=== PATIENT | male | born 1945 | race Caucasian/White ===

== ENCOUNTER 2018-09-02 11:08 | Inpatient (IN) | payer MEDICARE ==
[2018-09-02] VITALS (12 sets, daily range): BP systolic 127–166; BP diastolic 56–79
[~2018-09-02] VITALS: Ht 175.3 cm; Wt 113.6 kg
[~2018-09-02 11:08] MED LIST: ATOR40TA59 PO; DILT120C80 PO; GLIP10TA13 PO; HYDR-2766 PO; METF10007 PO; METO-269 PO; OMEP40CA5 PO; TIZA4CAP PO; WARF-31 PO; WARF2.5T71 PO
[2018-09-02] MEDS ORDERED: dilTIAZem IV PUSH 25 MG/5 ML VIAL IVP ONE ×2 (11:30→12:30)
--- NOTE | 2018-09-02 12:18 | PHYS DOC ---
Past Medical History Past Medical History: A-Fib, CVA, Diabetes-Type II, GERD, High Cholesterol, Hypertension, Vascular Disease Past Surgical History: Other Additional Past Surgical Histo: COLON RESECTION FOR DIVERTICULITIS,REMOVAL OF POP TOP FROM RIGHT UPPER LUNG Alcohol Use: None Drug Use: None Adult General Chief Complaint Chief Complaint: RAPID HEART RATE HPI HPI Patient is a 73-year-old male who presents with report of rapid A. fib. He indicates that he is been feeling poorly for the last few weeks but over the last 4 days, he states that he has been feeling much worse. He indicates that for the last few days he has had intermittent chest discomfort that occurs only on exertion. He also gets shortness of breath with exertion. Currently he does admit to some shortness of breath but denies any chest pain. He states his last episode of chest pain was just before coming to the emergency room when he gotten up to go to the bathroom and developed chest pain while walking. Patient indicates that he does have a history of atrial fibrillation and is on warfarin. He states that nothing improves his symptoms. Review of Systems Review of Systems Constitutional: Denies fever or chills [] Respiratory: Complains of shortness of breath[] Cardiovascular: Complains of exertional chest pain[] GI: Denies abdominal pain, nausea, vomiting, bloody stools or diarrhea [] Musculoskeletal: Complains of lower extremity swelling and pain[] Integument: Complains of skin lesion/open sores on lower legs with erythema[] All other systems were reviewed and found to be within normal limits, except as documented in this note. Current Medications Current Medications Current Medications Medications (Trade) Dose Ordered Sig/[facility] Start Time Stop Time Status Last Admin Dose Admin Acetaminophen/ Hydrocodone Bitart (Lortab 5/325) 1 tab 1X ONCE 09/02/18 13:00 09/02/18 13:01 DC 09/02/18 13:02 1 TAB Diltiazem HCl (Cardizem) 10 mg 1X ONCE 09/02/18 12:30 09/02/18 12:31 DC 09/02/18 12:47 10 MG Diltiazem HCl 125 mg/Dextrose 125 ml @ 5 mls/hr CONT PRN 09/02/18 12:30 09/02/18 12:48 5 MLS/HR Phytonadione (Mephyton Oral Soln) 2.5 mg 1X ONCE 10/12/18 15:00 09/02/18 15:01 Allergies Allergies Allergies Coded Allergies Type Severity Reaction Last Updated Verified Penicillins Allergy Intermediate hives 06/19/14 Yes Physical Exam Physical Exam Constitutional: Well developed, well nourished, no acute distress, non-toxic appearance. [] HENT: Normocephalic, atraumatic, bilateral external ears normal, oropharynx moist, no oral exudates, nose normal. [] Eyes: PERRLA, EOMI, conjunctiva are pale. [] Neck: Normal range of motion, no tenderness, supple, no stridor. [] Cardiovascular: Markedly tachycardic rate with irregular rhythm[] Lungs & Thorax: There are a few rales noted in the lung bases bilaterally[] Abdomen: Bowel sounds normal, soft, no tenderness. Rectal exam demonstrates good rectal tone with light brown stool. [] Skin: Warm, dry, erythema noted to the lower legs. [] Extremities: There is moderate lower extremity pitting edema noted bilaterally. [] Neurologic: Alert and oriented appropriate for patient, no focal deficits noted. [] Current Patient Data Vital Signs Vital Signs Date Time Temp Pulse Resp B/P (MAP) Pulse Ox O2 Delivery O2 Flow Rate FiO2 09/02/18 14:25 20 100 Nasal Cannula 1.0 09/02/18 14:24 122 127/77 (94) 09/02/18 11:08 97.9 97.9 Lab Values Laboratory Tests Test 09/02/18 11:20 09/02/18 11:37 09/02/18 12:12 White Blood Count 16.9 x10^3/uL (4.0-11.0) H Red Blood Count 2.52 x10^6/uL (4.30-5.70) L Hemoglobin 5.6 g/dL (13.0-17.5) *L Hematocrit 18.9 % (39.0-53.0) *L Mean Corpuscular Volume 75 fL (79-100) L Mean Corpuscular Hemoglobin 22 pg (25-35) L Mean Corpuscular Hemoglobin Concent 30 g/dL (31-37) L Red Cell Distribution Width 20.9 % (11.5-14.5) H Platelet Count 394 x10^3/uL (140-400) Neutrophils (%) (Auto) 79 % (31-73) H Lymphocytes (%) (Auto) 9 % (24-48) L Monocytes (%) (Auto) 11 % (0-9) H Eosinophils (%) (Auto) 0 % (0-3) Basophils (%) (Auto) 0 % (0-3) Neutrophils # (Auto) 13.4 x10^3uL (1.8-7.7) H Lymphocytes # (Auto) 1.6 x10^3/uL (1.0-4.8) Monocytes # (Auto) 1.9 x10^3/uL (0.0-1.1) H Eosinophils # (Auto) 0.0 x10^3/uL (0.0-0.7) Basophils # (Auto) 0.0 x10^3/uL (0.0-0.2) Segmented Neutrophils % 89 % (35-66) H Lymphocytes % 2 % (24-48) L Monocytes % 7 % (0-10) Eosinophils % 1 % (0-5) Basophils % 1 % (0-3) Platelet Estimate Adequate (ADEQUATE) Hypochromasia Mod Poikilocytosis Slight Anisocytosis Mod Microcytosis Mod Ovalocytes Occ Prothrombin Time 60.5 SEC (11.7-14.0) H Prothrombin Time INR 7.2 (0.8-1.1) *H Sodium Level 139 mmol/L (136-145) Potassium Level 4.9 mmol/L (3.5-5.1) Chloride Level 104 mmol/L (98-107) Carbon Dioxide Level 19 mmol/L (21-32) L Anion Gap 16 (6-14) H Blood Urea Nitrogen 24 mg/dL (8-26) Creatinine 1.9 mg/dL (0.7-1.3) H Estimated GFR (Cockcroft-Gault) 34.8 BUN/Creatinine Ratio 13 (6-20) Glucose Level 208 mg/dL (70-99) H Calcium Level 8.8 mg/dL (8.5-10.1) Magnesium Level 1.7 mg/dL (1.8-2.4) L Total Bilirubin 0.4 mg/dL (0.2-1.0) Aspartate Amino Transferase (AST) 14 U/L (15-37) L Alanine Aminotransferase (ALT) 12 U/L (16-63) L Alkaline Phosphatase 104 U/L (46-116) Troponin I Quantitative < 0.017 ng/mL (0.000-0.055) FD-Oyv-C-Type Natriuretic Peptide 8266 pg/mL (0-124) H Total Protein 7.2 g/dL (6.4-8.2) Albumin 2.5 g/dL (3.4-5.0) L Albumin/Globulin Ratio 0.5 (1.0-1.7) L Thyroid Stimulating Hormone (TSH) 1.619 uIU/mL (0.358-3.74) POC Troponin I 0.02 ng/ml (<0.08) Stool Occult Blood Negative (NEG) Laboratory Tests 09/02/18 11:20 Laboratory Tests 09/02/18 11:20 EKG EKG [] Interpretation Time: EKG demonstrates atrial fibrillation with RVR with rate of 152. Radiology/Procedures Radiology/Procedures [] Impressions: Chest x-ray demonstrates some mild interstitial prominence Course & Med Decision Making Course & Med Decision Making Pertinent Labs and Imaging studies reviewed. (See chart for details) [] Dragon Disclaimer Dragon Disclaimer This electronic medical record was generated, in whole or in part, using a voice recognition dictation system. Departure Departure Impression: Primary Impression: Atrial fibrillation with RVR Additional Impressions: CHF (congestive heart failure) Symptomatic anemia Disposition: ADMITTED INPATIENT Admitting Physician: Kendra Haskins Condition: GUARDED Referrals: CONY BERRIOS MD (PCP) Problem Qualifiers Additional Impressions: CHF (congestive heart failure) Heart failure type: unspecified Heart failure chronicity: unspecified Qualified Codes: I50.9 - Heart failure, unspecified KEENAN LEVIN Jr. DO Sep 02, 2018 12:18
--- NOTE | 2018-09-02 12:19 | EKG ---
[facility] [address] [place] [address] Test Date: 2018-09-02 Test Time: 11:13:43 Pat Name: LISSA TIRADO Department: Room: Gender: M Launch Operator: : 1945 Requested By: KEENAN LEVIN Order Number: [id number] Reading MD: Andrez Chavez MD Measurements Intervals [place] Rate: 152 P: VA: QRS: 42 QRSD: 80 T: -105 QT: 228 QTc: 368 Interpretive Statements ATRIAL FIBRILLATION WITH RVR Electronically Signed On 09-05-2018 8:50:56 CDT by Andrez Chavez MD
[2018-09-02 12:25] LABS: BASO % 0 % (0-3); EOS % 0 % (0-3); LYMPH # 1.6 x10^3/uL (1.0-4.8); LYMPH % 9 % (24-48); MEAN CORPUSCULAR HEMOGLOBIN 22 pg (25-35); MEAN CORPUSCULAR HGB CONC 30 g/dL (31-37); MEAN CORPUSCULAR VOLUME 75 fL (79-100); MONO # 1.9 x10^3/uL (0.0-1.1); MONO % 11 % (0-9); NEUT # 13.4 x10^3uL (1.8-7.7); NEUT % 79 % (31-73); PLATELET COUNT 394 x10^3/uL (140-400); RED BLOOD COUNT 2.52 x10^6/uL (4.30-5.70); RED CELL DISTRIBUTION WIDTH 20.9 % (11.5-14.5); WHITE BLOOD COUNT 16.9 x10^3/uL (4.0-11.0)
[2018-09-02 12:26] LABS: HEMATOCRIT 18.9 % (39.0-53.0); HEMOGLOBIN 5.6 g/dL (13.0-17.5)
[2018-09-02 12:28] LABS: PROTHROMBIN TIME PATIENT 60.5 SEC (11.7-14.0)
[2018-09-02 12:44] LABS: ALBUMIN 2.5 g/dL (3.4-5.0); ALBUMIN/GLOBULIN RATIO 0.5 (1.0-1.7); CALCIUM 8.8 mg/dL (8.5-10.1); CREATININE 1.9 mg/dL (0.7-1.3); GFR 34.8; POTASSIUM 4.9 mmol/L (3.5-5.1); TOTAL BILIRUBIN 0.4 mg/dL (0.2-1.0); TOTAL PROTEIN 7.2 g/dL (6.4-8.2)
[2018-09-02 12:45] LABS: MAGNESIUM 1.7 mg/dL (1.8-2.4)
[2018-09-02] MEDS: dilTIAZem INJ 125 MG in IV DEXTROSE 5% 100ML 100 ML IV PRN ×2 (12:48→22:06)
[2018-09-02] MEDS ORDERED: HYDROcodone/APAP 5/325MG 1 TAB TABLET PO ONE (13:00)
[2018-09-02 13:03] LABS: % BASOS 1 % (0-3); % EOS 1 % (0-5); % LYMPHS 2 % (24-48); % MONOS 7 % (0-10); % SEGS 89 % (35-66)
[2018-09-02 13:12] LABS: ANISOCYTOSIS MOD; HYPOCHROMIA MOD; MICROCYTOSIS MOD; PLT ESTIMATE ADEQUATE (ADEQUATE)
[2018-09-02 13:13] LABS: OVALOCYTES OCC; POIKILOCYTOSIS SLIGHT
[2018-09-02 13:50] LABS: FECAL OB PT NEGATIVE (NEG)
--- NOTE | 2018-09-02 14:58 | PDOC1 ---
History and Physical Date of Admission Date of Admission DATE: 09/02/18 TIME: 14:56 Identification/Chief Complaint Chief Complaint Weak, SOA Source Source: Caregiver, Chart review, Patient History of Present Illness History of Present Illness 43-year-old male who lives at home with family, previously was at [facility] when I last saw him 2 years ago and has managed to be out of the hospital for 2 yrs. He was here 2016 for a diagnosis of strep bacteremia with chronic A. fib lows with Dr. Barney. On Coumadin, INR is 7, with a hemoglobin of 5.6, but family actually says that he has been skipping his medications for the past couple weeks. WBC 16.9 with platelets 394. He has multiple petechiae on bilateral upper and lower extremity that family just noticed when I called their attention to, Patient complains of leg pains, legs are very dry, with scaling and sloughing off dry skin - swollen legs with long toenails and poor overall hygiene. He denies ny SOA or chest pain current;y. He is A. fib RVR with a heart rate of 120s, to be started on Cardizem drip. Other labs that are abnormal include a bicarbonate of 19 and a creatinine of 1.9. Anion gap elevated at 16. My plan is to hold metformin and warfarin. I agree with vitamin K by mouth because of the high INR with significant anemia, hemoglobin of 5.6. He is pale as the sheets,. We Did type and cross for 2 units as discussed with ER Merna. I also concerned to rule out DIC given petechia, high INR, significant anemia. We'll check a d-dimer and fibrinogen and fibrin split products. Stat x-rays done but pending. Albumin is also low at 2.5. BNP elevated at 8300 and seems to have an element of heart failure likewise. We will give some Lasix 60 IV 1, consult renal regarding the need for Lasix and a creatinine of 1.9, regarding anasarca. Low magnesium, will replace, magnesium is 1.7 Multiple medical issues, seen at ER, will admit to ICU on Cardizem drip Past Medical History Cardiovascular: AFIB, CHF, HTN, Hyperlipidemia Infectious disease: Other (strep bacteremia 2016) Dermatology: Cellulitis Past Surgical History Past Surgical History: No pertinent history Family History Family History: High Cholestrol, Hypertension Social History Smoke: No ALCOHOL: none Drugs: None Current Problem List Problem List Problems Medical Problems: (1) Atrial fibrillation with RVR Status: Acute (2) CHF (congestive heart failure) Status: Acute (3) Symptomatic anemia Status: Acute Current Medications Current Medications Current Medications Diltiazem HCl (Cardizem) 10 mg 1X ONCE IVP Last administered on 09/02/18at 11: 31; Start 09/02/18 at 11:30; Stop 09/02/18 at 11:31; Status DC Diltiazem HCl (Cardizem) 10 mg 1X ONCE IVP Last administered on 09/02/18at 12: 47; Start 09/02/18 at 12:30; Stop 09/02/18 at 12:31; Status DC Diltiazem HCl 125 mg/Dextrose 125 ml @ 5 mls/hr CONT PRN IV SEE I/O RECORD Last administered on 09/02/18at 12:48; Start 09/02/18 at 12:30 Acetaminophen/ Hydrocodone Bitart (Lortab 5/325) 1 tab 1X ONCE PO Last administered on 09/02/18at 13:02; Start 09/02/18 at 13:00; Stop 09/02/18 at 13 :01; Status DC Phytonadione (Mephyton Oral Soln) 2.5 mg 1X ONCE PO ; Start 09/02/18 at 15:00 ; Stop 09/02/18 at 15:01 Furosemide (Lasix) 40 mg BID92 IVP ; Start 09/03/18 at 09:00; Status UNV Furosemide (Lasix) 60 mg 1X ONCE IVP ; Start 09/02/18 at 15:00; Stop at 15:01 Multi-Ingred Cream/Lotion/Oil/ Oint (Hydrocerin Cream) 1 sondra PRN Q1HR PRN TP DRY SKIN / SCALING; Start 09/02/18 at 15:00; Status UNV Albuterol/ Ipratropium (Duoneb) 3 ml RTQID NEB ; Start 09/02/18 at 16:00; Status UNV Guaifenesin (Robitussin Dm) 10 ml PRN Q6HRS PRN PO COUGH; Start 09/02/18 at 15 :00; Status UNV Active Scripts Active Reported Toprol Xl (Metoprolol Succinate) 50 Mg Tab.er.24h 50 Mg PO DAILY Glipizide 10 Mg Tablet 10 Mg PO DAILY Diltiazem 24HR Cd (Diltiazem Hcl) 120 Mg Cap.er.24h 120 Mg PO DAILY Tizanidine Hcl 4 Mg Capsule 4 Mg PO QID PRN Omeprazole 40 Mg Capsule.dr 40 Mg PO DAILY Hydrocodone-Apap 10-325 (Hydrocodone Bit/Acetaminophen) 1 Each Tablet 1 Tab PO PRN Q6HRS PRN Metformin Hcl 1,000 Mg Tablet 1,000 Mg PO BID Warfarin Sodium 5 Mg Tablet 5 Mg PO DAILY Warfarin Sodium 2.5 Mg Tablet 2.5 Mg PO DAILY Atorvastatin Calcium 40 Mg Tablet 40 Mg PO DAILY Allergies Allergies: Coded Allergies: Penicillins (Verified Allergy, Intermediate, hives, 06/19/14) ROS Review of System as per history of present illness, the rest of ROS 14 point negative Physical Exam General: Alert, Oriented X3, Cooperative, No acute distress HEENT: Atraumatic, PERRLA Lungs: Normal air movement, Other (crAckles at the bases) Heart: no thrills, no rubs, no gallops, no murmurs, irregularly irregular, other (heart rate 120s, A. fib) Cardiovascular: S1, S2 Abdomen: Normal bowel sounds, Soft, No tenderness, No hepatosplenomegaly, No masses Male Genitals Exam: normal genitalia Skin: Other (very dry skin with sloughing off of some epidermidis, scaling, long toenails, poor overall hygiene, +3 pitting edema left greater than the right some redness appreciable) Neuro: Normal gait, Normal speech, Strength at 5/5 X4 ext, Normal tone, Sensation intact, Cranial nerves 3-12 NL, Reflexes 2+ Psych/Mental Status: Mental status NL, Mood NL Vitals Vitals Vital Signs Date Time Temp Pulse Resp B/P (MAP) Pulse Ox O2 Delivery O2 Flow Rate FiO2 09/02/18 14:25 20 100 Nasal Cannula 1.0 09/02/18 14:24 122 127/77 (94) 09/02/18 11:08 97.9 97.9 Labs Labs Laboratory Tests Test 09/02/18 11:20 09/02/18 11:37 09/02/18 12:12 White Blood Count 16.9 x10^3/uL (4.0-11.0) Red Blood Count 2.52 x10^6/uL (4.30-5.70) Hemoglobin 5.6 g/dL (13.0-17.5) Hematocrit 18.9 % (39.0-53.0) Mean Corpuscular Volume 75 fL (79-100) Mean Corpuscular Hemoglobin 22 pg (25-35) Mean Corpuscular Hemoglobin Concent 30 g/dL (31-37) Red Cell Distribution Width 20.9 % (11.5-14.5) Platelet Count 394 x10^3/uL (140-400) Neutrophils (%) (Auto) 79 % (31-73) Lymphocytes (%) (Auto) 9 % (24-48) Monocytes (%) (Auto) 11 % (0-9) Eosinophils (%) (Auto) 0 % (0-3) Basophils (%) (Auto) 0 % (0-3) Neutrophils # (Auto) 13.4 x10^3uL (1.8-7.7) Lymphocytes # (Auto) 1.6 x10^3/uL (1.0-4.8) Monocytes # (Auto) 1.9 x10^3/uL (0.0-1.1) Eosinophils # (Auto) 0.0 x10^3/uL (0.0-0.7) Basophils # (Auto) 0.0 x10^3/uL (0.0-0.2) Segmented Neutrophils % 89 % (35-66) Lymphocytes % 2 % (24-48) Monocytes % 7 % (0-10) Eosinophils % 1 % (0-5) Basophils % 1 % (0-3) Platelet Estimate Adequate (ADEQUATE) Hypochromasia Mod Poikilocytosis Slight Anisocytosis Mod Microcytosis Mod Ovalocytes Occ Prothrombin Time 60.5 SEC (11.7-14.0) Prothromb Time International Ratio 7.2 (0.8-1.1) Sodium Level 139 mmol/L (136-145) Potassium Level 4.9 mmol/L (3.5-5.1) Chloride Level 104 mmol/L (98-107) Carbon Dioxide Level 19 mmol/L (21-32) Anion Gap 16 (6-14) Blood Urea Nitrogen 24 mg/dL (8-26) Creatinine 1.9 mg/dL (0.7-1.3) Estimated GFR (Cockcroft-Gault) 34.8 BUN/Creatinine Ratio 13 (6-20) Glucose Level 208 mg/dL (70-99) Calcium Level 8.8 mg/dL (8.5-10.1) Magnesium Level 1.7 mg/dL (1.8-2.4) Total Bilirubin 0.4 mg/dL (0.2-1.0) Aspartate Amino Transf (AST/SGOT) 14 U/L (15-37) Alanine Aminotransferase (ALT/SGPT) 12 U/L (16-63) Alkaline Phosphatase 104 U/L (46-116) Troponin I Quantitative < 0.017 ng/mL (0.000-0.055) OL-Cbw-Q-Type Natriuretic Peptide 8266 pg/mL (0-124) Total Protein 7.2 g/dL (6.4-8.2) Albumin 2.5 g/dL (3.4-5.0) Albumin/Globulin Ratio 0.5 (1.0-1.7) Thyroid Stimulating Hormone (TSH) 1.619 uIU/mL (0.358-3.74) Bedside Troponin I 0.02 ng/ml (<0.08) Stool Occult Blood Negative (NEG) Laboratory Tests Test 09/02/18 11:20 09/02/18 11:37 09/02/18 12:12 White Blood Count 16.9 x10^3/uL (4.0-11.0) Red Blood Count 2.52 x10^6/uL (4.30-5.70) Hemoglobin 5.6 g/dL (13.0-17.5) Hematocrit 18.9 % (39.0-53.0) Mean Corpuscular Volume 75 fL (79-100) Mean Corpuscular Hemoglobin 22 pg (25-35) Mean Corpuscular Hemoglobin Concent 30 g/dL (31-37) Red Cell Distribution Width 20.9 % (11.5-14.5) Platelet Count 394 x10^3/uL (140-400) Neutrophils (%) (Auto) 79 % (31-73) Lymphocytes (%) (Auto) 9 % (24-48) Monocytes (%) (Auto) 11 % (0-9) Eosinophils (%) (Auto) 0 % (0-3) Basophils (%) (Auto) 0 % (0-3) Neutrophils # (Auto) 13.4 x10^3uL (1.8-7.7) Lymphocytes # (Auto) 1.6 x10^3/uL (1.0-4.8) Monocytes # (Auto) 1.9 x10^3/uL (0.0-1.1) Eosinophils # (Auto) 0.0 x10^3/uL (0.0-0.7) Basophils # (Auto) 0.0 x10^3/uL (0.0-0.2) Segmented Neutrophils % 89 % (35-66) Lymphocytes % 2 % (24-48) Monocytes % 7 % (0-10) Eosinophils % 1 % (0-5) Basophils % 1 % (0-3) Platelet Estimate Adequate (ADEQUATE) Hypochromasia Mod Poikilocytosis Slight Anisocytosis Mod Microcytosis Mod Ovalocytes Occ Prothrombin Time 60.5 SEC (11.7-14.0) Prothromb Time International Ratio 7.2 (0.8-1.1) Sodium Level 139 mmol/L (136-145) Potassium Level 4.9 mmol/L (3.5-5.1) Chloride Level 104 mmol/L (98-107) Carbon Dioxide Level 19 mmol/L (21-32) Anion Gap 16 (6-14) Blood Urea Nitrogen 24 mg/dL (8-26) Creatinine 1.9 mg/dL (0.7-1.3) Estimated GFR (Cockcroft-Gault) 34.8 BUN/Creatinine Ratio 13 (6-20) Glucose Level 208 mg/dL (70-99) Calcium Level 8.8 mg/dL (8.5-10.1) Magnesium Level 1.7 mg/dL (1.8-2.4) Total Bilirubin 0.4 mg/dL (0.2-1.0) Aspartate Amino Transf (AST/SGOT) 14 U/L (15-37) Alanine Aminotransferase (ALT/SGPT) 12 U/L (16-63) Alkaline Phosphatase 104 U/L (46-116) Troponin I Quantitative < 0.017 ng/mL (0.000-0.055) YF-Qnm-F-Type Natriuretic Peptide 8266 pg/mL (0-124) Total Protein 7.2 g/dL (6.4-8.2) Albumin 2.5 g/dL (3.4-5.0) Albumin/Globulin Ratio 0.5 (1.0-1.7) Thyroid Stimulating Hormone (TSH) 1.619 uIU/mL (0.358-3.74) Bedside Troponin I 0.02 ng/ml (<0.08) Stool Occult Blood Negative (NEG) VTE Prophylaxis Ordered VTE Prophylaxis Devices: Yes VTE Pharmacological Prophylaxi: Yes Assessment/Plan Assessment/Plan acute on chronic A. fib, now RVR Supra therapeutic INR beat despite being noncompliant or skipping warfarin for the past couple days or weeks now as per family Critical/significant anemia, hemoglobin 5.6 Reactive leukocytosis versus infectious Possibly beginning cellulitis bilateral lower extremity Lymphedema bilateral lower extremity Tenia pedis Dry skin AK I/VMN possibly CK D Anasarca Gap metabolic acidosis with an anion gap of 16 and a bicarbonate of 19 Dyslipidemia on statin Diabetes on metformin-hold metformin given creatinine CHF, need to check an echo to see if systolic or diastolic-BNP is elevated at 8300 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-nutrition consult [place] Petecchiae bilateral upper and bilateral lower extremity Generalized weakness-did need [facility] in 2016 History of strep bacteremia 2016 Hypomagnesemia (1.7) Met encephalopathy POA, resolved by the time of ER arrival CP POA< resolved at ER Lymphedema PCN allergy unknown reaction Plan Admit ICU, Cardize drip Consult cardiology Check TSH that is pending HOld metformin given AK I, consult renal regarding Lasix on Wednesday for Lasix anasarca and high creatinine heck hgb A1c Sliding scale insulin high-dose Nutrition consult for that low albumin Start clindamycin regarding possibly beginning cellulitis of bilateral lower extremity Agree with 2 units packed RBC after getting d-dimer fibrin split products and supervision level to rule out DIC in this patient with high INR, significant anemia, Consult heme onc regarding the above Social work, might need SNU Further conditions pending above course DVT prophylaxis with SCDs only because of significant anemia and Petecchiae Consult podiatry regarding toenail clipping Eucerin lotion for dry skin OT for lymphedema PT OT Seen at ER Dw family MDM complex FULL CODE KRISTEN MARQUIS MD Sep 02, 2018 14:58
[2018-09-02] MEDS ORDERED: PHYTONADIONE 10 MG/ML ORAL SOLUTION. PO ONE (15:00)
[2018-09-02] MEDS ORDERED: ONDANSETRON ODT 4 MG TAB.RAPDIS. PO PRN (15:00)
[2018-09-02] MEDS ORDERED: FUROSEMIDE 40 MG/4 ML VIAL. IVP ONE (15:00)
[2018-09-02] MEDS ORDERED: MINERAL OIL/PETROLATUM TOPICAL CREAM 113GM JAR. TP PRN (15:00)
[2018-09-02] MEDS ORDERED: TIZANIDINE HCL 4 MG PO PRN (15:00)
[2018-09-02] MEDS ORDERED: DEXTROSE 50% 25 GM / 50ML DISP.SYRIN. IV PRN (15:00)
[2018-09-02] MEDS ORDERED: ACETAMINOPHEN 500 MG TABLET PO PRN (15:00)
[2018-09-02] MEDS ORDERED: ONDANSETRON PF 4 MG/2 ML VIAL. IV PRN (15:00)
[2018-09-02] MEDS ORDERED: guaiFENesin DM 200MG/20MG 10 ML SYRUP PO PRN (15:00)
[2018-09-02 15:03] LABS: FIBRINOGEN 677 mg/dL (200-440)
[2018-09-02 15:09] LABS: D-DIMER < 0.27 ug/mlFEU (0.00-0.50)
--- NOTE | 2018-09-02 15:09 | RAD ---
Portable chest, 09/02/2018: HISTORY: Chest pain Comparison is made to a study from 11/14/2015. The patient is rotated to the right. The heart is at the upper limits of normal in size. The pulmonary vascularity is normal. Mild ongoing pleural-parenchymal opacities on the right are probably scars. No acute consolidation is seen. There is no evidence of pleural fluid. IMPRESSION: 1. Mild pleural/parenchymal scarring on the right. 2. No acute abnormality is detected. Electronically signed by: Richy Hicks MD (09/02/2018 3:06 PM) [facility]
[2018-09-02] MEDS ORDERED: CLINDAMYCIN 600MG PREMIX 50 ML IV ONE (15:30)
[2018-09-02] MEDS ORDERED: MAGNESIUM SULFATE 1GM 100 ML IV ONE (15:30)
[2018-09-02] MEDS: IPRATRPIUM/ALBUTEROL 0.5/2.5MG 3 ML NEBU. NEB SCH ×2 (16:17→20:01)
[2018-09-02] MEDS ORDERED: tiZANidine 4 MG TABLET. PO PRN (16:30)
--- NOTE | 2018-09-02 16:30 | RAD ---
Bilateral lower extremity venous ultrasound, 09/02/2018: History: Left leg swelling and pain Duplex evaluation of the deep veins in the lower extremities was performed including grayscale, color-flow and spectral Doppler analysis. The femoral and popliteal veins demonstrate normal compressibility and normal responses to distal augmentation maneuvers. Color imaging of those vessels shows no evidence of intraluminal clot. The deep veins in the calves were not adequately visualized due to the patient's body habitus and swelling. IMPRESSION: 1. There is no sonographic evidence of deep vein thrombosis in either lower extremity from the level of the groin down through the popliteal fossa. 2. Inadequate delineation of the deep veins in the calves. Electronically signed by: Richy Hicks MD (09/02/2018 4:27 PM) [facility]
[2018-09-02] MEDS: INSULIN LISPRO 300 UNITS/3 ML INSULN.PEN. SQ SCH (17:00)
[2018-09-02] MEDS: HYDROcodone/APAP 10/325 1 TAB TABLET PO PRN (18:48)
[2018-09-02] MEDS ORDERED: DIGOXIN IV 500 MCG/2 ML AMPUL. IV ONE (19:00)
--- NOTE | 2018-09-02 20:11 | PDOC2 ---
CONSULT Date of Consult Date of Consult DATE: 09/02/18 TIME: 19:57 Reason for consultation: Coagulopathy Consult: Hematology oncology, Dr. Luisa Darling History of present illness: Patient is a 73-year-old male who was admitted with Keith barr with RVR with therapeutic INR, he was given 2.5 mg of oral Coumadin for an INR of 7.2, he denies any bleeding but does have bruising and a petechial rash, platelet count is normal, and we were consulted for possible DIC due to the elevated INR and petechial rash. Petechiae are acute, small, diffuse, on arms and extending to legs, ongoing for a few days, not associated with bleeding or itching or pain but he does have bruising, and have worsened over time. He has dark stool when he takes his vitamin D otherwise denies any dark stool or blood in his stool, a fecal occult blood test was negative here. He does have some renal insufficiency with a creatinine of 1.9 and elevated BNP. He has lower extremity edema and erythema concerning for cellulitis with some slight skin ulceration on the left lower extremity and bilateral lower extremity ultrasounds were negative for clot. Past medical history: Diabetes mellitus Hypertension Hyperlipidemia Anemia Heart failure Keith barr Reported colon cancer GERD Obesity Incontinence Past surgical history: Reported colon cancer surgery Cholecystectomy Cardiac catheterization Allergies: Penicillin Medications: See attached list Social history: Lives at home, reported tobacco Family history: Hypertension and hyperlipidemia Review of systems: Malaise, lower extremity edema, erythema, dark stool when he takes his vitamin D, petechial rash, weakness, otherwise 10 point review of systems negative Physical exam: Vitals reviewed Gen.: Obese elderly male lying in bed in no acute distress HEENT: mucous membranes moist, head normocephalic atraumatic Neck: Supple, no lymphadenopathy Lymph nodes: No palpable lymphadenopathy neck or axilla Lungs: Breathing comfortably, no evidence of respiratory distress Heart: Increased heart rate Abdomen: Soft, nontender, distended Extremities: Lower extremity edema with erythema and some ulceration over the skin small anterior lower camp left Skin: Diffuse petechiae over arms and legs, nonblanching, with erythema bilateral lower extremities and ulceration Neuro: Alert and oriented 3 Psych: Pleasant mood and affect Lab reviewed: White count 16.9, hemoglobin 5.6, platelets 324, MCV 75 Creatinine 1.9 BNP 8266 TSH 1.6 Fecal occult blood test negative D-dimer less than 0.27 Fibrinogen 677 INR 7.2 Rads reviewed: Chest x-ray with mild pleural parenchymal scarring on the right Bilateral lower extremity ultrasounds negative for clot Case discussed with: Patient, his nursing team, and records reviewed in [facility] including labs and radiology, please see note for summary details Assessment and Plan: He is a 73-year-old male admitted for A. fib with RVR on diltiazem drip, cardiology has been consulted, he also has Coumadin for his history of A. 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 fib: Cardiology is involved Cellulitis: He's been given clindamycin Acute kidney injury: Deferred to primary Lymphedema: Lower extremities OT has been consulted Thank you kindly for this consultation, and please don't hesitate to call the on -call physician with questions over the weekend. Past Medical History Cardiovascular: AFIB, CHF, HTN, Hyperlipidemia Infectious disease: Other (strep bacteremia 2016) Dermatology: Cellulitis Past Surgical History Past Surgical History: No pertinent history Family History Family History: High Cholestrol, Hypertension Social History No ALCOHOL: none Drugs: None Current Problem List Problem List Problems Medical Problems: (1) Atrial fibrillation with RVR Status: Acute (2) CHF (congestive heart failure) Status: Acute (3) Symptomatic anemia Status: Acute Current Medications Current Medications Current Medications Diltiazem HCl (Cardizem) 10 mg 1X ONCE IVP Last administered on 09/02/18at 11: 31; Start 09/02/18 at 11:30; Stop 09/02/18 at 11:31; Status DC Diltiazem HCl (Cardizem) 10 mg 1X ONCE IVP Last administered on 09/02/18at 12: 47; Start 09/02/18 at 12:30; Stop 09/02/18 at 12:31; Status DC Diltiazem HCl 125 mg/Dextrose 125 ml @ 5 mls/hr CONT PRN IV SEE I/O RECORD Last administered on 09/02/18at 12:48; Start 09/02/18 at 12:30 Acetaminophen/ Hydrocodone Bitart (Lortab 5/325) 1 tab 1X ONCE PO Last administered on 09/02/18at 13:02; Start 09/02/18 at 13:00; Stop 09/02/18 at 13 :01; Status DC Phytonadione (Mephyton Oral Soln) 2.5 mg 1X ONCE PO Last administered on 09/02at 15:36; Start 09/02/18 at 15:00; Stop 09/02/18 at 15:01; Status DC Furosemide (Lasix) 40 mg BID92 IVP ; Start 09/03/18 at 09:00 Furosemide (Lasix) 60 mg 1X ONCE IVP Last administered on 09/02/18at 15:36; Start 09/02/18 at 15:00; Stop 09/02/18 at 15:01; Status DC Multi-Ingred Cream/Lotion/Oil/ Oint (Hydrocerin Cream) 1 sondra PRN Q1HR PRN TP DRY SKIN / SCALING; Start 09/02/18 at 15:00 Albuterol/ Ipratropium (Duoneb) 3 ml RTQID NEB Last administered on 09/02/18at 16:17; Start 09/02/18 at 16:00 Guaifenesin (Robitussin Dm) 10 ml PRN Q6HRS PRN PO COUGH; Start 09/02/18 at 15 :00 Acetaminophen (Tylenol) 500 mg PRN Q6HRS PRN PO HEADACHE / TEMP; Start at 15:00 Acetaminophen/ Codeine Phosphate (Tylenol #3) 1 tab PRN Q6HRS PRN PO PAIN MILD ; Start 09/02/18 at 15:00 Ondansetron HCl (Zofran) 4 mg PRN Q6HRS PRN IV NAUSEA/VOMITING 1ST CHOICE; Start 09/02/18 at 15:00 Ondansetron HCl (Zofran Odt) 4 mg PRN Q6HRS PRN PO NAUSEA/VOMITING; Start 11/08 at 15:00 Morphine Sulfate (Morphine Sulfate) 1 mg PRN Q2HR PRN IV PAIN SEVERE; Start at 15:00 Atorvastatin Calcium (Lipitor) 40 mg QHS PO ; Start 09/02/18 at 21:00 Diltiazem HCl (Cardizem 24hr Cd) 120 mg DAILY PO ; Start 09/03/18 at 09:00 Glipizide (Glucotrol) 10 mg DAILY07 PO ; Start 09/03/18 at 07:00 Acetaminophen/ Hydrocodone Bitart (Lortab 10/325) 1 tab PRN Q6HRS PRN PO PAIN Last administered on 09/02/18at 18:48; Start 09/02/18 at 16:30 Metoprolol Succinate (Toprol Xl) 50 mg DAILY PO ; Start 09/03/18 at 09:00 Pantoprazole Sodium (Protonix) 40 mg DAILYAC PO ; Start 09/03/18 at 07:30 Non-Formulary Medication (Tizanidine Hcl ) 4 mg PRN QID PRN PO MUSCLE SPASMS; Start 09/02/18 at 15:00; Stop 09/02/18 at 16:26; Status DC Insulin Human Lispro (HumaLOG) 0-9 UNITS TIDWMEALS SQ ; Start 09/02/18 at 17:00 Dextrose (Dextrose 50%-Water Syringe) 12.5 gm PRN Q15MIN PRN IV SEE COMMENTS; Start 09/02/18 at 15:00 Magnesium Sulfate/ Dextrose 100 ml @ 100 mls/hr 1X ONCE IV ; Start 09/02/18 at 15:30; Stop 09/02/18 at 16:29; Status DC Clindamycin Phosphate 50 ml @ 100 mls/hr Q8HRS IV ; Start 09/02/18 at 22:00 Clindamycin Phosphate 50 ml @ 100 mls/hr ONCE ONCE IV Last administered on at 16:10; Start 09/02/18 at 15:30; Stop 09/02/18 at 15:59; Status DC Lactobacillus Rhamnosus (Culturelle) 1 cap BID PO ; Start 09/02/18 at 21:00 Tizanidine HCl (Zanaflex) 4 mg PRN Q6HRS PRN PO MUSCLE SPASMS; Start 09/02/18 at 16:30 Digoxin (Lanoxin) 500 mcg 1X ONCE IV Last administered on 09/02/18at 18:49; Start 09/02/18 at 19:00; Stop 09/02/18 at 19:01; Status DC Active Scripts Active Reported Toprol Xl (Metoprolol Succinate) 50 Mg Tab.er.24h 50 Mg PO DAILY Glipizide 10 Mg Tablet 10 Mg PO DAILY Diltiazem 24HR Cd (Diltiazem Hcl) 120 Mg Cap.er.24h 120 Mg PO DAILY Tizanidine Hcl 4 Mg Capsule 4 Mg PO QID PRN Omeprazole 40 Mg Capsule.dr 40 Mg PO DAILY Hydrocodone-Apap 10-325 (Hydrocodone Bit/Acetaminophen) 1 Each Tablet 1 Tab PO PRN Q6HRS PRN Metformin Hcl 1,000 Mg Tablet 1,000 Mg PO BID Warfarin Sodium 5 Mg Tablet 5 Mg PO DAILY Warfarin Sodium 2.5 Mg Tablet 2.5 Mg PO DAILY Atorvastatin Calcium 40 Mg Tablet 40 Mg PO DAILY Allergies Allergies: Coded Allergies: Penicillins (Verified Allergy, Intermediate, hives, 06/19/14) Vitals VITALS Vital Signs Date Time Temp Pulse Resp B/P (MAP) Pulse Ox O2 Delivery O2 Flow Rate FiO2 09/02/18 19:49 91 Room Air 09/02/18 18:56 99.5 115 18 152/77 99.5 09/02/18 16:19 1.0 Labs Labs Laboratory Tests Test 09/02/18 11:20 09/02/18 11:37 09/02/18 12:12 09/02/18 18:20 White Blood Count 16.9 x10^3/uL (4.0-11.0) Red Blood Count 2.52 x10^6/uL (4.30-5.70) Hemoglobin 5.6 g/dL (13.0-17.5) Hematocrit 18.9 % (39.0-53.0) Mean Corpuscular Volume 75 fL (79-100) Mean Corpuscular Hemoglobin 22 pg (25-35) Mean Corpuscular Hemoglobin Concent 30 g/dL (31-37) Red Cell Distribution Width 20.9 % (11.5-14.5) Platelet Count 394 x10^3/uL (140-400) Neutrophils (%) (Auto) 79 % (31-73) Lymphocytes (%) (Auto) 9 % (24-48) Monocytes (%) (Auto) 11 % (0-9) Eosinophils (%) (Auto) 0 % (0-3) Basophils (%) (Auto) 0 % (0-3) Neutrophils # (Auto) 13.4 x10^3uL (1.8-7.7) Lymphocytes # (Auto) 1.6 x10^3/uL (1.0-4.8) Monocytes # (Auto) 1.9 x10^3/uL (0.0-1.1) Eosinophils # (Auto) 0.0 x10^3/uL (0.0-0.7) Basophils # (Auto) 0.0 x10^3/uL (0.0-0.2) Segmented Neutrophils % 89 % (35-66) Lymphocytes % 2 % (24-48) Monocytes % 7 % (0-10) Eosinophils % 1 % (0-5) Basophils % 1 % (0-3) Platelet Estimate Adequate (ADEQUATE) Hypochromasia Mod Poikilocytosis Slight Anisocytosis Mod Microcytosis Mod Ovalocytes Occ Prothrombin Time 60.5 SEC (11.7-14.0) Prothromb Time International Ratio 7.2 (0.8-1.1) Fibrinogen 677 mg/dL (200-440) D-Dimer (Kiley) < 0.27 ug/mlFEU Sodium Level 139 mmol/L (136-145) Potassium Level 4.9 mmol/L (3.5-5.1) Chloride Level 104 mmol/L (98-107) Carbon Dioxide Level 19 mmol/L (21-32) Anion Gap 16 (6-14) Blood Urea Nitrogen 24 mg/dL (8-26) Creatinine 1.9 mg/dL (0.7-1.3) Estimated GFR (Cockcroft-Gault) 34.8 BUN/Creatinine Ratio 13 (6-20) Glucose Level 208 mg/dL (70-99) Calcium Level 8.8 mg/dL (8.5-10.1) Magnesium Level 1.7 mg/dL (1.8-2.4) Total Bilirubin 0.4 mg/dL (0.2-1.0) Aspartate Amino Transf (AST/SGOT) 14 U/L (15-37) Alanine Aminotransferase (ALT/SGPT) 12 U/L (16-63) Alkaline Phosphatase 104 U/L (46-116) Troponin I Quantitative < 0.017 ng/mL (0.000-0.055) 0.022 ng/mL (0.000-0.055) HN-[id number]-I-Type Natriuretic Peptide 8266 pg/mL (0-124) Total Protein 7.2 g/dL (6.4-8.2) Albumin 2.5 g/dL (3.4-5.0) Albumin/Globulin Ratio 0.5 (1.0-1.7) Thyroid Stimulating Hormone (TSH) 1.619 uIU/mL (0.358-3.74) Bedside Troponin I 0.02 ng/ml (<0.08) Stool Occult Blood Negative (NEG) Laboratory Tests Test 09/02/18 11:20 09/02/18 11:37 09/02/18 12:12 09/02/18 18:20 White Blood Count 16.9 x10^3/uL (4.0-11.0) Red Blood Count 2.52 x10^6/uL (4.30-5.70) Hemoglobin 5.6 g/dL (13.0-17.5) Hematocrit 18.9 % (39.0-53.0) Mean Corpuscular Volume 75 fL (79-100) Mean Corpuscular Hemoglobin 22 pg (25-35) Mean Corpuscular Hemoglobin Concent 30 g/dL (31-37) Red Cell Distribution Width 20.9 % (11.5-14.5) Platelet Count 394 x10^3/uL (140-400) Neutrophils (%) (Auto) 79 % (31-73) Lymphocytes (%) (Auto) 9 % (24-48) Monocytes (%) (Auto) 11 % (0-9) Eosinophils (%) (Auto) 0 % (0-3) Basophils (%) (Auto) 0 % (0-3) Neutrophils # (Auto) 13.4 x10^3uL (1.8-7.7) Lymphocytes # (Auto) 1.6 x10^3/uL (1.0-4.8) Monocytes # (Auto) 1.9 x10^3/uL (0.0-1.1) Eosinophils # (Auto) 0.0 x10^3/uL (0.0-0.7) Basophils # (Auto) 0.0 x10^3/uL (0.0-0.2) Segmented Neutrophils % 89 % (35-66) Lymphocytes % 2 % (24-48) Monocytes % 7 % (0-10) Eosinophils % 1 % (0-5) Basophils % 1 % (0-3) Platelet Estimate Adequate (ADEQUATE) Hypochromasia Mod Poikilocytosis Slight Anisocytosis Mod Microcytosis Mod Ovalocytes Occ Prothrombin Time 60.5 SEC (11.7-14.0) Prothromb Time International Ratio 7.2 (0.8-1.1) Fibrinogen 677 mg/dL (200-440) D-Dimer (Kiley) < 0.27 ug/mlFEU Sodium Level 139 mmol/L (136-145) Potassium Level 4.9 mmol/L (3.5-5.1) Chloride Level 104 mmol/L (98-107) Carbon Dioxide Level 19 mmol/L (21-32) Anion Gap 16 (6-14) Blood Urea Nitrogen 24 mg/dL (8-26) Creatinine 1.9 mg/dL (0.7-1.3) Estimated GFR (Cockcroft-Gault) 34.8 BUN/Creatinine Ratio 13 (6-20) Glucose Level 208 mg/dL (70-99) Calcium Level 8.8 mg/dL (8.5-10.1) Magnesium Level 1.7 mg/dL (1.8-2.4) Total Bilirubin 0.4 mg/dL (0.2-1.0) Aspartate Amino Transf (AST/SGOT) 14 U/L (15-37) Alanine Aminotransferase (ALT/SGPT) 12 U/L (16-63) Alkaline Phosphatase 104 U/L (46-116) Troponin I Quantitative < 0.017 ng/mL (0.000-0.055) 0.022 ng/mL (0.000-0.055) TW-Mwn-F-Type Natriuretic Peptide 8266 pg/mL (0-124) Total Protein 7.2 g/dL (6.4-8.2) Albumin 2.5 g/dL (3.4-5.0) Albumin/Globulin Ratio 0.5 (1.0-1.7) Thyroid Stimulating Hormone (TSH) 1.619 uIU/mL (0.358-3.74) Bedside Troponin I 0.02 ng/ml (<0.08) Stool Occult Blood Negative (NEG) LUISA DARLING MD Sep 02, 2018 20:11
[2018-09-02] MEDS: MORPHINE SULFATE 2 MG/ML VIAL. IV PRN ×2 (20:52→22:47)
[2018-09-02] MEDS: LACTOBACILLUS RHAMNOSUS GG 1 CAPSULE. PO SCH (20:54)
[2018-09-02] MEDS: ATORVASTATIN CALCIUM 40 MG TABLET. PO SCH (20:54)
[2018-09-03] VITALS (32 sets, daily range): BP systolic 97–156; BP diastolic 53–72
[2018-09-03 01:14] LABS: HEMOGLOBIN A1C 6.3 % (4.8-5.6)
[2018-09-03] MEDS: HYDROcodone/APAP 10/325 1 TAB TABLET PO PRN ×2 (02:49→13:57)
[2018-09-03] MEDS: CLINDAMYCIN 600MG PREMIX 50 ML IV SCH ×4 (02:58→22:08)
[2018-09-03] MEDS: dilTIAZem INJ 125 MG in IV DEXTROSE 5% 100ML 100 ML IV PRN ×2 (04:03→10:25)
[2018-09-03] MEDS: glipiZIDE 5 MG TABLET PO SCH (06:31)
[2018-09-03] MEDS: PANTOPRAZOLE 40 MG TABLET.DR. PO SCH (06:31)
[2018-09-03 06:49] LABS: ALBUMIN 2.4 g/dL (3.4-5.0); ALBUMIN/GLOBULIN RATIO 0.7 (1.0-1.7); CALCIUM 8.7 mg/dL (8.5-10.1); CREATININE 1.7 mg/dL (0.7-1.3); GFR 39.6; POTASSIUM 4.1 mmol/L (3.5-5.1); TOTAL BILIRUBIN 0.6 mg/dL (0.2-1.0)
[2018-09-03 07:00] LABS: BASO # 0.1 x10^3/uL (0.0-0.2); BASO % 1 % (0-3); EOS # 0.2 x10^3/uL (0.0-0.7); EOS % 1 % (0-3); LYMPH # 1.5 x10^3/uL (1.0-4.8); LYMPH % 10 % (24-48); MEAN CORPUSCULAR HEMOGLOBIN 24 pg (25-35); MEAN CORPUSCULAR HGB CONC 31 g/dL (31-37); MEAN CORPUSCULAR VOLUME 76 fL (79-100); MONO # 2.4 x10^3/uL (0.0-1.1); MONO % 16 % (0-9); NEUT # 10.6 x10^3uL (1.8-7.7); NEUT % 72 % (31-73); PLATELET COUNT 340 x10^3/uL (140-400); PROTHROMBIN TIME PATIENT 21.6 SEC (11.7-14.0); RED BLOOD COUNT 2.63 x10^6/uL (4.30-5.70); RED CELL DISTRIBUTION WIDTH 20.8 % (11.5-14.5); WHITE BLOOD COUNT 14.8 x10^3/uL (4.0-11.0)
[2018-09-03 07:13] LABS: HEMATOCRIT 20.1 % (39.0-53.0); HEMOGLOBIN 6.3 g/dL (13.0-17.5)
[2018-09-03] MEDS: INSULIN LISPRO 300 UNITS/3 ML INSULN.PEN. SQ SCH ×3 (08:00→17:49)
[2018-09-03] MEDS: IPRATRPIUM/ALBUTEROL 0.5/2.5MG 3 ML NEBU. NEB SCH ×4 (08:26→19:55)
[2018-09-03] MEDS: METOPROLOL SUCC 24HR ER 50 MG TAB.ER.24H. PO SCH (08:53)
[2018-09-03] MEDS: LACTOBACILLUS RHAMNOSUS GG 1 CAPSULE. PO SCH ×2 (08:54→20:38)
[2018-09-03] MEDS: FUROSEMIDE 40 MG/4 ML VIAL. IVP SCH ×2 (08:55→13:58)
--- NOTE | 2018-09-03 13:02 | PDOC ---
PROGRESS NOTES Chief Complaint Chief Complaint acute on chronic A. fib, now RVR Supra therapeutic INR beat despite being noncompliant or skipping warfarin for the past couple days or weeks now as per family Critical/significant anemia, hemoglobin 5.6 Reactive leukocytosis versus infectious Possibly beginning cellulitis bilateral lower extremity Lymphedema bilateral lower extremity Tenia pedis Dry skin AK I/VMN possibly CK D Anasarca Gap metabolic acidosis with an anion gap of 16 and a bicarbonate of 19 Dyslipidemia on statin Diabetes on metformin-hold metformin given creatinine CHF, need to check an echo to see if systolic or diastolic-BNP is elevated at 8300 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 Petecchiae still visible and appreciated Agreeable to SN[facility]-has been there before 3 years ago Discussed with ICU staff at bedside and family Okay to transfer out of ICU avoid nephrotoxins Monitor urine output PT OT High fall risk Further recs pending above course Recheck hemoglobin again tomorrow, transfuse if less than 7 He is Hemoccult negative Vitals Vitals Vital Signs Date Time Temp Pulse Resp B/P (MAP) Pulse Ox O2 Delivery O2 Flow Rate FiO2 09/03/18 12:30 82 09/03/18 12:17 Room Air 09/03/18 12:15 98.3 20 117/56 98.3 09/03/18 11:43 2.0 09/03/18 08:27 96 Physical Exam General: Alert, Oriented X3, Cooperative, No acute distress Lungs: Clear Abdomen: Normal bowel sounds, Soft, No tenderness, No hepatosplenomegaly, No masses Extremities: No clubbing Skin: Other (very dry skin with sloughing off of some epidermidis, scaling, long toenails, poor overall hygiene, +3 pitting edema left greater than the right some redness appreciable) Labs LABS Laboratory Tests Test 09/02/18 17:39 09/02/18 18:20 09/02/18 20:56 09/02/18 21:15 Glucose (Fingerstick) 177 mg/dL (70-99) 272 mg/dL (70-99) Troponin I Quantitative 0.022 ng/mL (0.000-0.055) 0.020 ng/mL (0.000-0.055) Test 09/03/18 05:55 09/03/18 07:55 09/03/18 11:49 White Blood Count 14.8 x10^3/uL (4.0-11.0) Red Blood Count 2.63 x10^6/uL (4.30-5.70) Hemoglobin 6.3 g/dL (13.0-17.5) Hematocrit 20.1 % (39.0-53.0) Mean Corpuscular Volume 76 fL (79-100) Mean Corpuscular Hemoglobin 24 pg (25-35) Mean Corpuscular Hemoglobin Concent 31 g/dL (31-37) Red Cell Distribution Width 20.8 % (11.5-14.5) Platelet Count 340 x10^3/uL (140-400) Neutrophils (%) (Auto) 72 % (31-73) Lymphocytes (%) (Auto) 10 % (24-48) Monocytes (%) (Auto) 16 % (0-9) Eosinophils (%) (Auto) 1 % (0-3) Basophils (%) (Auto) 1 % (0-3) Neutrophils # (Auto) 10.6 x10^3uL (1.8-7.7) Lymphocytes # (Auto) 1.5 x10^3/uL (1.0-4.8) Monocytes # (Auto) 2.4 x10^3/uL (0.0-1.1) Eosinophils # (Auto) 0.2 x10^3/uL (0.0-0.7) Basophils # (Auto) 0.1 x10^3/uL (0.0-0.2) Prothrombin Time 21.6 SEC (11.7-14.0) Prothromb Time International Ratio 2.0 (0.8-1.1) Sodium Level 139 mmol/L (136-145) Potassium Level 4.1 mmol/L (3.5-5.1) Chloride Level 105 mmol/L (98-107) Carbon Dioxide Level 23 mmol/L (21-32) Anion Gap 11 (6-14) Blood Urea Nitrogen 25 mg/dL (8-26) Creatinine 1.7 mg/dL (0.7-1.3) Estimated GFR (Cockcroft-Gault) 39.6 BUN/Creatinine Ratio 15 (6-20) Glucose Level 147 mg/dL (70-99) Calcium Level 8.7 mg/dL (8.5-10.1) Magnesium Level 1.9 mg/dL (1.8-2.4) Total Bilirubin 0.6 mg/dL (0.2-1.0) Aspartate Amino Transf (AST/SGOT) 13 U/L (15-37) Alanine Aminotransferase (ALT/SGPT) 13 U/L (16-63) Alkaline Phosphatase 90 U/L (46-116) Total Protein 6.0 g/dL (6.4-8.2) Albumin 2.4 g/dL (3.4-5.0) Albumin/Globulin Ratio 0.7 (1.0-1.7) Glucose (Fingerstick) 126 mg/dL (70-99) 189 mg/dL (70-99) Review of Systems Review of Systems A 14 point ROS was completed with the following noted as positive: Other systems reviewed and negative. \CONSTITUTIONAL: No fever or chills EYES: No recent changes SKIN: No rash or itching CARDIOVASCULAR: No chest pain, syncope, palpitations, or edema RESPIRATORY: No SOB or cough GASTROINTESTINAL: No nausea, vomiting or abdominal pain NEUROLOGICAL: No headaches or weakness ENDOCRINE: No cold or heat intolerance GENITOURINARY: No urgency or frequency of urination MUSCULOSKELETAL: No back pain or joint pain LYMPHATICS: No enlarged lymph nodes PSYCHIATRIC: No anxiety or depression Assessment and Plan Assessmemt and Plan Problems Medical Problems: (1) Atrial fibrillation with RVR Status: Acute (2) CHF (congestive heart failure) Status: Acute (3) Symptomatic anemia Status: Acute Comment Review of Relevant I have reviewed the following items logan (where applicable) has been applied. Labs Laboratory Tests Test 09/02/18 11:20 09/02/18 11:37 09/02/18 12:12 09/02/18 17:39 White Blood Count 16.9 x10^3/uL (4.0-11.0) Red Blood Count 2.52 x10^6/uL (4.30-5.70) Hemoglobin 5.6 g/dL (13.0-17.5) Hematocrit 18.9 % (39.0-53.0) Mean Corpuscular Volume 75 fL (79-100) Mean Corpuscular Hemoglobin 22 pg (25-35) Mean Corpuscular Hemoglobin Concent 30 g/dL (31-37) Red Cell Distribution Width 20.9 % (11.5-14.5) Platelet Count 394 x10^3/uL (140-400) Neutrophils (%) (Auto) 79 % (31-73) Lymphocytes (%) (Auto) 9 % (24-48) Monocytes (%) (Auto) 11 % (0-9) Eosinophils (%) (Auto) 0 % (0-3) Basophils (%) (Auto) 0 % (0-3) Neutrophils # (Auto) 13.4 x10^3uL (1.8-7.7) Lymphocytes # (Auto) 1.6 x10^3/uL (1.0-4.8) Monocytes # (Auto) 1.9 x10^3/uL (0.0-1.1) Eosinophils # (Auto) 0.0 x10^3/uL (0.0-0.7) Basophils # (Auto) 0.0 x10^3/uL (0.0-0.2) Segmented Neutrophils % 89 % (35-66) Lymphocytes % 2 % (24-48) Monocytes % 7 % (0-10) Eosinophils % 1 % (0-5) Basophils % 1 % (0-3) Platelet Estimate Adequate (ADEQUATE) Hypochromasia Mod Poikilocytosis Slight Anisocytosis Mod Microcytosis Mod Ovalocytes Occ Reticulocyte Count (auto) 0.9 % (0.5-2.5) Prothrombin Time 60.5 SEC (11.7-14.0) Prothromb Time International Ratio 7.2 (0.8-1.1) Fibrinogen 677 mg/dL (200-440) D-Dimer (Kiley) < 0.27 ug/mlFEU Sodium Level 139 mmol/L (136-145) Potassium Level 4.9 mmol/L (3.5-5.1) Chloride Level 104 mmol/L (98-107) Carbon Dioxide Level 19 mmol/L (21-32) Anion Gap 16 (6-14) Blood Urea Nitrogen 24 mg/dL (8-26) Creatinine 1.9 mg/dL (0.7-1.3) Estimated GFR (Cockcroft-Gault) 34.8 BUN/Creatinine Ratio 13 (6-20) Glucose Level 208 mg/dL (70-99) Hemoglobin A1c 6.3 % (4.8-5.6) Calcium Level 8.8 mg/dL (8.5-10.1) Magnesium Level 1.7 mg/dL (1.8-2.4) Iron Level 8 ug/dL (65-175) Total Iron Binding Capacity 286 ug/dL (250-450) Iron Saturation 3 % (15-34) Ferritin 57 ng/mL (26-388) Total Bilirubin 0.4 mg/dL (0.2-1.0) Aspartate Amino Transf (AST/SGOT) 14 U/L (15-37) Alanine Aminotransferase (ALT/SGPT) 12 U/L (16-63) Alkaline Phosphatase 104 U/L (46-116) Troponin I Quantitative < 0.017 ng/mL (0.000-0.055) FB-Ylt-S-Type Natriuretic Peptide 8266 pg/mL (0-124) Total Protein 7.2 g/dL (6.4-8.2) Albumin 2.5 g/dL (3.4-5.0) Albumin/Globulin Ratio 0.5 (1.0-1.7) Thyroid Stimulating Hormone (TSH) 1.619 uIU/mL (0.358-3.74) Bedside Troponin I 0.02 ng/ml (<0.08) Stool Occult Blood Negative (NEG) Glucose (Fingerstick) 177 mg/dL (70-99) Test 09/02/18 18:20 09/02/18 20:56 09/02/18 21:15 09/03/18 05:55 Troponin I Quantitative 0.022 ng/mL (0.000-0.055) 0.020 ng/mL (0.000-0.055) Glucose (Fingerstick) 272 mg/dL (70-99) White Blood Count 14.8 x10^3/uL (4.0-11.0) Red Blood Count 2.63 x10^6/uL (4.30-5.70) Hemoglobin 6.3 g/dL (13.0-17.5) Hematocrit 20.1 % (39.0-53.0) Mean Corpuscular Volume 76 fL (79-100) Mean Corpuscular Hemoglobin 24 pg (25-35) Mean Corpuscular Hemoglobin Concent 31 g/dL (31-37) Red Cell Distribution Width 20.8 % (11.5-14.5) Platelet Count 340 x10^3/uL (140-400) Neutrophils (%) (Auto) 72 % (31-73) Lymphocytes (%) (Auto) 10 % (24-48) Monocytes (%) (Auto) 16 % (0-9) Eosinophils (%) (Auto) 1 % (0-3) Basophils (%) (Auto) 1 % (0-3) Neutrophils # (Auto) 10.6 x10^3uL (1.8-7.7) Lymphocytes # (Auto) 1.5 x10^3/uL (1.0-4.8) Monocytes # (Auto) 2.4 x10^3/uL (0.0-1.1) Eosinophils # (Auto) 0.2 x10^3/uL (0.0-0.7) Basophils # (Auto) 0.1 x10^3/uL (0.0-0.2) Prothrombin Time 21.6 SEC (11.7-14.0) Prothromb Time International Ratio 2.0 (0.8-1.1) Sodium Level 139 mmol/L (136-145) Potassium Level 4.1 mmol/L (3.5-5.1) Chloride Level 105 mmol/L (98-107) Carbon Dioxide Level 23 mmol/L (21-32) Anion Gap 11 (6-14) Blood Urea Nitrogen 25 mg/dL (8-26) Creatinine 1.7 mg/dL (0.7-1.3) Estimated GFR (Cockcroft-Gault) 39.6 BUN/Creatinine Ratio 15 (6-20) Glucose Level 147 mg/dL (70-99) Calcium Level 8.7 mg/dL (8.5-10.1) Magnesium Level 1.9 mg/dL (1.8-2.4) Total Bilirubin 0.6 mg/dL (0.2-1.0) Aspartate Amino Transf (AST/SGOT) 13 U/L (15-37) Alanine Aminotransferase (ALT/SGPT) 13 U/L (16-63) Alkaline Phosphatase 90 U/L (46-116) Total Protein 6.0 g/dL (6.4-8.2) Albumin 2.4 g/dL (3.4-5.0) Albumin/Globulin Ratio 0.7 (1.0-1.7) Test 09/03/18 07:55 09/03/18 11:49 Glucose (Fingerstick) 126 mg/dL (70-99) 189 mg/dL (70-99) Laboratory Tests Test 09/02/18 17:39 09/02/18 18:20 09/02/18 20:56 09/02/18 21:15 Glucose (Fingerstick) 177 mg/dL (70-99) 272 mg/dL (70-99) Troponin I Quantitative 0.022 ng/mL (0.000-0.055) 0.020 ng/mL (0.000-0.055) Test 09/03/18 05:55 09/03/18 07:55 09/03/18 11:49 White Blood Count 14.8 x10^3/uL (4.0-11.0) Red Blood Count 2.63 x10^6/uL (4.30-5.70) Hemoglobin 6.3 g/dL (13.0-17.5) Hematocrit 20.1 % (39.0-53.0) Mean Corpuscular Volume 76 fL (79-100) Mean Corpuscular Hemoglobin 24 pg (25-35) Mean Corpuscular Hemoglobin Concent 31 g/dL (31-37) Red Cell Distribution Width 20.8 % (11.5-14.5) Platelet Count 340 x10^3/uL (140-400) Neutrophils (%) (Auto) 72 % (31-73) Lymphocytes (%) (Auto) 10 % (24-48) Monocytes (%) (Auto) 16 % (0-9) Eosinophils (%) (Auto) 1 % (0-3) Basophils (%) (Auto) 1 % (0-3) Neutrophils # (Auto) 10.6 x10^3uL (1.8-7.7) Lymphocytes # (Auto) 1.5 x10^3/uL (1.0-4.8) Monocytes # (Auto) 2.4 x10^3/uL (0.0-1.1) Eosinophils # (Auto) 0.2 x10^3/uL (0.0-0.7) Basophils # (Auto) 0.1 x10^3/uL (0.0-0.2) Prothrombin Time 21.6 SEC (11.7-14.0) Prothromb Time International Ratio 2.0 (0.8-1.1) Sodium Level 139 mmol/L (136-145) Potassium Level 4.1 mmol/L (3.5-5.1) Chloride Level 105 mmol/L (98-107) Carbon Dioxide Level 23 mmol/L (21-32) Anion Gap 11 (6-14) Blood Urea Nitrogen 25 mg/dL (8-26) Creatinine 1.7 mg/dL (0.7-1.3) Estimated GFR (Cockcroft-Gault) 39.6 BUN/Creatinine Ratio 15 (6-20) Glucose Level 147 mg/dL (70-99) Calcium Level 8.7 mg/dL (8.5-10.1) Magnesium Level 1.9 mg/dL (1.8-2.4) Total Bilirubin 0.6 mg/dL (0.2-1.0) Aspartate Amino Transf (AST/SGOT) 13 U/L (15-37) Alanine Aminotransferase (ALT/SGPT) 13 U/L (16-63) Alkaline Phosphatase 90 U/L (46-116) Total Protein 6.0 g/dL (6.4-8.2) Albumin 2.4 g/dL (3.4-5.0) Albumin/Globulin Ratio 0.7 (1.0-1.7) Glucose (Fingerstick) 126 mg/dL (70-99) 189 mg/dL (70-99) Medications Current Medications Diltiazem HCl (Cardizem) 10 mg 1X ONCE IVP Last administered on 09/02/18at 11: 31; Start 09/02/18 at 11:30; Stop 09/02/18 at 11:31; Status DC Diltiazem HCl (Cardizem) 10 mg 1X ONCE IVP Last administered on 09/02/18at 12: 47; Start 09/02/18 at 12:30; Stop 09/02/18 at 12:31; Status DC Diltiazem HCl 125 mg/Dextrose 125 ml @ 5 mls/hr CONT PRN IV SEE I/O RECORD Last administered on 09/03/18at 10:25; Start 09/02/18 at 12:30 Acetaminophen/ Hydrocodone Bitart (Lortab 5/325) 1 tab 1X ONCE PO Last administered on 09/02/18at 13:02; Start 09/02/18 at 13:00; Stop 09/02/18 at 13 :01; Status DC Phytonadione (Mephyton Oral Soln) 2.5 mg 1X ONCE PO Last administered on 09/02at 15:36; Start 09/02/18 at 15:00; Stop 09/02/18 at 15:01; Status DC Furosemide (Lasix) 40 mg [id number] IVP Last administered on 09/03/18at 08:55; Start 09/03/18 at 09:00 Furosemide (Lasix) 60 mg 1X ONCE IVP Last administered on 09/02/18at 15:36; Start 09/02/18 at 15:00; Stop 09/02/18 at 15:01; Status DC Multi-Ingred Cream/Lotion/Oil/ Oint (Hydrocerin Cream) 1 sondra PRN Q1HR PRN TP DRY SKIN / SCALING; Start 09/02/18 at 15:00 Albuterol/ Ipratropium (Duoneb) 3 ml RTQID NEB Last administered on 09/03/18at 12:16; Start 09/02/18 at 16:00 Guaifenesin (Robitussin Dm) 10 ml PRN Q6HRS PRN PO COUGH; Start 09/02/18 at 15 :00 Acetaminophen (Tylenol) 500 mg PRN Q6HRS PRN PO HEADACHE / TEMP Last administered on 09/03/18at 08:53; Start 09/02/18 at 15:00 Acetaminophen/ Codeine Phosphate (Tylenol #3) 1 tab PRN Q6HRS PRN PO PAIN MILD ; Start 09/02/18 at 15:00 Ondansetron HCl (Zofran) 4 mg PRN Q6HRS PRN IV NAUSEA/VOMITING 1ST CHOICE; Start 09/02/18 at 15:00 Ondansetron HCl (Zofran Odt) 4 mg PRN Q6HRS PRN PO NAUSEA/VOMITING; Start 11/08 at 15:00 Morphine Sulfate (Morphine Sulfate) 1 mg PRN Q2HR PRN IV PAIN SEVERE Last administered on 09/02/18at 22:47; Start 09/02/18 at 15:00 Atorvastatin Calcium (Lipitor) 40 mg QHS PO Last administered on 09/02/18at 20: 54; Start 09/02/18 at 21:00 Diltiazem HCl (Cardizem 24hr Cd) 120 mg DAILY PO ; Start 09/03/18 at 09:00; Stop 09/03/18 at 12:09; Status DC Glipizide (Glucotrol) 10 mg DAILY07 PO Last administered on 09/03/18at 06:31; Start 09/03/18 at 07:00 Acetaminophen/ Hydrocodone Bitart (Lortab 10/325) 1 tab PRN Q6HRS PRN PO MODERATE PAIN Last administered on 09/03/18at 02:49; Start 09/02/18 at 16:30 Metoprolol Succinate (Toprol Xl) 50 mg DAILY PO Last administered on at 08:53; Start 09/03/18 at 09:00 Pantoprazole Sodium (Protonix) 40 mg DAILYAC PO Last administered on at 06:31; Start 09/03/18 at 07:30 Non-Formulary Medication (Tizanidine Hcl ) 4 mg PRN QID PRN PO MUSCLE SPASMS; Start 09/02/18 at 15:00; Stop 09/02/18 at 16:26; Status DC Insulin Human Lispro (HumaLOG) 0-9 UNITS TIDWMEALS SQ Last administered on at 12:33; Start 09/02/18 at 17:00 Dextrose (Dextrose 50%-Water Syringe) 12.5 gm PRN Q15MIN PRN IV SEE COMMENTS; Start 09/02/18 at 15:00 Magnesium Sulfate/ Dextrose 100 ml @ 100 mls/hr 1X ONCE IV Last administered on 09/02/18at 19:56; Start 09/02/18 at 15:30; Stop 09/02/18 at 16:29; Status DC Clindamycin Phosphate 50 ml @ 100 mls/hr Q8HRS IV Last administered on at 08:58; Start 09/02/18 at 22:00 Clindamycin Phosphate 50 ml @ 100 mls/hr ONCE ONCE IV Last administered on at 16:10; Start 09/02/18 at 15:30; Stop 09/02/18 at 15:59; Status DC Lactobacillus Rhamnosus (Culturelle) 1 cap BID PO Last administered on at 08:54; Start 09/02/18 at 21:00 Tizanidine HCl (Zanaflex) 4 mg PRN Q6HRS PRN PO MUSCLE SPASMS; Start 09/02/18 at 16:30 Digoxin (Lanoxin) 500 mcg 1X ONCE IV Last administered on 09/02/18at 18:49; Start 09/02/18 at 19:00; Stop 09/02/18 at 19:01; Status DC Diltiazem HCl (Cardizem 24hr Cd) 300 mg DAILY PO Last administered on at 12:30; Start 09/03/18 at 12:30 Active Scripts Active Reported Toprol Xl (Metoprolol Succinate) 50 Mg Tab.er.24h 50 Mg PO DAILY Glipizide 10 Mg Tablet 10 Mg PO DAILY Diltiazem 24HR Cd (Diltiazem Hcl) 120 Mg Cap.er.24h 120 Mg PO DAILY Tizanidine Hcl 4 Mg Capsule 4 Mg PO QID PRN Omeprazole 40 Mg Capsule.dr 40 Mg PO DAILY Hydrocodone-Apap 10-325 (Hydrocodone Bit/Acetaminophen) 1 Each Tablet 1 Tab PO PRN Q6HRS PRN Metformin Hcl 1,000 Mg Tablet 1,000 Mg PO BID Warfarin Sodium 5 Mg Tablet 5 Mg PO DAILY Warfarin Sodium 2.5 Mg Tablet 2.5 Mg PO DAILY Atorvastatin Calcium 40 Mg Tablet 40 Mg PO DAILY Vitals/I & O Vital Sign - Last 24 Hours 09/02/18 09/02/18 09/02/18 09/02/18 13:00 13:02 13:15 13:30 Pulse 122 124 120 Resp 18 B/P (MAP) 136/60 (85) 125/58 (80) Pulse Ox 100 100 100 O2 Delivery Nasal Cannula Nasal Cannula Nasal Cannula Nasal Cannula O2 Flow Rate 2.0 1.0 2.0 2.0 09/02/18 09/02/18 09/02/18 09/02/18 14:01 14:24 14:25 14:30 Pulse 116 122 124 Resp 18 20 20 25 B/P (MAP) 127/59 (81) 127/77 (94) 147/68 (94) Pulse Ox 100 100 100 96 O2 Delivery Nasal Cannula Nasal Cannula Nasal Cannula Room Air O2 Flow Rate 1.0 1.0 1.0 09/02/18 09/02/18 09/02/18 09/02/18 14:45 15:00 15:30 16:00 Pulse 130 120 116 130 Resp 28 22 20 22 B/P (MAP) 147/68 (94) 146/67 (93) 165/73 (103) 148/69 (95) Pulse Ox 96 100 99 98 O2 Delivery Room Air Nasal Cannula Nasal Cannula Nasal Cannula O2 Flow Rate 1.0 1.0 1.0 09/02/18 09/02/18 09/02/18 09/02/18 16:19 17:00 17:20 17:35 Temp 99.0 99.1 99.0 99.1 Pulse 127 128 125 Resp 16 16 16 B/P (MAP) 136/62 (86) 133/73 135/63 Pulse Ox 96 97 O2 Delivery Nasal Cannula Room Air O2 Flow Rate 1.0 09/02/18 09/02/18 09/02/18 09/02/18 18:00 18:35 18:48 18:49 Temp 99.1 99.1 Pulse 130 130 141 Resp 16 18 18 B/P (MAP) 133/79 (97) 140/77 152/71 Pulse Ox 91 91 O2 Delivery Room Air Room Air 09/02/18 09/02/18 09/02/18 09/02/18 18:56 20:00 20:00 20:16 Temp 99.5 98.8 99.5 98.8 Pulse 115 116 Resp 18 18 B/P (MAP) 152/77 127/56 (79) Pulse Ox 98 95 O2 Delivery Room Air Room Air Room Air 09/02/18 09/02/18 09/02/18 09/02/18 20:52 21:00 22:00 22:10 Temp 98.0 98.0 Pulse 110 124 110 Resp 18 16 18 B/P (MAP) 127/62 (83) 140/58 136/61 (86) Pulse Ox 94 96 94 O2 Delivery Room Air Room Air Room Air 09/02/18 09/02/18 09/02/18 09/02/18 22:18 22:47 22:59 23:15 Temp 98.6 99.0 98.6 99.0 Pulse 112 113 Resp 20 21 B/P (MAP) 146/64 166/68 (100) Pulse Ox 95 98 98 O2 Delivery Room Air Room Air Room Air 09/03/18 09/03/18 09/03/18 09/03/18 00:00 00:00 00:16 00:38 Temp 98.4 98.4 98.4 98.4 98.4 98.4 Pulse 106 106 112 Resp 17 B/P (MAP) 151/72 (98) 151/72 156/68 Pulse Ox 94 O2 Delivery Room Air Room Air 09/03/18 09/03/18 09/03/18 09/03/18 00:54 01:00 01:54 02:11 Temp 98.7 98.7 98.2 98.2 98.7 98.7 98.2 98.2 Pulse 105 105 101 107 Resp 16 16 19 21 B/P (MAP) 130/63 130/63 (85) 126/62 110/53 (72) Pulse Ox 96 92 O2 Delivery Room Air Room Air 09/03/18 09/03/18 09/03/18 09/03/18 02:49 02:56 03:04 03:47 Temp 98.3 98.4 98.2 98.3 98.4 98.2 Pulse 103 95 90 Resp 20 23 12 20 B/P (MAP) 117/57 117/57 (77) 123/61 Pulse Ox 94 94 O2 Delivery Room Air Room Air 09/03/18 09/03/18 09/03/18 09/03/18 04:01 04:02 04:15 04:15 Temp 98.4 98.4 Pulse 98 93 Resp 22 23 B/P (MAP) 117/59 117/59 (78) Pulse Ox 95 94 O2 Delivery Room Air Nasal Cannula Nasal Cannula O2 Flow Rate 2.0 2.0 09/03/18 09/03/18 09/03/18 09/03/18 05:02 05:06 05:33 06:03 Temp 98.3 98.2 98.2 98.3 98.2 98.2 Pulse 102 103 98 100 Resp 19 20 19 18 B/P (MAP) 132/62 132/62 (85) 136/65 136/65 (88) Pulse Ox 97 95 O2 Delivery Nasal Cannula Nasal Cannula O2 Flow Rate 2.0 2.0 09/03/18 09/03/18 09/03/18 09/03/18 07:00 08:00 08:00 08:27 Pulse 102 104 Resp 20 B/P (MAP) 140/65 (90) 123/69 (87) Pulse Ox 94 96 O2 Delivery Nasal Cannula Nasal Cannula Room Air O2 Flow Rate 2.0 2.0 09/03/18 09/03/18 09/03/18 09/03/18 08:53 09:00 10:00 10:15 Temp 98.3 98.3 Pulse 104 105 82 82 Resp 20 B/P (MAP) 133/70 (91) 97/54 (68) 105/56 (72) 09/03/18 09/03/18 09/03/18 09/03/18 10:30 10:45 11:00 11:00 Temp 98.3 98.2 98.2 98.3 98.3 98.2 98.2 98.3 Pulse 84 80 82 85 Resp 20 20 20 20 B/P (MAP) 113/59 114/57 114/65 99/53 09/03/18 09/03/18 09/03/18 09/03/18 11:15 11:43 11:45 12:05 Temp 98.3 98.2 98.3 98.2 Pulse 82 88 82 Resp 20 20 B/P (MAP) 124/56 119/68 119/68 (85) O2 Delivery Nasal Cannula O2 Flow Rate 2.0 09/03/18 09/03/18 09/03/18 12:15 12:17 12:30 Temp 98.3 98.3 Pulse 92 82 Resp 20 B/P (MAP) 117/56 O2 Delivery Room Air Intake and Output 09/02/18 09/02/18 09/03/18 15:00 23:00 07:00 Intake Total 625 ml 2068 ml Output Total 800 ml 150 ml Balance -175 ml 1918 ml KRISTEN MARQUIS MD Sep 03, 2018 13:02
--- NOTE | 2018-09-03 13:31 | PDOC2 ---
CONSULT Date of Consult Date of Consult DATE: 09/03/18 TIME: 13:25 Reason for Consult Reason for Consult: A. fib with RVR Referring Physician Referring Physician: Dr. Haskins Identification/Chief Complaint Chief Complaint A. fib with RVR and anemia, coagulopathy History of Present Illness Reason for Visit: This patient is a 73-year-old gentleman with a known history of chronic atrial fibrillation that has been on warfarin and is not very compliant with following up with physicians. The patient is not very active and comes in with weakness, fatigue found to be in atrial fibrillation with rapid ventricular response and had an elevated INR above 7 and anemia with a hemoglobin of 5.6. The patient denies any active bleeding anywhere. Patient denies any chest pains but admits to dyspnea that has been progressive for several days. No palpitations. After the patient arrived in the ER he was started on IV Cardizem. Past Medical History Cardiovascular: AFIB, CHF, HTN, Hyperlipidemia Infectious disease: Other (strep bacteremia 2016) Dermatology: Cellulitis Past Surgical History Past Surgical History: No pertinent history Family History Family History: High Cholestrol, Hypertension Social History No ALCOHOL: none Drugs: None Current Problem List Problem List Problems Medical Problems: (1) Atrial fibrillation with RVR Status: Acute (2) CHF (congestive heart failure) Status: Acute (3) Symptomatic anemia Status: Acute Current Medications Current Medications Current Medications Diltiazem HCl (Cardizem) 10 mg 1X ONCE IVP Last administered on 09/02/18at 11: 31; Start 09/02/18 at 11:30; Stop 09/02/18 at 11:31; Status DC Diltiazem HCl (Cardizem) 10 mg 1X ONCE IVP Last administered on 09/02/18at 12: 47; Start 09/02/18 at 12:30; Stop 09/02/18 at 12:31; Status DC Diltiazem HCl 125 mg/Dextrose 125 ml @ 5 mls/hr CONT PRN IV SEE I/O RECORD Last administered on 09/03/18at 10:25; Start 09/02/18 at 12:30 Acetaminophen/ Hydrocodone Bitart (Lortab 5/325) 1 tab 1X ONCE PO Last administered on 09/02/18at 13:02; Start 09/02/18 at 13:00; Stop 09/02/18 at 13 :01; Status DC Phytonadione (Mephyton Oral Soln) 2.5 mg 1X ONCE PO Last administered on 09/02at 15:36; Start 09/02/18 at 15:00; Stop 09/02/18 at 15:01; Status DC Furosemide (Lasix) 40 mg BID92 IVP Last administered on 09/03/18at 08:55; Start 09/03/18 at 09:00 Furosemide (Lasix) 60 mg 1X ONCE IVP Last administered on 09/02/18at 15:36; Start 09/02/18 at 15:00; Stop 09/02/18 at 15:01; Status DC Multi-Ingred Cream/Lotion/Oil/ Oint (Hydrocerin Cream) 1 sondra PRN Q1HR PRN TP DRY SKIN / SCALING; Start 09/02/18 at 15:00 Albuterol/ Ipratropium (Duoneb) 3 ml RTQID NEB Last administered on 09/03/18at 12:16; Start 09/02/18 at 16:00 Guaifenesin (Robitussin Dm) 10 ml PRN Q6HRS PRN PO COUGH; Start 09/02/18 at 15 :00 Acetaminophen (Tylenol) 500 mg PRN Q6HRS PRN PO HEADACHE / TEMP Last administered on 09/03/18at 08:53; Start 09/02/18 at 15:00 Acetaminophen/ Codeine Phosphate (Tylenol #3) 1 tab PRN Q6HRS PRN PO PAIN MILD ; Start 09/02/18 at 15:00 Ondansetron HCl (Zofran) 4 mg PRN Q6HRS PRN IV NAUSEA/VOMITING 1ST CHOICE; Start 09/02/18 at 15:00 Ondansetron HCl (Zofran Odt) 4 mg PRN Q6HRS PRN PO NAUSEA/VOMITING; Start 11/08 at 15:00 Morphine Sulfate (Morphine Sulfate) 1 mg PRN Q2HR PRN IV PAIN SEVERE Last administered on 09/02/18at 22:47; Start 09/02/18 at 15:00 Atorvastatin Calcium (Lipitor) 40 mg QHS PO Last administered on 09/02/18at 20: 54; Start 09/02/18 at 21:00 Diltiazem HCl (Cardizem 24hr Cd) 120 mg DAILY PO ; Start 09/03/18 at 09:00; Stop 09/03/18 at 12:09; Status DC Glipizide (Glucotrol) 10 mg DAILY07 PO Last administered on 09/03/18at 06:31; Start 09/03/18 at 07:00 Acetaminophen/ Hydrocodone Bitart (Lortab 10/325) 1 tab PRN Q6HRS PRN PO MODERATE PAIN Last administered on 09/03/18at 02:49; Start 09/02/18 at 16:30 Metoprolol Succinate (Toprol Xl) 50 mg DAILY PO Last administered on at 08:53; Start 09/03/18 at 09:00 Pantoprazole Sodium (Protonix) 40 mg DAILYAC PO Last administered on at 06:31; Start 09/03/18 at 07:30 Non-Formulary Medication (Tizanidine Hcl ) 4 mg PRN QID PRN PO MUSCLE SPASMS; Start 09/02/18 at 15:00; Stop 09/02/18 at 16:26; Status DC Insulin Human Lispro (HumaLOG) 0-9 UNITS TIDWMEALS SQ Last administered on at 12:33; Start 09/02/18 at 17:00 Dextrose (Dextrose 50%-Water Syringe) 12.5 gm PRN Q15MIN PRN IV SEE COMMENTS; Start 09/02/18 at 15:00 Magnesium Sulfate/ Dextrose 100 ml @ 100 mls/hr 1X ONCE IV Last administered on 09/02/18at 19:56; Start 09/02/18 at 15:30; Stop 09/02/18 at 16:29; Status DC Clindamycin Phosphate 50 ml @ 100 mls/hr Q8HRS IV Last administered on at 08:58; Start 09/02/18 at 22:00 Clindamycin Phosphate 50 ml @ 100 mls/hr ONCE ONCE IV Last administered on at 16:10; Start 09/02/18 at 15:30; Stop 09/02/18 at 15:59; Status DC Lactobacillus Rhamnosus (Culturelle) 1 cap BID PO Last administered on at 08:54; Start 09/02/18 at 21:00 Tizanidine HCl (Zanaflex) 4 mg PRN Q6HRS PRN PO MUSCLE SPASMS; Start 09/02/18 at 16:30 Digoxin (Lanoxin) 500 mcg 1X ONCE IV Last administered on 09/02/18at 18:49; Start 09/02/18 at 19:00; Stop 09/02/18 at 19:01; Status DC Diltiazem HCl (Cardizem 24hr Cd) 300 mg DAILY PO Last administered on at 12:30; Start 09/03/18 at 12:30 Active Scripts Active Reported Toprol Xl (Metoprolol Succinate) 50 Mg Tab.er.24h 50 Mg PO DAILY Glipizide 10 Mg Tablet 10 Mg PO DAILY Diltiazem 24HR Cd (Diltiazem Hcl) 120 Mg Cap.er.24h 120 Mg PO DAILY Tizanidine Hcl 4 Mg Capsule 4 Mg PO QID PRN Omeprazole 40 Mg Capsule.dr 40 Mg PO DAILY Hydrocodone-Apap 10-325 (Hydrocodone Bit/Acetaminophen) 1 Each Tablet 1 Tab PO PRN Q6HRS PRN Metformin Hcl 1,000 Mg Tablet 1,000 Mg PO BID Warfarin Sodium 5 Mg Tablet 5 Mg PO DAILY Warfarin Sodium 2.5 Mg Tablet 2.5 Mg PO DAILY Atorvastatin Calcium 40 Mg Tablet 40 Mg PO DAILY Allergies Allergies: Coded Allergies: Penicillins (Verified Allergy, Intermediate, hives, 06/19/14) Physical Exam General: Alert, Oriented X3, mild distress HEENT: PERRLA Lungs: Clear to auscultation Heart: Other (irregularly irregular. S1, S2.) Abdomen: Normal bowel sounds, Soft Extremities: No edema Vitals VITALS Vital Signs Date Time Temp Pulse Resp B/P (MAP) Pulse Ox O2 Delivery O2 Flow Rate FiO2 09/03/18 12:30 82 09/03/18 12:17 Room Air 09/03/18 12:15 98.3 20 117/56 98.3 09/03/18 11:43 2.0 09/03/18 08:27 96 Labs Labs Laboratory Tests Test 09/02/18 11:20 09/02/18 11:37 09/02/18 12:12 09/02/18 17:39 White Blood Count 16.9 x10^3/uL (4.0-11.0) Red Blood Count 2.52 x10^6/uL (4.30-5.70) Hemoglobin 5.6 g/dL (13.0-17.5) Hematocrit 18.9 % (39.0-53.0) Mean Corpuscular Volume 75 fL (79-100) Mean Corpuscular Hemoglobin 22 pg (25-35) Mean Corpuscular Hemoglobin Concent 30 g/dL (31-37) Red Cell Distribution Width 20.9 % (11.5-14.5) Platelet Count 394 x10^3/uL (140-400) Neutrophils (%) (Auto) 79 % (31-73) Lymphocytes (%) (Auto) 9 % (24-48) Monocytes (%) (Auto) 11 % (0-9) Eosinophils (%) (Auto) 0 % (0-3) Basophils (%) (Auto) 0 % (0-3) Neutrophils # (Auto) 13.4 x10^3uL (1.8-7.7) Lymphocytes # (Auto) 1.6 x10^3/uL (1.0-4.8) Monocytes # (Auto) 1.9 x10^3/uL (0.0-1.1) Eosinophils # (Auto) 0.0 x10^3/uL (0.0-0.7) Basophils # (Auto) 0.0 x10^3/uL (0.0-0.2) Segmented Neutrophils % 89 % (35-66) Lymphocytes % 2 % (24-48) Monocytes % 7 % (0-10) Eosinophils % 1 % (0-5) Basophils % 1 % (0-3) Platelet Estimate Adequate (ADEQUATE) Hypochromasia Mod Poikilocytosis Slight Anisocytosis Mod Microcytosis Mod Ovalocytes Occ Reticulocyte Count (auto) 0.9 % (0.5-2.5) Prothrombin Time 60.5 SEC (11.7-14.0) Prothromb Time International Ratio 7.2 (0.8-1.1) Fibrinogen 677 mg/dL (200-440) D-Dimer (Kilye) < 0.27 ug/mlFEU Sodium Level 139 mmol/L (136-145) Potassium Level 4.9 mmol/L (3.5-5.1) Chloride Level 104 mmol/L (98-107) Carbon Dioxide Level 19 mmol/L (21-32) Anion Gap 16 (6-14) Blood Urea Nitrogen 24 mg/dL (8-26) Creatinine 1.9 mg/dL (0.7-1.3) Estimated GFR (Cockcroft-Gault) 34.8 BUN/Creatinine Ratio 13 (6-20) Glucose Level 208 mg/dL (70-99) Hemoglobin A1c 6.3 % (4.8-5.6) Calcium Level 8.8 mg/dL (8.5-10.1) Magnesium Level 1.7 mg/dL (1.8-2.4) Iron Level 8 ug/dL (65-175) Total Iron Binding Capacity 286 ug/dL (250-450) Iron Saturation 3 % (15-34) Ferritin 57 ng/mL (26-388) Total Bilirubin 0.4 mg/dL (0.2-1.0) Aspartate Amino Transf (AST/SGOT) 14 U/L (15-37) Alanine Aminotransferase (ALT/SGPT) 12 U/L (16-63) Alkaline Phosphatase 104 U/L (46-116) Troponin I Quantitative < 0.017 ng/mL (0.000-0.055) DX-Rua-B-Type Natriuretic Peptide 8266 pg/mL (0-124) Total Protein 7.2 g/dL (6.4-8.2) Albumin 2.5 g/dL (3.4-5.0) Albumin/Globulin Ratio 0.5 (1.0-1.7) Thyroid Stimulating Hormone (TSH) 1.619 uIU/mL (0.358-3.74) Bedside Troponin I 0.02 ng/ml (<0.08) Stool Occult Blood Negative (NEG) Glucose (Fingerstick) 177 mg/dL (70-99) Test 09/02/18 18:20 09/02/18 20:56 09/02/18 21:15 09/03/18 05:55 Troponin I Quantitative 0.022 ng/mL (0.000-0.055) 0.020 ng/mL (0.000-0.055) Glucose (Fingerstick) 272 mg/dL (70-99) White Blood Count 14.8 x10^3/uL (4.0-11.0) Red Blood Count 2.63 x10^6/uL (4.30-5.70) Hemoglobin 6.3 g/dL (13.0-17.5) Hematocrit 20.1 % (39.0-53.0) Mean Corpuscular Volume 76 fL (79-100) Mean Corpuscular Hemoglobin 24 pg (25-35) Mean Corpuscular Hemoglobin Concent 31 g/dL (31-37) Red Cell Distribution Width 20.8 % (11.5-14.5) Platelet Count 340 x10^3/uL (140-400) Neutrophils (%) (Auto) 72 % (31-73) Lymphocytes (%) (Auto) 10 % (24-48) Monocytes (%) (Auto) 16 % (0-9) Eosinophils (%) (Auto) 1 % (0-3) Basophils (%) (Auto) 1 % (0-3) Neutrophils # (Auto) 10.6 x10^3uL (1.8-7.7) Lymphocytes # (Auto) 1.5 x10^3/uL (1.0-4.8) Monocytes # (Auto) 2.4 x10^3/uL (0.0-1.1) Eosinophils # (Auto) 0.2 x10^3/uL (0.0-0.7) Basophils # (Auto) 0.1 x10^3/uL (0.0-0.2) Prothrombin Time 21.6 SEC (11.7-14.0) Prothromb Time International Ratio 2.0 (0.8-1.1) Sodium Level 139 mmol/L (136-145) Potassium Level 4.1 mmol/L (3.5-5.1) Chloride Level 105 mmol/L (98-107) Carbon Dioxide Level 23 mmol/L (21-32) Anion Gap 11 (6-14) Blood Urea Nitrogen 25 mg/dL (8-26) Creatinine 1.7 mg/dL (0.7-1.3) Estimated GFR (Cockcroft-Gault) 39.6 BUN/Creatinine Ratio 15 (6-20) Glucose Level 147 mg/dL (70-99) Calcium Level 8.7 mg/dL (8.5-10.1) Magnesium Level 1.9 mg/dL (1.8-2.4) Total Bilirubin 0.6 mg/dL (0.2-1.0) Aspartate Amino Transf (AST/SGOT) 13 U/L (15-37) Alanine Aminotransferase (ALT/SGPT) 13 U/L (16-63) Alkaline Phosphatase 90 U/L (46-116) Total Protein 6.0 g/dL (6.4-8.2) Albumin 2.4 g/dL (3.4-5.0) Albumin/Globulin Ratio 0.7 (1.0-1.7) Test 09/03/18 07:55 09/03/18 11:49 Glucose (Fingerstick) 126 mg/dL (70-99) 189 mg/dL (70-99) Laboratory Tests Test 09/02/18 17:39 09/02/18 18:20 09/02/18 20:56 09/02/18 21:15 Glucose (Fingerstick) 177 mg/dL (70-99) 272 mg/dL (70-99) Troponin I Quantitative 0.022 ng/mL (0.000-0.055) 0.020 ng/mL (0.000-0.055) Test 09/03/18 05:55 09/03/18 07:55 09/03/18 11:49 White Blood Count 14.8 x10^3/uL (4.0-11.0) Red Blood Count 2.63 x10^6/uL (4.30-5.70) Hemoglobin 6.3 g/dL (13.0-17.5) Hematocrit 20.1 % (39.0-53.0) Mean Corpuscular Volume 76 fL (79-100) Mean Corpuscular Hemoglobin 24 pg (25-35) Mean Corpuscular Hemoglobin Concent 31 g/dL (31-37) Red Cell Distribution Width 20.8 % (11.5-14.5) Platelet Count 340 x10^3/uL (140-400) Neutrophils (%) (Auto) 72 % (31-73) Lymphocytes (%) (Auto) 10 % (24-48) Monocytes (%) (Auto) 16 % (0-9) Eosinophils (%) (Auto) 1 % (0-3) Basophils (%) (Auto) 1 % (0-3) Neutrophils # (Auto) 10.6 x10^3uL (1.8-7.7) Lymphocytes # (Auto) 1.5 x10^3/uL (1.0-4.8) Monocytes # (Auto) 2.4 x10^3/uL (0.0-1.1) Eosinophils # (Auto) 0.2 x10^3/uL (0.0-0.7) Basophils # (Auto) 0.1 x10^3/uL (0.0-0.2) Prothrombin Time 21.6 SEC (11.7-14.0) Prothromb Time International Ratio 2.0 (0.8-1.1) Sodium Level 139 mmol/L (136-145) Potassium Level 4.1 mmol/L (3.5-5.1) Chloride Level 105 mmol/L (98-107) Carbon Dioxide Level 23 mmol/L (21-32) Anion Gap 11 (6-14) Blood Urea Nitrogen 25 mg/dL (8-26) Creatinine 1.7 mg/dL (0.7-1.3) Estimated GFR (Cockcroft-Gault) 39.6 BUN/Creatinine Ratio 15 (6-20) Glucose Level 147 mg/dL (70-99) Calcium Level 8.7 mg/dL (8.5-10.1) Magnesium Level 1.9 mg/dL (1.8-2.4) Total Bilirubin 0.6 mg/dL (0.2-1.0) Aspartate Amino Transf (AST/SGOT) 13 U/L (15-37) Alanine Aminotransferase (ALT/SGPT) 13 U/L (16-63) Alkaline Phosphatase 90 U/L (46-116) Total Protein 6.0 g/dL (6.4-8.2) Albumin 2.4 g/dL (3.4-5.0) Albumin/Globulin Ratio 0.7 (1.0-1.7) Glucose (Fingerstick) 126 mg/dL (70-99) 189 mg/dL (70-99) Assessment/Plan Assessment/Plan This patient with chronic atrial fibrillation comes in with a quad neuropathy and anemia. He was in atrial fibrillation with a rapid ventricular response. I agree with the Cardizem drip to control the rhythm and the FFP's as well as the blood transfusions to correct the anemia and the coagulopathy. Will change the patient to by mouth Cardizem and see how he progresses. Thank you very much for asking me to participate in the care of this patient. JD ACOSTA MD Sep 03, 2018 13:31
[2018-09-03] MEDS: NYSTATIN TOPICAL POWDER 15GM BOTTLE. TP SCH ×2 (15:00→20:38)
[2018-09-03] MEDS: ATORVASTATIN CALCIUM 40 MG TABLET. PO SCH (20:38)
--- NOTE | 2018-09-04 02:38 | CONS ---
DATE OF CONSULTATION: REASON FOR CONSULTATION: Renal failure. HISTORY OF PRESENT ILLNESS: This is a 43-year-old gentleman with history of strep bacteremia, chronic atrial fibrillation. The patient is currently admitted with reduced hemoglobin 5.6, as well as atrial fibrillation with rapid ventricular response. On Cardizem drip, the patient's rapid ventricular response has resolved. Increased level of azotemia, Nephrology evaluation requested. PAST MEDICAL HISTORY: Hypertension, cardiomyopathy, atrial fibrillation, hyperlipidemia, strep bacteremia in 2016, cellulitis, lower extremity edema, peptic ulcer disease, hyperlipidemia, diabetes mellitus, colon cancer. ALLERGIES: PENICILLIN. MEDICATIONS: Reviewed per med list. FAMILY HISTORY: Noncontributory. SOCIAL HISTORY: The patient is , resides with . REVIEW OF SYSTEMS: No headaches, sinus problem, nasal drainage, epistaxis, change in vision or hearing. No difficulty swallowing. No fever, chills, cough, sputum production or hemoptysis. No chest pain, shortness of breath, PND, orthopnea, dyspnea on exertion. No abdominal pain or upper or lower blood loss. No nausea, vomiting, diarrhea, seizures. Said to have colon cancer. He has lower extremity edema. PHYSICAL EXAMINATION: GENERAL APPEARANCE: The patient is awake, conversant. HEENT: Clear. NECK: No increased JVD. No thyromegaly, mass or adenopathy. LUNGS: Clear. CARDIAC: Without S3 or rub. ABDOMEN: Soft, nontender, no bruits, is obese. EXTREMITIES: Bilateral lower extremity edema, 3+ right, 2+ left, pitting. NEUROLOGIC: Nonfocal. PSYCHIATRIC: Fair attention to detail, appropriate affect. LABORATORY DATA: Sodium 139, potassium 4.1, chloride 105, CO2 of 23, BUN 25, creatinine 1.7, GFR is 39.6, hemoglobin 5.6 on presentation, 1 unit given and now 6.3, hematocrit 20%. IMPRESSION: 1. Chronic kidney disease stage 3, likely secondary to diabetes mellitus. 2. Anemia - unclear as to etiology. There is no obvious blood loss. Being evaluated by hematology. 3. Diabetes mellitus. 4. Lower extremity cellulitis and edema. RECOMMENDATIONS: 1. Poor response to Lasix 40 mg IV b.i.d. We will change to 80 mg daily. 2. Continue antibiotics per infectious disease. We will follow. VICTORIANO BORRERO MD DR: PEPE/nestor JOB#: [id number] / [id number]
[2018-09-04 03:30] VITALS: BP 142/71
[2018-09-04] MEDS: HYDROcodone/APAP 10/325 1 TAB TABLET PO PRN ×3 (05:00→21:11)
[2018-09-04 05:25] LABS: HEMATOCRIT 26.4 % (39.0-53.0); HEMOGLOBIN 8.2 g/dL (13.0-17.5)
[2018-09-04 05:41] LABS: CALCIUM 8.7 mg/dL (8.5-10.1); CREATININE 1.9 mg/dL (0.7-1.3); GFR 34.8; POTASSIUM 3.8 mmol/L (3.5-5.1)
[2018-09-04] MEDS: CLINDAMYCIN 600MG PREMIX 50 ML IV SCH ×3 (06:00→21:12)
[2018-09-04] MEDS: PANTOPRAZOLE 40 MG TABLET.DR. PO SCH (06:31)
[2018-09-04] MEDS: glipiZIDE 5 MG TABLET PO SCH (06:31)
[2018-09-04] MEDS: IPRATRPIUM/ALBUTEROL 0.5/2.5MG 3 ML NEBU. NEB SCH ×4 (07:01→21:03)
[2018-09-04 07:08] VITALS: BP 120/48
[2018-09-04] MEDS: INSULIN LISPRO 300 UNITS/3 ML INSULN.PEN. SQ SCH ×3 (07:50→17:30)
[2018-09-04] MEDS: NYSTATIN TOPICAL POWDER 15GM BOTTLE. TP SCH ×2 (07:51→21:00)
[2018-09-04] MEDS: METOPROLOL SUCC 24HR ER 50 MG TAB.ER.24H. PO SCH (07:52)
[2018-09-04] MEDS: LACTOBACILLUS RHAMNOSUS GG 1 CAPSULE. PO SCH ×2 (07:52→21:11)
[2018-09-04] MEDS: FUROSEMIDE 40 MG/4 ML VIAL. IVP SCH (07:53)
[2018-09-04 10:42] VITALS: BP 115/60
--- NOTE | 2018-09-04 12:13 | PDOC ---
PROGRESS NOTES Chief Complaint Chief Complaint acute on chronic A. fib, now RVR Supra therapeutic INR beat despite being noncompliant or skipping warfarin for the past couple days or weeks now as per family Critical/significant anemia, hemoglobin 5.6 Reactive leukocytosis versus infectious Possibly beginning cellulitis bilateral lower extremity Lymphedema bilateral lower extremity Tenia pedis Dry skin AK I/VMN possibly CK D Anasarca Gap metabolic acidosis with an anion gap of 16 and a bicarbonate of 19 Dyslipidemia on statin Diabetes on metformin-hold metformin given creatinine CHF, need to check an echo to see if systolic or diastolic-BNP is elevated at 8300 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-nutrition consult New Onset Petecchiae bilateral upper and bilateral lower extremity Generalized weakness-did need [facility] in 2015 History of strep bacteremia 2015 Hypomagnesemia (1.7) Met encephalopathy POA, resolved by the time of ER arrival CP POA< resolved at ER Lymphedema PCN allergy unknown reaction History of Present Illness History of Present Illness NO Increase in SOA Transferred out of ICU 09/03/18 for significant anemia 5 status post 2-Pack RBCs now up to 7 Also had INR of 7, status post vitamin K and FFP's, with no bleeding - INR now down to 2 NO DIC as fibrinogen is high and dimer normal On Coumadin for heart related issues Bilateral lower ext redness from mild cellulitis seems to be better since clindamycin Penicillin allergy-unknown reaction Agreeable to [facility] - interested in [facility]place Plan off cardizem gtt but hR still 1 teens at rest - rate control per cards ON warf May restart coumadin now in my opinion Follow heme onc recommendations Podiatry for toe nail clipping has been consulted Petecchiae still visible and appreciated - not worse Agreeable to SNU/[facility]-has been there before 3 years ago PT OT Transfuse if hgb < 7 He is Hemoccult negative Vitals Vitals Vital Signs Date Time Temp Pulse Resp B/P (MAP) Pulse Ox O2 Delivery O2 Flow Rate FiO2 09/04/18 11:21 Room Air 09/04/18 10:42 98.2 97 24 115/60 (78) 95 2.0 98.2 Physical Exam General: Alert, Oriented X3, mild distress Heart: Other (irregularly irregular. S1, S2.) Lungs: Clear Abdomen: Normal bowel sounds, Soft Extremities: No clubbing, No cyanosis, No edema Skin: Other (very dry skin with sloughing off of some epidermidis, scaling, long toenails, poor overall hygiene, +3 pitting edema left greater than the right some redness appreciable) Labs LABS Laboratory Tests Test 09/03/18 17:15 09/03/18 20:42 09/04/18 04:45 09/04/18 07:10 Glucose (Fingerstick) 216 mg/dL (70-99) 187 mg/dL (70-99) 134 mg/dL (70-99) Hemoglobin 8.2 g/dL (13.0-17.5) Hematocrit 26.4 % (39.0-53.0) Mean Corpuscular Hemoglobin Concent 31 g/dL (31-37) Sodium Level 141 mmol/L (136-145) Potassium Level 3.8 mmol/L (3.5-5.1) Chloride Level 103 mmol/L (98-107) Carbon Dioxide Level 25 mmol/L (21-32) Anion Gap 13 (6-14) Blood Urea Nitrogen 23 mg/dL (8-26) Creatinine 1.9 mg/dL (0.7-1.3) Estimated GFR (Cockcroft-Gault) 34.8 Glucose Level 147 mg/dL (70-99) Calcium Level 8.7 mg/dL (8.5-10.1) Test 09/04/18 11:17 Glucose (Fingerstick) 222 mg/dL (70-99) Review of Systems Review of Systems A 14 point ROS was completed with the following noted as positive: Other systems reviewed and negative. \CONSTITUTIONAL: No fever or chills EYES: No recent changes SKIN: No rash or itching CARDIOVASCULAR: No chest pain, syncope, palpitations, or edema RESPIRATORY: No SOB or cough GASTROINTESTINAL: No nausea, vomiting or abdominal pain NEUROLOGICAL: No headaches or weakness ENDOCRINE: No cold or heat intolerance GENITOURINARY: No urgency or frequency of urination MUSCULOSKELETAL: No back pain or joint pain LYMPHATICS: No enlarged lymph nodes PSYCHIATRIC: No anxiety or depression Assessment and Plan Assessmemt and Plan Problems Medical Problems: (1) Atrial fibrillation with RVR Status: Acute (2) CHF (congestive heart failure) Status: Acute (3) Symptomatic anemia Status: Acute Comment Review of Relevant I have reviewed the following items logan (where applicable) has been applied. Labs Laboratory Tests Test 09/02/18 12:12 09/02/18 17:30 09/02/18 17:39 09/02/18 18:20 Stool Occult Blood Negative (NEG) Nasal Screen MRSA (PCR) Negative (Negative) Glucose (Fingerstick) 177 mg/dL (70-99) Troponin I Quantitative 0.022 ng/mL (0.000-0.055) Test 09/02/18 20:56 09/02/18 21:15 09/03/18 05:55 09/03/18 07:55 Glucose (Fingerstick) 272 mg/dL (70-99) 126 mg/dL (70-99) Troponin I Quantitative 0.020 ng/mL (0.000-0.055) White Blood Count 14.8 x10^3/uL (4.0-11.0) Red Blood Count 2.63 x10^6/uL (4.30-5.70) Hemoglobin 6.3 g/dL (13.0-17.5) Hematocrit 20.1 % (39.0-53.0) Mean Corpuscular Volume 76 fL (79-100) Mean Corpuscular Hemoglobin 24 pg (25-35) Mean Corpuscular Hemoglobin Concent 31 g/dL (31-37) Red Cell Distribution Width 20.8 % (11.5-14.5) Platelet Count 340 x10^3/uL (140-400) Neutrophils (%) (Auto) 72 % (31-73) Lymphocytes (%) (Auto) 10 % (24-48) Monocytes (%) (Auto) 16 % (0-9) Eosinophils (%) (Auto) 1 % (0-3) Basophils (%) (Auto) 1 % (0-3) Neutrophils # (Auto) 10.6 x10^3uL (1.8-7.7) Lymphocytes # (Auto) 1.5 x10^3/uL (1.0-4.8) Monocytes # (Auto) 2.4 x10^3/uL (0.0-1.1) Eosinophils # (Auto) 0.2 x10^3/uL (0.0-0.7) Basophils # (Auto) 0.1 x10^3/uL (0.0-0.2) Prothrombin Time 21.6 SEC (11.7-14.0) Prothromb Time International Ratio 2.0 (0.8-1.1) Sodium Level 139 mmol/L (136-145) Potassium Level 4.1 mmol/L (3.5-5.1) Chloride Level 105 mmol/L (98-107) Carbon Dioxide Level 23 mmol/L (21-32) Anion Gap 11 (6-14) Blood Urea Nitrogen 25 mg/dL (8-26) Creatinine 1.7 mg/dL (0.7-1.3) Estimated GFR (Cockcroft-Gault) 39.6 BUN/Creatinine Ratio 15 (6-20) Glucose Level 147 mg/dL (70-99) Calcium Level 8.7 mg/dL (8.5-10.1) Magnesium Level 1.9 mg/dL (1.8-2.4) Total Bilirubin 0.6 mg/dL (0.2-1.0) Aspartate Amino Transf (AST/SGOT) 13 U/L (15-37) Alanine Aminotransferase (ALT/SGPT) 13 U/L (16-63) Alkaline Phosphatase 90 U/L (46-116) Total Protein 6.0 g/dL (6.4-8.2) Albumin 2.4 g/dL (3.4-5.0) Albumin/Globulin Ratio 0.7 (1.0-1.7) Test 09/03/18 11:49 09/03/18 17:15 09/03/18 20:42 09/04/18 04:45 Glucose (Fingerstick) 189 mg/dL (70-99) 216 mg/dL (70-99) 187 mg/dL (70-99) Hemoglobin 8.2 g/dL (13.0-17.5) Hematocrit 26.4 % (39.0-53.0) Mean Corpuscular Hemoglobin Concent 31 g/dL (31-37) Sodium Level 141 mmol/L (136-145) Potassium Level 3.8 mmol/L (3.5-5.1) Chloride Level 103 mmol/L (98-107) Carbon Dioxide Level 25 mmol/L (21-32) Anion Gap 13 (6-14) Blood Urea Nitrogen 23 mg/dL (8-26) Creatinine 1.9 mg/dL (0.7-1.3) Estimated GFR (Cockcroft-Gault) 34.8 Glucose Level 147 mg/dL (70-99) Calcium Level 8.7 mg/dL (8.5-10.1) Test 09/04/18 07:10 09/04/18 11:17 Glucose (Fingerstick) 134 mg/dL (70-99) 222 mg/dL (70-99) Laboratory Tests Test 09/03/18 17:15 09/03/18 20:42 09/04/18 04:45 09/04/18 07:10 Glucose (Fingerstick) 216 mg/dL (70-99) 187 mg/dL (70-99) 134 mg/dL (70-99) Hemoglobin 8.2 g/dL (13.0-17.5) Hematocrit 26.4 % (39.0-53.0) Mean Corpuscular Hemoglobin Concent 31 g/dL (31-37) Sodium Level 141 mmol/L (136-145) Potassium Level 3.8 mmol/L (3.5-5.1) Chloride Level 103 mmol/L (98-107) Carbon Dioxide Level 25 mmol/L (21-32) Anion Gap 13 (6-14) Blood Urea Nitrogen 23 mg/dL (8-26) Creatinine 1.9 mg/dL (0.7-1.3) Estimated GFR (Cockcroft-Gault) 34.8 Glucose Level 147 mg/dL (70-99) Calcium Level 8.7 mg/dL (8.5-10.1) Test 09/04/18 11:17 Glucose (Fingerstick) 222 mg/dL (70-99) Microbiology 09/02/18 Blood Culture - Preliminary, Resulted NO GROWTH AFTER 1 DAY 09/02/18 Aerobic Culture, Resulted Pending 09/02/18 Aerobic Culture Result 1 (LARRY), Resulted Pending 09/02/18 Gram Stain - Final, Resulted 09/02/18 Gram Stain Result 1 (LARRY) - Final, Resulted 09/02/18 Gram Stain Result 2 (LARRY) - Final, Resulted 09/02/18 Gram Stain Result 3 (LARRY) - Final, Resulted Medications Current Medications Diltiazem HCl (Cardizem) 10 mg 1X ONCE IVP Last administered on 09/02/18at 11: 31; Start 09/02/18 at 11:30; Stop 09/02/18 at 11:31; Status DC Diltiazem HCl (Cardizem) 10 mg 1X ONCE IVP Last administered on 09/02/18at 12: 47; Start 09/02/18 at 12:30; Stop 09/02/18 at 12:31; Status DC Diltiazem HCl 125 mg/Dextrose 125 ml @ 5 mls/hr CONT PRN IV SEE I/O RECORD Last administered on 09/03/18at 10:25; Start 09/02/18 at 12:30 Acetaminophen/ Hydrocodone Bitart (Lortab 5/325) 1 tab 1X ONCE PO Last administered on 09/02/18at 13:02; Start 09/02/18 at 13:00; Stop 09/02/18 at 13 :01; Status DC Phytonadione (Mephyton Oral Soln) 2.5 mg 1X ONCE PO Last administered on 09/02at 15:36; Start 09/02/18 at 15:00; Stop 09/02/18 at 15:01; Status DC Furosemide (Lasix) 40 mg BID92 IVP Last administered on 09/03/18at 13:58; Start 09/03/18 at 09:00; Stop 09/03/18 at 14:39; Status DC Furosemide (Lasix) 60 mg 1X ONCE IVP Last administered on 09/02/18at 15:36; Start 09/02/18 at 15:00; Stop 09/02/18 at 15:01; Status DC Multi-Ingred Cream/Lotion/Oil/ Oint (Hydrocerin Cream) 1 sondra PRN Q1HR PRN TP DRY SKIN / SCALING; Start 09/02/18 at 15:00 Albuterol/ Ipratropium (Duoneb) 3 ml RTQID NEB Last administered on 09/04/18at 11:19; Start 09/02/18 at 16:00 Guaifenesin (Robitussin Dm) 10 ml PRN Q6HRS PRN PO COUGH; Start 09/02/18 at 15 :00 Acetaminophen (Tylenol) 500 mg PRN Q6HRS PRN PO HEADACHE / TEMP Last administered on 09/03/18at 08:53; Start 09/02/18 at 15:00 Acetaminophen/ Codeine Phosphate (Tylenol #3) 1 tab PRN Q6HRS PRN PO PAIN MILD ; Start 09/02/18 at 15:00 Ondansetron HCl (Zofran) 4 mg PRN Q6HRS PRN IV NAUSEA/VOMITING 1ST CHOICE; Start 09/02/18 at 15:00 Ondansetron HCl (Zofran Odt) 4 mg PRN Q6HRS PRN PO NAUSEA/VOMITING; Start 11/08 at 15:00 Morphine Sulfate (Morphine Sulfate) 1 mg PRN Q2HR PRN IV PAIN SEVERE Last administered on 09/02/18at 22:47; Start 09/02/18 at 15:00 Atorvastatin Calcium (Lipitor) 40 mg QHS PO Last administered on 09/03/18at 20: 38; Start 09/02/18 at 21:00 Diltiazem HCl (Cardizem 24hr Cd) 120 mg DAILY PO ; Start 09/03/18 at 09:00; Stop 09/03/18 at 12:09; Status DC Glipizide (Glucotrol) 10 mg DAILY07 PO Last administered on 09/04/18at 06:31; Start 09/03/18 at 07:00 Acetaminophen/ Hydrocodone Bitart (Lortab 10/325) 1 tab PRN Q6HRS PRN PO MODERATE PAIN Last administered on 09/04/18at 05:00; Start 09/02/18 at 16:30 Metoprolol Succinate (Toprol Xl) 50 mg DAILY PO Last administered on at 07:52; Start 09/03/18 at 09:00 Pantoprazole Sodium (Protonix) 40 mg DAILYAC PO Last administered on at 06:31; Start 09/03/18 at 07:30 Non-Formulary Medication (Tizanidine Hcl ) 4 mg PRN QID PRN PO MUSCLE SPASMS; Start 09/02/18 at 15:00; Stop 09/02/18 at 16:26; Status DC Insulin Human Lispro (HumaLOG) 0-9 UNITS TIDWMEALS SQ Last administered on at 17:49; Start 09/02/18 at 17:00 Dextrose (Dextrose 50%-Water Syringe) 12.5 gm PRN Q15MIN PRN IV SEE COMMENTS; Start 09/02/18 at 15:00 Magnesium Sulfate/ Dextrose 100 ml @ 100 mls/hr 1X ONCE IV Last administered on 09/02/18at 19:56; Start 09/02/18 at 15:30; Stop 09/02/18 at 16:29; Status DC Clindamycin Phosphate 50 ml @ 100 mls/hr Q8HRS IV Last administered on at 06:00; Start 09/02/18 at 22:00 Clindamycin Phosphate 50 ml @ 100 mls/hr ONCE ONCE IV Last administered on at 16:10; Start 09/02/18 at 15:30; Stop 09/02/18 at 15:59; Status DC Lactobacillus Rhamnosus (Culturelle) 1 cap BID PO Last administered on at 07:52; Start 09/02/18 at 21:00 Tizanidine HCl (Zanaflex) 4 mg PRN Q6HRS PRN PO MUSCLE SPASMS; Start 09/02/18 at 16:30 Digoxin (Lanoxin) 500 mcg 1X ONCE IV Last administered on 09/02/18at 18:49; Start 09/02/18 at 19:00; Stop 09/02/18 at 19:01; Status DC Diltiazem HCl (Cardizem 24hr Cd) 300 mg DAILY PO Last administered on at 07:52; Start 09/03/18 at 12:30 Nystatin (Nystop) 1 sondra BID TP Last administered on 09/04/18at 07:51; Start at 15:00 Furosemide (Lasix) 80 mg DAILY IVP Last administered on 09/04/18at 07:53; Start 09/04/18 at 09:00 Active Scripts Active Reported Toprol Xl (Metoprolol Succinate) 50 Mg Tab.er.24h 50 Mg PO DAILY Glipizide 10 Mg Tablet 10 Mg PO DAILY Diltiazem 24HR Cd (Diltiazem Hcl) 120 Mg Cap.er.24h 120 Mg PO DAILY Tizanidine Hcl 4 Mg Capsule 4 Mg PO QID PRN Omeprazole 40 Mg Capsule.dr 40 Mg PO DAILY Hydrocodone-Apap 10-325 (Hydrocodone Bit/Acetaminophen) 1 Each Tablet 1 Tab PO PRN Q6HRS PRN Metformin Hcl 1,000 Mg Tablet 1,000 Mg PO BID Warfarin Sodium 5 Mg Tablet 5 Mg PO DAILY Warfarin Sodium 2.5 Mg Tablet 2.5 Mg PO DAILY Atorvastatin Calcium 40 Mg Tablet 40 Mg PO DAILY Vitals/I & O Vital Sign - Last 24 Hours 09/03/18 09/03/18 09/03/18 09/03/18 12:15 12:17 12:30 15:04 Temp 98.3 98.1 98.3 98.1 Pulse 92 82 84 Resp 20 20 B/P (MAP) 117/56 109/66 (80) Pulse Ox 94 O2 Delivery Room Air Nasal Cannula O2 Flow Rate 2.0 09/03/18 09/03/18 09/03/18 09/03/18 15:17 16:45 19:20 19:45 Temp 98.1 98.1 98.1 98.1 Pulse 82 107 Resp 18 22 B/P (MAP) 145/69 (94) 131/59 (83) Pulse Ox 95 97 96 97 O2 Delivery Nasal Cannula Nasal Cannula Nasal Cannula Nasal Cannula O2 Flow Rate 2.0 2.0 2.0 2.0 09/03/18 09/03/18 09/04/18 09/04/18 19:55 23:43 03:30 05:00 Temp 98.7 98.5 98.7 98.5 Pulse 112 110 Resp 24 22 18 B/P (MAP) 142/69 (93) 142/71 (94) Pulse Ox 92 98 97 O2 Delivery Nasal Cannula Nasal Cannula Simple Mask Nasal Cannula O2 Flow Rate 2.0 2.0 2.0 2.0 09/04/18 09/04/18 09/04/18 09/04/18 06:07 07:03 07:08 07:52 Temp 98.0 98.0 Pulse 109 109 Resp 24 B/P (MAP) 120/48 (72) 120/48 Pulse Ox 97 94 91 O2 Delivery Nasal Cannula Room Air Room Air O2 Flow Rate 2.0 09/04/18 09/04/18 09/04/18 09/04/18 07:52 08:00 10:42 11:21 Temp 98.2 98.2 Pulse 109 97 Resp 24 B/P (MAP) 120/48 115/60 (78) Pulse Ox 95 O2 Delivery Nasal Cannula Nasal Cannula Room Air O2 Flow Rate 2.0 2.0 Intake and Output 09/03/18 09/03/18 09/04/18 15:00 23:00 07:00 Intake Total 240 ml 250 ml 100 ml Output Total 160 ml 200 ml Balance 80 ml 50 ml 100 ml KRISTEN MARQUIS MD Sep 04, 2018 12:13
[2018-09-04 12:59] LABS: PROTHROMBIN TIME PATIENT 18.1 SEC (11.7-14.0)
[2018-09-04 14:44] VITALS: BP 113/64
[2018-09-04] MEDS ORDERED: WARFARIN 5 MG TABLET. PO ONE (16:00)
--- NOTE | 2018-09-04 17:17 | PDOC ---
PROGRESS NOTES Subjective Subjective Patient feels better today. He continues in atrial fibrillation which is chronic for him heart rate between 90-110 Objective Objective Vital Signs Date Time Temp Pulse Resp B/P (MAP) Pulse Ox O2 Delivery O2 Flow Rate FiO2 09/04/18 16:32 Room Air 09/04/18 15:46 92 2.0 09/04/18 14:44 98.6 80 22 113/64 (80) 98.6 Intake and Output 09/04/18 07:00 Intake Total 590 ml Output Total 360 ml Balance 230 ml Intake Oral 540 ml IV Total 50 ml Output Urine Total 360 ml # Voids 2 # Bowel Movements 1 Physical Exam Physical Exam No significant changes in cardiac exam Assessment Assessment Patient in atrial fibrillation with a better rate. Would like to give him another 24 hours before increasing meds if there is any rate control issues. I agree with the management of the anemia. Anticoagulation is an issue with this patient. Comment Review of Relevant I have reviewed the following items logan (where applicable) has been applied. Labs Laboratory Tests Test 09/02/18 17:30 09/02/18 17:39 09/02/18 18:20 09/02/18 20:56 Nasal Screen MRSA (PCR) Negative (Negative) Glucose (Fingerstick) 177 mg/dL (70-99) 272 mg/dL (70-99) Troponin I Quantitative 0.022 ng/mL (0.000-0.055) Test 09/02/18 21:15 09/03/18 05:55 09/03/18 07:55 09/03/18 11:49 Troponin I Quantitative 0.020 ng/mL (0.000-0.055) White Blood Count 14.8 x10^3/uL (4.0-11.0) Red Blood Count 2.63 x10^6/uL (4.30-5.70) Hemoglobin 6.3 g/dL (13.0-17.5) Hematocrit 20.1 % (39.0-53.0) Mean Corpuscular Volume 76 fL (79-100) Mean Corpuscular Hemoglobin 24 pg (25-35) Mean Corpuscular Hemoglobin Concent 31 g/dL (31-37) Red Cell Distribution Width 20.8 % (11.5-14.5) Platelet Count 340 x10^3/uL (140-400) Neutrophils (%) (Auto) 72 % (31-73) Lymphocytes (%) (Auto) 10 % (24-48) Monocytes (%) (Auto) 16 % (0-9) Eosinophils (%) (Auto) 1 % (0-3) Basophils (%) (Auto) 1 % (0-3) Neutrophils # (Auto) 10.6 x10^3uL (1.8-7.7) Lymphocytes # (Auto) 1.5 x10^3/uL (1.0-4.8) Monocytes # (Auto) 2.4 x10^3/uL (0.0-1.1) Eosinophils # (Auto) 0.2 x10^3/uL (0.0-0.7) Basophils # (Auto) 0.1 x10^3/uL (0.0-0.2) Prothrombin Time 21.6 SEC (11.7-14.0) Prothromb Time International Ratio 2.0 (0.8-1.1) Sodium Level 139 mmol/L (136-145) Potassium Level 4.1 mmol/L (3.5-5.1) Chloride Level 105 mmol/L (98-107) Carbon Dioxide Level 23 mmol/L (21-32) Anion Gap 11 (6-14) Blood Urea Nitrogen 25 mg/dL (8-26) Creatinine 1.7 mg/dL (0.7-1.3) Estimated GFR (Cockcroft-Gault) 39.6 BUN/Creatinine Ratio 15 (6-20) Glucose Level 147 mg/dL (70-99) Calcium Level 8.7 mg/dL (8.5-10.1) Magnesium Level 1.9 mg/dL (1.8-2.4) Total Bilirubin 0.6 mg/dL (0.2-1.0) Aspartate Amino Transf (AST/SGOT) 13 U/L (15-37) Alanine Aminotransferase (ALT/SGPT) 13 U/L (16-63) Alkaline Phosphatase 90 U/L (46-116) Total Protein 6.0 g/dL (6.4-8.2) Albumin 2.4 g/dL (3.4-5.0) Albumin/Globulin Ratio 0.7 (1.0-1.7) Glucose (Fingerstick) 126 mg/dL (70-99) 189 mg/dL (70-99) Test 09/03/18 17:15 09/03/18 20:42 09/04/18 04:45 09/04/18 07:10 Glucose (Fingerstick) 216 mg/dL (70-99) 187 mg/dL (70-99) 134 mg/dL (70-99) Hemoglobin 8.2 g/dL (13.0-17.5) Hematocrit 26.4 % (39.0-53.0) Mean Corpuscular Hemoglobin Concent 31 g/dL (31-37) Sodium Level 141 mmol/L (136-145) Potassium Level 3.8 mmol/L (3.5-5.1) Chloride Level 103 mmol/L (98-107) Carbon Dioxide Level 25 mmol/L (21-32) Anion Gap 13 (6-14) Blood Urea Nitrogen 23 mg/dL (8-26) Creatinine 1.9 mg/dL (0.7-1.3) Estimated GFR (Cockcroft-Gault) 34.8 Glucose Level 147 mg/dL (70-99) Calcium Level 8.7 mg/dL (8.5-10.1) Test 09/04/18 11:17 09/04/18 12:40 09/04/18 16:27 Glucose (Fingerstick) 222 mg/dL (70-99) 205 mg/dL (70-99) Prothrombin Time 18.1 SEC (11.7-14.0) Prothromb Time International Ratio 1.6 (0.8-1.1) Laboratory Tests Test 09/03/18 20:42 09/04/18 04:45 09/04/18 07:10 09/04/18 11:17 Glucose (Fingerstick) 187 mg/dL (70-99) 134 mg/dL (70-99) 222 mg/dL (70-99) Hemoglobin 8.2 g/dL (13.0-17.5) Hematocrit 26.4 % (39.0-53.0) Mean Corpuscular Hemoglobin Concent 31 g/dL (31-37) Sodium Level 141 mmol/L (136-145) Potassium Level 3.8 mmol/L (3.5-5.1) Chloride Level 103 mmol/L (98-107) Carbon Dioxide Level 25 mmol/L (21-32) Anion Gap 13 (6-14) Blood Urea Nitrogen 23 mg/dL (8-26) Creatinine 1.9 mg/dL (0.7-1.3) Estimated GFR (Cockcroft-Gault) 34.8 Glucose Level 147 mg/dL (70-99) Calcium Level 8.7 mg/dL (8.5-10.1) Test 09/04/18 12:40 09/04/18 16:27 Prothrombin Time 18.1 SEC (11.7-14.0) Prothromb Time International Ratio 1.6 (0.8-1.1) Glucose (Fingerstick) 205 mg/dL (70-99) Microbiology 09/02/18 Blood Culture - Preliminary, Resulted NO GROWTH AFTER 1 DAY 09/02/18 Aerobic Culture, Resulted Pending 09/02/18 Aerobic Culture Result 1 (LARRY), Resulted Pending 09/02/18 Gram Stain - Final, Resulted 09/02/18 Gram Stain Result 1 (LARRY) - Final, Resulted 09/02/18 Gram Stain Result 2 (LARRY) - Final, Resulted 09/02/18 Gram Stain Result 3 (LARRY) - Final, Resulted Medications Current Medications Diltiazem HCl (Cardizem) 10 mg 1X ONCE IVP Last administered on 09/02/18at 11: 31; Start 09/02/18 at 11:30; Stop 09/02/18 at 11:31; Status DC Diltiazem HCl (Cardizem) 10 mg 1X ONCE IVP Last administered on 09/02/18at 12: 47; Start 09/02/18 at 12:30; Stop 09/02/18 at 12:31; Status DC Diltiazem HCl 125 mg/Dextrose 125 ml @ 5 mls/hr CONT PRN IV SEE I/O RECORD Last administered on 09/03/18at 10:25; Start 09/02/18 at 12:30 Acetaminophen/ Hydrocodone Bitart (Lortab 5/325) 1 tab 1X ONCE PO Last administered on 09/02/18at 13:02; Start 09/02/18 at 13:00; Stop 09/02/18 at 13 :01; Status DC Phytonadione (Mephyton Oral Soln) 2.5 mg 1X ONCE PO Last administered on 09/02at 15:36; Start 09/02/18 at 15:00; Stop 09/02/18 at 15:01; Status DC Furosemide (Lasix) 40 mg BID92 IVP Last administered on 09/03/18at 13:58; Start 09/03/18 at 09:00; Stop 09/03/18 at 14:39; Status DC Furosemide (Lasix) 60 mg 1X ONCE IVP Last administered on 09/02/18at 15:36; Start 09/02/18 at 15:00; Stop 09/02/18 at 15:01; Status DC Multi-Ingred Cream/Lotion/Oil/ Oint (Hydrocerin Cream) 1 sondra PRN Q1HR PRN TP DRY SKIN / SCALING; Start 09/02/18 at 15:00 Albuterol/ Ipratropium (Duoneb) 3 ml RTQID NEB Last administered on 09/04/18at 16:30; Start 09/02/18 at 16:00 Guaifenesin (Robitussin Dm) 10 ml PRN Q6HRS PRN PO COUGH; Start 09/02/18 at 15 :00 Acetaminophen (Tylenol) 500 mg PRN Q6HRS PRN PO HEADACHE / TEMP Last administered on 09/03/18at 08:53; Start 09/02/18 at 15:00 Acetaminophen/ Codeine Phosphate (Tylenol #3) 1 tab PRN Q6HRS PRN PO PAIN MILD ; Start 09/02/18 at 15:00 Ondansetron HCl (Zofran) 4 mg PRN Q6HRS PRN IV NAUSEA/VOMITING 1ST CHOICE; Start 09/02/18 at 15:00 Ondansetron HCl (Zofran Odt) 4 mg PRN Q6HRS PRN PO NAUSEA/VOMITING; Start 11/08 at 15:00 Morphine Sulfate (Morphine Sulfate) 1 mg PRN Q2HR PRN IV PAIN SEVERE Last administered on 09/02/18at 22:47; Start 09/02/18 at 15:00 Atorvastatin Calcium (Lipitor) 40 mg QHS PO Last administered on 09/03/18at 20: 38; Start 09/02/18 at 21:00 Diltiazem HCl (Cardizem 24hr Cd) 120 mg DAILY PO ; Start 09/03/18 at 09:00; Stop 09/03/18 at 12:09; Status DC Glipizide (Glucotrol) 10 mg DAILY07 PO Last administered on 09/04/18at 06:31; Start 09/03/18 at 07:00 Acetaminophen/ Hydrocodone Bitart (Lortab 10/325) 1 tab PRN Q6HRS PRN PO MODERATE PAIN Last administered on 09/04/18at 13:24; Start 09/02/18 at 16:30 Metoprolol Succinate (Toprol Xl) 50 mg DAILY PO Last administered on at 07:52; Start 09/03/18 at 09:00 Pantoprazole Sodium (Protonix) 40 mg DAILYAC PO Last administered on at 06:31; Start 09/03/18 at 07:30 Non-Formulary Medication (Tizanidine Hcl ) 4 mg PRN QID PRN PO MUSCLE SPASMS; Start 09/02/18 at 15:00; Stop 09/02/18 at 16:26; Status DC Insulin Human Lispro (HumaLOG) 0-9 UNITS TIDWMEALS SQ Last administered on at 12:18; Start 09/02/18 at 17:00 Dextrose (Dextrose 50%-Water Syringe) 12.5 gm PRN Q15MIN PRN IV SEE COMMENTS; Start 09/02/18 at 15:00 Magnesium Sulfate/ Dextrose 100 ml @ 100 mls/hr 1X ONCE IV Last administered on 09/02/18at 19:56; Start 09/02/18 at 15:30; Stop 09/02/18 at 16:29; Status DC Clindamycin Phosphate 50 ml @ 100 mls/hr Q8HRS IV Last administered on at 14:26; Start 09/02/18 at 22:00 Clindamycin Phosphate 50 ml @ 100 mls/hr ONCE ONCE IV Last administered on at 16:10; Start 09/02/18 at 15:30; Stop 09/02/18 at 15:59; Status DC Lactobacillus Rhamnosus (Culturelle) 1 cap BID PO Last administered on at 07:52; Start 09/02/18 at 21:00 Tizanidine HCl (Zanaflex) 4 mg PRN Q6HRS PRN PO MUSCLE SPASMS; Start 09/02/18 at 16:30 Digoxin (Lanoxin) 500 mcg 1X ONCE IV Last administered on 09/02/18at 18:49; Start 09/02/18 at 19:00; Stop 09/02/18 at 19:01; Status DC Diltiazem HCl (Cardizem 24hr Cd) 300 mg DAILY PO Last administered on at 07:52; Start 09/03/18 at 12:30 Nystatin (Nystop) 1 sondra BID TP Last administered on 09/04/18at 07:51; Start at 15:00 Furosemide (Lasix) 80 mg DAILY IVP Last administered on 09/04/18at 07:53; Start 09/04/18 at 09:00 Warfarin Sodium (Coumadin Per Pharmacy) 1 each PRN DAILY PRN MC SEE COMMENTS Last administered on 09/04/18at 15:29; Start 09/04/18 at 12:15 Warfarin Sodium (Coumadin) 5 mg 1X WARF ONCE PO ; Start 09/04/18 at 16:00; Stop 09/04/18 at 16:01; Status DC Active Scripts Active Reported Toprol Xl (Metoprolol Succinate) 50 Mg Tab.er.24h 50 Mg PO DAILY Glipizide 10 Mg Tablet 10 Mg PO DAILY Diltiazem 24HR Cd (Diltiazem Hcl) 120 Mg Cap.er.24h 120 Mg PO DAILY Tizanidine Hcl 4 Mg Capsule 4 Mg PO QID PRN Omeprazole 40 Mg Capsule.dr 40 Mg PO DAILY Hydrocodone-Apap 10-325 (Hydrocodone Bit/Acetaminophen) 1 Each Tablet 1 Tab PO PRN Q6HRS PRN Metformin Hcl 1,000 Mg Tablet 1,000 Mg PO BID Warfarin Sodium 5 Mg Tablet 5 Mg PO DAILY Warfarin Sodium 2.5 Mg Tablet 2.5 Mg PO DAILY Atorvastatin Calcium 40 Mg Tablet 40 Mg PO DAILY Vitals/I & O Vital Sign - Last 24 Hours 09/03/18 09/03/18 09/03/18 09/03/18 19:20 19:45 19:55 23:43 Temp 98.1 98.7 98.1 98.7 Pulse 107 112 Resp 22 24 B/P (MAP) 131/59 (83) 142/69 (93) Pulse Ox 96 97 92 O2 Delivery Nasal Cannula Nasal Cannula Nasal Cannula Nasal Cannula O2 Flow Rate 2.0 2.0 2.0 2.0 10/14/09/04/18 09/04/18 09/04/18 03:30 05:00 07:03 07:08 Temp 98.5 98.0 98.5 98.0 Pulse 110 109 Resp 22 18 24 B/P (MAP) 142/71 (94) 120/48 (72) Pulse Ox 98 97 94 91 O2 Delivery Simple Mask Nasal Cannula Room Air Room Air O2 Flow Rate 2.0 2.0 09/04/18 09/04/18 09/04/18 09/04/18 07:52 07:52 08:00 10:42 Temp 98.2 98.2 Pulse 109 109 97 Resp 24 B/P (MAP) 120/48 120/48 115/60 (78) Pulse Ox 95 O2 Delivery Nasal Cannula Nasal Cannula O2 Flow Rate 2.0 2.0 09/04/18 09/04/18 09/04/18 09/04/18 11:21 13:24 14:44 15:46 Temp 98.6 98.6 Pulse 80 Resp 18 22 B/P (MAP) 113/64 (80) Pulse Ox 95 92 92 O2 Delivery Room Air Nasal Cannula Room Air Nasal Cannula O2 Flow Rate 2.0 2.0 09/04/18 16:32 O2 Delivery Room Air Intake and Output 09/03/18 09/03/18 09/04/18 15:00 23:00 07:00 Intake Total 240 ml 250 ml 100 ml Output Total 160 ml 200 ml Balance 80 ml 50 ml 100 ml JD ACOSTA MD Sep 04, 2018 17:17
[2018-09-04 19:30] VITALS: BP 158/63
[2018-09-04] MEDS: ATORVASTATIN CALCIUM 40 MG TABLET. PO SCH (21:11)
[2018-09-04 22:40] VITALS: BP 100/70
[2018-09-05] MEDS: ACETAMINOPHEN/CODEINE 300/30MG TABLET. PO PRN ×2 (02:20→14:13)
[2018-09-05 02:35] VITALS: BP 116/54
[2018-09-05] MEDS: CLINDAMYCIN 600MG PREMIX 50 ML IV SCH ×3 (06:44→20:49)
[2018-09-05 07:00] VITALS: BP 100/57
[2018-09-05] MEDS: IPRATRPIUM/ALBUTEROL 0.5/2.5MG 3 ML NEBU. NEB SCH ×4 (07:39→19:59)
[2018-09-05 07:42] LABS: HEMATOCRIT 23.2 % (39.0-53.0); HEMOGLOBIN 7.5 g/dL (13.0-17.5)
[2018-09-05 07:53] LABS: PROTHROMBIN TIME PATIENT 21.2 SEC (11.7-14.0)
[2018-09-05 07:57] LABS: CALCIUM 8.5 mg/dL (8.5-10.1); CREATININE 1.8 mg/dL (0.7-1.3); GFR 37.1; POTASSIUM 3.7 mmol/L (3.5-5.1)
[2018-09-05] MEDS: INSULIN LISPRO 300 UNITS/3 ML INSULN.PEN. SQ SCH ×3 (08:00→17:00)
[2018-09-05] MEDS: LACTOBACILLUS RHAMNOSUS GG 1 CAPSULE. PO SCH ×2 (08:19→20:48)
[2018-09-05] MEDS: PANTOPRAZOLE 40 MG TABLET.DR. PO SCH (08:19)
[2018-09-05] MEDS: METOPROLOL SUCC 24HR ER 50 MG TAB.ER.24H. PO SCH (08:19)
[2018-09-05] MEDS: glipiZIDE 5 MG TABLET PO SCH (08:19)
[2018-09-05] MEDS: FUROSEMIDE 40 MG/4 ML VIAL. IVP SCH (08:20)
--- NOTE | 2018-09-05 08:32 | PDOC ---
PROGRESS NOTES Chief Complaint Chief Complaint acute on chronic A. fib, now RVR Supra therapeutic INR beat despite being noncompliant or skipping warfarin for the past couple days or weeks now as per family Critical/significant anemia, hemoglobin 5.6 Reactive leukocytosis versus infectious Possibly beginning cellulitis bilateral lower extremity Lymphedema bilateral lower extremity Tenia pedis Dry skin AK I/VMN possibly CK D Anasarca Gap metabolic acidosis with an anion gap of 16 and a bicarbonate of 19 Dyslipidemia on statin Diabetes on metformin-hold metformin given creatinine CHF, need to check an echo to see if systolic or diastolic-BNP is elevated at 8300 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 Hb 7.5 today NO DIC as fibrinogen is high and dimer normal On Coumadin for heart related issues Bilateral lower ext redness from mild cellulitis seems to be better since clindamycin Penicillin allergy-unknown reaction NO Increase in SOB today, no CP, feeling weak. On O2, normally not on O2 Agreeable to [facility] - [facility] in [facility] Plan off cardizem gtt but hR still 1 teens at rest - rate control per cards Restart coumadin Wean O2 Follow heme onc recommendations Podiatry for toe nail clipping has been consulted Petechiae still visible and appreciated - not worse Agreeable to SNU/[facility]-has been there before 3 years ago PT OT Transfuse if hgb < 7 He is Hemoccult negative Vitals Vitals Vital Signs Date Time Temp Pulse Resp B/P (MAP) Pulse Ox O2 Delivery O2 Flow Rate FiO2 09/05/18 08:20 82 100/57 09/05/18 07:41 93 Nasal Cannula 2.0 09/05/18 07:00 97.9 22 97.9 Physical Exam General: Alert, Oriented X3, mild distress Heart: Other (irregularly irregular. S1, S2.) Lungs: Clear Abdomen: Normal bowel sounds, Soft Extremities: No clubbing, No cyanosis, No edema Skin: Other (very dry skin with sloughing off of some epidermidis, scaling, long toenails, poor overall hygiene, +3 pitting edema left greater than the right some redness appreciable) Labs LABS Laboratory Tests Test 09/04/18 11:17 09/04/18 12:40 09/04/18 16:27 09/04/18 20:46 Glucose (Fingerstick) 222 mg/dL (70-99) 205 mg/dL (70-99) 246 mg/dL (70-99) Prothrombin Time 18.1 SEC (11.7-14.0) Prothromb Time International Ratio 1.6 (0.8-1.1) Test 09/05/18 07:08 09/05/18 07:10 Glucose (Fingerstick) 97 mg/dL (70-99) Hemoglobin 7.5 g/dL (13.0-17.5) Hematocrit 23.2 % (39.0-53.0) Mean Corpuscular Hemoglobin Concent 32 g/dL (31-37) Prothrombin Time 21.2 SEC (11.7-14.0) Prothromb Time International Ratio 1.9 (0.8-1.1) Sodium Level 139 mmol/L (136-145) Potassium Level 3.7 mmol/L (3.5-5.1) Chloride Level 103 mmol/L (98-107) Carbon Dioxide Level 28 mmol/L (21-32) Anion Gap 8 (6-14) Blood Urea Nitrogen 26 mg/dL (8-26) Creatinine 1.8 mg/dL (0.7-1.3) Estimated GFR (Cockcroft-Gault) 37.1 Glucose Level 136 mg/dL (70-99) Calcium Level 8.5 mg/dL (8.5-10.1) Assessment and Plan Assessmemt and Plan Problems Medical Problems: (1) Atrial fibrillation with RVR Status: Acute (2) CHF (congestive heart failure) Status: Acute (3) Symptomatic anemia Status: Acute Comment Review of Relevant I have reviewed the following items logan (where applicable) has been applied. Labs Laboratory Tests Test 09/03/18 11:49 09/03/18 17:15 09/03/18 20:42 09/04/18 04:45 Glucose (Fingerstick) 189 mg/dL (70-99) 216 mg/dL (70-99) 187 mg/dL (70-99) Hemoglobin 8.2 g/dL (13.0-17.5) Hematocrit 26.4 % (39.0-53.0) Mean Corpuscular Hemoglobin Concent 31 g/dL (31-37) Sodium Level 141 mmol/L (136-145) Potassium Level 3.8 mmol/L (3.5-5.1) Chloride Level 103 mmol/L (98-107) Carbon Dioxide Level 25 mmol/L (21-32) Anion Gap 13 (6-14) Blood Urea Nitrogen 23 mg/dL (8-26) Creatinine 1.9 mg/dL (0.7-1.3) Estimated GFR (Cockcroft-Gault) 34.8 Glucose Level 147 mg/dL (70-99) Calcium Level 8.7 mg/dL (8.5-10.1) Test 09/04/18 07:10 09/04/18 11:17 09/04/18 12:40 09/04/18 16:27 Glucose (Fingerstick) 134 mg/dL (70-99) 222 mg/dL (70-99) 205 mg/dL (70-99) Prothrombin Time 18.1 SEC (11.7-14.0) Prothromb Time International Ratio 1.6 (0.8-1.1) Test 09/04/18 20:46 09/05/18 07:08 09/05/18 07:10 Glucose (Fingerstick) 246 mg/dL (70-99) 97 mg/dL (70-99) Hemoglobin 7.5 g/dL (13.0-17.5) Hematocrit 23.2 % (39.0-53.0) Mean Corpuscular Hemoglobin Concent 32 g/dL (31-37) Prothrombin Time 21.2 SEC (11.7-14.0) Prothromb Time International Ratio 1.9 (0.8-1.1) Sodium Level 139 mmol/L (136-145) Potassium Level 3.7 mmol/L (3.5-5.1) Chloride Level 103 mmol/L (98-107) Carbon Dioxide Level 28 mmol/L (21-32) Anion Gap 8 (6-14) Blood Urea Nitrogen 26 mg/dL (8-26) Creatinine 1.8 mg/dL (0.7-1.3) Estimated GFR (Cockcroft-Gault) 37.1 Glucose Level 136 mg/dL (70-99) Calcium Level 8.5 mg/dL (8.5-10.1) Laboratory Tests Test 09/04/18 11:17 09/04/18 12:40 09/04/18 16:27 09/04/18 20:46 Glucose (Fingerstick) 222 mg/dL (70-99) 205 mg/dL (70-99) 246 mg/dL (70-99) Prothrombin Time 18.1 SEC (11.7-14.0) Prothromb Time International Ratio 1.6 (0.8-1.1) Test 09/05/18 07:08 09/05/18 07:10 Glucose (Fingerstick) 97 mg/dL (70-99) Hemoglobin 7.5 g/dL (13.0-17.5) Hematocrit 23.2 % (39.0-53.0) Mean Corpuscular Hemoglobin Concent 32 g/dL (31-37) Prothrombin Time 21.2 SEC (11.7-14.0) Prothromb Time International Ratio 1.9 (0.8-1.1) Sodium Level 139 mmol/L (136-145) Potassium Level 3.7 mmol/L (3.5-5.1) Chloride Level 103 mmol/L (98-107) Carbon Dioxide Level 28 mmol/L (21-32) Anion Gap 8 (6-14) Blood Urea Nitrogen 26 mg/dL (8-26) Creatinine 1.8 mg/dL (0.7-1.3) Estimated GFR (Cockcroft-Gault) 37.1 Glucose Level 136 mg/dL (70-99) Calcium Level 8.5 mg/dL (8.5-10.1) Microbiology 09/02/18 Blood Culture - Preliminary, Resulted NO GROWTH AFTER 2 DAYS 09/02/18 Aerobic Culture, Resulted Pending 09/02/18 Aerobic Culture Result 1 (LARRY), Resulted Pending 09/02/18 Gram Stain - Final, Resulted 09/02/18 Gram Stain Result 1 (LARRY) - Final, Resulted 09/02/18 Gram Stain Result 2 (LARRY) - Final, Resulted 09/02/18 Gram Stain Result 3 (LARRY) - Final, Resulted Medications Current Medications Diltiazem HCl (Cardizem) 10 mg 1X ONCE IVP Last administered on 09/02/18at 11: 31; Start 09/02/18 at 11:30; Stop 09/02/18 at 11:31; Status DC Diltiazem HCl (Cardizem) 10 mg 1X ONCE IVP Last administered on 09/02/18at 12: 47; Start 09/02/18 at 12:30; Stop 09/02/18 at 12:31; Status DC Diltiazem HCl 125 mg/Dextrose 125 ml @ 5 mls/hr CONT PRN IV SEE I/O RECORD Last administered on 09/03/18at 10:25; Start 09/02/18 at 12:30 Acetaminophen/ Hydrocodone Bitart (Lortab 5/325) 1 tab 1X ONCE PO Last administered on 09/02/18at 13:02; Start 09/02/18 at 13:00; Stop 09/02/18 at 13 :01; Status DC Phytonadione (Mephyton Oral Soln) 2.5 mg 1X ONCE PO Last administered on 09/02at 15:36; Start 09/02/18 at 15:00; Stop 09/02/18 at 15:01; Status DC Furosemide (Lasix) 40 mg BID92 IVP Last administered on 09/03/18at 13:58; Start 09/03/18 at 09:00; Stop 09/03/18 at 14:39; Status DC Furosemide (Lasix) 60 mg 1X ONCE IVP Last administered on 09/02/18at 15:36; Start 09/02/18 at 15:00; Stop 09/02/18 at 15:01; Status DC Multi-Ingred Cream/Lotion/Oil/ Oint (Hydrocerin Cream) 1 sondra PRN Q1HR PRN TP DRY SKIN / SCALING; Start 09/02/18 at 15:00 Albuterol/ Ipratropium (Duoneb) 3 ml RTQID NEB Last administered on 09/05/18at 07:39; Start 09/02/18 at 16:00 Guaifenesin (Robitussin Dm) 10 ml PRN Q6HRS PRN PO COUGH; Start 09/02/18 at 15 :00 Acetaminophen (Tylenol) 500 mg PRN Q6HRS PRN PO HEADACHE / TEMP Last administered on 09/03/18at 08:53; Start 09/02/18 at 15:00 Acetaminophen/ Codeine Phosphate (Tylenol #3) 1 tab PRN Q6HRS PRN PO PAIN MILD Last administered on 09/05/18at 02:20; Start 09/02/18 at 15:00 Ondansetron HCl (Zofran) 4 mg PRN Q6HRS PRN IV NAUSEA/VOMITING 1ST CHOICE; Start 09/02/18 at 15:00 Ondansetron HCl (Zofran Odt) 4 mg PRN Q6HRS PRN PO NAUSEA/VOMITING; Start 11/08 at 15:00 Morphine Sulfate (Morphine Sulfate) 1 mg PRN Q2HR PRN IV PAIN SEVERE Last administered on 09/02/18at 22:47; Start 09/02/18 at 15:00 Atorvastatin Calcium (Lipitor) 40 mg QHS PO Last administered on 09/04/18at 21: 11; Start 09/02/18 at 21:00 Diltiazem HCl (Cardizem 24hr Cd) 120 mg DAILY PO ; Start 09/03/18 at 09:00; Stop 09/03/18 at 12:09; Status DC Glipizide (Glucotrol) 10 mg DAILY07 PO Last administered on 09/05/18at 08:19; Start 09/03/18 at 07:00 Acetaminophen/ Hydrocodone Bitart (Lortab 10/325) 1 tab PRN Q6HRS PRN PO MODERATE PAIN Last administered on 09/04/18at 21:11; Start 09/02/18 at 16:30 Metoprolol Succinate (Toprol Xl) 50 mg DAILY PO Last administered on at 08:19; Start 09/03/18 at 09:00 Pantoprazole Sodium (Protonix) 40 mg DAILYAC PO Last administered on at 08:19; Start 09/03/18 at 07:30 Non-Formulary Medication (Tizanidine Hcl ) 4 mg PRN QID PRN PO MUSCLE SPASMS; Start 09/02/18 at 15:00; Stop 09/02/18 at 16:26; Status DC Insulin Human Lispro (HumaLOG) 0-9 UNITS TIDWMEALS SQ Last administered on at 17:30; Start 09/02/18 at 17:00 Dextrose (Dextrose 50%-Water Syringe) 12.5 gm PRN Q15MIN PRN IV SEE COMMENTS; Start 09/02/18 at 15:00 Magnesium Sulfate/ Dextrose 100 ml @ 100 mls/hr 1X ONCE IV Last administered on 09/02/18at 19:56; Start 09/02/18 at 15:30; Stop 09/02/18 at 16:29; Status DC Clindamycin Phosphate 50 ml @ 100 mls/hr Q8HRS IV Last administered on at 06:44; Start 09/02/18 at 22:00 Clindamycin Phosphate 50 ml @ 100 mls/hr ONCE ONCE IV Last administered on at 16:10; Start 09/02/18 at 15:30; Stop 09/02/18 at 15:59; Status DC Lactobacillus Rhamnosus (Culturelle) 1 cap BID PO Last administered on at 08:19; Start 09/02/18 at 21:00 Tizanidine HCl (Zanaflex) 4 mg PRN Q6HRS PRN PO MUSCLE SPASMS Last administered on 09/05/18 02:19; Start 09/02/18 at 16:30 Digoxin (Lanoxin) 500 mcg 1X ONCE IV Last administered on 09/02/18 18:49; Start 09/02/18 at 19:00; Stop 09/02/18 at 19:01; Status DC Diltiazem HCl (Cardizem 24hr Cd) 300 mg DAILY PO Last administered on at 08:20; Start 09/03/18 at 12:30 Nystatin (Nystop) 1 sondra BID TP Last administered on 09/04/18at 07:51; Start at 15:00 Furosemide (Lasix) 80 mg DAILY IVP Last administered on 09/05/18 08:20; Start 09/04/18 at 09:00 Warfarin Sodium (Coumadin Per Pharmacy) 1 each PRN DAILY PRN MC SEE COMMENTS Last administered on 09/04/18at 15:29; Start 09/04/18 at 12:15 Warfarin Sodium (Coumadin) 5 mg 1X WARF ONCE PO Last administered on at 17:26; Start 09/04/18 at 16:00; Stop 09/04/18 at 16:01; Status DC Active Scripts Active Reported Toprol Xl (Metoprolol Succinate) 50 Mg Tab.er.24h 50 Mg PO DAILY Glipizide 10 Mg Tablet 10 Mg PO DAILY Diltiazem 24HR Cd (Diltiazem Hcl) 120 Mg Cap.er.24h 120 Mg PO DAILY Tizanidine Hcl 4 Mg Capsule 4 Mg PO QID PRN Omeprazole 40 Mg Capsule.dr 40 Mg PO DAILY Hydrocodone-Apap 10-325 (Hydrocodone Bit/Acetaminophen) 1 Each Tablet 1 Tab PO PRN Q6HRS PRN Metformin Hcl 1,000 Mg Tablet 1,000 Mg PO BID Warfarin Sodium 5 Mg Tablet 5 Mg PO DAILY Warfarin Sodium 2.5 Mg Tablet 2.5 Mg PO DAILY Atorvastatin Calcium 40 Mg Tablet 40 Mg PO DAILY Vitals/I & O Vital Sign - Last 24 Hours 09/04/18 09/04/18 09/04/18 09/04/18 10:42 11:21 13:24 14:44 Temp 98.2 98.6 98.2 98.6 Pulse 97 80 Resp 24 18 22 B/P (MAP) 115/60 (78) 113/64 (80) Pulse Ox 95 95 92 O2 Delivery Nasal Cannula Room Air Nasal Cannula Room Air O2 Flow Rate 2.0 2.0 09/04/18 09/04/18 09/04/18 09/04/18 16:32 19:30 20:00 21:03 Temp 98.1 98.1 Pulse 96 Resp 20 B/P (MAP) 158/63 (94) Pulse Ox 98 96 O2 Delivery Room Air Nasal Cannula Nasal Cannula Room Air O2 Flow Rate 2.0 3.0 2.0 09/04/18 09/04/18 09/04/18 09/05/18 21:11 22:11 22:40 02:20 Temp 98.1 98.1 Pulse 96 Resp 20 20 20 22 B/P (MAP) 100/70 (80) Pulse Ox 96 98 98 98 O2 Delivery Nasal Cannula Nasal Cannula Nasal Cannula Nasal Cannula O2 Flow Rate 3.0 3.0 2.0 3.0 09/05/18 09/05/18 09/05/18 09/05/18 02:35 03:20 07:00 07:41 Temp 97.9 97.9 97.9 97.9 Pulse 88 82 Resp 18 20 22 B/P (MAP) 116/54 (74) 100/57 (71) Pulse Ox 97 97 94 93 O2 Delivery Nasal Cannula Nasal Cannula Nasal Cannula Nasal Cannula O2 Flow Rate 2.0 3.0 2.0 2.0 09/05/18 09/05/18 08:19 08:20 Pulse 82 82 B/P (MAP) 100/57 100/57 Intake and Output 09/04/18 09/04/18 09/05/18 15:00 23:00 07:00 Intake Total 440 ml Output Total 250 ml 1400 ml Balance -250 ml -1400 ml 440 ml BRIAN JARAMILLO MD Sep 05, 2018 08:32
--- NOTE | 2018-09-05 08:41 | PDOC ---
SUBJECTIVE Subjective S: Doing better O: Physical exam: Gen.: Elderly male, resting in bed Lungs: Breathing comfortably with no evidence of respiratory distress Extremities: bilateral lower extremity cellulitis improving significantly, petechiae fading, more bruising noted UEs Psychiatric: Pleasant mood and affect Labs: INR 1.6, creatinine 1.9, retaken 0.9, ferritin of 57, iron sat 3%, serum iron of 8, TIBC of 286 White blood cells 14.8, hemoglobin 7.5, platelets 340 SP 2 units FFP and 3 units red blood cells Assessment and Plan: He is a 73-year-old male admitted for A. fib with RVR on diltiazem drip, on Coumadin with A. fib and was supratherapeutic, reversed w/ oral vitamin K and FFP On coumadin: INR less than 2, Coumadin has been restarted, he does have a home INR machine, he was feeling poorly prior to admission, I recommend following INRs at home at least weekly in the beginning, and certainly should he feel poorly in the future to have a low threshold to check his INR and check to see if he supratherapeutic in the future, but do believe Coumadin is likely the best bet for him for anticoagulation with his renal insufficiency, as long as full dose anticoagulation for the A. fib is being pursued. Petechiae: No thrombocytopenia, fading Anemia: We will give IV iron sucrose up to 4 days while here, due to the mild iron deficiency, would also recommend keeping GI screening up-to-date, last colonoscopy I believe was in 2009 and he does not remember getting an upper GI A. fib: still sl hi rate, defer to cardiology Cellulitis: improving on Abx Acute kidney injury: per others Lymphedema: Lower extremities OT had been consulted Disposition: Per others, we can continue IV iron and follow-up anemia as an outpatient as needed Thank you kindly for this consultation, and please don't hesitate to call the on -call physician with questions over the weekend. OBJECTIVE Vital Signs Vital Signs Date Time Temp Pulse Resp B/P (MAP) Pulse Ox O2 Delivery O2 Flow Rate FiO2 09/05/18 08:20 82 100/57 09/05/18 08:19 82 100/57 09/05/18 07:41 93 Nasal Cannula 2.0 09/05/18 07:00 97.9 82 22 100/57 (71) 94 Nasal Cannula 2.0 97.9 09/05/18 03:20 20 97 Nasal Cannula 3.0 09/05/18 02:35 97.9 88 18 116/54 (74) 97 Nasal Cannula 2.0 97.9 09/05/18 02:20 22 98 Nasal Cannula 3.0 09/04/18 22:40 98.1 96 20 100/70 (80) 98 Nasal Cannula 2.0 98.1 09/04/18 22:11 20 98 Nasal Cannula 3.0 09/04/18 21:11 20 96 Nasal Cannula 3.0 09/04/18 21:03 96 Room Air 2.0 09/04/18 20:00 Nasal Cannula 3.0 09/04/18 19:30 98.1 96 20 158/63 (94) 98 Nasal Cannula 2.0 98.1 09/04/18 16:32 Room Air 09/04/18 14:44 98.6 80 22 113/64 (80) 92 Room Air 98.6 09/04/18 13:24 18 95 Nasal Cannula 2.0 09/04/18 11:21 Room Air 09/04/18 10:42 98.2 97 24 115/60 (78) 95 Nasal Cannula 2.0 98.2 I & O Intake and Output 09/05/18 07:00 Intake Total 440 ml Output Total 1650 ml Balance -1210 ml Intake Oral 440 ml Output Urine Total 1650 ml COMMENT Lab Laboratory Tests Test 09/04/18 11:17 09/04/18 12:40 09/04/18 16:27 09/04/18 20:46 Glucose (Fingerstick) 222 mg/dL (70-99) 205 mg/dL (70-99) 246 mg/dL (70-99) Prothrombin Time 18.1 SEC (11.7-14.0) Prothromb Time International Ratio 1.6 (0.8-1.1) Test 09/05/18 07:08 09/05/18 07:10 Glucose (Fingerstick) 97 mg/dL (70-99) Hemoglobin 7.5 g/dL (13.0-17.5) Hematocrit 23.2 % (39.0-53.0) Mean Corpuscular Hemoglobin Concent 32 g/dL (31-37) Prothrombin Time 21.2 SEC (11.7-14.0) Prothromb Time International Ratio 1.9 (0.8-1.1) Sodium Level 139 mmol/L (136-145) Potassium Level 3.7 mmol/L (3.5-5.1) Chloride Level 103 mmol/L (98-107) Carbon Dioxide Level 28 mmol/L (21-32) Anion Gap 8 (6-14) Blood Urea Nitrogen 26 mg/dL (8-26) Creatinine 1.8 mg/dL (0.7-1.3) Estimated GFR (Cockcroft-Gault) 37.1 Glucose Level 136 mg/dL (70-99) Calcium Level 8.5 mg/dL (8.5-10.1) LUISA CASTANO MD Sep 05, 2018 08:41
[2018-09-05] MEDS: NYSTATIN TOPICAL POWDER 15GM BOTTLE. TP SCH ×2 (09:00→20:49)
[2018-09-05] MEDS: ACETAMINOPHEN 325 MG TABLET. PO SCH (09:54)
[2018-09-05] MEDS: IRON SUCROSE COMPLEX 300 MG in IV NORMAL SALINE 250ML 250 ML IV SCH (09:54)
[2018-09-05] MEDS: diphenhydrAMINE HCL 25 MG CAPSULE PO SCH (09:54)
[2018-09-05 11:00] VITALS: BP 99/57
--- NOTE | 2018-09-05 14:32 | PDOC ---
PROGRESS NOTES Subjective Subjective Pt is feels a little better today. Objective Objective Vital Signs Date Time Temp Pulse Resp B/P (MAP) Pulse Ox O2 Delivery O2 Flow Rate FiO2 09/05/18 11:31 Nasal Cannula 2.0 09/05/18 11:00 98.2 91 22 99/57 (71) 97 98.2 Intake and Output 09/05/18 07:00 Intake Total 440 ml Output Total 1650 ml Balance -1210 ml Intake Oral 440 ml Output Urine Total 1650 ml Physical Exam Physical Exam Patient's LE edema is decreased. No other significant changes in cardiac exam. Heart: Regular rate, Other (Split S1) Lungs: Clear to auscultation Assessment Assessment Problems Medical Problems: (1) Atrial fibrillation with RVR Status: Acute (2) CHF (congestive heart failure) Status: Acute (3) Symptomatic anemia Status: Acute Plan Plan of Care Pt remains in A-fib. Hgb is down slightly from yesterday, currently on IV iron gtt. Warfarin resumed, INR trending up (1.9 this am). Comment Review of Relevant I have reviewed the following items logan (where applicable) has been applied. Labs Laboratory Tests Test 09/03/18 17:15 09/03/18 20:42 09/04/18 04:45 09/04/18 07:10 Glucose (Fingerstick) 216 mg/dL (70-99) 187 mg/dL (70-99) 134 mg/dL (70-99) Hemoglobin 8.2 g/dL (13.0-17.5) Hematocrit 26.4 % (39.0-53.0) Mean Corpuscular Hemoglobin Concent 31 g/dL (31-37) Sodium Level 141 mmol/L (136-145) Potassium Level 3.8 mmol/L (3.5-5.1) Chloride Level 103 mmol/L (98-107) Carbon Dioxide Level 25 mmol/L (21-32) Anion Gap 13 (6-14) Blood Urea Nitrogen 23 mg/dL (8-26) Creatinine 1.9 mg/dL (0.7-1.3) Estimated GFR (Cockcroft-Gault) 34.8 Glucose Level 147 mg/dL (70-99) Calcium Level 8.7 mg/dL (8.5-10.1) Test 09/04/18 11:17 09/04/18 12:40 09/04/18 16:27 09/04/18 20:46 Glucose (Fingerstick) 222 mg/dL (70-99) 205 mg/dL (70-99) 246 mg/dL (70-99) Prothrombin Time 18.1 SEC (11.7-14.0) Prothromb Time International Ratio 1.6 (0.8-1.1) Test 09/05/18 07:08 09/05/18 07:10 09/05/18 11:49 Glucose (Fingerstick) 97 mg/dL (70-99) 204 mg/dL (70-99) Hemoglobin 7.5 g/dL (13.0-17.5) Hematocrit 23.2 % (39.0-53.0) Mean Corpuscular Hemoglobin Concent 32 g/dL (31-37) Prothrombin Time 21.2 SEC (11.7-14.0) Prothromb Time International Ratio 1.9 (0.8-1.1) Sodium Level 139 mmol/L (136-145) Potassium Level 3.7 mmol/L (3.5-5.1) Chloride Level 103 mmol/L (98-107) Carbon Dioxide Level 28 mmol/L (21-32) Anion Gap 8 (6-14) Blood Urea Nitrogen 26 mg/dL (8-26) Creatinine 1.8 mg/dL (0.7-1.3) Estimated GFR (Cockcroft-Gault) 37.1 Glucose Level 136 mg/dL (70-99) Calcium Level 8.5 mg/dL (8.5-10.1) Laboratory Tests Test 09/04/18 16:27 09/04/18 20:46 09/05/18 07:08 09/05/18 07:10 Glucose (Fingerstick) 205 mg/dL (70-99) 246 mg/dL (70-99) 97 mg/dL (70-99) Hemoglobin 7.5 g/dL (13.0-17.5) Hematocrit 23.2 % (39.0-53.0) Mean Corpuscular Hemoglobin Concent 32 g/dL (31-37) Prothrombin Time 21.2 SEC (11.7-14.0) Prothromb Time International Ratio 1.9 (0.8-1.1) Sodium Level 139 mmol/L (136-145) Potassium Level 3.7 mmol/L (3.5-5.1) Chloride Level 103 mmol/L (98-107) Carbon Dioxide Level 28 mmol/L (21-32) Anion Gap 8 (6-14) Blood Urea Nitrogen 26 mg/dL (8-26) Creatinine 1.8 mg/dL (0.7-1.3) Estimated GFR (Cockcroft-Gault) 37.1 Glucose Level 136 mg/dL (70-99) Calcium Level 8.5 mg/dL (8.5-10.1) Test 09/05/18 11:49 Glucose (Fingerstick) 204 mg/dL (70-99) Microbiology 09/02/18 Blood Culture - Preliminary, Resulted NO GROWTH AFTER 2 DAYS 09/02/18 Aerobic Culture, Resulted Pending 09/02/18 Aerobic Culture Result 1 (LARRY), Resulted Pending 09/02/18 Gram Stain - Final, Resulted 09/02/18 Gram Stain Result 1 (LARRY) - Final, Resulted 09/02/18 Gram Stain Result 2 (LARRY) - Final, Resulted 09/02/18 Gram Stain Result 3 (LARRY) - Final, Resulted Medications Current Medications Diltiazem HCl (Cardizem) 10 mg 1X ONCE IVP Last administered on 09/02/18at 11: 31; Start 09/02/18 at 11:30; Stop 09/02/18 at 11:31; Status DC Diltiazem HCl (Cardizem) 10 mg 1X ONCE IVP Last administered on 09/02/18at 12: 47; Start 09/02/18 at 12:30; Stop 09/02/18 at 12:31; Status DC Diltiazem HCl 125 mg/Dextrose 125 ml @ 5 mls/hr CONT PRN IV SEE I/O RECORD Last administered on 09/03/18at 10:25; Start 09/02/18 at 12:30 Acetaminophen/ Hydrocodone Bitart (Lortab 5/325) 1 tab 1X ONCE PO Last administered on 09/02/18at 13:02; Start 09/02/18 at 13:00; Stop 09/02/18 at 13 :01; Status DC Phytonadione (Mephyton Oral Soln) 2.5 mg 1X ONCE PO Last administered on 09/02at 15:36; Start 09/02/18 at 15:00; Stop 09/02/18 at 15:01; Status DC Furosemide (Lasix) 40 mg BID92 IVP Last administered on 09/03/18at 13:58; Start 09/03/18 at 09:00; Stop 09/03/18 at 14:39; Status DC Furosemide (Lasix) 60 mg 1X ONCE IVP Last administered on 09/02/18at 15:36; Start 09/02/18 at 15:00; Stop 09/02/18 at 15:01; Status DC Multi-Ingred Cream/Lotion/Oil/ Oint (Hydrocerin Cream) 1 sondra PRN Q1HR PRN TP DRY SKIN / SCALING; Start 09/02/18 at 15:00 Albuterol/ Ipratropium (Duoneb) 3 ml RTQID NEB Last administered on 09/05/18at 11:29; Start 09/02/18 at 16:00 Guaifenesin (Robitussin Dm) 10 ml PRN Q6HRS PRN PO COUGH; Start 09/02/18 at 15 :00 Acetaminophen (Tylenol) 500 mg PRN Q6HRS PRN PO HEADACHE / TEMP Last administered on 09/03/18at 08:53; Start 09/02/18 at 15:00 Acetaminophen/ Codeine Phosphate (Tylenol #3) 1 tab PRN Q6HRS PRN PO PAIN MILD Last administered on 09/05/18at 02:20; Start 09/02/18 at 15:00 Ondansetron HCl (Zofran) 4 mg PRN Q6HRS PRN IV NAUSEA/VOMITING 1ST CHOICE; Start 09/02/18 at 15:00 Ondansetron HCl (Zofran Odt) 4 mg PRN Q6HRS PRN PO NAUSEA/VOMITING; Start 11/08 at 15:00 Morphine Sulfate (Morphine Sulfate) 1 mg PRN Q2HR PRN IV PAIN SEVERE Last administered on 09/02/18at 22:47; Start 09/02/18 at 15:00 Atorvastatin Calcium (Lipitor) 40 mg QHS PO Last administered on 09/04/18at 21: 11; Start 09/02/18 at 21:00 Diltiazem HCl (Cardizem 24hr Cd) 120 mg DAILY PO ; Start 09/03/18 at 09:00; Stop 09/03/18 at 12:09; Status DC Glipizide (Glucotrol) 10 mg DAILY07 PO Last administered on 09/05/18at 08:19; Start 09/03/18 at 07:00 Acetaminophen/ Hydrocodone Bitart (Lortab 10/325) 1 tab PRN Q6HRS PRN PO MODERATE PAIN Last administered on 09/04/18at 21:11; Start 09/02/18 at 16:30 Metoprolol Succinate (Toprol Xl) 50 mg DAILY PO Last administered on at 08:19; Start 09/03/18 at 09:00 Pantoprazole Sodium (Protonix) 40 mg DAILYAC PO Last administered on 08:19; Start 09/03/18 at 07:30 Non-Formulary Medication (Tizanidine Hcl ) 4 mg PRN QID PRN PO MUSCLE SPASMS; Start 09/02/18 at 15:00; Stop 09/02/18 at 16:26; Status DC Insulin Human Lispro (HumaLOG) 0-9 UNITS TIDWMEALS SQ Last administered on at 17:30; Start 09/02/18 at 17:00 Dextrose (Dextrose 50%-Water Syringe) 12.5 gm PRN Q15MIN PRN IV SEE COMMENTS; Start 09/02/18 at 15:00 Magnesium Sulfate/ Dextrose 100 ml @ 100 mls/hr 1X ONCE IV Last administered on 09/02/18at 19:56; Start 09/02/18 at 15:30; Stop 09/02/18 at 16:29; Status DC Clindamycin Phosphate 50 ml @ 100 mls/hr Q8HRS IV Last administered on at 06:44; Start 09/02/18 at 22:00 Clindamycin Phosphate 50 ml @ 100 mls/hr ONCE ONCE IV Last administered on at 16:10; Start 09/02/18 at 15:30; Stop 09/02/18 at 15:59; Status DC Lactobacillus Rhamnosus (Culturelle) 1 cap BID PO Last administered on at 08:19; Start 09/02/18 at 21:00 Tizanidine HCl (Zanaflex) 4 mg PRN Q6HRS PRN PO MUSCLE SPASMS Last administered on 09/05/18 02:19; Start 09/02/18 at 16:30 Digoxin (Lanoxin) 500 mcg 1X ONCE IV Last administered on 09/02/18 18:49; Start 09/02/18 at 19:00; Stop 09/02/18 at 19:01; Status DC Diltiazem HCl (Cardizem 24hr Cd) 300 mg DAILY PO Last administered on 08:20; Start 09/03/18 at 12:30 Nystatin (Nystop) 1 sondra BID TP Last administered on 09/04/18 07:51; Start at 15:00 Furosemide (Lasix) 80 mg DAILY IVP Last administered on 09/05/18 08:20; Start 09/04/18 at 09:00 Warfarin Sodium (Coumadin Per Pharmacy) 1 each PRN DAILY PRN MC SEE COMMENTS Last administered on 09/04/18 15:29; Start 09/04/18 at 12:15 Warfarin Sodium (Coumadin) 5 mg 1X WARF ONCE PO Last administered on 17:26; Start 09/04/18 at 16:00; Stop 09/04/18 at 16:01; Status DC Iron Sucrose 300 mg/Sodium Chloride 265 ml @ 88.333 mls/ hr DAILY10 IV Last administered on 09/05/18 09:54; Start 09/05/18 at 10:00; Stop 09/08/18 at 12 :59 Diphenhydramine HCl (Benadryl) 25 mg Q24H PO Last administered on 09/05/18 09 :54; Start 09/05/18 at 09:30 Acetaminophen (Tylenol) 650 mg Q24H PO Last administered on 09/05/18 09:54; Start 09/05/18 at 09:30 Active Scripts Active Reported Toprol Xl (Metoprolol Succinate) 50 Mg Tab.er.24h 50 Mg PO DAILY Glipizide 10 Mg Tablet 10 Mg PO DAILY Diltiazem 24HR Cd (Diltiazem Hcl) 120 Mg Cap.er.24h 120 Mg PO DAILY Tizanidine Hcl 4 Mg Capsule 4 Mg PO QID PRN Omeprazole 40 Mg Capsule.dr 40 Mg PO DAILY Hydrocodone-Apap 10-325 (Hydrocodone Bit/Acetaminophen) 1 Each Tablet 1 Tab PO PRN Q6HRS PRN Metformin Hcl 1,000 Mg Tablet 1,000 Mg PO BID Warfarin Sodium 5 Mg Tablet 5 Mg PO DAILY Warfarin Sodium 2.5 Mg Tablet 2.5 Mg PO DAILY Atorvastatin Calcium 40 Mg Tablet 40 Mg PO DAILY Vitals/I & O Vital Sign - Last 24 Hours 09/04/18 09/04/18 09/04/18 09/04/18 14:44 16:32 19:30 20:00 Temp 98.6 98.1 98.6 98.1 Pulse 80 96 Resp 22 20 B/P (MAP) 113/64 (80) 158/63 (94) Pulse Ox 92 98 O2 Delivery Room Air Room Air Nasal Cannula Nasal Cannula O2 Flow Rate 2.0 3.0 09/04/18 09/04/18 09/04/18 09/04/18 21:03 21:11 22:11 22:40 Temp 98.1 98.1 Pulse 96 Resp 20 20 20 B/P (MAP) 100/70 (80) Pulse Ox 96 96 98 98 O2 Delivery Room Air Nasal Cannula Nasal Cannula Nasal Cannula O2 Flow Rate 2.0 3.0 3.0 2.0 09/05/18 09/05/18 09/05/18 09/05/18 02:20 02:35 03:20 07:00 Temp 97.9 97.9 Pulse 88 Resp 22 18 20 B/P (MAP) 116/54 (74) Pulse Ox 98 97 97 O2 Delivery Nasal Cannula Nasal Cannula Nasal Cannula Nasal Cannula O2 Flow Rate 3.0 2.0 3.0 3.0 09/05/18 09/05/18 09/05/18 09/05/18 07:00 07:41 08:19 08:20 Temp 97.9 97.9 Pulse 82 82 82 Resp 22 B/P (MAP) 100/57 (71) 100/57 100/57 Pulse Ox 94 93 O2 Delivery Nasal Cannula Nasal Cannula O2 Flow Rate 2.0 2.0 09/05/18 09/05/18 11:00 11:31 Temp 98.2 98.2 Pulse 91 Resp 22 B/P (MAP) 99/57 (71) Pulse Ox 97 O2 Delivery Nasal Cannula Nasal Cannula O2 Flow Rate 2.0 2.0 Intake and Output 09/04/18 09/04/18 09/05/18 15:00 23:00 07:00 Intake Total 440 ml Output Total 250 ml 1400 ml Balance -250 ml -1400 ml 440 ml JD ACOSTA MD Sep 05, 2018 14:32
--- NOTE | 2018-09-05 14:42 | PDOC ---
SUBJECTIVE ROS States UOP decreased since this am OBJECTIVE Vital Signs Vital Signs Date Time Temp Pulse Resp B/P (MAP) Pulse Ox O2 Delivery O2 Flow Rate FiO2 09/05/18 14:13 18 97 Nasal Cannula 2.0 09/05/18 11:00 98.2 91 99/57 (71) 98.2 I & 0 Intake and Output 09/05/18 07:00 Intake Total 440 ml Output Total 1650 ml Balance -1210 ml Intake Oral 440 ml Output Urine Total 1650 ml PHYSICAL EXAM Physical Exam GEN: NAD HEENT- OM moist NECK: No JVD CVS: S1S2, RESP: No use of accessory Muscle GI: BS + ve, NO Bruit, Non Tender, Non Distended : No CVA tenderness, No Suprapubic Tenderness DIAGNOSIS/ASSESSMENT Assessment & Plan Chronic kidney disease stage 3, likely secondary to diabetes mellitus Present since at least 2014 At baseline, E-Lytes stable, Currently No Indication for HD Decrease UOP since this am -get bladder scan , jasen RN Check UA Anemia- Hem/Onc following Chronic atrial fibrillation- Hospitalized with atrial fibrillation with rapid ventricular response. Was On Cardizem drip On lasix- cardiology managing Diabetes mellitus. Lower extremity cellulitis and edema . COMMENT/RELEVANT DATA Meds Current Medications Medications (Trade) Dose Ordered Sig/Burke Start Time Stop Time Status Last Admin Dose Admin Acetaminophen (Tylenol) 650 mg Q24H 09/05/18 09:30 09/05/18 09:54 650 MG Acetaminophen/ Codeine Phosphate (Tylenol #3) 1 tab PRN Q6HRS PRN 09/02/18 15:00 09/05/18 14:13 1 TAB Acetaminophen/ Hydrocodone Bitart (Lortab 10/325) 1 tab PRN Q6HRS PRN 09/02/18 16:30 09/04/18 21:11 1 TAB Acetaminophen/ Hydrocodone Bitart (Lortab 5/325) 1 tab 1X ONCE 09/02/18 13:00 09/02/18 13:01 DC 09/02/18 13:02 1 TAB Albuterol/ Ipratropium (Duoneb) 3 ml RTQID 09/02/18 16:00 09/05/18 11:29 3 ML Atorvastatin Calcium (Lipitor) 40 mg QHS 09/02/18 21:00 09/04/18 21:11 40 MG Clindamycin Phosphate 50 ml @ 100 mls/hr ONCE ONCE 09/02/18 15:30 09/02/18 15:59 DC 09/02/18 16:10 100 MLS/HR Dextrose (Dextrose 50%-Water Syringe) 12.5 gm PRN Q15MIN PRN 09/02/18 15:00 Digoxin (Lanoxin) 500 mcg 1X ONCE 09/02/18 19:00 09/02/18 19:01 DC 09/02/18 18:49 500 MCG Diltiazem HCl (Cardizem 24hr Cd) 300 mg DAILY 09/03/18 12:30 09/05/18 08:20 300 MG Diltiazem HCl (Cardizem) 10 mg 1X ONCE 09/02/18 12:30 09/02/18 12:31 DC 09/02/18 12:47 10 MG Diltiazem HCl 125 mg/Dextrose 125 ml @ 5 mls/hr CONT PRN 09/02/18 12:30 09/03/18 10:25 20 MLS/HR Diphenhydramine HCl (Benadryl) 25 mg Q24H 09/05/18 09:30 09/05/18 09:54 25 MG Furosemide (Lasix) 80 mg DAILY 09/04/18 09:00 09/05/18 08:20 80 MG Glipizide (Glucotrol) 10 mg DAILY07 09/03/18 07:00 09/05/18 08:19 10 MG Guaifenesin (Robitussin Dm) 10 ml PRN Q6HRS PRN 09/02/18 15:00 Insulin Human Lispro (HumaLOG) 0-9 UNITS TIDWMEALS 09/02/18 17:00 09/05/18 13:31 4 UNITS Iron Sucrose 300 mg/Sodium Chloride 265 ml @ 88.333 mls/ hr DAILY10 09/05/18 10:00 09/08/18 12:59 09/05/18 09:54 88.333 MLS/HR Lactobacillus Rhamnosus (Culturelle) 1 cap BID 09/02/18 21:00 09/05/18 08:19 1 CAP Magnesium Sulfate/ Dextrose 100 ml @ 100 mls/hr 1X ONCE 09/02/18 15:30 09/02/18 16:29 DC 09/02/18 19:56 100 MLS/HR Metoprolol Succinate (Toprol Xl) 50 mg DAILY 09/03/18 09:00 09/05/18 08:19 50 MG Morphine Sulfate (Morphine Sulfate) 1 mg PRN Q2HR PRN 09/02/18 15:00 09/02/18 22:47 1 MG Multi-Ingred Cream/Lotion/Oil/ Oint (Hydrocerin Cream) 1 sondra PRN Q1HR PRN 09/02/18 15:00 Non-Formulary Medication (Tizanidine Hcl ) 4 mg PRN QID PRN 09/02/18 15:00 09/02/18 16:26 DC Nystatin (Nystop) 1 sondra BID 09/03/18 15:00 09/04/18 07:51 1 SONDRA Ondansetron HCl (Zofran Odt) 4 mg PRN Q6HRS PRN 09/02/18 15:00 Ondansetron HCl (Zofran) 4 mg PRN Q6HRS PRN 09/02/18 15:00 Pantoprazole Sodium (Protonix) 40 mg DAILYAC 09/03/18 07:30 09/05/18 08:19 40 MG Phytonadione (Mephyton Oral Soln) 2.5 mg 1X ONCE 09/02/18 15:00 09/02/18 15:01 DC 09/02/18 15:36 2.5 MG Tizanidine HCl (Zanaflex) 4 mg PRN Q6HRS PRN 09/02/18 16:30 09/05/18 02:19 4 MG Warfarin Sodium (Coumadin Per Pharmacy) 1 each PRN DAILY PRN 09/04/18 12:15 09/04/18 15:29 1 EACH Warfarin Sodium (Coumadin) 5 mg 1X WARF ONCE 09/04/18 16:00 09/04/18 16:01 DC 09/04/18 17:26 5 MG Lab Laboratory Tests Test 09/04/18 16:27 09/04/18 20:46 09/05/18 07:08 09/05/18 07:10 Glucose (Fingerstick) 205 mg/dL (70-99) 246 mg/dL (70-99) 97 mg/dL (70-99) Hemoglobin 7.5 g/dL (13.0-17.5) Hematocrit 23.2 % (39.0-53.0) Mean Corpuscular Hemoglobin Concent 32 g/dL (31-37) Prothrombin Time 21.2 SEC (11.7-14.0) Prothromb Time International Ratio 1.9 (0.8-1.1) Sodium Level 139 mmol/L (136-145) Potassium Level 3.7 mmol/L (3.5-5.1) Chloride Level 103 mmol/L (98-107) Carbon Dioxide Level 28 mmol/L (21-32) Anion Gap 8 (6-14) Blood Urea Nitrogen 26 mg/dL (8-26) Creatinine 1.8 mg/dL (0.7-1.3) Estimated GFR (Cockcroft-Gault) 37.1 Glucose Level 136 mg/dL (70-99) Calcium Level 8.5 mg/dL (8.5-10.1) Test 09/05/18 11:49 Glucose (Fingerstick) 204 mg/dL (70-99) Results All relevant outside records, renal labs, imaging studies, telemetry/EKG's were reviewed. STERLING MARINELLI MD Sep 05, 2018 14:42
[2018-09-05 15:00] VITALS: BP 109/62
[2018-09-05] MEDS ORDERED: WARFARIN 3 MG TABLET. PO ONE (16:00)
[2018-09-05 19:10] LABS: BILIRUBIN,URINE NEGATIVE (NEG); CLARITY,URINE CLEAR; COLOR,URINE YELLOW; NITRITE,URINE NEGATIVE (NEG); PH,URINE 5.5; PROTEIN,URINE NEGATIVE (NEG-TRACE); UROBILINOGEN,URINE 0.2 mg/dL (0.2 mg/dL)
[2018-09-05 19:17] LABS: BACTERIA,URINE 0 /HPF (0-FEW); SQUAMOUS EPITHELIAL CELL,UR OCC /LPF; WBC,URINE 0 /HPF (0-4)
[2018-09-05 19:35] VITALS: BP 146/67
--- NOTE | 2018-09-05 19:55 | CONS ---
DATE OF CONSULTATION: 09/05/2018 PODIATRY CONSULTATION REASON FOR CONSULTATION: Evaluate and treat hard to cut mycotic toenails. REVIEW OF RECORD: This is a 73-year-old male who lives at home with family. He had been in [facility] at one point in time. PAST MEDICAL HISTORY: Atrial fibrillation, congestive heart failure, hypertension, hyperlipidemia, history of Strep bacteremia. MEDICATIONS: Reviewed including Cardizem, Lasix, DuoNeb, Toprol, glipizide, lanthanum, metformin, warfarin, aspirin, atorvastatin. PHYSICAL EXAMINATION: DERMAL: The patient has elongated mycotic nails of multiple digits. Skin turgor is decreased. Swelling is noted in the feet and legs with stasis dermatitis. No break in the skin or abscess noted around the nail plates. Left first metatarsal has an area of eschar present. The patient desired not to have it treated and wanted to have it left alone. VASCULAR: Pedal pulses are diminished and hard to palpate bilateral, most likely due to the edema. MUSCULOSKELETAL: No significant bunions or hammertoes noted. NEUROLOGIC: The patient seems to have normal sensorium and responds to stimuli appropriately. IMPRESSION: 1. History of diabetes with peripheral vascular disease. 2. Clinical evidence of painful onychomycosis, onychocryptosis of multiple digits. PLAN: Debridement of all mycotic nails performed. No hemorrhage occurred. The patient tolerated the procedure without any complications. MICHAELA MASON DPM DR: NAKIA/nestor JOB#: [id number] / [id number]
[2018-09-05] MEDS: HYDROcodone/APAP 10/325 1 TAB TABLET PO PRN (20:49)
[2018-09-05] MEDS: ATORVASTATIN CALCIUM 40 MG TABLET. PO SCH (20:49)
[2018-09-05 22:50] VITALS: BP 123/58
[2018-09-06] MEDS: ACETAMINOPHEN/CODEINE 300/30MG TABLET. PO PRN (00:47)
[2018-09-06 03:05] VITALS: BP 121/56
[2018-09-06 03:57] LABS: PROTHROMBIN TIME PATIENT 26.6 SEC (11.7-14.0)
[2018-09-06] MEDS: glipiZIDE 5 MG TABLET PO SCH (06:09)
[2018-09-06] MEDS: CLINDAMYCIN 600MG PREMIX 50 ML IV SCH ×3 (06:09→21:56)
[2018-09-06] MEDS: HYDROcodone/APAP 10/325 1 TAB TABLET PO PRN ×2 (06:53→23:03)
[2018-09-06 07:00] VITALS: BP 144/72
--- NOTE | 2018-09-06 07:44 | PDOC ---
PROGRESS NOTES Chief Complaint Chief Complaint acute on chronic A. fib, now RVR Supra therapeutic INR beat despite being noncompliant or skipping warfarin for the past couple days or weeks now as per family Critical/significant anemia, hemoglobin 5.6 Reactive leukocytosis versus infectious Possibly beginning cellulitis bilateral lower extremity Lymphedema bilateral lower extremity Tenia pedis Dry skin AK I/VMN possibly CK D Anasarca Gap metabolic acidosis with an anion gap of 16 and a bicarbonate of 19 Dyslipidemia on statin Diabetes on metformin-hold metformin given creatinine CHF, need to check an echo to see if systolic or diastolic-BNP is elevated at 8300 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 Hb 7.5 today NO DIC as fibrinogen is high and dimer normal On Coumadin for heart related issues Bilateral left lower ext redness from mild cellulitis seems to be more painful today NO Increase in SOB today, no CP, feeling weak. On O2, normally not on O2 He experienced urinary retention yesterday, had PVR with >500cc and 600cc out with levine catheter insertion. C/o more right leg pain today as well. Cr down to 1.5 from 1.8 after levine. Not agreeable to SNU - interested in [facility]. bedside to discuss treatment plan Plan off cardizem gtt but hR still 1 teens at rest - rate control per cards Restart coumadin Wean O2 Follow heme onc recommendations Podiatry for toe nail clipping has been consulted Petechiae still visible and appreciated - not worse Agreeable to SNU/[facility]-has been there before 3 years ago PT OT Transfuse if hgb < 7 Vitals Vitals Vital Signs Date Time Temp Pulse Resp B/P (MAP) Pulse Ox O2 Delivery O2 Flow Rate FiO2 09/06/18 07:00 98.3 111 18 144/72 (96) 96 Nasal Cannula 2.0 98.3 Physical Exam General: Alert, Oriented X3, mild distress Heart: Regular rate, Other (Split S1) Lungs: Clear Abdomen: Normal bowel sounds, Soft Extremities: No clubbing, No cyanosis, No edema Skin: Other (very dry skin with sloughing off of some epidermidis, scaling, long toenails, poor overall hygiene, +3 pitting edema left greater than the right some redness appreciable) Labs LABS Laboratory Tests Test 09/05/18 11:49 09/05/18 16:59 09/05/18 18:59 09/05/18 20:46 Glucose (Fingerstick) 204 mg/dL (70-99) 144 mg/dL (70-99) 215 mg/dL (70-99) Urine Collection Type Unknown Urine Color Yellow Urine Clarity Clear Urine pH 5.5 Urine Specific [place] 1.015 Urine Protein Negative mg/dL (NEG-TRACE) Urine Glucose (UA) Negative mg/dL (NEG) Urine Ketones (Stick) Negative mg/dL (NEG) Urine Blood Moderate (NEG) Urine Nitrite Negative (NEG) Urine Bilirubin Negative (NEG) Urine Urobilinogen Dipstick 0.2 mg/dL (0.2 mg/dL) Urine Leukocyte Esterase Negative (NEG) Urine RBC 6-10 /HPF (0-2) Urine WBC 0 /HPF (0-4) Urine Squamous Epithelial Cells Occ /LPF Urine Bacteria 0 /HPF (0-FEW) Urine Mucus Slight /LPF Test 09/06/18 03:25 09/06/18 07:13 Prothrombin Time 26.6 SEC (11.7-14.0) Prothromb Time International Ratio 2.5 (0.8-1.1) Glucose (Fingerstick) 93 mg/dL (70-99) Assessment and Plan Assessmemt and Plan Problems Medical Problems: (1) Atrial fibrillation with RVR Status: Acute (2) CHF (congestive heart failure) Status: Acute (3) Symptomatic anemia Status: Acute Comment Review of Relevant I have reviewed the following items logan (where applicable) has been applied. Labs Laboratory Tests Test 09/04/18 11:17 09/04/18 12:40 09/04/18 16:27 09/04/18 20:46 Glucose (Fingerstick) 222 mg/dL (70-99) 205 mg/dL (70-99) 246 mg/dL (70-99) Prothrombin Time 18.1 SEC (11.7-14.0) Prothromb Time International Ratio 1.6 (0.8-1.1) Test 09/05/18 07:08 09/05/18 07:10 09/05/18 11:49 09/05/18 16:59 Glucose (Fingerstick) 97 mg/dL (70-99) 204 mg/dL (70-99) 144 mg/dL (70-99) Hemoglobin 7.5 g/dL (13.0-17.5) Hematocrit 23.2 % (39.0-53.0) Mean Corpuscular Hemoglobin Concent 32 g/dL (31-37) Prothrombin Time 21.2 SEC (11.7-14.0) Prothromb Time International Ratio 1.9 (0.8-1.1) Sodium Level 139 mmol/L (136-145) Potassium Level 3.7 mmol/L (3.5-5.1) Chloride Level 103 mmol/L (98-107) Carbon Dioxide Level 28 mmol/L (21-32) Anion Gap 8 (6-14) Blood Urea Nitrogen 26 mg/dL (8-26) Creatinine 1.8 mg/dL (0.7-1.3) Estimated GFR (Cockcroft-Gault) 37.1 Glucose Level 136 mg/dL (70-99) Calcium Level 8.5 mg/dL (8.5-10.1) Test 09/05/18 18:59 09/05/18 20:46 09/06/18 03:25 09/06/18 07:13 Urine Collection Type Unknown Urine Color Yellow Urine Clarity Clear Urine pH 5.5 Urine Specific [place] 1.015 Urine Protein Negative mg/dL (NEG-TRACE) Urine Glucose (UA) Negative mg/dL (NEG) Urine Ketones (Stick) Negative mg/dL (NEG) Urine Blood Moderate (NEG) Urine Nitrite Negative (NEG) Urine Bilirubin Negative (NEG) Urine Urobilinogen Dipstick 0.2 mg/dL (0.2 mg/dL) Urine Leukocyte Esterase Negative (NEG) Urine RBC 6-10 /HPF (0-2) Urine WBC 0 /HPF (0-4) Urine Squamous Epithelial Cells Occ /LPF Urine Bacteria 0 /HPF (0-FEW) Urine Mucus Slight /LPF Glucose (Fingerstick) 215 mg/dL (70-99) 93 mg/dL (70-99) Prothrombin Time 26.6 SEC (11.7-14.0) Prothromb Time International Ratio 2.5 (0.8-1.1) Laboratory Tests Test 09/05/18 11:49 09/05/18 16:59 09/05/18 18:59 09/05/18 20:46 Glucose (Fingerstick) 204 mg/dL (70-99) 144 mg/dL (70-99) 215 mg/dL (70-99) Urine Collection Type Unknown Urine Color Yellow Urine Clarity Clear Urine pH 5.5 Urine Specific [place] 1.015 Urine Protein Negative mg/dL (NEG-TRACE) Urine Glucose (UA) Negative mg/dL (NEG) Urine Ketones (Stick) Negative mg/dL (NEG) Urine Blood Moderate (NEG) Urine Nitrite Negative (NEG) Urine Bilirubin Negative (NEG) Urine Urobilinogen Dipstick 0.2 mg/dL (0.2 mg/dL) Urine Leukocyte Esterase Negative (NEG) Urine RBC 6-10 /HPF (0-2) Urine WBC 0 /HPF (0-4) Urine Squamous Epithelial Cells Occ /LPF Urine Bacteria 0 /HPF (0-FEW) Urine Mucus Slight /LPF Test 09/06/18 03:25 09/06/18 07:13 Prothrombin Time 26.6 SEC (11.7-14.0) Prothromb Time International Ratio 2.5 (0.8-1.1) Glucose (Fingerstick) 93 mg/dL (70-99) Microbiology 09/02/18 Blood Culture - Preliminary, Resulted NO GROWTH AFTER 3 DAYS 09/02/18 Aerobic Culture - Preliminary, Resulted 09/02/18 Aerobic Culture Result 1 (LARRY) - Preliminary, Resulted 09/02/18 Aerobic Culture Result 2 (LARRY) - Preliminary, Resulted 09/02/18 Aerobic Culture Result 3 (LARRY) - Preliminary, Resulted 09/02/18 Aerobic Culture Result 4 (LARRY) - Preliminary, Resulted 09/02/18 Gram Stain - Final, Resulted 09/02/18 Gram Stain Result 1 (LARRY) - Final, Resulted 09/02/18 Gram Stain Result 2 (LARRY) - Final, Resulted 09/02/18 Gram Stain Result 3 (LARRY) - Final, Resulted Medications Current Medications Diltiazem HCl (Cardizem) 10 mg 1X ONCE IVP Last administered on 09/02/18at 11: 31; Start 09/02/18 at 11:30; Stop 09/02/18 at 11:31; Status DC Diltiazem HCl (Cardizem) 10 mg 1X ONCE IVP Last administered on 09/02/18at 12: 47; Start 09/02/18 at 12:30; Stop 09/02/18 at 12:31; Status DC Diltiazem HCl 125 mg/Dextrose 125 ml @ 5 mls/hr CONT PRN IV SEE I/O RECORD Last administered on 09/03/18at 10:25; Start 09/02/18 at 12:30 Acetaminophen/ Hydrocodone Bitart (Lortab 5/325) 1 tab 1X ONCE PO Last administered on 09/02/18at 13:02; Start 09/02/18 at 13:00; Stop 09/02/18 at 13 :01; Status DC Phytonadione (Mephyton Oral Soln) 2.5 mg 1X ONCE PO Last administered on 09/02at 15:36; Start 09/02/18 at 15:00; Stop 09/02/18 at 15:01; Status DC Furosemide (Lasix) 40 mg BID92 IVP Last administered on 09/03/18at 13:58; Start 09/03/18 at 09:00; Stop 09/03/18 at 14:39; Status DC Furosemide (Lasix) 60 mg 1X ONCE IVP Last administered on 09/02/18at 15:36; Start 09/02/18 at 15:00; Stop 09/02/18 at 15:01; Status DC Multi-Ingred Cream/Lotion/Oil/ Oint (Hydrocerin Cream) 1 sondra PRN Q1HR PRN TP DRY SKIN / SCALING; Start 09/02/18 at 15:00 Albuterol/ Ipratropium (Duoneb) 3 ml RTQID NEB Last administered on 09/05/18at 19:59; Start 09/02/18 at 16:00 Guaifenesin (Robitussin Dm) 10 ml PRN Q6HRS PRN PO COUGH; Start 09/02/18 at 15 :00 Acetaminophen (Tylenol) 500 mg PRN Q6HRS PRN PO HEADACHE / TEMP Last administered on 09/03/18at 08:53; Start 09/02/18 at 15:00 Acetaminophen/ Codeine Phosphate (Tylenol #3) 1 tab PRN Q6HRS PRN PO PAIN MILD Last administered on 09/06/18at 00:47; Start 09/02/18 at 15:00 Ondansetron HCl (Zofran) 4 mg PRN Q6HRS PRN IV NAUSEA/VOMITING 1ST CHOICE; Start 09/02/18 at 15:00 Ondansetron HCl (Zofran Odt) 4 mg PRN Q6HRS PRN PO NAUSEA/VOMITING; Start 11/08 at 15:00 Morphine Sulfate (Morphine Sulfate) 1 mg PRN Q2HR PRN IV PAIN SEVERE Last administered on 09/02/18at 22:47; Start 09/02/18 at 15:00 Atorvastatin Calcium (Lipitor) 40 mg QHS PO Last administered on 09/05/18at 20: 49; Start 09/02/18 at 21:00 Diltiazem HCl (Cardizem 24hr Cd) 120 mg DAILY PO ; Start 09/03/18 at 09:00; Stop 09/03/18 at 12:09; Status DC Glipizide (Glucotrol) 10 mg DAILY07 PO Last administered on 09/06/18at 06:09; Start 09/03/18 at 07:00 Acetaminophen/ Hydrocodone Bitart (Lortab 10/325) 1 tab PRN Q6HRS PRN PO MODERATE PAIN Last administered on 09/06/18at 06:53; Start 09/02/18 at 16:30 Metoprolol Succinate (Toprol Xl) 50 mg DAILY PO Last administered on at 08:19; Start 09/03/18 at 09:00 Pantoprazole Sodium (Protonix) 40 mg DAILYAC PO Last administered on 08:19; Start 09/03/18 at 07:30 Non-Formulary Medication (Tizanidine Hcl ) 4 mg PRN QID PRN PO MUSCLE SPASMS; Start 09/02/18 at 15:00; Stop 09/02/18 at 16:26; Status DC Insulin Human Lispro (HumaLOG) 0-9 UNITS TIDWMEALS SQ Last administered on at 13:31; Start 09/02/18 at 17:00 Dextrose (Dextrose 50%-Water Syringe) 12.5 gm PRN Q15MIN PRN IV SEE COMMENTS; Start 09/02/18 at 15:00 Magnesium Sulfate/ Dextrose 100 ml @ 100 mls/hr 1X ONCE IV Last administered on 09/02/18at 19:56; Start 09/02/18 at 15:30; Stop 09/02/18 at 16:29; Status DC Clindamycin Phosphate 50 ml @ 100 mls/hr Q8HRS IV Last administered on at 06:09; Start 09/02/18 at 22:00 Clindamycin Phosphate 50 ml @ 100 mls/hr ONCE ONCE IV Last administered on at 16:10; Start 09/02/18 at 15:30; Stop 09/02/18 at 15:59; Status DC Lactobacillus Rhamnosus (Culturelle) 1 cap BID PO Last administered on at 20:48; Start 09/02/18 at 21:00 Tizanidine HCl (Zanaflex) 4 mg PRN Q6HRS PRN PO MUSCLE SPASMS Last administered on 09/05/18at 02:19; Start 09/02/18 at 16:30 Digoxin (Lanoxin) 500 mcg 1X ONCE IV Last administered on 09/02/18at 18:49; Start 09/02/18 at 19:00; Stop 09/02/18 at 19:01; Status DC Diltiazem HCl (Cardizem 24hr Cd) 300 mg DAILY PO Last administered on at 08:20; Start 09/03/18 at 12:30 Nystatin (Nystop) 1 sondra BID TP Last administered on 09/05/18at 20:49; Start at 15:00 Furosemide (Lasix) 80 mg DAILY IVP Last administered on 09/05/18at 08:20; Start 09/04/18 at 09:00 Warfarin Sodium (Coumadin Per Pharmacy) 1 each PRN DAILY PRN MC SEE COMMENTS Last administered on 09/05/18at 15:57; Start 09/04/18 at 12:15 Warfarin Sodium (Coumadin) 5 mg 1X WARF ONCE PO Last administered on at 17:26; Start 09/04/18 at 16:00; Stop 09/04/18 at 16:01; Status DC Iron Sucrose 300 mg/Sodium Chloride 265 ml @ 88.333 mls/ hr DAILY10 IV Last administered on 09/05/18at 09:54; Start 09/05/18 at 10:00; Stop 09/08/18 at 12 :59 Diphenhydramine HCl (Benadryl) 25 mg Q24H PO Last administered on 09/05/18at 09 :54; Start 09/05/18 at 09:30 Acetaminophen (Tylenol) 650 mg Q24H PO Last administered on 09/05/18at 09:54; Start 09/05/18 at 09:30 Warfarin Sodium (Coumadin) 3 mg 1X WARF ONCE PO Last administered on at 16:57; Start 09/05/18 at 16:00; Stop 09/05/18 at 16:01; Status DC Active Scripts Active Reported Toprol Xl (Metoprolol Succinate) 50 Mg Tab.er.24h 50 Mg PO DAILY Glipizide 10 Mg Tablet 10 Mg PO DAILY Diltiazem 24HR Cd (Diltiazem Hcl) 120 Mg Cap.er.24h 120 Mg PO DAILY Tizanidine Hcl 4 Mg Capsule 4 Mg PO QID PRN Omeprazole 40 Mg Capsule.dr 40 Mg PO DAILY Hydrocodone-Apap 10-325 (Hydrocodone Bit/Acetaminophen) 1 Each Tablet 1 Tab PO PRN Q6HRS PRN Metformin Hcl 1,000 Mg Tablet 1,000 Mg PO BID Warfarin Sodium 5 Mg Tablet 5 Mg PO DAILY Warfarin Sodium 2.5 Mg Tablet 2.5 Mg PO DAILY Atorvastatin Calcium 40 Mg Tablet 40 Mg PO DAILY Vitals/I & O Vital Sign - Last 24 Hours 09/05/18 09/05/18 09/05/18 09/05/18 08:19 08:20 11:00 11:31 Temp 98.2 98.2 Pulse 82 82 91 Resp 22 B/P (MAP) 100/57 100/57 99/57 (71) Pulse Ox 97 O2 Delivery Nasal Cannula Nasal Cannula O2 Flow Rate 2.0 2.0 09/05/18 09/05/18 09/05/18 09/05/18 14:13 15:00 15:10 16:10 Temp 98.0 98.0 Pulse 77 Resp 18 22 2 B/P (MAP) 109/62 (78) Pulse Ox 97 96 99 99 O2 Delivery Nasal Cannula Nasal Cannula Room Air O2 Flow Rate 2.0 2.0 2.0 09/05/18 09/05/18 09/05/18 09/05/18 19:35 19:59 20:00 20:49 Temp 97.8 97.8 Pulse 87 Resp 20 B/P (MAP) 146/67 (93) Pulse Ox 94 96 O2 Delivery Room Air Room Air Nasal Cannula Nasal Cannula O2 Flow Rate 2.0 2.0 2.0 09/05/18 09/05/18 09/06/18 09/06/18 21:49 22:50 00:47 01:49 Temp 98.1 98.1 Pulse 99 Resp 18 B/P (MAP) 123/58 (79) Pulse Ox 96 96 O2 Delivery Nasal Cannula Nasal Cannula Nasal Cannula Nasal Cannula O2 Flow Rate 2.0 2.0 2.0 2.0 09/06/18 09/06/18 09/06/18 03:05 06:53 07:00 Temp 98.0 98.3 98.0 98.3 Pulse 95 111 Resp 20 18 B/P (MAP) 121/56 (77) 144/72 (96) Pulse Ox 96 96 96 O2 Delivery Nasal Cannula Nasal Cannula Nasal Cannula O2 Flow Rate 2.0 2.0 2.0 Intake and Output 09/05/18 09/05/18 09/06/18 15:00 23:00 07:00 Intake Total 650 ml 1330 ml Output Total 50 ml 1225 ml Balance 600 ml 105 ml BRIAN JARAMILLO MD Sep 06, 2018 07:44
[2018-09-06] MEDS: IPRATRPIUM/ALBUTEROL 0.5/2.5MG 3 ML NEBU. NEB SCH ×4 (07:47→19:47)
[2018-09-06] MEDS: INSULIN LISPRO 300 UNITS/3 ML INSULN.PEN. SQ SCH ×3 (08:00→17:47)
[2018-09-06 08:13] LABS: CALCIUM 8.2 mg/dL (8.5-10.1); CREATININE 1.5 mg/dL (0.7-1.3); GFR 45.7; POTASSIUM 4.1 mmol/L (3.5-5.1)
[2018-09-06 08:16] LABS: BASO # 0.1 x10^3/uL (0.0-0.2); BASO % 1 % (0-3); EOS # 0.9 x10^3/uL (0.0-0.7); EOS % 6 % (0-3); HEMATOCRIT 23.9 % (39.0-53.0); HEMOGLOBIN 7.4 g/dL (13.0-17.5); LYMPH % 15 % (24-48); MEAN CORPUSCULAR HEMOGLOBIN 24 pg (25-35); MEAN CORPUSCULAR HGB CONC 31 g/dL (31-37); MEAN CORPUSCULAR VOLUME 79 fL (79-100); MONO % 15 % (0-9); NEUT # 8.7 x10^3uL (1.8-7.7); NEUT % 63 % (31-73); PLATELET COUNT 385 x10^3/uL (140-400); RED BLOOD COUNT 3.04 x10^6/uL (4.30-5.70); RED CELL DISTRIBUTION WIDTH 21.1 % (11.5-14.5); WHITE BLOOD COUNT 13.7 x10^3/uL (4.0-11.0)
--- NOTE | 2018-09-06 08:17 | PDOC ---
SUBJECTIVE Subjective S: Doing ok, but HR still high O: Physical exam: Gen.: Elderly male, resting in bed Lungs: Breathing comfortably with no evidence of respiratory distress Extremities: bilateral lower extremity cellulitis >at LLE, bruising Psychiatric: Pleasant mood and affect Labs: retic 0.9, ferritin of 57, iron sat 3%, serum iron of 8, TIBC of 286 White blood cells 14.8, hemoglobin 7.5, platelets 340 SP 2 units FFP and 3 units red blood cells Assessment and Plan: He is a 73-year-old male admitted for A. fib with RVR on diltiazem drip, on Coumadin with A. fib and was supratherapeutic, reversed w/ oral vitamin K and FFP On coumadin: I recommend following INRs at home at least weekly in the beginning , and certainly should he feel poorly in the future to have a low threshold to check his INR and check to see if he supratherapeutic in the future, but do believe Coumadin is likely the best bet for him for anticoagulation with his renal insufficiency, as long as full dose anticoagulation for the A. fib is being pursued. Anemia: cont IV iron sucrose up to 4 days while here, due to the mild iron deficiency, would also recommend keeping GI screening up-to-date, last colonoscopy I believe was in 2009 and he does not remember getting an upper GI A. fib w/ RVR: per cardiology Cellulitis: on Abx Acute kidney injury: per others Lymphedema: per OT Disposition: Per others, we can continue IV iron and follow-up anemia as an outpatient as needed Thank you kindly, and please don't hesitate to call w/ questions. OBJECTIVE Vital Signs Vital Signs Date Time Temp Pulse Resp B/P (MAP) Pulse Ox O2 Delivery O2 Flow Rate FiO2 09/06/18 07:47 97 Room Air 2.0 09/06/18 07:00 98.3 111 18 144/72 (96) 96 Nasal Cannula 2.0 98.3 09/06/18 06:53 96 Nasal Cannula 2.0 09/06/18 03:05 98.0 95 20 121/56 (77) 96 Nasal Cannula 2.0 98.0 09/06/18 01:49 Nasal Cannula 2.0 09/06/18 00:47 96 Nasal Cannula 2.0 09/05/18 22:50 98.1 99 18 123/58 (79) 96 Nasal Cannula 2.0 98.1 09/05/18 21:49 Nasal Cannula 2.0 09/05/18 20:49 Nasal Cannula 2.0 09/05/18 20:00 Nasal Cannula 2.0 09/05/18 19:59 96 Room Air 2.0 09/05/18 19:35 97.8 87 20 146/67 (93) 94 Room Air 97.8 09/05/18 16:10 99 Room Air 2.0 09/05/18 15:10 2 99 09/05/18 15:00 98.0 77 22 109/62 (78) 96 Nasal Cannula 2.0 98.0 09/05/18 14:13 18 97 Nasal Cannula 2.0 09/05/18 11:31 Nasal Cannula 2.0 09/05/18 11:00 98.2 91 22 99/57 (71) 97 Nasal Cannula 2.0 98.2 09/05/18 08:20 82 100/57 09/05/18 08:19 82 100/57 I & O Intake and Output 09/06/18 07:00 Intake Total 1980 ml Output Total 1275 ml Balance 705 ml Intake Oral 1880 ml IV Total 100 ml Output Urine Total 1275 ml COMMENT Lab Laboratory Tests Test 09/05/18 11:49 09/05/18 16:59 09/05/18 18:59 09/05/18 20:46 Glucose (Fingerstick) 204 mg/dL (70-99) 144 mg/dL (70-99) 215 mg/dL (70-99) Urine Collection Type Unknown Urine Color Yellow Urine Clarity Clear Urine pH 5.5 Urine Specific [place] 1.015 Urine Protein Negative mg/dL (NEG-TRACE) Urine Glucose (UA) Negative mg/dL (NEG) Urine Ketones (Stick) Negative mg/dL (NEG) Urine Blood Moderate (NEG) Urine Nitrite Negative (NEG) Urine Bilirubin Negative (NEG) Urine Urobilinogen Dipstick 0.2 mg/dL (0.2 mg/dL) Urine Leukocyte Esterase Negative (NEG) Urine RBC 6-10 /HPF (0-2) Urine WBC 0 /HPF (0-4) Urine Squamous Epithelial Cells Occ /LPF Urine Bacteria 0 /HPF (0-FEW) Urine Mucus Slight /LPF Test 09/06/18 03:25 09/06/18 07:13 Prothrombin Time 26.6 SEC (11.7-14.0) Prothromb Time International Ratio 2.5 (0.8-1.1) Glucose (Fingerstick) 93 mg/dL (70-99) LUISA CASTANO MD Sep 06, 2018 08:17
--- NOTE | 2018-09-06 09:07 | PDOC ---
PROGRESS NOTES Subjective Subjective Patient complains of increased LLE pain today. Objective Objective LLE is edematous and erythematous. No significant cardiac changes. Vital Signs Date Time Temp Pulse Resp B/P (MAP) Pulse Ox O2 Delivery O2 Flow Rate FiO2 09/06/18 07:47 97 Room Air 2.0 09/06/18 07:00 98.3 111 18 144/72 (96) 98.3 Intake and Output 09/06/18 07:00 Intake Total 1980 ml Output Total 1275 ml Balance 705 ml Intake Oral 1880 ml IV Total 100 ml Output Urine Total 1275 ml Assessment Assessment Problems Medical Problems: (1) Atrial fibrillation with RVR Status: Acute (2) CHF (congestive heart failure) Status: Acute (3) Symptomatic anemia Status: Acute Plan Plan of Care Patient continues in A-fib. Will continue to follow. Comment Review of Relevant I have reviewed the following items logan (where applicable) has been applied. Labs Laboratory Tests Test 09/04/18 11:17 09/04/18 12:40 09/04/18 16:27 09/04/18 20:46 Glucose (Fingerstick) 222 mg/dL (70-99) 205 mg/dL (70-99) 246 mg/dL (70-99) Prothrombin Time 18.1 SEC (11.7-14.0) Prothromb Time International Ratio 1.6 (0.8-1.1) Test 09/05/18 07:08 09/05/18 07:10 09/05/18 11:49 09/05/18 16:59 Glucose (Fingerstick) 97 mg/dL (70-99) 204 mg/dL (70-99) 144 mg/dL (70-99) Hemoglobin 7.5 g/dL (13.0-17.5) Hematocrit 23.2 % (39.0-53.0) Mean Corpuscular Hemoglobin Concent 32 g/dL (31-37) Prothrombin Time 21.2 SEC (11.7-14.0) Prothromb Time International Ratio 1.9 (0.8-1.1) Sodium Level 139 mmol/L (136-145) Potassium Level 3.7 mmol/L (3.5-5.1) Chloride Level 103 mmol/L (98-107) Carbon Dioxide Level 28 mmol/L (21-32) Anion Gap 8 (6-14) Blood Urea Nitrogen 26 mg/dL (8-26) Creatinine 1.8 mg/dL (0.7-1.3) Estimated GFR (Cockcroft-Gault) 37.1 Glucose Level 136 mg/dL (70-99) Calcium Level 8.5 mg/dL (8.5-10.1) Test 09/05/18 18:59 09/05/18 20:46 09/06/18 03:25 09/06/18 07:13 Urine Collection Type Unknown Urine Color Yellow Urine Clarity Clear Urine pH 5.5 Urine Specific [place] 1.015 Urine Protein Negative mg/dL (NEG-TRACE) Urine Glucose (UA) Negative mg/dL (NEG) Urine Ketones (Stick) Negative mg/dL (NEG) Urine Blood Moderate (NEG) Urine Nitrite Negative (NEG) Urine Bilirubin Negative (NEG) Urine Urobilinogen Dipstick 0.2 mg/dL (0.2 mg/dL) Urine Leukocyte Esterase Negative (NEG) Urine RBC 6-10 /HPF (0-2) Urine WBC 0 /HPF (0-4) Urine Squamous Epithelial Cells Occ /LPF Urine Bacteria 0 /HPF (0-FEW) Urine Mucus Slight /LPF Glucose (Fingerstick) 215 mg/dL (70-99) 93 mg/dL (70-99) White Blood Count 13.7 x10^3/uL (4.0-11.0) Red Blood Count 3.04 x10^6/uL (4.30-5.70) Hemoglobin 7.4 g/dL (13.0-17.5) Hematocrit 23.9 % (39.0-53.0) Mean Corpuscular Volume 79 fL (79-100) Mean Corpuscular Hemoglobin 24 pg (25-35) Mean Corpuscular Hemoglobin Concent 31 g/dL (31-37) Red Cell Distribution Width 21.1 % (11.5-14.5) Platelet Count 385 x10^3/uL (140-400) Neutrophils (%) (Auto) 63 % (31-73) Lymphocytes (%) (Auto) 15 % (24-48) Monocytes (%) (Auto) 15 % (0-9) Eosinophils (%) (Auto) 6 % (0-3) Basophils (%) (Auto) 1 % (0-3) Neutrophils # (Auto) 8.7 x10^3uL (1.8-7.7) Lymphocytes # (Auto) 2.0 x10^3/uL (1.0-4.8) Monocytes # (Auto) 2.0 x10^3/uL (0.0-1.1) Eosinophils # (Auto) 0.9 x10^3/uL (0.0-0.7) Basophils # (Auto) 0.1 x10^3/uL (0.0-0.2) Prothrombin Time 26.6 SEC (11.7-14.0) Prothromb Time International Ratio 2.5 (0.8-1.1) Sodium Level 142 mmol/L (136-145) Potassium Level 4.1 mmol/L (3.5-5.1) Chloride Level 105 mmol/L (98-107) Carbon Dioxide Level 26 mmol/L (21-32) Anion Gap 11 (6-14) Blood Urea Nitrogen 24 mg/dL (8-26) Creatinine 1.5 mg/dL (0.7-1.3) Estimated GFR (Cockcroft-Gault) 45.7 Glucose Level 123 mg/dL (70-99) Calcium Level 8.2 mg/dL (8.5-10.1) Laboratory Tests Test 09/05/18 11:49 09/05/18 16:59 09/05/18 18:59 09/05/18 20:46 Glucose (Fingerstick) 204 mg/dL (70-99) 144 mg/dL (70-99) 215 mg/dL (70-99) Urine Collection Type Unknown Urine Color Yellow Urine Clarity Clear Urine pH 5.5 Urine Specific [place] 1.015 Urine Protein Negative mg/dL (NEG-TRACE) Urine Glucose (UA) Negative mg/dL (NEG) Urine Ketones (Stick) Negative mg/dL (NEG) Urine Blood Moderate (NEG) Urine Nitrite Negative (NEG) Urine Bilirubin Negative (NEG) Urine Urobilinogen Dipstick 0.2 mg/dL (0.2 mg/dL) Urine Leukocyte Esterase Negative (NEG) Urine RBC 6-10 /HPF (0-2) Urine WBC 0 /HPF (0-4) Urine Squamous Epithelial Cells Occ /LPF Urine Bacteria 0 /HPF (0-FEW) Urine Mucus Slight /LPF Test 09/06/18 03:25 09/06/18 07:13 White Blood Count 13.7 x10^3/uL (4.0-11.0) Red Blood Count 3.04 x10^6/uL (4.30-5.70) Hemoglobin 7.4 g/dL (13.0-17.5) Hematocrit 23.9 % (39.0-53.0) Mean Corpuscular Volume 79 fL (79-100) Mean Corpuscular Hemoglobin 24 pg (25-35) Mean Corpuscular Hemoglobin Concent 31 g/dL (31-37) Red Cell Distribution Width 21.1 % (11.5-14.5) Platelet Count 385 x10^3/uL (140-400) Neutrophils (%) (Auto) 63 % (31-73) Lymphocytes (%) (Auto) 15 % (24-48) Monocytes (%) (Auto) 15 % (0-9) Eosinophils (%) (Auto) 6 % (0-3) Basophils (%) (Auto) 1 % (0-3) Neutrophils # (Auto) 8.7 x10^3uL (1.8-7.7) Lymphocytes # (Auto) 2.0 x10^3/uL (1.0-4.8) Monocytes # (Auto) 2.0 x10^3/uL (0.0-1.1) Eosinophils # (Auto) 0.9 x10^3/uL (0.0-0.7) Basophils # (Auto) 0.1 x10^3/uL (0.0-0.2) Prothrombin Time 26.6 SEC (11.7-14.0) Prothromb Time International Ratio 2.5 (0.8-1.1) Sodium Level 142 mmol/L (136-145) Potassium Level 4.1 mmol/L (3.5-5.1) Chloride Level 105 mmol/L (98-107) Carbon Dioxide Level 26 mmol/L (21-32) Anion Gap 11 (6-14) Blood Urea Nitrogen 24 mg/dL (8-26) Creatinine 1.5 mg/dL (0.7-1.3) Estimated GFR (Cockcroft-Gault) 45.7 Glucose Level 123 mg/dL (70-99) Calcium Level 8.2 mg/dL (8.5-10.1) Glucose (Fingerstick) 93 mg/dL (70-99) Microbiology 09/02/18 Blood Culture - Preliminary, Resulted NO GROWTH AFTER 3 DAYS 09/02/18 Aerobic Culture - Preliminary, Resulted 09/02/18 Aerobic Culture Result 1 (LARRY) - Preliminary, Resulted 09/02/18 Aerobic Culture Result 2 (LARRY) - Preliminary, Resulted 09/02/18 Aerobic Culture Result 3 (LARRY) - Preliminary, Resulted 09/02/18 Aerobic Culture Result 4 (LARRY) - Preliminary, Resulted 09/02/18 Gram Stain - Final, Resulted 09/02/18 Gram Stain Result 1 (LARRY) - Final, Resulted 09/02/18 Gram Stain Result 2 (LARRY) - Final, Resulted 09/02/18 Gram Stain Result 3 (LARRY) - Final, Resulted Medications Current Medications Diltiazem HCl (Cardizem) 10 mg 1X ONCE IVP Last administered on 09/02/18at 11: 31; Start 09/02/18 at 11:30; Stop 09/02/18 at 11:31; Status DC Diltiazem HCl (Cardizem) 10 mg 1X ONCE IVP Last administered on 09/02/18at 12: 47; Start 09/02/18 at 12:30; Stop 09/02/18 at 12:31; Status DC Diltiazem HCl 125 mg/Dextrose 125 ml @ 5 mls/hr CONT PRN IV SEE I/O RECORD Last administered on 09/03/18at 10:25; Start 09/02/18 at 12:30; Stop 09/06/18 at 08:36; Status DC Acetaminophen/ Hydrocodone Bitart (Lortab 5/325) 1 tab 1X ONCE PO Last administered on 09/02/18at 13:02; Start 09/02/18 at 13:00; Stop 09/02/18 at 13 :01; Status DC Phytonadione (Mephyton Oral Soln) 2.5 mg 1X ONCE PO Last administered on 09/02at 15:36; Start 09/02/18 at 15:00; Stop 09/02/18 at 15:01; Status DC Furosemide (Lasix) 40 mg [id number] IVP Last administered on 09/03/18at 13:58; Start 09/03/18 at 09:00; Stop 09/03/18 at 14:39; Status DC Furosemide (Lasix) 60 mg 1X ONCE IVP Last administered on 09/02/18at 15:36; Start 09/02/18 at 15:00; Stop 09/02/18 at 15:01; Status DC Multi-Ingred Cream/Lotion/Oil/ Oint (Hydrocerin Cream) 1 sondra PRN Q1HR PRN TP DRY SKIN / SCALING; Start 09/02/18 at 15:00 Albuterol/ Ipratropium (Duoneb) 3 ml RTQID NEB Last administered on 09/06/18at 07:47; Start 09/02/18 at 16:00 Guaifenesin (Robitussin Dm) 10 ml PRN Q6HRS PRN PO COUGH; Start 09/02/18 at 15 :00 Acetaminophen (Tylenol) 500 mg PRN Q6HRS PRN PO HEADACHE / TEMP Last administered on 09/03/18at 08:53; Start 09/02/18 at 15:00 Acetaminophen/ Codeine Phosphate (Tylenol #3) 1 tab PRN Q6HRS PRN PO PAIN MILD Last administered on 09/06/18at 00:47; Start 09/02/18 at 15:00 Ondansetron HCl (Zofran) 4 mg PRN Q6HRS PRN IV NAUSEA/VOMITING 1ST CHOICE; Start 09/02/18 at 15:00 Ondansetron HCl (Zofran Odt) 4 mg PRN Q6HRS PRN PO NAUSEA/VOMITING; Start 11/08 at 15:00 Morphine Sulfate (Morphine Sulfate) 1 mg PRN Q2HR PRN IV PAIN SEVERE Last administered on 09/02/18at 22:47; Start 09/02/18 at 15:00 Atorvastatin Calcium (Lipitor) 40 mg QHS PO Last administered on 09/05/18at 20: 49; Start 09/02/18 at 21:00 Diltiazem HCl (Cardizem 24hr Cd) 120 mg DAILY PO ; Start 09/03/18 at 09:00; Stop 09/03/18 at 12:09; Status DC Glipizide (Glucotrol) 10 mg DAILY07 PO Last administered on 09/06/18at 06:09; Start 09/03/18 at 07:00 Acetaminophen/ Hydrocodone Bitart (Lortab 10/325) 1 tab PRN Q6HRS PRN PO MODERATE PAIN Last administered on 09/06/18at 06:53; Start 09/02/18 at 16:30 Metoprolol Succinate (Toprol Xl) 50 mg DAILY PO Last administered on at 08:19; Start 09/03/18 at 09:00 Pantoprazole Sodium (Protonix) 40 mg DAILYAC PO Last administered on at 08:19; Start 09/03/18 at 07:30 Non-Formulary Medication (Tizanidine Hcl ) 4 mg PRN QID PRN PO MUSCLE SPASMS; Start 09/02/18 at 15:00; Stop 09/02/18 at 16:26; Status DC Insulin Human Lispro (HumaLOG) 0-9 UNITS TIDWMEALS SQ Last administered on at 13:31; Start 09/02/18 at 17:00 Dextrose (Dextrose 50%-Water Syringe) 12.5 gm PRN Q15MIN PRN IV SEE COMMENTS; Start 09/02/18 at 15:00 Magnesium Sulfate/ Dextrose 100 ml @ 100 mls/hr 1X ONCE IV Last administered on 09/02/18at 19:56; Start 09/02/18 at 15:30; Stop 09/02/18 at 16:29; Status DC Clindamycin Phosphate 50 ml @ 100 mls/hr Q8HRS IV Last administered on at 06:09; Start 09/02/18 at 22:00 Clindamycin Phosphate 50 ml @ 100 mls/hr ONCE ONCE IV Last administered on at 16:10; Start 09/02/18 at 15:30; Stop 09/02/18 at 15:59; Status DC Lactobacillus Rhamnosus (Culturelle) 1 cap BID PO Last administered on at 20:48; Start 09/02/18 at 21:00 Tizanidine HCl (Zanaflex) 4 mg PRN Q6HRS PRN PO MUSCLE SPASMS Last administered on 09/05/18at 02:19; Start 09/02/18 at 16:30 Digoxin (Lanoxin) 500 mcg 1X ONCE IV Last administered on 09/02/18at 18:49; Start 09/02/18 at 19:00; Stop 09/02/18 at 19:01; Status DC Diltiazem HCl (Cardizem 24hr Cd) 300 mg DAILY PO Last administered on 08:20; Start 09/03/18 at 12:30 Nystatin (Nystop) 1 sondra BID TP Last administered on 09/05/18 20:49; Start at 15:00 Furosemide (Lasix) 80 mg DAILY IVP Last administered on 09/05/18 08:20; Start 09/04/18 at 09:00 Warfarin Sodium (Coumadin Per Pharmacy) 1 each PRN DAILY PRN MC SEE COMMENTS Last administered on 09/05/18 15:57; Start 09/04/18 at 12:15 Warfarin Sodium (Coumadin) 5 mg 1X WARF ONCE PO Last administered on 17:26; Start 09/04/18 at 16:00; Stop 09/04/18 at 16:01; Status DC Iron Sucrose 300 mg/Sodium Chloride 265 ml @ 88.333 mls/ hr DAILY10 IV Last administered on 09/05/18 09:54; Start 09/05/18 at 10:00; Stop 09/08/18 at 12 :59 Diphenhydramine HCl (Benadryl) 25 mg Q24H PO Last administered on 09/05/18 09 :54; Start 09/05/18 at 09:30 Acetaminophen (Tylenol) 650 mg Q24H PO Last administered on 09/05/18 09:54; Start 09/05/18 at 09:30 Warfarin Sodium (Coumadin) 3 mg 1X WARF ONCE PO Last administered on 16:57; Start 09/05/18 at 16:00; Stop 09/05/18 at 16:01; Status DC Active Scripts Active Reported Toprol Xl (Metoprolol Succinate) 50 Mg Tab.er.24h 50 Mg PO DAILY Glipizide 10 Mg Tablet 10 Mg PO DAILY Diltiazem 24HR Cd (Diltiazem Hcl) 120 Mg Cap.er.24h 120 Mg PO DAILY Tizanidine Hcl 4 Mg Capsule 4 Mg PO QID PRN Omeprazole 40 Mg Capsule.dr 40 Mg PO DAILY Hydrocodone-Apap 10-325 (Hydrocodone Bit/Acetaminophen) 1 Each Tablet 1 Tab PO PRN Q6HRS PRN Metformin Hcl 1,000 Mg Tablet 1,000 Mg PO BID Warfarin Sodium 5 Mg Tablet 5 Mg PO DAILY Warfarin Sodium 2.5 Mg Tablet 2.5 Mg PO DAILY Atorvastatin Calcium 40 Mg Tablet 40 Mg PO DAILY Vitals/I & O Vital Sign - Last 24 Hours 09/05/18 09/05/18 09/05/18 09/05/18 11:00 11:31 14:13 15:00 Temp 98.2 98.0 98.2 98.0 Pulse 91 77 Resp 22 18 22 B/P (MAP) 99/57 (71) 109/62 (78) Pulse Ox 97 97 96 O2 Delivery Nasal Cannula Nasal Cannula Nasal Cannula Nasal Cannula O2 Flow Rate 2.0 2.0 2.0 2.0 09/05/18 09/05/18 09/05/18 09/05/18 15:10 16:10 19:35 19:59 Temp 97.8 97.8 Pulse 87 Resp 2 20 B/P (MAP) 146/67 (93) Pulse Ox 99 99 94 96 O2 Delivery Room Air Room Air Room Air O2 Flow Rate 2.0 2.0 09/05/18 09/05/18 09/05/18 09/05/18 20:00 20:49 21:49 22:50 Temp 98.1 98.1 Pulse 99 Resp 18 B/P (MAP) 123/58 (79) Pulse Ox 96 O2 Delivery Nasal Cannula Nasal Cannula Nasal Cannula Nasal Cannula O2 Flow Rate 2.0 2.0 2.0 2.0 09/06/18 09/06/18 09/06/18 09/06/18 00:47 01:49 03:05 06:53 Temp 98.0 98.0 Pulse 95 Resp 20 B/P (MAP) 121/56 (77) Pulse Ox 96 96 96 O2 Delivery Nasal Cannula Nasal Cannula Nasal Cannula Nasal Cannula O2 Flow Rate 2.0 2.0 2.0 2.0 09/06/18 09/06/18 07:00 07:47 Temp 98.3 98.3 Pulse 111 Resp 18 B/P (MAP) 144/72 (96) Pulse Ox 96 97 O2 Delivery Nasal Cannula Room Air O2 Flow Rate 2.0 2.0 Intake and Output 09/05/18 09/05/18 09/06/18 15:00 23:00 07:00 Intake Total 650 ml 1330 ml Output Total 50 ml 1225 ml Balance 600 ml 105 ml JD ACOSTA MD Sep 06, 2018 09:07
[2018-09-06] MEDS: IRON SUCROSE COMPLEX 300 MG in IV NORMAL SALINE 250ML 250 ML IV SCH (09:10)
[2018-09-06] MEDS: FUROSEMIDE 40 MG/4 ML VIAL. IVP SCH (09:10)
[2018-09-06] MEDS: PANTOPRAZOLE 40 MG TABLET.DR. PO SCH (09:11)
[2018-09-06] MEDS: METOPROLOL SUCC 24HR ER 50 MG TAB.ER.24H. PO SCH (09:14)
[2018-09-06] MEDS: LACTOBACILLUS RHAMNOSUS GG 1 CAPSULE. PO SCH ×2 (09:14→21:56)
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
[2018-09-06 10:54] VITALS: BP 122/60
[2018-09-06] MEDS ORDERED: LACTULOSE 20 GM/30 ML SOLUTION. PO PRN (11:00)
[2018-09-06] MEDS ORDERED: SENNOSIDES/DOCUSATE 8.6/50MG TABLET. PO PRN (11:00)
[2018-09-06] MEDS: MORPHINE SULFATE 2 MG/ML VIAL. IV PRN (11:19)
[2018-09-06] MEDS: diphenhydrAMINE HCL 25 MG CAPSULE PO SCH (11:36)
[2018-09-06] MEDS: ACETAMINOPHEN 325 MG TABLET. PO SCH (11:36)
--- NOTE | 2018-09-06 11:38 | PDOC ---
SUBJECTIVE ROS Pt reported to me yesterday that he noticed decreased UOP , Ordered Bladder scan- Revealed > 600ml Now has Jiang OBJECTIVE Vital Signs Vital Signs Date Time Temp Pulse Resp B/P (MAP) Pulse Ox O2 Delivery O2 Flow Rate FiO2 09/06/18 11:19 18 98 Nasal Cannula 2.0 09/06/18 10:54 97.7 100 122/60 (80) 97.7 I & 0 Intake and Output 09/06/18 07:00 Intake Total 1980 ml Output Total 1275 ml Balance 705 ml Intake Oral 1880 ml IV Total 100 ml Output Urine Total 1275 ml PHYSICAL EXAM Physical Exam GEN: NAD HEENT- OM moist NECK: No JVD CVS: S1S2, RESP: No use of accessory Muscle GI: BS + ve, NO Bruit, Non Tender, Non Distended : No CVA tenderness, No Suprapubic Tenderness, Has Jiang Today DIAGNOSIS/ASSESSMENT Assessment & Plan NOREEN - Noted Mild Increase in Creatinine Yesterday Ordered Bladder scan - revealed > 600ml of Urine Now has Jiang in place, Creatinine improved Urology Consulted ' Chronic kidney disease stage 3, likely secondary to diabetes mellitus Present since at least 2014 At baseline, E-Lytes stable, Currently No Indication for HD Decrease UOP since this am -get bladder scan , dw RN Check UA Anemia- Hem/Onc following On IV Sucrose x4 days Chronic atrial fibrillation- Hospitalized with atrial fibrillation with rapid ventricular response. Was On Cardizem drip On lasix- cardiology managing Diabetes mellitus. Lower extremity cellulitis and edema . COMMENT/RELEVANT DATA Meds Current Medications Medications (Trade) Dose Ordered Sig/Burke Start Time Stop Time Status Last Admin Dose Admin Acetaminophen (Tylenol) 650 mg Q24H 09/05/18 09:30 09/05/18 09:54 650 MG Acetaminophen/ Codeine Phosphate (Tylenol #3) 1 tab PRN Q6HRS PRN 09/02/18 15:00 09/06/18 00:47 1 TAB Acetaminophen/ Hydrocodone Bitart (Lortab 10/325) 1 tab PRN Q6HRS PRN 09/02/18 16:30 09/06/18 06:53 1 TAB Acetaminophen/ Hydrocodone Bitart (Lortab 5/325) 1 tab 1X ONCE 09/02/18 13:00 09/02/18 13:01 DC 09/02/18 13:02 1 TAB Albuterol/ Ipratropium (Duoneb) 3 ml RTQID 09/02/18 16:00 09/06/18 07:47 3 ML Atorvastatin Calcium (Lipitor) 40 mg QHS 09/02/18 21:00 09/05/18 20:49 40 MG Clindamycin Phosphate 50 ml @ 100 mls/hr ONCE ONCE 09/02/18 15:30 09/02/18 15:59 DC 09/02/18 16:10 100 MLS/HR Dextrose (Dextrose 50%-Water Syringe) 12.5 gm PRN Q15MIN PRN 09/02/18 15:00 Digoxin (Lanoxin) 500 mcg 1X ONCE 09/02/18 19:00 09/02/18 19:01 DC 09/02/18 18:49 500 MCG Diltiazem HCl (Cardizem 24hr Cd) 300 mg DAILY 09/03/18 12:30 09/06/18 09:14 300 MG Diltiazem HCl (Cardizem) 10 mg 1X ONCE 09/02/18 12:30 09/02/18 12:31 DC 09/02/18 12:47 10 MG Diltiazem HCl 125 mg/Dextrose 125 ml @ 5 mls/hr CONT PRN 09/02/18 12:30 09/06/18 08:36 DC 09/03/18 10:25 20 MLS/HR Diphenhydramine HCl (Benadryl) 25 mg Q24H 09/05/18 09:30 09/05/18 09:54 25 MG Furosemide (Lasix) 80 mg DAILY 09/04/18 09:00 09/06/18 09:10 80 MG Glipizide (Glucotrol) 10 mg DAILY07 09/03/18 07:00 09/06/18 06:09 10 MG Guaifenesin (Robitussin Dm) 10 ml PRN Q6HRS PRN 09/02/18 15:00 Insulin Human Lispro (HumaLOG) 0-9 UNITS TIDWMEALS 09/02/18 17:00 09/05/18 13:31 4 UNITS Iron Sucrose 300 mg/Sodium Chloride 265 ml @ 88.333 mls/ hr DAILY10 09/05/18 10:00 09/08/18 12:59 09/06/18 09:10 88.333 MLS/HR Lactobacillus Rhamnosus (Culturelle) 1 cap BID 09/02/18 21:00 09/06/18 09:14 1 CAP Lactulose (Lactulose) 20 gm PRN DAILY PRN 09/06/18 11:00 Magnesium Sulfate/ Dextrose 100 ml @ 100 mls/hr 1X ONCE 09/02/18 15:30 09/02/18 16:29 DC 09/02/18 19:56 100 MLS/HR Metoprolol Succinate (Toprol Xl) 50 mg DAILY 09/03/18 09:00 09/06/18 09:14 50 MG Morphine Sulfate (Morphine Sulfate) 1 mg PRN Q2HR PRN 09/02/18 15:00 09/06/18 11:19 1 MG Multi-Ingred Cream/Lotion/Oil/ Oint (Hydrocerin Cream) 1 sondra PRN Q1HR PRN 09/02/18 15:00 Non-Formulary Medication (Tizanidine Hcl ) 4 mg PRN QID PRN 09/02/18 15:00 09/02/18 16:26 DC Nystatin (Nystop) 1 sondra BID 09/03/18 15:00 09/05/18 20:49 1 SONDRA Ondansetron HCl (Zofran Odt) 4 mg PRN Q6HRS PRN 09/02/18 15:00 Ondansetron HCl (Zofran) 4 mg PRN Q6HRS PRN 09/02/18 15:00 Pantoprazole Sodium (Protonix) 40 mg DAILYAC 09/03/18 07:30 09/06/18 09:11 40 MG Phytonadione (Mephyton Oral Soln) 2.5 mg 1X ONCE 09/02/18 15:00 09/02/18 15:01 DC 09/02/18 15:36 2.5 MG Senna/Docusate Sodium (Senna Plus) 1 tab PRN BID PRN 09/06/18 11:00 Tizanidine HCl (Zanaflex) 4 mg PRN Q6HRS PRN 09/02/18 16:30 09/05/18 02:19 4 MG Warfarin Sodium (Coumadin Per Pharmacy) 1 each PRN DAILY PRN 09/04/18 12:15 09/05/18 15:57 1 EACH Warfarin Sodium (Coumadin) 3 mg 1X WARF ONCE 09/05/18 16:00 09/05/18 16:01 DC 09/05/18 16:57 3 MG Lab Laboratory Tests Test 09/05/18 11:49 09/05/18 16:59 09/05/18 18:59 09/05/18 20:46 Glucose (Fingerstick) 204 mg/dL (70-99) 144 mg/dL (70-99) 215 mg/dL (70-99) Urine Collection Type Unknown Urine Color Yellow Urine Clarity Clear Urine pH 5.5 Urine Specific [place] 1.015 Urine Protein Negative mg/dL (NEG-TRACE) Urine Glucose (UA) Negative mg/dL (NEG) Urine Ketones (Stick) Negative mg/dL (NEG) Urine Blood Moderate (NEG) Urine Nitrite Negative (NEG) Urine Bilirubin Negative (NEG) Urine Urobilinogen Dipstick 0.2 mg/dL (0.2 mg/dL) Urine Leukocyte Esterase Negative (NEG) Urine RBC 6-10 /HPF (0-2) Urine WBC 0 /HPF (0-4) Urine Squamous Epithelial Cells Occ /LPF Urine Bacteria 0 /HPF (0-FEW) Urine Mucus Slight /LPF Test 09/06/18 03:25 09/06/18 07:13 White Blood Count 13.7 x10^3/uL (4.0-11.0) Red Blood Count 3.04 x10^6/uL (4.30-5.70) Hemoglobin 7.4 g/dL (13.0-17.5) Hematocrit 23.9 % (39.0-53.0) Mean Corpuscular Volume 79 fL (79-100) Mean Corpuscular Hemoglobin 24 pg (25-35) Mean Corpuscular Hemoglobin Concent 31 g/dL (31-37) Red Cell Distribution Width 21.1 % (11.5-14.5) Platelet Count 385 x10^3/uL (140-400) Neutrophils (%) (Auto) 63 % (31-73) Lymphocytes (%) (Auto) 15 % (24-48) Monocytes (%) (Auto) 15 % (0-9) Eosinophils (%) (Auto) 6 % (0-3) Basophils (%) (Auto) 1 % (0-3) Neutrophils # (Auto) 8.7 x10^3uL (1.8-7.7) Lymphocytes # (Auto) 2.0 x10^3/uL (1.0-4.8) Monocytes # (Auto) 2.0 x10^3/uL (0.0-1.1) Eosinophils # (Auto) 0.9 x10^3/uL (0.0-0.7) Basophils # (Auto) 0.1 x10^3/uL (0.0-0.2) Prothrombin Time 26.6 SEC (11.7-14.0) Prothromb Time International Ratio 2.5 (0.8-1.1) Sodium Level 142 mmol/L (136-145) Potassium Level 4.1 mmol/L (3.5-5.1) Chloride Level 105 mmol/L (98-107) Carbon Dioxide Level 26 mmol/L (21-32) Anion Gap 11 (6-14) Blood Urea Nitrogen 24 mg/dL (8-26) Creatinine 1.5 mg/dL (0.7-1.3) Estimated GFR (Cockcroft-Gault) 45.7 Glucose Level 123 mg/dL (70-99) Calcium Level 8.2 mg/dL (8.5-10.1) Glucose (Fingerstick) 93 mg/dL (70-99) Results All relevant outside records, renal labs, imaging studies, telemetry/EKG's were reviewed. STERLING MARINELLI MD Sep 06, 2018 11:38
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
[2018-09-06] MEDS: NYSTATIN TOPICAL POWDER 15GM BOTTLE. TP SCH ×2 (13:01→22:10)
[2018-09-06 15:00] VITALS: BP 115/58
[2018-09-06] MEDS ORDERED: WARFARIN 2.5 MG TABLET. PO ONE (16:00)
[2018-09-06 19:30] VITALS: BP 120/55
[2018-09-06] MEDS: ATORVASTATIN CALCIUM 40 MG TABLET. PO SCH (21:55)
[2018-09-06 22:20] VITALS: BP 121/62
[2018-09-07 03:17] VITALS: BP 140/65
[2018-09-07 04:34] LABS: BASO # 0.1 x10^3/uL (0.0-0.2); BASO % 1 % (0-3); EOS # 0.8 x10^3/uL (0.0-0.7); EOS % 5 % (0-3); HEMATOCRIT 25.1 % (39.0-53.0); LYMPH # 2.1 x10^3/uL (1.0-4.8); LYMPH % 14 % (24-48); MEAN CORPUSCULAR HEMOGLOBIN 25 pg (25-35); MEAN CORPUSCULAR HGB CONC 32 g/dL (31-37); MEAN CORPUSCULAR VOLUME 78 fL (79-100); MONO % 13 % (0-9); NEUT % 67 % (31-73); PLATELET COUNT 437 x10^3/uL (140-400); RED BLOOD COUNT 3.22 x10^6/uL (4.30-5.70); RED CELL DISTRIBUTION WIDTH 21.4 % (11.5-14.5); WHITE BLOOD COUNT 14.9 x10^3/uL (4.0-11.0)
[2018-09-07 04:44] LABS: PROTHROMBIN TIME PATIENT 30.6 SEC (11.7-14.0)
[2018-09-07 04:55] LABS: CALCIUM 9.1 mg/dL (8.5-10.1); CREATININE 1.8 mg/dL (0.7-1.3); GFR 37.1; POTASSIUM 3.7 mmol/L (3.5-5.1)
[2018-09-07] MEDS: CLINDAMYCIN 600MG PREMIX 50 ML IV SCH ×3 (05:50→22:12)
[2018-09-07 07:15] VITALS: BP 130/55
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
[2018-09-07] MEDS: IPRATRPIUM/ALBUTEROL 0.5/2.5MG 3 ML NEBU. NEB SCH ×4 (07:56→20:12)
[2018-09-07] MEDS: INSULIN LISPRO 300 UNITS/3 ML INSULN.PEN. SQ SCH ×3 (08:00→17:50)
--- NOTE | 2018-09-07 08:08 | PDOC ---
SUBJECTIVE Subjective S: not feeling to well today, HR still high, 103 O: Physical exam: Gen.: Elderly male, resting in bed Lungs: Breathing comfortably with no evidence of respiratory distress Extremities: bilateral lower extremity cellulitis >at LLE, improving, RLE dressed, bruising Psychiatric: Pleasant mood and affect Labs: retic 0.9, ferritin of 57, iron sat 3%, serum iron of 8, TIBC of 286 Hb 8.0, wbc 14.9, plt 437 SP 2 units FFP and 3 units red blood cells Assessment and Plan: He is a 73-year-old male admitted for A. fib with RVR on diltiazem drip, on Coumadin with A. fib and was supratherapeutic, reversed w/ oral vitamin K and FFP, w/ LE cellulitis, anemia and mild iron deficiency and renal insufficiency On coumadin: recommend frequent home INR checks, and certainly should he feel poorly in the future to have a low threshold to check his INR. coumadin remains likely the best choice for him for anticoagulation with his renal insufficiency, as long as full dose anticoagulation for the A. fib is being pursued. Anemia: cont IV iron sucrose up to 4 days while here, due to the mild iron deficiency, would also recommend keeping GI screening up-to-date, last colonoscopy I believe was in 2009 and he does not remember getting an upper GI, may need HUSEYIN in f/u A. fib w/ RVR: per cardiology Cellulitis: on Abx Acute kidney injury: per others Lymphedema: per OT Disposition: Per others, we can continue IV iron and follow-up anemia as an outpatient as needed Thank you kindly, and please don't hesitate to call w/ questions. OBJECTIVE Vital Signs Vital Signs Date Time Temp Pulse Resp B/P (MAP) Pulse Ox O2 Delivery O2 Flow Rate FiO2 09/07/18 07:57 95 Nasal Cannula 2.0 09/07/18 07:15 97.8 90 20 130/55 (80) 97 Nasal Cannula 2.0 97.8 09/07/18 03:17 98.3 108 18 140/65 (90) 96 Nasal Cannula 2.0 98.3 09/06/18 23:03 Nasal Cannula 2.0 09/06/18 22:20 98.8 95 18 121/62 (81) 91 Nasal Cannula 2.0 98.8 09/06/18 19:55 Nasal Cannula 2.0 09/06/18 19:48 93 Room Air 09/06/18 19:30 98.1 99 16 120/55 (76) 95 Room Air 98.1 09/06/18 16:31 96 Room Air 2.0 09/06/18 15:00 98.0 86 18 115/58 (77) 94 Room Air 98.0 09/06/18 12:11 98 Room Air 2.0 09/06/18 11:50 18 96 Nasal Cannula 2.0 09/06/18 11:19 18 98 Nasal Cannula 2.0 09/06/18 10:54 97.7 100 18 122/60 (80) 98 Nasal Cannula 2.0 97.7 09/06/18 09:14 111 144/72 09/06/18 09:14 111 144/72 I & O Intake and Output 09/07/18 07:00 Intake Total 450 ml Output Total 2275 ml Balance -1825 ml Intake Oral 450 ml Output Urine Total 2275 ml COMMENT Lab Laboratory Tests Test 09/06/18 12:09 09/06/18 16:53 09/06/18 20:31 09/07/18 04:05 Glucose (Fingerstick) 192 mg/dL (70-99) 172 mg/dL (70-99) 176 mg/dL (70-99) White Blood Count 14.9 x10^3/uL (4.0-11.0) Red Blood Count 3.22 x10^6/uL (4.30-5.70) Hemoglobin 8.0 g/dL (13.0-17.5) Hematocrit 25.1 % (39.0-53.0) Mean Corpuscular Volume 78 fL (79-100) Mean Corpuscular Hemoglobin 25 pg (25-35) Mean Corpuscular Hemoglobin Concent 32 g/dL (31-37) Red Cell Distribution Width 21.4 % (11.5-14.5) Platelet Count 437 x10^3/uL (140-400) Neutrophils (%) (Auto) 67 % (31-73) Lymphocytes (%) (Auto) 14 % (24-48) Monocytes (%) (Auto) 13 % (0-9) Eosinophils (%) (Auto) 5 % (0-3) Basophils (%) (Auto) 1 % (0-3) Neutrophils # (Auto) 10.0 x10^3uL (1.8-7.7) Lymphocytes # (Auto) 2.1 x10^3/uL (1.0-4.8) Monocytes # (Auto) 2.0 x10^3/uL (0.0-1.1) Eosinophils # (Auto) 0.8 x10^3/uL (0.0-0.7) Basophils # (Auto) 0.1 x10^3/uL (0.0-0.2) Prothrombin Time 30.6 SEC (11.7-14.0) Prothromb Time International Ratio 3.0 (0.8-1.1) Sodium Level 141 mmol/L (136-145) Potassium Level 3.7 mmol/L (3.5-5.1) Chloride Level 104 mmol/L (98-107) Carbon Dioxide Level 29 mmol/L (21-32) Anion Gap 8 (6-14) Blood Urea Nitrogen 25 mg/dL (8-26) Creatinine 1.8 mg/dL (0.7-1.3) Estimated GFR (Cockcroft-Gault) 37.1 Glucose Level 130 mg/dL (70-99) Calcium Level 9.1 mg/dL (8.5-10.1) Test 09/07/18 07:23 Glucose (Fingerstick) 126 mg/dL (70-99) LUISA CASTANO MD Sep 07, 2018 08:08
[2018-09-07] MEDS: PANTOPRAZOLE 40 MG TABLET.DR. PO SCH (08:09)
[2018-09-07] MEDS: glipiZIDE 5 MG TABLET PO SCH (08:11)
[2018-09-07] MEDS: diphenhydrAMINE HCL 25 MG CAPSULE PO SCH (09:10)
[2018-09-07] MEDS: ACETAMINOPHEN 325 MG TABLET. PO SCH (09:10)
[2018-09-07] MEDS: HYDROcodone/APAP 10/325 1 TAB TABLET PO PRN ×2 (09:11→18:42)
[2018-09-07] MEDS: LACTOBACILLUS RHAMNOSUS GG 1 CAPSULE. PO SCH ×2 (09:11→22:12)
[2018-09-07] MEDS: NYSTATIN TOPICAL POWDER 15GM BOTTLE. TP SCH ×2 (09:12→22:12)
[2018-09-07] MEDS: METOPROLOL SUCC 24HR ER 50 MG TAB.ER.24H. PO SCH (09:12)
[2018-09-07] MEDS: FUROSEMIDE 40 MG/4 ML VIAL. IVP SCH (09:12)
--- NOTE | 2018-09-07 09:13 | PDOC ---
PROGRESS NOTES Subjective Subjective Patient reports that he slept well, continues to complain of LLE pain. Objective Objective No significant changes in cardiac exam. Vital Signs Date Time Temp Pulse Resp B/P (MAP) Pulse Ox O2 Delivery O2 Flow Rate FiO2 09/07/18 08:14 Nasal Cannula 3.0 09/07/18 07:57 95 09/07/18 07:15 97.8 90 20 130/55 (80) 97.8 Intake and Output 09/07/18 07:00 Intake Total 450 ml Output Total 2275 ml Balance -1825 ml Intake Oral 450 ml Output Urine Total 2275 ml Assessment Assessment Problems Medical Problems: (1) Atrial fibrillation with RVR Status: Acute (2) CHF (congestive heart failure) Status: Acute (3) Symptomatic anemia Status: Acute Plan Plan of Care Patient remains in A-fib with mild-moderate tachycardia. Hgb & WBC slowly trending upward. Still receiving iron gtt. INR at 3 with progressively decreased doses of warfarin. Will continue to follow. Comment Review of Relevant I have reviewed the following items logan (where applicable) has been applied. Labs Laboratory Tests Test 09/05/18 11:49 09/05/18 16:59 09/05/18 18:59 09/05/18 20:46 Glucose (Fingerstick) 204 mg/dL (70-99) 144 mg/dL (70-99) 215 mg/dL (70-99) Urine Collection Type Unknown Urine Color Yellow Urine Clarity Clear Urine pH 5.5 Urine Specific [place] 1.015 Urine Protein Negative mg/dL (NEG-TRACE) Urine Glucose (UA) Negative mg/dL (NEG) Urine Ketones (Stick) Negative mg/dL (NEG) Urine Blood Moderate (NEG) Urine Nitrite Negative (NEG) Urine Bilirubin Negative (NEG) Urine Urobilinogen Dipstick 0.2 mg/dL (0.2 mg/dL) Urine Leukocyte Esterase Negative (NEG) Urine RBC 6-10 /HPF (0-2) Urine WBC 0 /HPF (0-4) Urine Squamous Epithelial Cells Occ /LPF Urine Bacteria 0 /HPF (0-FEW) Urine Mucus Slight /LPF Test 09/06/18 03:25 09/06/18 07:13 09/06/18 12:09 09/06/18 16:53 White Blood Count 13.7 x10^3/uL (4.0-11.0) Red Blood Count 3.04 x10^6/uL (4.30-5.70) Hemoglobin 7.4 g/dL (13.0-17.5) Hematocrit 23.9 % (39.0-53.0) Mean Corpuscular Volume 79 fL (79-100) Mean Corpuscular Hemoglobin 24 pg (25-35) Mean Corpuscular Hemoglobin Concent 31 g/dL (31-37) Red Cell Distribution Width 21.1 % (11.5-14.5) Platelet Count 385 x10^3/uL (140-400) Neutrophils (%) (Auto) 63 % (31-73) Lymphocytes (%) (Auto) 15 % (24-48) Monocytes (%) (Auto) 15 % (0-9) Eosinophils (%) (Auto) 6 % (0-3) Basophils (%) (Auto) 1 % (0-3) Neutrophils # (Auto) 8.7 x10^3uL (1.8-7.7) Lymphocytes # (Auto) 2.0 x10^3/uL (1.0-4.8) Monocytes # (Auto) 2.0 x10^3/uL (0.0-1.1) Eosinophils # (Auto) 0.9 x10^3/uL (0.0-0.7) Basophils # (Auto) 0.1 x10^3/uL (0.0-0.2) Prothrombin Time 26.6 SEC (11.7-14.0) Prothromb Time International Ratio 2.5 (0.8-1.1) Sodium Level 142 mmol/L (136-145) Potassium Level 4.1 mmol/L (3.5-5.1) Chloride Level 105 mmol/L (98-107) Carbon Dioxide Level 26 mmol/L (21-32) Anion Gap 11 (6-14) Blood Urea Nitrogen 24 mg/dL (8-26) Creatinine 1.5 mg/dL (0.7-1.3) Estimated GFR (Cockcroft-Gault) 45.7 Glucose Level 123 mg/dL (70-99) Calcium Level 8.2 mg/dL (8.5-10.1) Glucose (Fingerstick) 93 mg/dL (70-99) 192 mg/dL (70-99) 172 mg/dL (70-99) Test 09/06/18 20:31 09/07/18 04:05 09/07/18 07:23 Glucose (Fingerstick) 176 mg/dL (70-99) 126 mg/dL (70-99) White Blood Count 14.9 x10^3/uL (4.0-11.0) Red Blood Count 3.22 x10^6/uL (4.30-5.70) Hemoglobin 8.0 g/dL (13.0-17.5) Hematocrit 25.1 % (39.0-53.0) Mean Corpuscular Volume 78 fL (79-100) Mean Corpuscular Hemoglobin 25 pg (25-35) Mean Corpuscular Hemoglobin Concent 32 g/dL (31-37) Red Cell Distribution Width 21.4 % (11.5-14.5) Platelet Count 437 x10^3/uL (140-400) Neutrophils (%) (Auto) 67 % (31-73) Lymphocytes (%) (Auto) 14 % (24-48) Monocytes (%) (Auto) 13 % (0-9) Eosinophils (%) (Auto) 5 % (0-3) Basophils (%) (Auto) 1 % (0-3) Neutrophils # (Auto) 10.0 x10^3uL (1.8-7.7) Lymphocytes # (Auto) 2.1 x10^3/uL (1.0-4.8) Monocytes # (Auto) 2.0 x10^3/uL (0.0-1.1) Eosinophils # (Auto) 0.8 x10^3/uL (0.0-0.7) Basophils # (Auto) 0.1 x10^3/uL (0.0-0.2) Prothrombin Time 30.6 SEC (11.7-14.0) Prothromb Time International Ratio 3.0 (0.8-1.1) Sodium Level 141 mmol/L (136-145) Potassium Level 3.7 mmol/L (3.5-5.1) Chloride Level 104 mmol/L (98-107) Carbon Dioxide Level 29 mmol/L (21-32) Anion Gap 8 (6-14) Blood Urea Nitrogen 25 mg/dL (8-26) Creatinine 1.8 mg/dL (0.7-1.3) Estimated GFR (Cockcroft-Gault) 37.1 Glucose Level 130 mg/dL (70-99) Calcium Level 9.1 mg/dL (8.5-10.1) Laboratory Tests Test 09/06/18 12:09 09/06/18 16:53 09/06/18 20:31 09/07/18 04:05 Glucose (Fingerstick) 192 mg/dL (70-99) 172 mg/dL (70-99) 176 mg/dL (70-99) White Blood Count 14.9 x10^3/uL (4.0-11.0) Red Blood Count 3.22 x10^6/uL (4.30-5.70) Hemoglobin 8.0 g/dL (13.0-17.5) Hematocrit 25.1 % (39.0-53.0) Mean Corpuscular Volume 78 fL (79-100) Mean Corpuscular Hemoglobin 25 pg (25-35) Mean Corpuscular Hemoglobin Concent 32 g/dL (31-37) Red Cell Distribution Width 21.4 % (11.5-14.5) Platelet Count 437 x10^3/uL (140-400) Neutrophils (%) (Auto) 67 % (31-73) Lymphocytes (%) (Auto) 14 % (24-48) Monocytes (%) (Auto) 13 % (0-9) Eosinophils (%) (Auto) 5 % (0-3) Basophils (%) (Auto) 1 % (0-3) Neutrophils # (Auto) 10.0 x10^3uL (1.8-7.7) Lymphocytes # (Auto) 2.1 x10^3/uL (1.0-4.8) Monocytes # (Auto) 2.0 x10^3/uL (0.0-1.1) Eosinophils # (Auto) 0.8 x10^3/uL (0.0-0.7) Basophils # (Auto) 0.1 x10^3/uL (0.0-0.2) Prothrombin Time 30.6 SEC (11.7-14.0) Prothromb Time International Ratio 3.0 (0.8-1.1) Sodium Level 141 mmol/L (136-145) Potassium Level 3.7 mmol/L (3.5-5.1) Chloride Level 104 mmol/L (98-107) Carbon Dioxide Level 29 mmol/L (21-32) Anion Gap 8 (6-14) Blood Urea Nitrogen 25 mg/dL (8-26) Creatinine 1.8 mg/dL (0.7-1.3) Estimated GFR (Cockcroft-Gault) 37.1 Glucose Level 130 mg/dL (70-99) Calcium Level 9.1 mg/dL (8.5-10.1) Test 09/07/18 07:23 Glucose (Fingerstick) 126 mg/dL (70-99) Microbiology 09/02/18 Blood Culture - Preliminary, Resulted NO GROWTH AFTER 4 DAYS 09/02/18 Aerobic Culture - Final, Complete 09/02/18 Aerobic Culture Result 1 (LARRY) - Final, Complete 09/02/18 Aerobic Culture Result 2 (LARRY) - Final, Complete 09/02/18 Aerobic Culture Result 3 (LARRY) - Final, Complete 09/02/18 Aerobic Culture Result 4 (LARRY) - Final, Complete 09/02/18 Gram Stain - Final, Complete 09/02/18 Gram Stain Result 1 (LARRY) - Final, Complete 09/02/18 Gram Stain Result 2 (LARRY) - Final, Complete 09/02/18 Gram Stain Result 3 (LARRY) - Final, Complete Medications Current Medications Diltiazem HCl (Cardizem) 10 mg 1X ONCE IVP Last administered on 09/02/18at 11: 31; Start 09/02/18 at 11:30; Stop 09/02/18 at 11:31; Status DC Diltiazem HCl (Cardizem) 10 mg 1X ONCE IVP Last administered on 09/02/18at 12: 47; Start 09/02/18 at 12:30; Stop 09/02/18 at 12:31; Status DC Diltiazem HCl 125 mg/Dextrose 125 ml @ 5 mls/hr CONT PRN IV SEE I/O RECORD Last administered on 09/03/18at 10:25; Start 09/02/18 at 12:30; Stop 09/06/18 at 08:36; Status DC Acetaminophen/ Hydrocodone Bitart (Lortab 5/325) 1 tab 1X ONCE PO Last administered on 09/02/18at 13:02; Start 09/02/18 at 13:00; Stop 09/02/18 at 13 :01; Status DC Phytonadione (Mephyton Oral Soln) 2.5 mg 1X ONCE PO Last administered on 09/02at 15:36; Start 09/02/18 at 15:00; Stop 09/02/18 at 15:01; Status DC Furosemide (Lasix) 40 mg BID92 IVP Last administered on 09/03/18at 13:58; Start 09/03/18 at 09:00; Stop 09/03/18 at 14:39; Status DC Furosemide (Lasix) 60 mg 1X ONCE IVP Last administered on 09/02/18at 15:36; Start 09/02/18 at 15:00; Stop 09/02/18 at 15:01; Status DC Multi-Ingred Cream/Lotion/Oil/ Oint (Hydrocerin Cream) 1 sondra PRN Q1HR PRN TP DRY SKIN / SCALING; Start 09/02/18 at 15:00 Albuterol/ Ipratropium (Duoneb) 3 ml RTQID NEB Last administered on 09/07/18at 07:56; Start 09/02/18 at 16:00 Guaifenesin (Robitussin Dm) 10 ml PRN Q6HRS PRN PO COUGH; Start 09/02/18 at 15 :00 Acetaminophen (Tylenol) 500 mg PRN Q6HRS PRN PO HEADACHE / TEMP Last administered on 09/03/18at 08:53; Start 09/02/18 at 15:00 Acetaminophen/ Codeine Phosphate (Tylenol #3) 1 tab PRN Q6HRS PRN PO PAIN MILD Last administered on 09/06/18at 00:47; Start 09/02/18 at 15:00 Ondansetron HCl (Zofran) 4 mg PRN Q6HRS PRN IV NAUSEA/VOMITING 1ST CHOICE; Start 09/02/18 at 15:00 Ondansetron HCl (Zofran Odt) 4 mg PRN Q6HRS PRN PO NAUSEA/VOMITING; Start 11/08 at 15:00 Morphine Sulfate (Morphine Sulfate) 1 mg PRN Q2HR PRN IV PAIN SEVERE Last administered on 09/06/18at 11:19; Start 09/02/18 at 15:00 Atorvastatin Calcium (Lipitor) 40 mg QHS PO Last administered on 09/06/18at 21: 55; Start 09/02/18 at 21:00 Diltiazem HCl (Cardizem 24hr Cd) 120 mg DAILY PO ; Start 09/03/18 at 09:00; Stop 09/03/18 at 12:09; Status DC Glipizide (Glucotrol) 10 mg DAILY07 PO Last administered on 09/07/18at 08:11; Start 09/03/18 at 07:00 Acetaminophen/ Hydrocodone Bitart (Lortab 10/325) 1 tab PRN Q6HRS PRN PO MODERATE PAIN Last administered on 09/06/18at 23:03; Start 09/02/18 at 16:30 Metoprolol Succinate (Toprol Xl) 50 mg DAILY PO Last administered on at 09:14; Start 09/03/18 at 09:00 Pantoprazole Sodium (Protonix) 40 mg DAILYAC PO Last administered on at 08:09; Start 09/03/18 at 07:30 Non-Formulary Medication (Tizanidine Hcl ) 4 mg PRN QID PRN PO MUSCLE SPASMS; Start 09/02/18 at 15:00; Stop 09/02/18 at 16:26; Status DC Insulin Human Lispro (HumaLOG) 0-9 UNITS TIDWMEALS SQ Last administered on at 17:47; Start 09/02/18 at 17:00 Dextrose (Dextrose 50%-Water Syringe) 12.5 gm PRN Q15MIN PRN IV SEE COMMENTS; Start 09/02/18 at 15:00 Magnesium Sulfate/ Dextrose 100 ml @ 100 mls/hr 1X ONCE IV Last administered on 09/02/18at 19:56; Start 09/02/18 at 15:30; Stop 09/02/18 at 16:29; Status DC Clindamycin Phosphate 50 ml @ 100 mls/hr Q8HRS IV Last administered on at 05:50; Start 09/02/18 at 22:00 Clindamycin Phosphate 50 ml @ 100 mls/hr ONCE ONCE IV Last administered on at 16:10; Start 09/02/18 at 15:30; Stop 09/02/18 at 15:59; Status DC Lactobacillus Rhamnosus (Culturelle) 1 cap BID PO Last administered on 21:56; Start 09/02/18 at 21:00 Tizanidine HCl (Zanaflex) 4 mg PRN Q6HRS PRN PO MUSCLE SPASMS Last administered on 09/05/18 02:19; Start 09/02/18 at 16:30 Digoxin (Lanoxin) 500 mcg 1X ONCE IV Last administered on 09/02/18 18:49; Start 09/02/18 at 19:00; Stop 09/02/18 at 19:01; Status DC Diltiazem HCl (Cardizem 24hr Cd) 300 mg DAILY PO Last administered on 09:14; Start 09/03/18 at 12:30 Nystatin (Nystop) 1 sondra BID TP Last administered on 09/06/18 22:10; Start at 15:00 Furosemide (Lasix) 80 mg DAILY IVP Last administered on 09/06/18 09:10; Start 09/04/18 at 09:00 Warfarin Sodium (Coumadin Per Pharmacy) 1 each PRN DAILY PRN MC SEE COMMENTS Last administered on 09/06/18 14:30; Start 09/04/18 at 12:15 Warfarin Sodium (Coumadin) 5 mg 1X WARF ONCE PO Last administered on 17:26; Start 09/04/18 at 16:00; Stop 09/04/18 at 16:01; Status DC Iron Sucrose 300 mg/Sodium Chloride 265 ml @ 88.333 mls/ hr DAILY10 IV Last administered on 09/06/18 09:10; Start 09/05/18 at 10:00; Stop 09/08/18 at 12 :59 Diphenhydramine HCl (Benadryl) 25 mg Q24H PO Last administered on 09/06/18 11 :36; Start 09/05/18 at 09:30 Acetaminophen (Tylenol) 650 mg Q24H PO Last administered on 09/06/18 11:36; Start 09/05/18 at 09:30 Warfarin Sodium (Coumadin) 3 mg 1X WARF ONCE PO Last administered on at 16:57; Start 09/05/18 at 16:00; Stop 09/05/18 at 16:01; Status DC Senna/Docusate Sodium (Senna Plus) 1 tab PRN BID PRN PO CONSTIPATION 1ST CHOICE Last administered on 09/07/18at 08:11; Start 09/06/18 at 11:00 Lactulose (Lactulose) 20 gm PRN DAILY PRN PO CONSTIPATION 2ND CHOICE; Start at 11:00 Warfarin Sodium (Coumadin) 2.5 mg 1X WARF ONCE PO Last administered on at 17:45; Start 09/06/18 at 16:00; Stop 09/06/18 at 16:01; Status DC Active Scripts Active Reported Toprol Xl (Metoprolol Succinate) 50 Mg Tab.er.24h 50 Mg PO DAILY Glipizide 10 Mg Tablet 10 Mg PO DAILY Diltiazem 24HR Cd (Diltiazem Hcl) 120 Mg Cap.er.24h 120 Mg PO DAILY Tizanidine Hcl 4 Mg Capsule 4 Mg PO QID PRN Omeprazole 40 Mg Capsule.dr 40 Mg PO DAILY Hydrocodone-Apap 10-325 (Hydrocodone Bit/Acetaminophen) 1 Each Tablet 1 Tab PO PRN Q6HRS PRN Metformin Hcl 1,000 Mg Tablet 1,000 Mg PO BID Warfarin Sodium 5 Mg Tablet 5 Mg PO DAILY Warfarin Sodium 2.5 Mg Tablet 2.5 Mg PO DAILY Atorvastatin Calcium 40 Mg Tablet 40 Mg PO DAILY Vitals/I & O Vital Sign - Last 24 Hours 09/06/18 09/06/18 09/06/18 09/06/18 09:14 09:14 10:54 11:19 Temp 97.7 97.7 Pulse 111 111 100 Resp 18 18 B/P (MAP) 144/72 144/72 122/60 (80) Pulse Ox 98 98 O2 Delivery Nasal Cannula Nasal Cannula O2 Flow Rate 2.0 2.0 09/06/18 09/06/18 09/06/18 09/06/18 11:50 12:11 15:00 16:31 Temp 98.0 98.0 Pulse 86 Resp 18 18 B/P (MAP) 115/58 (77) Pulse Ox 96 98 94 96 O2 Delivery Nasal Cannula Room Air Room Air Room Air O2 Flow Rate 2.0 2.0 2.0 09/06/18 09/06/18 09/06/18 09/06/18 19:30 19:48 19:55 22:20 Temp 98.1 98.8 98.1 98.8 Pulse 99 95 Resp 16 18 B/P (MAP) 120/55 (76) 121/62 (81) Pulse Ox 95 93 91 O2 Delivery Room Air Room Air Nasal Cannula Nasal Cannula O2 Flow Rate 2.0 2.0 09/06/18 09/07/18 09/07/18 09/07/18 23:03 03:17 07:15 07:57 Temp 98.3 97.8 98.3 97.8 Pulse 108 90 Resp 18 20 B/P (MAP) 140/65 (90) 130/55 (80) Pulse Ox 96 97 95 O2 Delivery Nasal Cannula Nasal Cannula Nasal Cannula Nasal Cannula O2 Flow Rate 2.0 2.0 2.0 2.0 09/07/18 08:14 O2 Delivery Nasal Cannula O2 Flow Rate 3.0 Intake and Output 09/06/18 09/06/18 09/07/18 15:00 23:00 07:00 Intake Total 100 ml 350 ml Output Total 900 ml 750 ml 625 ml Balance -900 ml -650 ml -275 ml JD ACOSTA MD Sep 07, 2018 09:13
[2018-09-07] MEDS: IRON SUCROSE COMPLEX 300 MG in IV NORMAL SALINE 250ML 250 ML IV SCH (10:18)
[2018-09-07 11:01] VITALS: BP 130/73
--- NOTE | 2018-09-07 11:03 | PDOC ---
SUBJECTIVE ROS Stable, states feeling better OBJECTIVE Vital Signs Vital Signs Date Time Temp Pulse Resp B/P (MAP) Pulse Ox O2 Delivery O2 Flow Rate FiO2 09/07/18 10:18 Nasal Cannula 3.0 09/07/18 09:12 102 130/55 09/07/18 07:57 95 09/07/18 07:15 97.8 20 97.8 I & 0 Intake and Output 09/07/18 07:00 Intake Total 450 ml Output Total 2275 ml Balance -1825 ml Intake Oral 450 ml Output Urine Total 2275 ml PHYSICAL EXAM Physical Exam GEN: NAD HEENT- OM moist NECK: No JVD CVS: S1S2, RESP: No use of accessory Muscle GI: BS + ve, NO Bruit, Non Tender, Non Distended : No CVA tenderness, No Suprapubic Tenderness, Has Jiang Ext- Wrapped DIAGNOSIS/ASSESSMENT Assessment & Plan NOREEN - Ordered Bladder scan - revealed > 600ml of Urine Now has Jiang in place, Creatinine at baseline Urology Consulted ' Chronic kidney disease stage 3, likely secondary to diabetes mellitus Present since at least 2014 At baseline, E-Lytes stable, Currently No Indication for HD Anemia- Hem/Onc following On IV Sucrose x4 days Chronic atrial fibrillation- Hospitalized with atrial fibrillation with rapid ventricular response. Was On Cardizem drip On lasix- cardiology managing Diabetes mellitus. Lower extremity cellulitis and edema COMMENT/RELEVANT DATA Meds Current Medications Medications (Trade) Dose Ordered Sig/Burke Start Time Stop Time Status Last Admin Dose Admin Acetaminophen (Tylenol) 650 mg Q24H 09/05/18 09:30 09/07/18 09:10 650 MG Acetaminophen/ Codeine Phosphate (Tylenol #3) 1 tab PRN Q6HRS PRN 09/02/18 15:00 09/06/18 00:47 1 TAB Acetaminophen/ Hydrocodone Bitart (Lortab 10/325) 1 tab PRN Q6HRS PRN 09/02/18 16:30 09/07/18 09:11 1 TAB Acetaminophen/ Hydrocodone Bitart (Lortab 5/325) 1 tab 1X ONCE 09/02/18 13:00 09/02/18 13:01 DC 09/02/18 13:02 1 TAB Albuterol/ Ipratropium (Duoneb) 3 ml RTQID 09/02/18 16:00 09/07/18 07:56 3 ML Atorvastatin Calcium (Lipitor) 40 mg QHS 09/02/18 21:00 09/06/18 21:55 40 MG Clindamycin Phosphate 50 ml @ 100 mls/hr ONCE ONCE 09/02/18 15:30 09/02/18 15:59 DC 09/02/18 16:10 100 MLS/HR Dextrose (Dextrose 50%-Water Syringe) 12.5 gm PRN Q15MIN PRN 09/02/18 15:00 Digoxin (Lanoxin) 500 mcg 1X ONCE 09/02/18 19:00 09/02/18 19:01 DC 09/02/18 18:49 500 MCG Diltiazem HCl (Cardizem 24hr Cd) 300 mg DAILY 09/03/18 12:30 09/07/18 09:10 300 MG Diltiazem HCl (Cardizem) 10 mg 1X ONCE 09/02/18 12:30 09/02/18 12:31 DC 09/02/18 12:47 10 MG Diltiazem HCl 125 mg/Dextrose 125 ml @ 5 mls/hr CONT PRN 09/02/18 12:30 09/06/18 08:36 DC 09/03/18 10:25 20 MLS/HR Diphenhydramine HCl (Benadryl) 25 mg Q24H 09/05/18 09:30 09/07/18 09:10 25 MG Furosemide (Lasix) 80 mg DAILY 09/04/18 09:00 09/07/18 09:12 80 MG Glipizide (Glucotrol) 10 mg DAILY07 09/03/18 07:00 09/07/18 08:11 10 MG Guaifenesin (Robitussin Dm) 10 ml PRN Q6HRS PRN 09/02/18 15:00 Insulin Human Lispro (HumaLOG) 0-9 UNITS TIDWMEALS 09/02/18 17:00 09/06/18 17:47 4 UNITS Iron Sucrose 300 mg/Sodium Chloride 265 ml @ 88.333 mls/ hr DAILY10 09/05/18 10:00 09/08/18 12:59 09/07/18 10:18 88.333 MLS/HR Lactobacillus Rhamnosus (Culturelle) 1 cap BID 09/02/18 21:00 09/07/18 09:11 1 CAP Lactulose (Lactulose) 20 gm PRN DAILY PRN 09/06/18 11:00 Magnesium Sulfate/ Dextrose 100 ml @ 100 mls/hr 1X ONCE 09/02/18 15:30 09/02/18 16:29 DC 09/02/18 19:56 100 MLS/HR Metoprolol Succinate (Toprol Xl) 50 mg DAILY 09/03/18 09:00 09/07/18 09:12 50 MG Morphine Sulfate (Morphine Sulfate) 1 mg PRN Q2HR PRN 09/02/18 15:00 09/06/18 11:19 1 MG Multi-Ingred Cream/Lotion/Oil/ Oint (Hydrocerin Cream) 1 sondra PRN Q1HR PRN 09/02/18 15:00 Non-Formulary Medication (Tizanidine Hcl ) 4 mg PRN QID PRN 09/02/18 15:00 09/02/18 16:26 DC Nystatin (Nystop) 1 sondra BID 09/03/18 15:00 09/07/18 09:12 1 SONDRA Ondansetron HCl (Zofran Odt) 4 mg PRN Q6HRS PRN 09/02/18 15:00 Ondansetron HCl (Zofran) 4 mg PRN Q6HRS PRN 09/02/18 15:00 Pantoprazole Sodium (Protonix) 40 mg DAILYAC 09/03/18 07:30 09/07/18 08:09 40 MG Phytonadione (Mephyton Oral Soln) 2.5 mg 1X ONCE 09/02/18 15:00 09/02/18 15:01 DC 09/02/18 15:36 2.5 MG Senna/Docusate Sodium (Senna Plus) 1 tab PRN BID PRN 09/06/18 11:00 09/07/18 08:11 1 TAB Tizanidine HCl (Zanaflex) 4 mg PRN Q6HRS PRN 09/02/18 16:30 09/05/18 02:19 4 MG Warfarin Sodium (Coumadin Per Pharmacy) 1 each PRN DAILY PRN 09/04/18 12:15 09/06/18 14:30 1 EACH Warfarin Sodium (Coumadin) 2.5 mg 1X WARF ONCE 09/06/18 16:00 09/06/18 16:01 DC 09/06/18 17:45 2.5 MG Lab Laboratory Tests Test 09/06/18 12:09 09/06/18 16:53 09/06/18 20:31 09/07/18 04:05 Glucose (Fingerstick) 192 mg/dL (70-99) 172 mg/dL (70-99) 176 mg/dL (70-99) White Blood Count 14.9 x10^3/uL (4.0-11.0) Red Blood Count 3.22 x10^6/uL (4.30-5.70) Hemoglobin 8.0 g/dL (13.0-17.5) Hematocrit 25.1 % (39.0-53.0) Mean Corpuscular Volume 78 fL (79-100) Mean Corpuscular Hemoglobin 25 pg (25-35) Mean Corpuscular Hemoglobin Concent 32 g/dL (31-37) Red Cell Distribution Width 21.4 % (11.5-14.5) Platelet Count 437 x10^3/uL (140-400) Neutrophils (%) (Auto) 67 % (31-73) Lymphocytes (%) (Auto) 14 % (24-48) Monocytes (%) (Auto) 13 % (0-9) Eosinophils (%) (Auto) 5 % (0-3) Basophils (%) (Auto) 1 % (0-3) Neutrophils # (Auto) 10.0 x10^3uL (1.8-7.7) Lymphocytes # (Auto) 2.1 x10^3/uL (1.0-4.8) Monocytes # (Auto) 2.0 x10^3/uL (0.0-1.1) Eosinophils # (Auto) 0.8 x10^3/uL (0.0-0.7) Basophils # (Auto) 0.1 x10^3/uL (0.0-0.2) Prothrombin Time 30.6 SEC (11.7-14.0) Prothromb Time International Ratio 3.0 (0.8-1.1) Sodium Level 141 mmol/L (136-145) Potassium Level 3.7 mmol/L (3.5-5.1) Chloride Level 104 mmol/L (98-107) Carbon Dioxide Level 29 mmol/L (21-32) Anion Gap 8 (6-14) Blood Urea Nitrogen 25 mg/dL (8-26) Creatinine 1.8 mg/dL (0.7-1.3) Estimated GFR (Cockcroft-Gault) 37.1 Glucose Level 130 mg/dL (70-99) Calcium Level 9.1 mg/dL (8.5-10.1) Test 09/07/18 07:23 Glucose (Fingerstick) 126 mg/dL (70-99) Results All relevant outside records, renal labs, imaging studies, telemetry/EKG's were reviewed. STERLING MARINELLI MD Sep 07, 2018 11:03
--- NOTE | 2018-09-07 13:54 | PDOC ---
SUBJECTIVE Subjective Pt doing ok today, not sure when he is going home. Levine catheter is not bothering him. OBJECTIVE Objective General: Pleasant, no acute distress, well groomed Eyes: conjunctiva anicteric, eyes full range of motion ENT: moist oral mucosa, normal dentition Neck: Trachea midline, no masses Respiratory: unlabored breathing, not using accessory muscles Back: No CVA pain Abdomen: soft, obese, nontender Pelvic: uncircumcised phallus, levine catheter in place draining clear yellow urine. Device in good working order. Skin: Cellulitis, BLE Psych: normal mood, affect. Alert and oriented x 3. Vital Signs Vital Signs Date Time Temp Pulse Resp B/P (MAP) Pulse Ox O2 Delivery O2 Flow Rate FiO2 09/07/18 11:33 93 Nasal Cannula 2.0 09/07/18 11:01 98.9 66 20 130/73 (92) 98 Nasal Cannula 2.0 98.9 09/07/18 10:18 Nasal Cannula 3.0 09/07/18 09:12 102 130/55 09/07/18 09:11 Nasal Cannula 3.0 09/07/18 09:10 102 130/55 09/07/18 07:57 95 Nasal Cannula 2.0 09/07/18 07:50 Nasal Cannula 3.0 09/07/18 07:15 97.8 90 20 130/55 (80) 97 Nasal Cannula 2.0 97.8 09/07/18 03:17 98.3 108 18 140/65 (90) 96 Nasal Cannula 2.0 98.3 09/06/18 23:03 Nasal Cannula 2.0 09/06/18 22:20 98.8 95 18 121/62 (81) 91 Nasal Cannula 2.0 98.8 09/06/18 19:55 Nasal Cannula 2.0 09/06/18 19:48 93 Room Air 09/06/18 19:30 98.1 99 16 120/55 (76) 95 Room Air 98.1 09/06/18 16:31 96 Room Air 2.0 09/06/18 15:00 98.0 86 18 115/58 (77) 94 Room Air 98.0 I & O Intake and Output 09/07/18 07:00 Intake Total 450 ml Output Total 2275 ml Balance -1825 ml Intake Oral 450 ml Output Urine Total 2275 ml PHYSICAL EXAM Physical Exam General: Pleasant, no acute distress, well groomed Eyes: conjunctiva anicteric, eyes full range of motion ENT: moist oral mucosa, normal dentition Neck: Trachea midline, no masses Respiratory: unlabored breathing, not using accessory muscles Back: No CVA pain Abdomen: soft, obese, nontender Pelvic: uncircumcised phallus, levine catheter in place draining clear yellow urine. Device in good working order. Skin: Cellulitis, BLE Psych: normal mood, affect. Alert and oriented x 3. ASSESSMENT/PLAN Assessment/Plan AUR with 600 return out on 09/05/18: Leave levine in place 3-4 days. If patient goes home prior to this, may go home with levine in place and we can get him a voiding trial appointment as an outpatient with [facility]. WBC 13, [employer] 1.8(increased from 1.5). Renal following. Interaction between Diltiazem and Flomax. Encouraged patient to move around, work with PT which he has been doing. Pt had a good BM today. Voiding trial tomorrow, begin at 0600. Orders entered. Problems: (1) Levine catheter in place (2) Urinary retention COMMENT Lab Laboratory Tests Test 09/06/18 16:53 09/06/18 20:31 09/07/18 04:05 09/07/18 07:23 Glucose (Fingerstick) 172 mg/dL (70-99) 176 mg/dL (70-99) 126 mg/dL (70-99) White Blood Count 14.9 x10^3/uL (4.0-11.0) Red Blood Count 3.22 x10^6/uL (4.30-5.70) Hemoglobin 8.0 g/dL (13.0-17.5) Hematocrit 25.1 % (39.0-53.0) Mean Corpuscular Volume 78 fL (79-100) Mean Corpuscular Hemoglobin 25 pg (25-35) Mean Corpuscular Hemoglobin Concent 32 g/dL (31-37) Red Cell Distribution Width 21.4 % (11.5-14.5) Platelet Count 437 x10^3/uL (140-400) Neutrophils (%) (Auto) 67 % (31-73) Lymphocytes (%) (Auto) 14 % (24-48) Monocytes (%) (Auto) 13 % (0-9) Eosinophils (%) (Auto) 5 % (0-3) Basophils (%) (Auto) 1 % (0-3) Neutrophils # (Auto) 10.0 x10^3uL (1.8-7.7) Lymphocytes # (Auto) 2.1 x10^3/uL (1.0-4.8) Monocytes # (Auto) 2.0 x10^3/uL (0.0-1.1) Eosinophils # (Auto) 0.8 x10^3/uL (0.0-0.7) Basophils # (Auto) 0.1 x10^3/uL (0.0-0.2) Prothrombin Time 30.6 SEC (11.7-14.0) Prothromb Time International Ratio 3.0 (0.8-1.1) Sodium Level 141 mmol/L (136-145) Potassium Level 3.7 mmol/L (3.5-5.1) Chloride Level 104 mmol/L (98-107) Carbon Dioxide Level 29 mmol/L (21-32) Anion Gap 8 (6-14) Blood Urea Nitrogen 25 mg/dL (8-26) Creatinine 1.8 mg/dL (0.7-1.3) Estimated GFR (Cockcroft-Gault) 37.1 Glucose Level 130 mg/dL (70-99) Calcium Level 9.1 mg/dL (8.5-10.1) Test 09/07/18 11:36 Glucose (Fingerstick) 204 mg/dL (70-99) MOISES MORFIN APRN Sep 07, 2018 13:54
[2018-09-07 15:07] VITALS: BP 121/58
[2018-09-07] MEDS ORDERED: WARFARIN 1 MG TABLET. PO ONE (16:00)
[2018-09-07] MEDS ORDERED: WARFARIN 2.5 MG TABLET. PO ONE (16:00)
[2018-09-07 19:27] VITALS: BP 112/53
[2018-09-07] MEDS: ATORVASTATIN CALCIUM 40 MG TABLET. PO SCH (22:12)
[2018-09-07 23:14] VITALS: BP 121/56
[2018-09-08] MEDS: HYDROcodone/APAP 10/325 1 TAB TABLET PO PRN ×2 (01:21→12:31)
[2018-09-08 03:44] VITALS: BP 127/59
[2018-09-08 04:40] LABS: CALCIUM 8.9 mg/dL (8.5-10.1); CREATININE 1.6 mg/dL (0.7-1.3); GFR 42.5; POTASSIUM 3.6 mmol/L (3.5-5.1)
[2018-09-08 04:45] LABS: BASO # 0.1 x10^3/uL (0.0-0.2); BASO % 1 % (0-3); EOS % 7 % (0-3); HEMOGLOBIN 7.7 g/dL (13.0-17.5); LYMPH # 2.4 x10^3/uL (1.0-4.8); LYMPH % 17 % (24-48); MEAN CORPUSCULAR HEMOGLOBIN 25 pg (25-35); MEAN CORPUSCULAR HGB CONC 32 g/dL (31-37); MEAN CORPUSCULAR VOLUME 78 fL (79-100); MONO # 1.7 x10^3/uL (0.0-1.1); MONO % 12 % (0-9); NEUT # 9.1 x10^3uL (1.8-7.7); NEUT % 64 % (31-73); PLATELET COUNT 479 x10^3/uL (140-400); RED BLOOD COUNT 3.09 x10^6/uL (4.30-5.70); RED CELL DISTRIBUTION WIDTH 21.2 % (11.5-14.5); WHITE BLOOD COUNT 14.4 x10^3/uL (4.0-11.0)
[2018-09-08 04:51] LABS: PROTHROMBIN TIME PATIENT 33.4 SEC (11.7-14.0)
[2018-09-08] MEDS: CLINDAMYCIN 600MG PREMIX 50 ML IV SCH (06:29)
[2018-09-08 07:00] VITALS: BP 151/60
[2018-09-08] MEDS: IPRATRPIUM/ALBUTEROL 0.5/2.5MG 3 ML NEBU. NEB SCH ×3 (07:23→16:00)
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
[2018-09-08] MEDS: INSULIN LISPRO 300 UNITS/3 ML INSULN.PEN. SQ SCH ×2 (08:00→12:28)
[2018-09-08] MEDS: LACTOBACILLUS RHAMNOSUS GG 1 CAPSULE. PO SCH (09:04)
[2018-09-08] MEDS: glipiZIDE 5 MG TABLET PO SCH (09:05)
[2018-09-08] MEDS: METOPROLOL SUCC 24HR ER 50 MG TAB.ER.24H. PO SCH (09:05)
[2018-09-08] MEDS: PANTOPRAZOLE 40 MG TABLET.DR. PO SCH (09:06)
[2018-09-08] MEDS: NYSTATIN TOPICAL POWDER 15GM BOTTLE. TP SCH (09:19)
[2018-09-08] MEDS: FUROSEMIDE 40 MG/4 ML VIAL. IVP SCH (09:19)
--- NOTE | 2018-09-08 10:02 | PDOC ---
SUBJECTIVE Subjective Pt had levine catheter taken out early this morning. Has not voided yet, but has only tried once. He is still moving around and drinking water. OBJECTIVE Objective Physical Exam: General appearance: Alert and Oriented Head: Normocephalic, without obvious abnormality Eyes: conjunctivae/corneas clear. PERRL, EOM's intact. Fundi benign Back: negative Lungs: regular respirations, non labored breathing Abdomen: soft, non-tender. Bowel sounds normal. No masses, no organomegaly Pelvic: deferred Vital Signs Vital Signs Date Time Temp Pulse Resp B/P (MAP) Pulse Ox O2 Delivery O2 Flow Rate FiO2 09/08/18 09:05 110 151/60 09/08/18 09:04 110 151/60 09/08/18 08:00 Room Air 09/08/18 07:24 96 Room Air 09/08/18 07:00 98.4 110 24 151/60 (90) 93 Room Air 98.4 09/08/18 03:44 99.0 101 18 127/59 (81) 92 Room Air 99.0 09/07/18 23:14 98.7 91 18 121/56 (77) 92 Room Air 98.7 09/07/18 20:14 95 Nasal Cannula 2.0 09/07/18 20:10 Room Air 09/07/18 19:27 99.2 90 16 112/53 (72) 93 Room Air 99.2 09/07/18 18:42 2 Nasal Cannula 09/07/18 15:31 93 Nasal Cannula 2.0 09/07/18 15:07 97.6 85 20 121/58 (79) 97 Nasal Cannula 2.0 97.6 09/07/18 11:33 93 Nasal Cannula 2.0 09/07/18 11:01 98.9 66 20 130/73 (92) 98 Nasal Cannula 2.0 98.9 09/07/18 10:18 Nasal Cannula 3.0 I & O Intake and Output 09/08/18 07:00 Intake Total 1150 ml Output Total 2350 ml Balance -1200 ml Intake Oral 1150 ml Output Urine Total 2350 ml PHYSICAL EXAM Physical Exam Physical Exam: General appearance: Alert and Oriented Head: Normocephalic, without obvious abnormality Eyes: conjunctivae/corneas clear. PERRL, EOM's intact. Fundi benign Back: negative Lungs: regular respirations, non labored breathing Abdomen: soft, non-tender. Bowel sounds normal. No masses, no organomegaly Pelvic: deferred ASSESSMENT/PLAN Assessment/Plan Patient had levine catheter removed this am, voiding trial still in progress. Nursing has orders to replace levine catheter for PVR greater than 350. Renal following. for increased [employer], appreciate input. Interaction between Diltiazem and Flomax. Encouraged patient to move around, work with PT which he has been doing. Problems: (1) Urinary retention COMMENT Lab Laboratory Tests Test 09/07/18 11:36 09/07/18 17:08 09/07/18 20:57 09/08/18 03:55 Glucose (Fingerstick) 204 mg/dL (70-99) 216 mg/dL (70-99) 188 mg/dL (70-99) White Blood Count 14.4 x10^3/uL (4.0-11.0) Red Blood Count 3.09 x10^6/uL (4.30-5.70) Hemoglobin 7.7 g/dL (13.0-17.5) Hematocrit 24.0 % (39.0-53.0) Mean Corpuscular Volume 78 fL (79-100) Mean Corpuscular Hemoglobin 25 pg (25-35) Mean Corpuscular Hemoglobin Concent 32 g/dL (31-37) Red Cell Distribution Width 21.2 % (11.5-14.5) Platelet Count 479 x10^3/uL (140-400) Neutrophils (%) (Auto) 64 % (31-73) Lymphocytes (%) (Auto) 17 % (24-48) Monocytes (%) (Auto) 12 % (0-9) Eosinophils (%) (Auto) 7 % (0-3) Basophils (%) (Auto) 1 % (0-3) Neutrophils # (Auto) 9.1 x10^3uL (1.8-7.7) Lymphocytes # (Auto) 2.4 x10^3/uL (1.0-4.8) Monocytes # (Auto) 1.7 x10^3/uL (0.0-1.1) Eosinophils # (Auto) 1.0 x10^3/uL (0.0-0.7) Basophils # (Auto) 0.1 x10^3/uL (0.0-0.2) Prothrombin Time 33.4 SEC (11.7-14.0) Prothromb Time International Ratio 3.4 (0.8-1.1) Sodium Level 141 mmol/L (136-145) Potassium Level 3.6 mmol/L (3.5-5.1) Chloride Level 104 mmol/L (98-107) Carbon Dioxide Level 30 mmol/L (21-32) Anion Gap 7 (6-14) Blood Urea Nitrogen 25 mg/dL (8-26) Creatinine 1.6 mg/dL (0.7-1.3) Estimated GFR (Cockcroft-Gault) 42.5 Glucose Level 116 mg/dL (70-99) Calcium Level 8.9 mg/dL (8.5-10.1) Test 09/08/18 07:59 Glucose (Fingerstick) 134 mg/dL (70-99) MOISES MORFIN APRN Sep 08, 2018 10:02
[2018-09-08] MEDS: diphenhydrAMINE HCL 25 MG CAPSULE PO SCH (10:38)
[2018-09-08] MEDS: ACETAMINOPHEN 325 MG TABLET. PO SCH (10:38)
[2018-09-08] MEDS: IRON SUCROSE COMPLEX 300 MG in IV NORMAL SALINE 250ML 250 ML IV SCH (10:39)
--- NOTE | 2018-09-08 10:56 | PDOC ---
SUBJECTIVE ROS Stable, failed voiding trial this am, Jiang placed again OBJECTIVE Vital Signs Vital Signs Date Time Temp Pulse Resp B/P (MAP) Pulse Ox O2 Delivery O2 Flow Rate FiO2 09/08/18 09:05 110 151/60 09/08/18 08:00 Room Air 09/08/18 07:24 96 09/08/18 07:00 98.4 24 98.4 09/07/18 20:14 2.0 I & 0 Intake and Output 09/08/18 07:00 Intake Total 1150 ml Output Total 2350 ml Balance -1200 ml Intake Oral 1150 ml Output Urine Total 2350 ml PHYSICAL EXAM Physical Exam GEN: NAD HEENT- OM moist NECK: No JVD CVS: S1S2, RESP: No use of accessory Muscle GI: BS + ve, NO Bruit, Non Tender, Non Distended : No CVA tenderness, No Suprapubic Tenderness, Has Jiang Ext- Wrapped DIAGNOSIS/ASSESSMENT Assessment & Plan NOREEN -Obstructive Uropathy Improved , back to baseline Urinary retention-Jiang placed earlier this week failed Voiding trial this am , Jiang placed again, Bladder scan 750+ Urine Urology following Chronic kidney disease stage 3, likely secondary to diabetes mellitus Present since at least 2014 At baseline, E-Lytes stable, Currently No Indication for HD Anemia- Hem/Onc following IV Sucrose x4 days Chronic atrial fibrillation- Hospitalized with atrial fibrillation with rapid ventricular response. Was On Cardizem drip On lasix- cardiology managing Diabetes mellitus. Lower extremity cellulitis and edema Follow up with us/ Renal as OP for CKD in 2-3 months COMMENT/RELEVANT DATA Meds Current Medications Medications (Trade) Dose Ordered Sig/Burke Start Time Stop Time Status Last Admin Dose Admin Acetaminophen (Tylenol) 650 mg Q24H 09/05/18 09:30 09/08/18 10:38 650 MG Acetaminophen/ Codeine Phosphate (Tylenol #3) 1 tab PRN Q6HRS PRN 09/02/18 15:00 09/06/18 00:47 1 TAB Acetaminophen/ Hydrocodone Bitart (Lortab 10/325) 1 tab PRN Q6HRS PRN 09/02/18 16:30 09/08/18 01:21 1 TAB Acetaminophen/ Hydrocodone Bitart (Lortab 5/325) 1 tab 1X ONCE 09/02/18 13:00 09/02/18 13:01 DC 09/02/18 13:02 1 TAB Albuterol/ Ipratropium (Duoneb) 3 ml RTQID 09/02/18 16:00 09/08/18 10:51 3 ML Atorvastatin Calcium (Lipitor) 40 mg QHS 09/02/18 21:00 09/07/18 22:12 40 MG Clindamycin Phosphate 50 ml @ 100 mls/hr ONCE ONCE 09/02/18 15:30 09/02/18 15:59 DC 09/02/18 16:10 100 MLS/HR Dextrose (Dextrose 50%-Water Syringe) 12.5 gm PRN Q15MIN PRN 09/02/18 15:00 Digoxin (Lanoxin) 500 mcg 1X ONCE 09/02/18 19:00 09/02/18 19:01 DC 09/02/18 18:49 500 MCG Diltiazem HCl (Cardizem 24hr Cd) 300 mg DAILY 09/03/18 12:30 09/08/18 09:04 300 MG Diltiazem HCl (Cardizem) 10 mg 1X ONCE 09/02/18 12:30 09/02/18 12:31 DC 09/02/18 12:47 10 MG Diltiazem HCl 125 mg/Dextrose 125 ml @ 5 mls/hr CONT PRN 09/02/18 12:30 09/06/18 08:36 DC 09/03/18 10:25 20 MLS/HR Diphenhydramine HCl (Benadryl) 25 mg Q24H 09/05/18 09:30 09/08/18 10:38 25 MG Furosemide (Lasix) 80 mg DAILY 09/04/18 09:00 09/08/18 09:19 80 MG Glipizide (Glucotrol) 10 mg DAILY07 09/03/18 07:00 09/08/18 09:05 10 MG Guaifenesin (Robitussin Dm) 10 ml PRN Q6HRS PRN 09/02/18 15:00 Insulin Human Lispro (HumaLOG) 0-9 UNITS TIDWMEALS 09/02/18 17:00 09/07/18 17:50 5 UNITS Iron Sucrose 300 mg/Sodium Chloride 265 ml @ 88.333 mls/ hr DAILY10 09/05/18 10:00 09/08/18 12:59 09/08/18 10:39 88.333 MLS/HR Lactobacillus Rhamnosus (Culturelle) 1 cap BID 09/02/18 21:00 09/08/18 09:04 1 CAP Lactulose (Lactulose) 20 gm PRN DAILY PRN 09/06/18 11:00 Magnesium Sulfate/ Dextrose 100 ml @ 100 mls/hr 1X ONCE 09/02/18 15:30 09/02/18 16:29 DC 09/02/18 19:56 100 MLS/HR Metoprolol Succinate (Toprol Xl) 50 mg DAILY 09/03/18 09:00 09/08/18 09:05 50 MG Morphine Sulfate (Morphine Sulfate) 1 mg PRN Q2HR PRN 09/02/18 15:00 09/06/18 11:19 1 MG Multi-Ingred Cream/Lotion/Oil/ Oint (Hydrocerin Cream) 1 sondra PRN Q1HR PRN 09/02/18 15:00 Non-Formulary Medication (Tizanidine Hcl ) 4 mg PRN QID PRN 09/02/18 15:00 09/02/18 16:26 DC Nystatin (Nystop) 1 sondra BID 09/03/18 15:00 09/08/18 09:19 1 SONDRA Ondansetron HCl (Zofran Odt) 4 mg PRN Q6HRS PRN 09/02/18 15:00 Ondansetron HCl (Zofran) 4 mg PRN Q6HRS PRN 09/02/18 15:00 Pantoprazole Sodium (Protonix) 40 mg DAILYAC 09/03/18 07:30 09/08/18 09:06 40 MG Phytonadione (Mephyton Oral Soln) 2.5 mg 1X ONCE 09/02/18 15:00 09/02/18 15:01 DC 09/02/18 15:36 2.5 MG Senna/Docusate Sodium (Senna Plus) 1 tab PRN BID PRN 09/06/18 11:00 09/07/18 08:11 1 TAB Tizanidine HCl (Zanaflex) 4 mg PRN Q6HRS PRN 09/02/18 16:30 09/05/18 02:19 4 MG Warfarin Sodium (Coumadin Per Pharmacy) 1 each PRN DAILY PRN 09/04/18 12:15 09/07/18 14:48 1 EACH Warfarin Sodium (Coumadin) 1 mg 1X WARF ONCE 09/07/18 16:00 09/07/18 16:01 DC 09/07/18 16:36 1 MG Lab Laboratory Tests Test 09/07/18 11:36 09/07/18 17:08 09/07/18 20:57 09/08/18 03:55 Glucose (Fingerstick) 204 mg/dL (70-99) 216 mg/dL (70-99) 188 mg/dL (70-99) White Blood Count 14.4 x10^3/uL (4.0-11.0) Red Blood Count 3.09 x10^6/uL (4.30-5.70) Hemoglobin 7.7 g/dL (13.0-17.5) Hematocrit 24.0 % (39.0-53.0) Mean Corpuscular Volume 78 fL (79-100) Mean Corpuscular Hemoglobin 25 pg (25-35) Mean Corpuscular Hemoglobin Concent 32 g/dL (31-37) Red Cell Distribution Width 21.2 % (11.5-14.5) Platelet Count 479 x10^3/uL (140-400) Neutrophils (%) (Auto) 64 % (31-73) Lymphocytes (%) (Auto) 17 % (24-48) Monocytes (%) (Auto) 12 % (0-9) Eosinophils (%) (Auto) 7 % (0-3) Basophils (%) (Auto) 1 % (0-3) Neutrophils # (Auto) 9.1 x10^3uL (1.8-7.7) Lymphocytes # (Auto) 2.4 x10^3/uL (1.0-4.8) Monocytes # (Auto) 1.7 x10^3/uL (0.0-1.1) Eosinophils # (Auto) 1.0 x10^3/uL (0.0-0.7) Basophils # (Auto) 0.1 x10^3/uL (0.0-0.2) Prothrombin Time 33.4 SEC (11.7-14.0) Prothromb Time International Ratio 3.4 (0.8-1.1) Sodium Level 141 mmol/L (136-145) Potassium Level 3.6 mmol/L (3.5-5.1) Chloride Level 104 mmol/L (98-107) Carbon Dioxide Level 30 mmol/L (21-32) Anion Gap 7 (6-14) Blood Urea Nitrogen 25 mg/dL (8-26) Creatinine 1.6 mg/dL (0.7-1.3) Estimated GFR (Cockcroft-Gault) 42.5 Glucose Level 116 mg/dL (70-99) Calcium Level 8.9 mg/dL (8.5-10.1) Test 09/08/18 07:59 Glucose (Fingerstick) 134 mg/dL (70-99) Results All relevant outside records, renal labs, imaging studies, telemetry/EKG's were reviewed. STERLING MARINELLI MD Sep 08, 2018 10:56
[2018-09-08 11:00] VITALS: BP 149/71
[2018-09-08] MEDS ORDERED: CLIN300C8 PO (11:25)
[2018-09-08] MEDS ORDERED: TAMS0.4C97 PO (11:25)
[2018-09-08] MEDS ORDERED: FURO40TA4 PO (11:25)
[2018-09-08] MEDS ORDERED: SENN-22 PO (11:25)
[2018-09-08] MEDS ORDERED: DILT300C2 PO (11:25)
--- NOTE | 2018-09-08 11:31 | DISCH ---
DISCHARGE WITH HOME HEALTH DISCHARGE INFORMATION: Discharge Date: Sep 08, 2018 Final Diagnosis: Problems Medical Problems: (1) Atrial fibrillation with RVR Status: Acute (2) CHF (congestive heart failure) Status: Acute (3) Symptomatic anemia Status: Acute Condition on Discharge: Stable CODE STATUS: Code Status: Full HOME HEALTH: Face to Face: I certify this patient is under my care and that I, or a nurse practitioner or physician's assistant reading teacher working with me, had a face to face encounter that meets the physician face to face encounter requirements with this patient on 09/08/18. Medical Complications: CHF, DM, HTN, Other (Cellulitis, BPH with levine in place ) Half-Way For: Assess Cardiopulm Status, Assess & Educate Safety, Bowel/ Bladder Training (Levine in place, levine care, f/u with Urology - Dr. Espinoza), Medication Management, Urinary Catheter Care Physical Therapy For: Evalulation/Treatment Occupational Therapy For: Evaluation/Treatment Home Health Aide For: Self-care TELEPHONE CLERK For: Community Resources Pt Meets Homebound Status: Unsteady balance w/ amb,, Extreme weakness w/ amb., Fatigue w/ amb., Limited distance walking POST DISCHARGE ORDERS: Activity Instructions for Disc: Resume previous activity, Avoid exertion Weight Bearing Status after Di: Full weight bearing Bathing Instructions: Shower-keep dressing dry DIET AFTER DISCHARGE: ADA (Cardiac ADA diet) Wound/Incision Care: Change dressing, Reinforce dressing PRN Other wound/incision instructi: Non adherent dressing to bilateral wounds, wrap with gauze every other day CHECKS AFTER DISCHARGE: Checks after discharge: Check blood press - daily, Check blood sugar, ac/hs, Check your Temp as needed FOLLOW-UP: Follow up with: Dr. Espinoza - Urology in 2 weeks Follow Up With: Dr. Barney - Cardiology in 1-2 weeks DC TO SNF LABS: INR - Dr. Jerez - [phone] Warfarin Follow UP: INR 09/09/18 and every 3 days. 2.5mg Coumadin and 5mg alternating TREATMENT/EQUIPMENT ORDERS: Adaptive Equipment Issued: Four wheeled walker Discharge Respiratory Equipmen: Oxygen (2L) CERTIFICATION STATEMENT: Certification Statement: Certification Statement: Based on the above finding, I certify that this patient is confined to the home and needs intermittent retirement care, physical therapy and/or speech therapy, or continues to need occupational therapy.~ This patient is under my care, and I have initiated the establishment of the plan of care.~ This patient will be followed by myself or a community physician who will periodically review the plan of care. Home Meds Active Scripts Clindamycin Hcl (CLINDAMYCIN HCL) 300 Mg Capsule, 600 MG PO TID for 10 Days, # 60 CAP Prov:BRIAN JARAMILLO MD 09/08/18 Furosemide (FUROSEMIDE) 40 Mg Tablet, 40 MG PO BID for 30 Days, #60 TAB Prov:BRIAN JARAMILLO MD 09/08/18 Sennosides/Docusate Sodium (SENNA-TIME S TABLET) 1 Each Tablet, 1 TAB PO PRN BID PRN for CONSTIPATION 1ST CHOICE for 30 Days, #60 TAB 2 Refills Prov:BRIAN JARAMILLO MD 09/08/18 Tamsulosin Hcl (FLOMAX) 0.4 Mg Cap.er.24h, 0.4 MG PO DAILY for 30 Days, #30 CAP.SR 2 Refills Prov:BRIAN JARAMILLO MD 09/08/18 Diltiazem Hcl (CARDIZEM CD) 300 Mg Cap.er.24h, 300 MG PO DAILY for FOR HYPERTENSION for 30 Days, #30 CAP 2 Refills Prov:BRIAN JARAMILLO MD 09/08/18 Reported Medications Metoprolol Succinate (TOPROL XL) 50 Mg Tab.er.24h, 50 MG PO DAILY for FOR HYPERTENSION, #30 TAB 0 Refills 06/19/14 Glipizide (GLIPIZIDE) 10 Mg Tablet, 10 MG PO DAILY, TAB 06/19/14 Tizanidine Hcl (TIZANIDINE HCL) 4 Mg Capsule, 4 MG PO QID PRN for MUSCLE SPASMS , CAP 06/19/14 Omeprazole (OMEPRAZOLE) 40 Mg Capsule.dr, 40 MG PO DAILY, CAP 06/19/14 Hydrocodone Bit/Acetaminophen (HYDROCODONE-APAP 10-325 ) 1 Each Tablet, 1 TAB PO PRN Q6HRS PRN for PAIN, TAB 0 Refills 06/19/14 Warfarin Sodium (WARFARIN SODIUM) 2.5 Mg Tablet, 2.5 MG PO DAILY, TAB 06/19/14 Atorvastatin Calcium (ATORVASTATIN CALCIUM) 40 Mg Tablet, 40 MG PO DAILY for FOR CHOLESTEROL, #30 TAB 0 Refills 06/19/14 Discontinued Reported Medications Diltiazem Hcl (DILTIAZEM 24HR CD) 120 Mg Cap.er.24h, 120 MG PO DAILY, CAP.SR 06/19/14 Metformin Hcl (METFORMIN HCL) 1,000 Mg Tablet, 1000 MG PO BID for ANTI-DIABETIC , TAB 0 Refills 06/19/14 Warfarin Sodium (WARFARIN SODIUM) 5 Mg Tablet, 5 MG PO DAILY, TAB 06/19/14 BRIAN JARAMILLO MD Sep 08, 2018 11:31
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
[2018-09-08] MEDS ORDERED: TAMSULOSIN 0.4 MG CAP.ER.24H. PO SCH (12:00)
--- NOTE | 2018-09-08 13:37 | RAD ---
Left lower extremity arterial ultrasound, 09/08/2018: HISTORY: Left lower extremity wound Duplex evaluation of the left lower extremity arteries was performed including grayscale, color-flow and spectral Doppler analysis. The left common femoral artery demonstrates mild plaquing with a triphasic Doppler waveform. There is more extensive plaquing in the left superficial femoral artery. There is a moderate velocity acceleration in the mid left superficial femoral artery up to 343 cm/s. The peak systolic velocity just proximal to this level is 136 cm/s. The Doppler findings suggest moderate stenosis. The left superficial femoral and popliteal Doppler waveforms are monophasic. Patent posterior tibial, peroneal and anterior tibial arteries are present in the left lower leg demonstrating monophasic Doppler waveforms. The left dorsalis pedis artery is patent with a dampened monophasic Doppler waveform. IMPRESSION: 1. Moderate scattered atherosclerotic plaquing with duplex evidence of moderate stenosis in the mid left superficial femoral artery. 2. Mild to moderate degradation of the distal Doppler waveforms in the left lower leg and foot. Electronically signed by: Richy Hicks MD (09/08/2018 1:34 PM) [facility]
--- NOTE | 2018-09-08 14:20 | PDOC ---
Progress Note-Wound Care SUBJECTIVE Pt awake and pleasant conversation. C/o pain with movement and palpation of LLE. Pt denies n/v/d, chills or fevers. Pt transferring self and ambulating with supervision. Pt states he has been unable to urinate, levine recently placed , which is pushing his d/c back. OBJECTIVE Vital Signs Vital Signs Date Time Temp Pulse Resp B/P (MAP) Pulse Ox O2 Delivery O2 Flow Rate FiO2 09/07/18 07:15 97.8 90 20 130/55 (80) 97 Nasal Cannula 2.0 97.8 Vital Signs Date Time Temp Pulse Resp B/P (MAP) Pulse Ox O2 Delivery O2 Flow Rate FiO2 09/08/18 13:31 Nasal Cannula 2.0 09/08/18 12:31 18 95 09/08/18 11:00 98.2 109 149/71 (97) 98.2 Physical Exam: Pt awake and alert. NAD. VSS. Afebile. Resp even and unlabored. Pt on RA, not requiring supplemental O2. BLE with 3+ LE. RLE erythemic and warm to touch. Left medial foot with DFU, measures 0.5x0.7x0.1cm. Wound base pink and smooth. Minimal serous drainage. No odor following cleansing. Area tender with palpation and cleansing. Lateral LLE with 5.6x3.7x0.2cm venous stasis ulcer. Wound bed cover with thick slogh/eschar. Following obtained consent and application of Lidocaine x20 minutes, bedside debridement attempted with currette and scalpel. Able to remove superficial slough, however unable to remove all nonviable tissue secondary to pt pain level. 3rd wound noted to medial aspect of RLE, 3.4x3.8x0.1cm. Wound bed covered with slough. Following application of Lidocaine, able to debride to viable tissue. Pt tolerated with minimal pain. Minimal bleeding controlled with pressure. ROS ROS: CONSTITUTIONAL: No fever or chills EYES: No recent changes SKIN: No rash or itching. Wounds as noted. Pt c/o pain 10/10 with palpation and cleansing. CARDIOVASCULAR: No chest pain, syncope, palpitations, or edema RESPIRATORY: No SOB or cough GASTROINTESTINAL: No nausea, vomiting or abdominal pain NEUROLOGICAL: No headaches or weakness ENDOCRINE: No cold or heat intolerance GENITOURINARY: Pt c/o difficulty urinating. Levine recently placed. MUSCULOSKELETAL: No back pain or joint pain LYMPHATICS: No enlarged lymph nodes PSYCHIATRIC: Anxiety, denies depression PLAN 1) Venous stasis ulcer to LLE with underlying cellulitis - follow IDs lead for abx - Bedside debridement of nonviable tissue performed at bedside. Pt only able to tolerate minimal debridement of lateral wound d/t pain. See note above. - Cleanse and pat dry. Apply Hydrofera Blue to wound beds, cover with Xeroform and foam adhesive. Change every 3 days or prn if dressing loose or saturated. 2) DFU to left medial foot - Cleanse and pat dry. Apply contact layer and bandaid. Change every 3 days or prn if dressing loose or saturated. - Ensure area is offloaded with ambulation. Upon Dc, pt will need [facility]. 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
--- NOTE | 2018-09-08 14:21 | PDOC ---
PROGRESS NOTES Subjective Subjective Patient reports LLE pain again. Indicates that he will work with PT at home. Objective Objective Vital Signs Date Time Temp Pulse Resp B/P (MAP) Pulse Ox O2 Delivery O2 Flow Rate FiO2 09/08/18 13:31 Nasal Cannula 2.0 09/08/18 12:31 18 95 09/08/18 11:00 98.2 109 149/71 (97) 98.2 Intake and Output 09/08/18 07:00 Intake Total 1150 ml Output Total 2350 ml Balance -1200 ml Intake Oral 1150 ml Output Urine Total 2350 ml Physical Exam Physical Exam No significant cardiac changes. Assessment Assessment Problems Medical Problems: (1) Atrial fibrillation with RVR Status: Acute (2) CHF (congestive heart failure) Status: Acute (3) Symptomatic anemia Status: Acute Plan Plan of Care Pt remains in A-fib. INR has become supra-therapeutic despite progressively decreased doses of warfarin. Likely secondary to pt noncompliance in management of his CHF. Okay to be discharged today from my perspective. Will have him follow up as an outpatient. Comment Review of Relevant I have reviewed the following items logan (where applicable) has been applied. Labs Laboratory Tests Test 09/06/18 16:53 09/06/18 20:31 09/07/18 04:05 09/07/18 07:23 Glucose (Fingerstick) 172 mg/dL (70-99) 176 mg/dL (70-99) 126 mg/dL (70-99) White Blood Count 14.9 x10^3/uL (4.0-11.0) Red Blood Count 3.22 x10^6/uL (4.30-5.70) Hemoglobin 8.0 g/dL (13.0-17.5) Hematocrit 25.1 % (39.0-53.0) Mean Corpuscular Volume 78 fL (79-100) Mean Corpuscular Hemoglobin 25 pg (25-35) Mean Corpuscular Hemoglobin Concent 32 g/dL (31-37) Red Cell Distribution Width 21.4 % (11.5-14.5) Platelet Count 437 x10^3/uL (140-400) Neutrophils (%) (Auto) 67 % (31-73) Lymphocytes (%) (Auto) 14 % (24-48) Monocytes (%) (Auto) 13 % (0-9) Eosinophils (%) (Auto) 5 % (0-3) Basophils (%) (Auto) 1 % (0-3) Neutrophils # (Auto) 10.0 x10^3uL (1.8-7.7) Lymphocytes # (Auto) 2.1 x10^3/uL (1.0-4.8) Monocytes # (Auto) 2.0 x10^3/uL (0.0-1.1) Eosinophils # (Auto) 0.8 x10^3/uL (0.0-0.7) Basophils # (Auto) 0.1 x10^3/uL (0.0-0.2) Prothrombin Time 30.6 SEC (11.7-14.0) Prothromb Time International Ratio 3.0 (0.8-1.1) Sodium Level 141 mmol/L (136-145) Potassium Level 3.7 mmol/L (3.5-5.1) Chloride Level 104 mmol/L (98-107) Carbon Dioxide Level 29 mmol/L (21-32) Anion Gap 8 (6-14) Blood Urea Nitrogen 25 mg/dL (8-26) Creatinine 1.8 mg/dL (0.7-1.3) Estimated GFR (Cockcroft-Gault) 37.1 Glucose Level 130 mg/dL (70-99) Calcium Level 9.1 mg/dL (8.5-10.1) Test 09/07/18 11:36 09/07/18 17:08 09/07/18 20:57 09/08/18 03:55 Glucose (Fingerstick) 204 mg/dL (70-99) 216 mg/dL (70-99) 188 mg/dL (70-99) White Blood Count 14.4 x10^3/uL (4.0-11.0) Red Blood Count 3.09 x10^6/uL (4.30-5.70) Hemoglobin 7.7 g/dL (13.0-17.5) Hematocrit 24.0 % (39.0-53.0) Mean Corpuscular Volume 78 fL (79-100) Mean Corpuscular Hemoglobin 25 pg (25-35) Mean Corpuscular Hemoglobin Concent 32 g/dL (31-37) Red Cell Distribution Width 21.2 % (11.5-14.5) Platelet Count 479 x10^3/uL (140-400) Neutrophils (%) (Auto) 64 % (31-73) Lymphocytes (%) (Auto) 17 % (24-48) Monocytes (%) (Auto) 12 % (0-9) Eosinophils (%) (Auto) 7 % (0-3) Basophils (%) (Auto) 1 % (0-3) Neutrophils # (Auto) 9.1 x10^3uL (1.8-7.7) Lymphocytes # (Auto) 2.4 x10^3/uL (1.0-4.8) Monocytes # (Auto) 1.7 x10^3/uL (0.0-1.1) Eosinophils # (Auto) 1.0 x10^3/uL (0.0-0.7) Basophils # (Auto) 0.1 x10^3/uL (0.0-0.2) Prothrombin Time 33.4 SEC (11.7-14.0) Prothromb Time International Ratio 3.4 (0.8-1.1) Sodium Level 141 mmol/L (136-145) Potassium Level 3.6 mmol/L (3.5-5.1) Chloride Level 104 mmol/L (98-107) Carbon Dioxide Level 30 mmol/L (21-32) Anion Gap 7 (6-14) Blood Urea Nitrogen 25 mg/dL (8-26) Creatinine 1.6 mg/dL (0.7-1.3) Estimated GFR (Cockcroft-Gault) 42.5 Glucose Level 116 mg/dL (70-99) Calcium Level 8.9 mg/dL (8.5-10.1) Test 09/08/18 07:59 09/08/18 12:01 Glucose (Fingerstick) 134 mg/dL (70-99) 178 mg/dL (70-99) Laboratory Tests Test 09/07/18 17:08 09/07/18 20:57 09/08/18 03:55 09/08/18 07:59 Glucose (Fingerstick) 216 mg/dL (70-99) 188 mg/dL (70-99) 134 mg/dL (70-99) White Blood Count 14.4 x10^3/uL (4.0-11.0) Red Blood Count 3.09 x10^6/uL (4.30-5.70) Hemoglobin 7.7 g/dL (13.0-17.5) Hematocrit 24.0 % (39.0-53.0) Mean Corpuscular Volume 78 fL (79-100) Mean Corpuscular Hemoglobin 25 pg (25-35) Mean Corpuscular Hemoglobin Concent 32 g/dL (31-37) Red Cell Distribution Width 21.2 % (11.5-14.5) Platelet Count 479 x10^3/uL (140-400) Neutrophils (%) (Auto) 64 % (31-73) Lymphocytes (%) (Auto) 17 % (24-48) Monocytes (%) (Auto) 12 % (0-9) Eosinophils (%) (Auto) 7 % (0-3) Basophils (%) (Auto) 1 % (0-3) Neutrophils # (Auto) 9.1 x10^3uL (1.8-7.7) Lymphocytes # (Auto) 2.4 x10^3/uL (1.0-4.8) Monocytes # (Auto) 1.7 x10^3/uL (0.0-1.1) Eosinophils # (Auto) 1.0 x10^3/uL (0.0-0.7) Basophils # (Auto) 0.1 x10^3/uL (0.0-0.2) Prothrombin Time 33.4 SEC (11.7-14.0) Prothromb Time International Ratio 3.4 (0.8-1.1) Sodium Level 141 mmol/L (136-145) Potassium Level 3.6 mmol/L (3.5-5.1) Chloride Level 104 mmol/L (98-107) Carbon Dioxide Level 30 mmol/L (21-32) Anion Gap 7 (6-14) Blood Urea Nitrogen 25 mg/dL (8-26) Creatinine 1.6 mg/dL (0.7-1.3) Estimated GFR (Cockcroft-Gault) 42.5 Glucose Level 116 mg/dL (70-99) Calcium Level 8.9 mg/dL (8.5-10.1) Test 09/08/18 12:01 Glucose (Fingerstick) 178 mg/dL (70-99) Microbiology 09/02/18 Blood Culture - Final, Complete NO GROWTH AFTER 5 DAYS 10/12/18 Aerobic Culture - Final, Complete 09/02/18 Aerobic Culture Result 1 (LARRY) - Final, Complete 09/02/18 Aerobic Culture Result 2 (LARRY) - Final, Complete 09/02/18 Aerobic Culture Result 3 (LARRY) - Final, Complete 09/02/18 Aerobic Culture Result 4 (LARRY) - Final, Complete 09/02/18 Gram Stain - Final, Complete 09/02/18 Gram Stain Result 1 (LARRY) - Final, Complete 09/02/18 Gram Stain Result 2 (LARRY) - Final, Complete 09/02/18 Gram Stain Result 3 (LARRY) - Final, Complete Medications Current Medications Diltiazem HCl (Cardizem) 10 mg 1X ONCE IVP Last administered on 09/02/18at 11: 31; Start 09/02/18 at 11:30; Stop 09/02/18 at 11:31; Status DC Diltiazem HCl (Cardizem) 10 mg 1X ONCE IVP Last administered on 09/02/18at 12: 47; Start 09/02/18 at 12:30; Stop 09/02/18 at 12:31; Status DC Diltiazem HCl 125 mg/Dextrose 125 ml @ 5 mls/hr CONT PRN IV SEE I/O RECORD Last administered on 09/03/18at 10:25; Start 09/02/18 at 12:30; Stop 09/06/18 at 08:36; Status DC Acetaminophen/ Hydrocodone Bitart (Lortab 5/325) 1 tab 1X ONCE PO Last administered on 09/02/18at 13:02; Start 09/02/18 at 13:00; Stop 09/02/18 at 13 :01; Status DC Phytonadione (Mephyton Oral Soln) 2.5 mg 1X ONCE PO Last administered on 09/02at 15:36; Start 09/02/18 at 15:00; Stop 09/02/18 at 15:01; Status DC Furosemide (Lasix) 40 mg BID92 IVP Last administered on 09/03/18at 13:58; Start 09/03/18 at 09:00; Stop 09/03/18 at 14:39; Status DC Furosemide (Lasix) 60 mg 1X ONCE IVP Last administered on 09/02/18at 15:36; Start 09/02/18 at 15:00; Stop 09/02/18 at 15:01; Status DC Multi-Ingred Cream/Lotion/Oil/ Oint (Hydrocerin Cream) 1 sondra PRN Q1HR PRN TP DRY SKIN / SCALING; Start 09/02/18 at 15:00 Albuterol/ Ipratropium (Duoneb) 3 ml RTQID NEB Last administered on 09/08/18at 10:51; Start 09/02/18 at 16:00 Guaifenesin (Robitussin Dm) 10 ml PRN Q6HRS PRN PO COUGH; Start 09/02/18 at 15 :00 Acetaminophen (Tylenol) 500 mg PRN Q6HRS PRN PO HEADACHE / TEMP Last administered on 09/03/18at 08:53; Start 09/02/18 at 15:00 Acetaminophen/ Codeine Phosphate (Tylenol #3) 1 tab PRN Q6HRS PRN PO PAIN MILD Last administered on 09/06/18at 00:47; Start 09/02/18 at 15:00 Ondansetron HCl (Zofran) 4 mg PRN Q6HRS PRN IV NAUSEA/VOMITING 1ST CHOICE; Start 09/02/18 at 15:00 Ondansetron HCl (Zofran Odt) 4 mg PRN Q6HRS PRN PO NAUSEA/VOMITING; Start 11/08 at 15:00 Morphine Sulfate (Morphine Sulfate) 1 mg PRN Q2HR PRN IV PAIN SEVERE Last administered on 09/06/18at 11:19; Start 09/02/18 at 15:00 Atorvastatin Calcium (Lipitor) 40 mg QHS PO Last administered on 09/07/18at 22: 12; Start 09/02/18 at 21:00 Diltiazem HCl (Cardizem 24hr Cd) 120 mg DAILY PO ; Start 09/03/18 at 09:00; Stop 09/03/18 at 12:09; Status DC Glipizide (Glucotrol) 10 mg DAILY07 PO Last administered on 09/08/18at 09:05; Start 09/03/18 at 07:00 Acetaminophen/ Hydrocodone Bitart (Lortab 10/325) 1 tab PRN Q6HRS PRN PO MODERATE PAIN Last administered on 09/08/18at 12:31; Start 09/02/18 at 16:30 Metoprolol Succinate (Toprol Xl) 50 mg DAILY PO Last administered on at 09:05; Start 09/03/18 at 09:00 Pantoprazole Sodium (Protonix) 40 mg DAILYAC PO Last administered on at 09:06; Start 09/03/18 at 07:30 Non-Formulary Medication (Tizanidine Hcl ) 4 mg PRN QID PRN PO MUSCLE SPASMS; Start 09/02/18 at 15:00; Stop 09/02/18 at 16:26; Status DC Insulin Human Lispro (HumaLOG) 0-9 UNITS TIDWMEALS SQ Last administered on at 12:28; Start 09/02/18 at 17:00 Dextrose (Dextrose 50%-Water Syringe) 12.5 gm PRN Q15MIN PRN IV SEE COMMENTS; Start 09/02/18 at 15:00 Magnesium Sulfate/ Dextrose 100 ml @ 100 mls/hr 1X ONCE IV Last administered on 09/02/18at 19:56; Start 09/02/18 at 15:30; Stop 09/02/18 at 16:29; Status DC Clindamycin Phosphate 50 ml @ 100 mls/hr Q8HRS IV Last administered on at 06:29; Start 09/02/18 at 22:00 Clindamycin Phosphate 50 ml @ 100 mls/hr ONCE ONCE IV Last administered on at 16:10; Start 09/02/18 at 15:30; Stop 09/02/18 at 15:59; Status DC Lactobacillus Rhamnosus (Culturelle) 1 cap BID PO Last administered on at 09:04; Start 09/02/18 at 21:00 Tizanidine HCl (Zanaflex) 4 mg PRN Q6HRS PRN PO MUSCLE SPASMS Last administered on 09/05/18at 02:19; Start 09/02/18 at 16:30 Digoxin (Lanoxin) 500 mcg 1X ONCE IV Last administered on 09/02/18at 18:49; Start 09/02/18 at 19:00; Stop 09/02/18 at 19:01; Status DC Diltiazem HCl (Cardizem 24hr Cd) 300 mg DAILY PO Last administered on at 09:04; Start 09/03/18 at 12:30 Nystatin (Nystop) 1 sondra BID TP Last administered on 09/08/18at 09:19; Start at 15:00 Furosemide (Lasix) 80 mg DAILY IVP Last administered on 09/08/18at 09:19; Start 09/04/18 at 09:00 Warfarin Sodium (Coumadin Per Pharmacy) 1 each PRN DAILY PRN MC SEE COMMENTS Last administered on 09/07/18at 14:48; Start 09/04/18 at 12:15 Warfarin Sodium (Coumadin) 5 mg 1X WARF ONCE PO Last administered on at 17:26; Start 09/04/18 at 16:00; Stop 09/04/18 at 16:01; Status DC Iron Sucrose 300 mg/Sodium Chloride 265 ml @ 88.333 mls/ hr DAILY10 IV Last administered on 09/08/18at 10:39; Start 09/05/18 at 10:00; Stop 09/08/18 at 12 :59; Status DC Diphenhydramine HCl (Benadryl) 25 mg Q24H PO Last administered on 09/08/18at 10 :38; Start 09/05/18 at 09:30 Acetaminophen (Tylenol) 650 mg Q24H PO Last administered on 09/08/18at 10:38; Start 09/05/18 at 09:30 Warfarin Sodium (Coumadin) 3 mg 1X WARF ONCE PO Last administered on at 16:57; Start 09/05/18 at 16:00; Stop 09/05/18 at 16:01; Status DC Senna/Docusate Sodium (Senna Plus) 1 tab PRN BID PRN PO CONSTIPATION 1ST CHOICE Last administered on 09/07/18at 08:11; Start 09/06/18 at 11:00 Lactulose (Lactulose) 20 gm PRN DAILY PRN PO CONSTIPATION 2ND CHOICE; Start at 11:00 Warfarin Sodium (Coumadin) 2.5 mg 1X WARF ONCE PO Last administered on at 17:45; Start 09/06/18 at 16:00; Stop 09/06/18 at 16:01; Status DC Warfarin Sodium (Coumadin) 2.5 mg 1X WARF ONCE PO ; Start 09/07/18 at 16:00; Stop 09/07/18 at 16:00; Status DC Warfarin Sodium (Coumadin) 1 mg 1X WARF ONCE PO Last administered on at 16:36; Start 09/07/18 at 16:00; Stop 09/07/18 at 16:01; Status DC Tamsulosin HCl (Flomax) 0.4 mg DAILY PO Last administered on 09/08/18at 12:26; Start 09/08/18 at 12:00 Active Scripts Active Clindamycin Hcl 300 Mg Capsule 600 Mg PO TID 10 Days Furosemide 40 Mg Tablet 40 Mg PO BID 30 Days Senna-Time S Tablet (Sennosides/Docusate Sodium) 1 Each Tablet 1 Tab PO PRN BID PRN 30 Days Flomax (Tamsulosin Hcl) 0.4 Mg Cap.er.24h 0.4 Mg PO DAILY 30 Days Cardizem Cd (Diltiazem Hcl) 300 Mg Cap.er.24h 300 Mg PO DAILY 30 Days Reported Toprol Xl (Metoprolol Succinate) 50 Mg Tab.er.24h 50 Mg PO DAILY Glipizide 10 Mg Tablet 10 Mg PO DAILY Tizanidine Hcl 4 Mg Capsule 4 Mg PO QID PRN Omeprazole 40 Mg Capsule.dr 40 Mg PO DAILY Hydrocodone-Apap 10-325 (Hydrocodone Bit/Acetaminophen) 1 Each Tablet 1 Tab PO PRN Q6HRS PRN Warfarin Sodium 2.5 Mg Tablet 2.5 Mg PO DAILY Atorvastatin Calcium 40 Mg Tablet 40 Mg PO DAILY Vitals/I & O Vital Sign - Last 24 Hours 09/07/18 09/07/18 09/07/18 09/07/18 15:07 15:31 18:42 19:27 Temp 97.6 99.2 97.6 99.2 Pulse 85 90 Resp 20 16 B/P (MAP) 121/58 (79) 112/53 (72) Pulse Ox 97 93 2 93 O2 Delivery Nasal Cannula Nasal Cannula Nasal Cannula Room Air O2 Flow Rate 2.0 2.0 09/07/18 09/07/18 09/07/18 09/08/18 20:10 20:14 23:14 03:44 Temp 98.7 99.0 98.7 99.0 Pulse 91 101 Resp 18 18 B/P (MAP) 121/56 (77) 127/59 (81) Pulse Ox 95 92 92 O2 Delivery Room Air Nasal Cannula Room Air Room Air O2 Flow Rate 2.0 09/08/18 09/08/18 09/08/18 09/08/18 07:00 07:24 08:00 09:04 Temp 98.4 98.4 Pulse 110 110 Resp 24 B/P (MAP) 151/60 (90) 151/60 Pulse Ox 93 96 O2 Delivery Room Air Room Air Room Air 09/08/18 09/08/18 09/08/18 09/08/18 09:05 10:51 11:00 12:31 Temp 98.2 98.2 Pulse 110 109 Resp 20 18 B/P (MAP) 151/60 149/71 (97) Pulse Ox 95 95 95 O2 Delivery Room Air Room Air Room Air O2 Flow Rate 2.0 09/08/18 13:31 O2 Delivery Nasal Cannula O2 Flow Rate 2.0 Intake and Output 09/07/18 09/07/18 09/08/18 15:00 23:00 07:00 Intake Total 600 ml 550 ml Output Total 1600 ml 750 ml Balance -1000 ml -200 ml JD ACOSTA MD Sep 08, 2018 14:21
== END 2018-09-08 17:04 | disposition home health service (06) | DRG 871 ==
LOC: ER 11:08 → 1 WEST ICU 16:12 → 2 NORTH 09-03 16:50
PROVIDERS: ADMIT Internal Medicine; ATTEND Internal Medicine
PROC: 30233L1 Transfusion of Nonautologous Fresh Plasma into Peripheral Vein, Percutaneous Approach (ICD-10-PCS; 2018-09-02)
PROC: 30233N1 Transfusion of Nonautologous Red Blood Cells into Peripheral Vein, Percutaneous Approach (ICD-10-PCS; 2018-09-02)
PROC: 30233K1 Transfusion of Nonautologous Frozen Plasma into Peripheral Vein, Percutaneous Approach (ICD-10-PCS; 2018-09-02)
PROC: 0HBRXZZ Excision of Toe Nail, External Approach (ICD-10-PCS; 2018-09-05)
PROC: 0HBRXZZ Excision of Toe Nail, External Approach (ICD-10-PCS; 2018-09-05)
PROC: 0HBRXZZ Excision of Toe Nail, External Approach (ICD-10-PCS; 2018-09-05)
PROC: 0HBRXZZ Excision of Toe Nail, External Approach (ICD-10-PCS; 2018-09-05)
PROC: 0HBRXZZ Excision of Toe Nail, External Approach (ICD-10-PCS; 2018-09-05)
PROC: 0HBRXZZ Excision of Toe Nail, External Approach (ICD-10-PCS; 2018-09-05)
PROC: 0HBRXZZ Excision of Toe Nail, External Approach (ICD-10-PCS; 2018-09-05)
PROC: 0HBRXZZ Excision of Toe Nail, External Approach (ICD-10-PCS; 2018-09-05)
PROC: 0HBRXZZ Excision of Toe Nail, External Approach (ICD-10-PCS; 2018-09-05)
PROC: 0HBRXZZ Excision of Toe Nail, External Approach (ICD-10-PCS; 2018-09-05)
PROC: 0JDP3ZZ Extraction of Left Lower Leg Subcutaneous Tissue and Fascia, Percutaneous Approach (ICD-10-PCS; principal; 2018-09-06)
DX: A41.9 Sepsis, unspecified organism (principal); G93.41 Metabolic encephalopathy; E43 Unspecified severe protein-calorie malnutrition; N17.0 Acute kidney failure with tubular necrosis; I13.0 Hypertensive heart and chronic kidney disease with heart failure and stage 1 through stage 4 chronic kidney disease, or unspecified chronic kidney disease; D68.9 Coagulation defect, unspecified; L97.929 Non-pressure chronic ulcer of unspecified part of left lower leg with unspecified severity; I42.9 Cardiomyopathy, unspecified; L03.116 Cellulitis of left lower limb; L03.115 Cellulitis of right lower limb; L97.429 Non-pressure chronic ulcer of left heel and midfoot with unspecified severity; K21.9 Gastro-esophageal reflux disease without esophagitis; I48.2 Chronic atrial fibrillation; I50.9 Heart failure, unspecified; N18.3 Chronic kidney disease, stage 3 (moderate); E78.00 Pure hypercholesterolemia, unspecified; E11.22 Type 2 diabetes mellitus with diabetic chronic kidney disease; E11.42 Type 2 diabetes mellitus with diabetic polyneuropathy; E11.51 Type 2 diabetes mellitus with diabetic peripheral angiopathy without gangrene; E78.5 Hyperlipidemia, unspecified; E83.42 Hypomagnesemia; E66.9 Obesity, unspecified; D50.9 Iron deficiency anemia, unspecified; L60.0 Ingrowing nail; B35.1 Tinea unguium; B35.3 Tinea pedis; N40.1 Benign prostatic hyperplasia with lower urinary tract symptoms; R33.8 Other retention of urine; E11.621 Type 2 diabetes mellitus with foot ulcer; I89.0 Lymphedema, not elsewhere classified; K59.00 Constipation, unspecified; I87.8 Other specified disorders of veins; Z86.73 Personal history of transient ischemic attack (TIA), and cerebral infarction without residual deficits; Z88.0 Allergy status to penicillin; Z91.19 Patient's noncompliance with other medical treatment and regimen; Z79.01 Long term (current) use of anticoagulants; Z79.84 Long term (current) use of oral hypoglycemic drugs; Z85.038 Personal history of other malignant neoplasm of large intestine; Z90.49 Acquired absence of other specified parts of digestive tract; Z68.37 Body mass index [BMI] 37.0-37.9, adult; Z87.11 Personal history of peptic ulcer disease; Z82.49 Family history of ischemic heart disease and other diseases of the circulatory system
CPT/HCPCS: 36415; 71045; 80048; 80053; 81001; 82274; 82728; 82962; 83036; 83540; 83550; 83735; 83880; 84443; 84484; 85007; 85014; 85018; 85025; 85045; 85379; 85384; 85610; 86850; 86870; 86900; 86901; 86922; 86927; 87040; 87070; 87641; 93005; 93923; 93970; 94640; 94760; 96365; 96375; 96376; J1160; J1756; J1815; J1940; J2270; J3475; J3490; J7050; J7620; P9016; P9017; Q0163; 97110; 97116; 97140; 97530; 97535; 99285-25; J7030

== ENCOUNTER 2020-04-27 03:06 | Inpatient (IN) | payer MEDICARE ==
[~2020-04-27] VITALS: Ht 172.7 cm; Wt 103.0 kg
[2020-04-27] VITALS (16 sets, daily range): BP systolic 160–216; BP diastolic 78–97
[~2020-04-27 03:06] MED LIST changes: +ACET325T9 PO; +ALBU2.5V8 NEB; +APIX2.5T PO; +ASPI-630 PO; +CLIN300C8 PO; -DILT120C80 PO; +DILT120C99 PO; +DILT300C2 PO; +DOCU-153 PO; +FURO-68 PO; +FURO-69 PO; +FURO40TA4 PO; -HYDR-2766 PO; +HYDR-2769 PO; +LACT1CAP19 PO; +LEVO250T7 PO; +OMEP40CA45 PO; -OMEP40CA5 PO; +POLY17PO28 PO; +POTA10TA12 PO; +SENN-22 PO; +TAMS0.4C97 PO; +TORS20TA2 PO
--- NOTE | 2020-04-27 03:23 | RAD ---
EXAM: CT Head without IV contrast CLINICAL HISTORY: CVA COMPARISON: 01/12/2020. TECHNIQUE: Routine CT of the head without contrast. Soft tissues and bone windows were reviewed. PQRS compliance statement - One or more of the following individualized dose reduction techniques were utilized for this study: 1. Automated exposure control 2. Adjustment of the mA and/or kV according to patient size 3. Use of iterative reconstruction technique FINDINGS: There is no evidence of hemorrhage, mass or extra-axial fluid collection. Landry-white differentiation is maintained with no evidence of edema. Subcortical, periventricular and deep white matter hypoattenuation likely changes of chronic small vessel disease. There is no mass effect or shift of the intracranial structures. There is prominence of the ventricles and sulci bilaterally consistent with generalized cerebral atrophy. The cerebellum and brainstem are unremarkable. The calvarium demonstrates no evidence of fracture or focal lesion. There is normal aeration of the visualized paranasal sinuses and mastoid air cells. The visualized portions of the orbits are normal. Atherosclerotic calcifications of the intracranial internal carotid and vertebral arteries is seen. IMPRESSION: 1. No evidence for acute intracranial process. 2. White matter changes, likely chronic small vessel disease. 3. Generalized cerebral atrophy. Findings discussed with YANETH HOLM at 04/27/2020 3:19 AM. FOR INTERNAL CODING PURPOSES RESULT CODE: (C) Electronically signed by: Jorge Ramey MD (04/27/2020 3:19 AM) [facility]
[2020-04-27] MEDS ORDERED: ONDANSETRON PF 4 MG/2 ML VIAL. ONE (03:24)
[2020-04-27 03:38] LABS: BASO # 0.1 x10^3/uL (0.0-0.2); BASO % 1 % (0-3); EOS # 0.4 x10^3/uL (0.0-0.7); EOS % 3 % (0-3); HEMATOCRIT 32.9 % (39.0-53.0); HEMOGLOBIN 10.9 g/dL (13.0-17.5); LYMPH # 2.4 x10^3/uL (1.0-4.8); LYMPH % 20 % (24-48); MEAN CORPUSCULAR HEMOGLOBIN 31 pg (25-35); MEAN CORPUSCULAR HGB CONC 33 g/dL (31-37); MEAN CORPUSCULAR VOLUME 93 fL (79-100); MONO % 9 % (0-9); NEUT # 8.2 x10^3/uL (1.8-7.7); NEUT % 68 % (31-73); PLATELET COUNT 288 x10^3/uL (140-400); RED BLOOD COUNT 3.55 x10^6/uL (4.30-5.70); WHITE BLOOD COUNT 12.1 x10^3/uL (4.0-11.0)
[2020-04-27 03:41] LABS: PROTHROMBIN TIME PATIENT 12.5 SEC (11.7-14.0)
[2020-04-27 03:51] LABS: CALCIUM 8.4 mg/dL (8.5-10.1); GFR 32.7; POTASSIUM 4.3 mmol/L (3.5-5.1)
[2020-04-27 03:58] LABS: ALBUMIN 3.6 g/dL (3.4-5.0); ALBUMIN/GLOBULIN RATIO 1.1 (1.0-1.7); TOTAL BILIRUBIN 0.3 mg/dL (0.2-1.0)
--- NOTE | 2020-04-27 04:29 | PHYS DOC ---
Past Medical History Past Medical History: A-Fib, CVA, Diabetes-Type II, GERD, High Cholesterol, Hypertension, Vascular Disease, Other Additional Past Medical Histor: SEPSIS,CHRONIC PAIN,A-FIB/RVR Past Surgical History: Colectomy, Other Additional Past Surgical Histo: REMOVAL OF POP TOP FROM RIGHT UPPER LUNG Smoking Status: Unknown if ever smoked Alcohol Use: None Drug Use: None General Adult EDM: Chief Complaint: NEURO SYMPTOMS/DEFICITS HPI: HPI: Patient is a 74 year old male brought by EMS with a chief complaint of strokelike symptoms. EMS state that patient's last known well was 930 last night. EMS state that patient woke up around 230 this morning his noticed that he was not speaking. EMS does state that patient was staring off to the right. Patient is well-known to EMS and EMS state that patient usually talks to them all the time. Patient's blood glucose is 142. Patient takes an aspirin 325 mg each day. Review of Systems: Review of Systems: Unable to perform review of systems secondary to patient's altered mental status Heart Score: Risk Factors: Risk Factors: DM, Current or recent (<one month) smoker, HTN, HLP, family history of CAD, obesity. Risk Scores: Score 0 - 3: 2.5% MACE over next 6 weeks - Discharge Home Score 4 - 6: 20.3% MACE over next 6 weeks - Admit for Clinical Observation Score 7 - 10: 72.7% MACE over next 6 weeks - Early Invasive Strategies Current Medications: Current Medications Medications (Trade) Dose Ordered Sig/Burke Start Time Stop Time Status Last Admin Dose Admin Ondansetron HCl (Zofran) 4 mg STK-MED ONCE 04/27/20 03:24 04/27/20 03:24 DC Allergies: Allergies: Allergies Coded Allergies Type Severity Reaction Last Updated Verified Penicillins Allergy Intermediate hives 06/19/14 Yes Physical Exam: PE: Constitutional: Well developed, well nourished, no acute distress, non-toxic appearance. [] HENT: Normocephalic, atraumatic Eyes: EOMI Neck: Normal range of motion, Supple Cardiovascular: Regular rhythm Lungs & Thorax: Bilateral rhonchi [] Abdomen: Bowel sounds normal, soft, no tenderness Neurologic: Alert, does not follow any commands. Does not move any extremities. Is nonverbal Current Patient Data: Labs: Laboratory Tests Test 04/27/20 03:19 04/27/20 04:12 White Blood Count 12.1 x10^3/uL (4.0-11.0) H Red Blood Count 3.55 x10^6/uL (4.30-5.70) L Hemoglobin 10.9 g/dL (13.0-17.5) L Hematocrit 32.9 % (39.0-53.0) L Mean Corpuscular Volume 93 fL (79-100) Mean Corpuscular Hemoglobin 31 pg (25-35) Mean Corpuscular Hemoglobin Concent 33 g/dL (31-37) Red Cell Distribution Width 16.0 % (11.5-14.5) H Platelet Count 288 x10^3/uL (140-400) Neutrophils (%) (Auto) 68 % (31-73) Lymphocytes (%) (Auto) 20 % (24-48) L Monocytes (%) (Auto) 9 % (0-9) Eosinophils (%) (Auto) 3 % (0-3) Basophils (%) (Auto) 1 % (0-3) Neutrophils # (Auto) 8.2 x10^3/uL (1.8-7.7) H Lymphocytes # (Auto) 2.4 x10^3/uL (1.0-4.8) Monocytes # (Auto) 1.0 x10^3/uL (0.0-1.1) Eosinophils # (Auto) 0.4 x10^3/uL (0.0-0.7) Basophils # (Auto) 0.1 x10^3/uL (0.0-0.2) Prothrombin Time 12.5 SEC (11.7-14.0) Prothrombin Time INR 1.0 (0.8-1.1) Sodium Level 138 mmol/L (136-145) Potassium Level 4.3 mmol/L (3.5-5.1) Chloride Level 103 mmol/L (98-107) Carbon Dioxide Level 23 mmol/L (21-32) Anion Gap 12 (6-14) Blood Urea Nitrogen 23 mg/dL (8-26) Creatinine 2.0 mg/dL (0.7-1.3) H Estimated GFR (Cockcroft-Gault) 32.7 BUN/Creatinine Ratio 12 (6-20) Glucose Level 170 mg/dL (70-99) H Calcium Level 8.4 mg/dL (8.5-10.1) L Total Bilirubin 0.3 mg/dL (0.2-1.0) Aspartate Amino Transferase (AST) 16 U/L (15-37) Alanine Aminotransferase (ALT) 22 U/L (16-63) Alkaline Phosphatase 72 U/L (46-116) Troponin I Quantitative < 0.017 ng/mL (0.000-0.055) Total Protein 7.0 g/dL (6.4-8.2) Albumin 3.6 g/dL (3.4-5.0) Albumin/Globulin Ratio 1.1 (1.0-1.7) Glucose (Fingerstick) 166 mg/dL (70-99) H Laboratory Tests 04/27/20 03:19 Laboratory Tests 04/27/20 03:19 Vital Signs: Vital Signs Date Time Temp Pulse Resp B/P (MAP) Pulse Ox O2 Delivery O2 Flow Rate FiO2 04/27/20 03:53 98.5 79 18 197/85 (122) 89 Nasal Cannula 2.0 98.5 EKG: EKG: [EKG interpretation: 3: 39 AM on 04/27/2020 HR: 92 Sinus rhythm with PACs Right axis deviation Regular intervals Nonspecific ST changes ] Radiology/Procedures: Radiology/Procedures: [] Impression: CT head impression: No acute intracranial process Course & Med Decision Making: Course & Med Decision Making Pertinent Labs and Imaging studies reviewed. (See chart for details) Ordered CT of the head, labs, EKG, troponin CT head shows no acute intracranial process. Labs show elevated creatinine at 2.0. Unable to perform a CT of the head and neck secondary to patient's elevated creatinine. Patient was placed on 2 L oxygen by nasal cannula. Nurse informs me that patient is moving all 4 extremities and is trying to provide his oxygen. Patient is still nonverbal. Patient does does not have any family residents. Patient's CODE STATUS is unknown. Patient is out of the TPA window as patient presentation is over 5 and half hours to last known well. Unable to perform a full NIH stroke scale as patient is not cooperative and does not answer any questions and does not follow any commands. Patient will be admitted for further evaluation and treatment. Patient possibly can get an MRI in the morning. Patient will be admitted to the hospitalist service with a consultation to neurology. Critical care time: 35 minutes Time is inclusive of interpretation of labs, interpretation of imaging, consultation with other physicians Patient needed continuous neurologic monitoring secondary to his CVA. Sidney Disclaimer: Sidney Disclaimer: This electronic medical record was generated, in whole or in part, using a voice recognition dictation system. Departure Departure Impression: Primary Impression: CVA (cerebral vascular accident) Additional Impression: Altered mental status Disposition: 09 ADMITTED INPATIENT Condition: GOOD Referrals: CONY BERRIOS MD (PCP) Justicifation of Admission Dx: Justifications for Admission: Justification of Admission Dx: Yes Altered Mental Status: Altered Mental Status YANETH HOLM DO Apr 27, 2020 04:29
[2020-04-27] MEDS ORDERED: SENNOSIDES/DOCUSATE 8.6/50MG TABLET. PO PRN (08:15)
[2020-04-27] MEDS ORDERED: ALBUTEROL SULFATE 2.5 MG/3 ML NEBU. NEB PRN (08:15)
[2020-04-27] MEDS ORDERED: DOCUSATE SODIUM 100 MG CAPSULE. PO PRN ×2 (08:15)
[2020-04-27] MEDS ORDERED: guaiFENesin ORAL 200 MG/10 ML LIQUID. PO PRN (08:15)
[2020-04-27] MEDS ORDERED: DEXTROSE 50% 25 GM / 50ML DISP.SYRIN. IV PRN (08:15)
[2020-04-27] MEDS: ASPIRIN CHEWABLE 81 MG TABLET. PO SCH (08:30)
[2020-04-27] MEDS ORDERED: PANTOPRAZOLE 40 MG TABLET.DR. PO SCH (08:30)
[2020-04-27] MEDS: ALBUTEROL SULFATE 2.5 MG/3 ML NEBU. NEB PRN (08:37)
--- NOTE | 2020-04-27 08:42 | RAD ---
CHEST AP ONLY Clinical Indication: Reason: aspiration / Spl. Instructions: / History: Comparison: AP chest 01/12/2020. Findings: The patient is rotated. Allowing for this, the cardiomediastinal silhouette is stable. There are diffuse increased interstitial markings. There is no focal airspace disease. There is no pneumothorax. No pleural effusion is appreciated. No acute bone abnormality. IMPRESSION: Diffuse interstitial opacities may be interstitial edema or pneumonia. Electronically signed by: Casey Carey MD (04/27/2020 8:39 AM) [facility]ITALJAYLENE
[2020-04-27] MEDS ORDERED: ANTI-COAG MONITOR BY PHARMACY. MC PRN (08:45)
[2020-04-27] MEDS ORDERED: APIXABAN 2.5 MG TABLET. PO SCH (09:00)
[2020-04-27] MEDS ORDERED: ENOXAPARIN 40 MG/0.4 ML SYRINGE. SQ SCH (09:00)
[2020-04-27] MEDS: POLYETHYLENE GLYCOL 3350 17 GM PACKET. PO SCH (09:00)
[2020-04-27] MEDS: LACTOBACILLUS RHAMNOSUS GG 1 CAPSULE. PO SCH ×2 (09:00→21:00)
[2020-04-27] MEDS: TAMSULOSIN 0.4 MG CAP.ER.24H. PO SCH (09:00)
[2020-04-27] MEDS: METOPROLOL SUCC 24HR ER 50 MG TAB.ER.24H. PO SCH (09:00)
[2020-04-27] MEDS: TORSEMIDE 20 MG TABLET. PO SCH ×2 (09:00→13:02)
[2020-04-27] MEDS: POTASSIUM CHLORIDE 10 MEQ TABLET.ER. PO SCH (09:00)
[2020-04-27 10:00] LABS: BASO # 0.1 x10^3/uL (0.0-0.2); BASO % 1 % (0-3); EOS % 0 % (0-3); HEMATOCRIT 34.7 % (39.0-53.0); HEMOGLOBIN 11.4 g/dL (13.0-17.5); LYMPH # 1.2 x10^3/uL (1.0-4.8); LYMPH % 6 % (24-48); MEAN CORPUSCULAR HEMOGLOBIN 30 pg (25-35); MEAN CORPUSCULAR HGB CONC 33 g/dL (31-37); MEAN CORPUSCULAR VOLUME 93 fL (79-100); MONO # 1.4 x10^3/uL (0.0-1.1); MONO % 7 % (0-9); NEUT % 86 % (31-73); PLATELET COUNT 282 x10^3/uL (140-400); RED BLOOD COUNT 3.76 x10^6/uL (4.30-5.70); RED CELL DISTRIBUTION WIDTH 15.9 % (11.5-14.5); WHITE BLOOD COUNT 18.7 x10^3/uL (4.0-11.0)
[2020-04-27 10:02] LABS: CALCIUM 8.5 mg/dL (8.5-10.1); CREATININE 1.8 mg/dL (0.7-1.3); POTASSIUM 5.1 mmol/L (3.5-5.1)
[2020-04-27] MEDS: ONDANSETRON PF 4 MG/2 ML VIAL. IV PRN (10:02)
[2020-04-27 10:09] LABS: ALBUMIN 3.7 g/dL (3.4-5.0); ALBUMIN/GLOBULIN RATIO 1.2 (1.0-1.7); TOTAL BILIRUBIN 0.3 mg/dL (0.2-1.0); TOTAL PROTEIN 6.8 g/dL (6.4-8.2)
[2020-04-27 11:19] LABS: BASE EXCESS ABG -6 mmol/L (-3-3); HCO3 ABG 20 mmol/L (21-28); PCO2 ABG 39 mmHg (35-46); PO2 ABG 61 mmHg (65-108); SAT O2 ABG 84 % (92-99)
[2020-04-27 11:19] LABS: % BANDS 4 % (0-9); % LYMPHS 4 % (24-48); % MONOS 4 % (0-10); % SEGS 88 % (35-66); PLT ESTIMATE ADEQUATE (ADEQUATE)
[2020-04-27 11:21] LABS: CORRECTED PCO2 ABG 42 mmHg; CORRECTED PO2 ABG 67 mmHg
[2020-04-27 11:24] LABS: FIO2 ABG 40
[2020-04-27] MEDS ORDERED: SODIUM BICARB ADULT 8.4% 50 MEQ/50 ML DISP.SYRIN. ONE (11:25)
[2020-04-27] MEDS: CEFEPIME HCL IV Push 1 GM VIAL. IVP SCH ×2 (11:42→21:00)
[2020-04-27] MEDS ORDERED: SODIUM BICARB ADULT 8.4% 50 MEQ/50 ML DISP.SYRIN. IV ONE (11:45)
[2020-04-27] MEDS ORDERED: PIPERACILLIN/TAZOBACTAM 3.375 GM in IV NORMAL SALINE 50ML 50 ML IV SCH (12:00)
[2020-04-27] MEDS ORDERED: VANCOMYCIN 2 GM in IV NORMAL SALINE 500ML BAG 500 ML IV ONE (12:00)
--- NOTE | 2020-04-27 12:00 | NUR ---
Pt transferred from 6S to ICU. Pt unresponsive to stimuli. Pt with labored, retracted breathing. Afib. Placed on nonrebreather. Dr. Hinds here and spoke with family. Pt is a DNR. Will continue to monitor.
[2020-04-27] MEDS: STERILE WATER for RESP 1,000 ML BAG. INH PRN (12:05)
--- NOTE | 2020-04-27 13:01 | CONS ---
DATE OF CONSULTATION: PULMONARY CONSULTATION ATTENDING PHYSICIAN: Dr. Estrada. REASON FOR CONSULTATION: Respiratory failure, encephalopathy. HISTORY OF PRESENT ILLNESS: The patient is a 74-year-old male with history of AFib, CVA, history of type 2 diabetes and multiple other chronic medical problems including prior lung surgery for removal of a tin soda cap from his right upper lung. He was brought into the hospital with stroke-like symptoms. He was unresponsive. He did not meet the criteria for TPA. Since he has been here, he remained unresponsive. He had emesis a couple of times. He had a fever of 101. I was called with a rapid response upon the 6th floor where he was unresponsive and dyspneic and hypoxic. The patient is now being transferred to the ICU. Currently, his ABGs drawn shows a pH of 7.32, pCO2 of 39, a pO2 of 61 on nonrebreather mask. The patient's chest x-ray revealed interstitial infiltrates, more on the right upper lobe suggesting aspiration. I have spoken to the patient's and confirmed the DNR status. PAST MEDICAL HISTORY: Significant for atrial fibrillation, history of CVA, type 2 diabetes, GERD, dyslipidemia, hypertension, peripheral vascular disease, history of sepsis, history of AFib, RVR. PAST SURGICAL HISTORY: Colectomy and history of lung surgery for removal of soda tin cap from the right upper lung. ALLERGIES: PENICILLIN. MEDICATIONS: Reviewed as listed in the MRAD including vancomycin and cefepime. SYSTEM REVIEW: Unable to obtain from the patient due to his encephalopathy. PHYSICAL EXAMINATION: GENERAL: He withdraws to pain, but otherwise not responsive. VITAL SIGNS: T-max 101.1, blood pressure 160/85, pulse ox was 84% on 15 liters, currently he is ordered to be on Vapotherm. NECK: Supple. LUNGS: With few rhonchi. CARDIOVASCULAR: With a regular rate. ABDOMEN: Soft, obese. EXTREMITIES: With no pitting edema. LABORATORY DATA: Reviewed. ABGs as discussed in my history of present illness. BUN 23, creatinine 1.8. INR 1.0. White cell count 18.7, hemoglobin 11.4 and platelets are 282. IMPRESSION: 1. Acute hypoxic respiratory failure secondary to likely another ischemic stroke. The patient has prior history of cerebrovascular accident. 2. Encephalopathy, likely related to cerebrovascular accident and sepsis. 3. Highly suspected aspiration pneumonia. The patient has a fever of 101 and had emesis x 2 and infiltrates seen on the chest x-ray. 4. The patient has prior history of lung surgery for removal of metal soda cap from his right upper lobe. 5. Leukocytosis secondary to aspiration pneumonia. 6. Low-suspicion for COVID-19. He has been at home for the last 2 months except that he went a few days ago for his cutting of nail. 7. Acute kidney injury versus chronic kidney disease. RECOMMENDATIONS: 1. Discussed with the patient's and advanced directive discussed and she agrees with DNR. The patient has been DNR per his wishes. 2. We will place him on Vapotherm for hypoxic respiratory failure. 3. Neurology consult and probably need an MRI in the next 24-48 hours versus repeating a CT head. 4. Empiric antibiotic for aspiration pneumonia. 5. We will do COVID-19 testing. 6. The patient has been on Eliquis at home. We will continue with that for AFib. 7. Follow chest x-ray in response to treatment. 8. Discussed with RN and RT and the patient's . Critical care time 40 minutes including review of labs, chest x-rays and his clinical decision making and discussion with the family members. KAYE BLEDSOE MD DR: KIZZY/nestor JOB#: [id number] / [id number]
[2020-04-27] MEDS ORDERED: LABETALOL 20 MG/4 ML DISP.SYRIN. IVP PRN (14:00)
--- NOTE | 2020-04-27 14:15 | NUR ---
B/P 216/90 Order received for Labetalol IV
[2020-04-27] MEDS ORDERED: ACETAMINOPHEN 325 MG SUPP.RECT. PR PRN ×2 (14:30→16:45)
[2020-04-27] MEDS: VANCOMYCIN PER PHARMACY MC PRN (14:31)
--- NOTE | 2020-04-27 14:31 | NUR ---
Pharmacy Vancomycin Dosing Note S:Consulted to monitor and dose vancomycin started 04/27/20. O:LISSA TIRADO is a 74 year old M with empiric coverage for respiratory failure, COVID-19 pending. Height: 5 feet, 8 inches Weight: 134.0 kg Dosing Weight: Actual Other Antibiotics: CEFEPIME 1G IV Q12HRS LABS: Last BUN: 23 Last Creatinine: 1.8 Creatinine Clearance: 47 mL/min Last WBC: 18.7 Tmax (past 24 hours): 101.3 Microbiology: COVID-19 PENDING A: Patient requires vancomycin as empiric coverage for respiratory failure, fevers. Goal trough 15-20 mcg/ml until source of infection is known. His SCr is 1.8 with an eCrCl of 45 ml/min. Monitor closely given renal impairment. P: 1. Initiate Vancomycin 2000 mg IV q24h 2. Follow up Trough level on 04/29/20 at 1130 3. Pharmacy will continue to monitor, follow and adjust therapy as needed. VERONICA PERDOMO [facility], 04/27/20 [id number]
--- NOTE | 2020-04-27 14:44 | PDOC1 ---
History and Physical Date of Admission Date of Admission 04/27/2020 Identification/Chief Complaint Chief Complaint he could not speak Source Source: Chart review, Patient History of Present Illness History of Present Illness Patient is a 74-year-old gentleman with multiple comorbidities including atrial fibrillation previous history of CVA diabetes mellitus type 2 GERD high cholesterol essential hypertension and vascular disease who was in his usual state of health until approximately 930 last evening. The patient was noticed by his around 230 this morning with expressive aphasia. EMS was summoned to the scene and apparently the patient was "staring off to the right" according to the ER physicians documentation patient is well-known to EMS and is usually able to communicate with them. Patient blood glucose at the time was 142 he had taken 325 mg of aspirin that day. Patient at the time of my visit was in moderate respiratory distress he had bilious looking emetic content on the right side and he was also exhibiting mild respiratory distress with some accessory muscle use. Patient was unable to answer my questions I was unable to have a meaningful conversation at that time patientWas still maintaining his airway. Approximately an hour later I was contacted by nursing staff reporting his respiratory status has worsened despite running spectrum from antibiotics. Given the worsening respiratory status he is being transferred to the intensive care unit. At the time of this note the patient was still a full code, at the time of this note which is my second visit to the patient today patient has been made a DO NOT RESUSCITATE after conversation with patient's . Pulmonology client consultant recommendations are greatly appreciated Past Medical History Cardiovascular: AFIB, CAD, HTN, Hyperlipidemia, Other CENTRAL NERVOUS SYSTEM: CVA, Periperal neuropathy GI: GERD, Peptic Ulcer disease Heme/Onc: Anemia NOS, Cancer Hepatobiliary: No pertinent hx Psych: No pertinent hx Rheumatologic: No pertinent hx Infectious disease: No pertinent hx Renal/: Benign prostatic enlarg., Urinary Incontinence Endocrine: Diabetes Past Surgical History Past Surgical History: Cholecystectomy, Other Family History Family History: Hypertension Social History ALCOHOL: none Drugs: None Current Problem List Problem List Problems Medical Problems: (1) Altered mental status Status: Acute (2) CVA (cerebral vascular accident) Status: Acute Current Medications Current Medications Current Medications Medications (Trade) Dose Ordered Sig/Burke Start Time Stop Time Status Last Admin Dose Admin Acetaminophen (Tylenol Supp) 325 mg PRN Q6HRS PRN 04/27/20 14:30 04/27/20 14:29 325 MG Acetaminophen (Tylenol) 650 mg PRN Q4HRS PRN 04/27/20 08:15 Albuterol Sulfate (Ventolin Neb Soln) 2.5 mg PRN Q4HRS PRN 04/27/20 08:15 04/27/20 08:37 2.5 MG Apixaban (Eliquis) 2.5 mg BID 04/27/20 09:00 Aspirin (Aspirin Chewable) 81 mg [id number] 04/27/20 08:30 Atorvastatin Calcium (Lipitor) 40 mg QHS 04/27/20 21:00 Cefepime HCl (Maxipime) 1 gm Q12HR 04/27/20 12:00 04/27/20 11:42 1 GM Dextrose (Dextrose 50%-Water Syringe) 12.5 gm PRN Q15MIN PRN 04/27/20 08:15 Diltiazem HCl (Cardizem 24hr Cd) 300 mg DAILY 04/27/20 09:00 Docusate Sodium (Colace) 100 mg PRN BID PRN 04/27/20 08:15 Enoxaparin Sodium (Lovenox 40mg Syringe) 40 mg Q12H 04/27/20 09:00 UNV Guaifenesin (Robitussin) 200 mg PRN Q4HRS PRN 04/27/20 08:15 Info (Anti-Coagulation Monitoring By Pharmacy) 1 each PRN DAILY PRN 04/27/20 08:45 Labetalol HCl (Normodyne Iv Push) 20 mg PRN Q2HR PRN 04/27/20 14:00 04/27/20 14:29 20 MG Lactobacillus Rhamnosus (Culturelle) 1 cap BID 04/27/20 09:00 Lorazepam (Ativan) 0.5 mg PRN Q4HRS PRN 04/27/20 08:15 Metoprolol Succinate (Toprol Xl) 50 mg DAILY 04/27/20 09:00 Ondansetron HCl (Zofran) 4 mg PRN Q4HRS PRN 04/27/20 08:15 04/27/20 10:02 4 MG Pantoprazole Sodium (Protonix) 40 mg DAILYAC 04/27/20 08:30 Piperacillin Sod/ Tazobactam Sod 3.375 gm/Sodium Chloride 50 ml @ 100 mls/hr Q6HRS 04/27/20 12:00 UNV Polyethylene Glycol (miraLAX PACKET) 17 gm DAILY 04/27/20 09:00 Potassium Chloride (Klor-Con) 10 meq DAILY 04/27/20 09:00 Senna/Docusate Sodium (Senna Plus) 1 tab PRN BID PRN 04/27/20 08:15 Sodium Bicarbonate (Sodium Bicarb Adult 8.4% Syr) 50 meq 1X ONCE 04/27/20 11:45 04/27/20 11:46 DC 04/27/20 11:41 50 MEQ Sterile Water (WATER for RESP) 1,000 ml CONT PRN 04/27/20 11:45 04/27/20 12:05 1,000 ML Tamsulosin HCl (Flomax) 0.4 mg DAILY 04/27/20 09:00 Torsemide (Demadex) 20 mg [id number] 04/27/20 09:00 Vancomycin HCl (Vanco Per Pharmacy) 1 each PRN DAILY PRN 04/27/20 11:00 Vancomycin HCl (Vancomycin Trough Level) 1 each 1X ONCE 04/29/20 11:30 04/29/20 11:31 Vancomycin HCl 750 mg/Sodium Chloride 250 ml @ 250 mls/hr Q24H 04/28/20 12:00 Vancomycin HCl 2 gm/Sodium Chloride 500 ml @ 250 mls/hr 1X ONCE 04/27/20 12:00 04/27/20 13:59 DC 04/27/20 11:45 250 MLS/HR Allergies Allergies Allergies Coded Allergies Type Severity Reaction Last Updated Verified Penicillins Allergy Intermediate hives 04/27/20 Yes ROS Review of System Unable to gather information from the patient Physical Exam Physical Exam GEN.: midl respiratory distress HEENT: Head is normocephalic, atraumatic NECK: Supple. LUNGS: coarse to auscultation HEART: RRR, S1, S2 present. Peripheral pulses intact ABDOMEN: Soft, nontender somewhat distended, Link negative. Positive bowel sounds. EXTREMITIES: Without any cyanosis. NEUROLOGIC: Obtunded, CN unable to be properly assessed, he retracts to painful stimuli PSYCHIATRIC: unable to assess SKIN: No ulcerations Vitals Vitals Vital Signs Date Time Temp Pulse Resp B/P (MAP) Pulse Ox O2 Delivery O2 Flow Rate FiO2 04/27/20 14:29 119 216/91 04/27/20 14:00 29 99 vapotherm 04/27/20 12:06 40.0 04/27/20 11:51 101.3 101.3 Labs Labs Laboratory Tests Test 04/27/20 03:19 04/27/20 04:12 04/27/20 07:36 04/27/20 09:15 White Blood Count 12.1 x10^3/uL (4.0-11.0) 18.7 x10^3/uL (4.0-11.0) Red Blood Count 3.55 x10^6/uL (4.30-5.70) 3.76 x10^6/uL (4.30-5.70) Hemoglobin 10.9 g/dL (13.0-17.5) 11.4 g/dL (13.0-17.5) Hematocrit 32.9 % (39.0-53.0) 34.7 % (39.0-53.0) Mean Corpuscular Volume 93 fL (79-100) 93 fL (79-100) Mean Corpuscular Hemoglobin 31 pg (25-35) 30 pg (25-35) Mean Corpuscular Hemoglobin Concent 33 g/dL (31-37) 33 g/dL (31-37) Red Cell Distribution Width 16.0 % (11.5-14.5) 15.9 % (11.5-14.5) Platelet Count 288 x10^3/uL (140-400) 282 x10^3/uL (140-400) Neutrophils (%) (Auto) 68 % (31-73) 86 % (31-73) Lymphocytes (%) (Auto) 20 % (24-48) 6 % (24-48) Monocytes (%) (Auto) 9 % (0-9) 7 % (0-9) Eosinophils (%) (Auto) 3 % (0-3) 0 % (0-3) Basophils (%) (Auto) 1 % (0-3) 1 % (0-3) Neutrophils # (Auto) 8.2 x10^3/uL (1.8-7.7) 16.0 x10^3/uL (1.8-7.7) Lymphocytes # (Auto) 2.4 x10^3/uL (1.0-4.8) 1.2 x10^3/uL (1.0-4.8) Monocytes # (Auto) 1.0 x10^3/uL (0.0-1.1) 1.4 x10^3/uL (0.0-1.1) Eosinophils # (Auto) 0.4 x10^3/uL (0.0-0.7) 0.0 x10^3/uL (0.0-0.7) Basophils # (Auto) 0.1 x10^3/uL (0.0-0.2) 0.1 x10^3/uL (0.0-0.2) Prothrombin Time 12.5 SEC (11.7-14.0) Prothromb Time International Ratio 1.0 (0.8-1.1) Sodium Level 138 mmol/L (136-145) 139 mmol/L (136-145) Potassium Level 4.3 mmol/L (3.5-5.1) 5.1 mmol/L (3.5-5.1) Chloride Level 103 mmol/L (98-107) 102 mmol/L (98-107) Carbon Dioxide Level 23 mmol/L (21-32) 23 mmol/L (21-32) Anion Gap 12 (6-14) 14 (6-14) Blood Urea Nitrogen 23 mg/dL (8-26) 23 mg/dL (8-26) Creatinine 2.0 mg/dL (0.7-1.3) 1.8 mg/dL (0.7-1.3) Estimated GFR (Cockcroft-Gault) 32.7 37.0 BUN/Creatinine Ratio 12 (6-20) 13 (6-20) Glucose Level 170 mg/dL (70-99) 217 mg/dL (70-99) Calcium Level 8.4 mg/dL (8.5-10.1) 8.5 mg/dL (8.5-10.1) Total Bilirubin 0.3 mg/dL (0.2-1.0) 0.3 mg/dL (0.2-1.0) Aspartate Amino Transf (AST/SGOT) 16 U/L (15-37) 15 U/L (15-37) Alanine Aminotransferase (ALT/SGPT) 22 U/L (16-63) 21 U/L (16-63) Alkaline Phosphatase 72 U/L (46-116) 77 U/L (46-116) Troponin I Quantitative < 0.017 ng/mL (0.000-0.055) Total Protein 7.0 g/dL (6.4-8.2) 6.8 g/dL (6.4-8.2) Albumin 3.6 g/dL (3.4-5.0) 3.7 g/dL (3.4-5.0) Albumin/Globulin Ratio 1.1 (1.0-1.7) 1.2 (1.0-1.7) Glucose (Fingerstick) 166 mg/dL (70-99) 190 mg/dL (70-99) Segmented Neutrophils % 88 % (35-66) Band Neutrophils % 4 % (0-9) Lymphocytes % 4 % (24-48) Monocytes % 4 % (0-10) Platelet Estimate Adequate (ADEQUATE) Lactic Acid Level 1.7 mmol/L (0.4-2.0) Test 04/27/20 11:17 O2 Saturation 84 % (92-99) Arterial Blood pH 7.32 (7.35-7.45) Arterial Blood pH (Temp corrected) 7.30 Arterial Blood pCO2 at Patient Temp 39 mmHg (35-46) Arterial Blood pCO2 (Temp correct) 42 mmHg Arterial Blood pO2 at Patient Temp 61 mmHg (65-108) Arterial Blood pO2 (Temp corrected) 67 mmHg Arterial Blood HCO3 20 mmol/L (21-28) Arterial Blood Base Excess -6 mmol/L (-3-3) FiO2 40 Laboratory Tests Test 04/27/20 03:19 04/27/20 04:12 04/27/20 07:36 04/27/20 09:15 White Blood Count 12.1 x10^3/uL (4.0-11.0) 18.7 x10^3/uL (4.0-11.0) Red Blood Count 3.55 x10^6/uL (4.30-5.70) 3.76 x10^6/uL (4.30-5.70) Hemoglobin 10.9 g/dL (13.0-17.5) 11.4 g/dL (13.0-17.5) Hematocrit 32.9 % (39.0-53.0) 34.7 % (39.0-53.0) Mean Corpuscular Volume 93 fL (79-100) 93 fL (79-100) Mean Corpuscular Hemoglobin 31 pg (25-35) 30 pg (25-35) Mean Corpuscular Hemoglobin Concent 33 g/dL (31-37) 33 g/dL (31-37) Red Cell Distribution Width 16.0 % (11.5-14.5) 15.9 % (11.5-14.5) Platelet Count 288 x10^3/uL (140-400) 282 x10^3/uL (140-400) Neutrophils (%) (Auto) 68 % (31-73) 86 % (31-73) Lymphocytes (%) (Auto) 20 % (24-48) 6 % (24-48) Monocytes (%) (Auto) 9 % (0-9) 7 % (0-9) Eosinophils (%) (Auto) 3 % (0-3) 0 % (0-3) Basophils (%) (Auto) 1 % (0-3) 1 % (0-3) Neutrophils # (Auto) 8.2 x10^3/uL (1.8-7.7) 16.0 x10^3/uL (1.8-7.7) Lymphocytes # (Auto) 2.4 x10^3/uL (1.0-4.8) 1.2 x10^3/uL (1.0-4.8) Monocytes # (Auto) 1.0 x10^3/uL (0.0-1.1) 1.4 x10^3/uL (0.0-1.1) Eosinophils # (Auto) 0.4 x10^3/uL (0.0-0.7) 0.0 x10^3/uL (0.0-0.7) Basophils # (Auto) 0.1 x10^3/uL (0.0-0.2) 0.1 x10^3/uL (0.0-0.2) Prothrombin Time 12.5 SEC (11.7-14.0) Prothromb Time International Ratio 1.0 (0.8-1.1) Sodium Level 138 mmol/L (136-145) 139 mmol/L (136-145) Potassium Level 4.3 mmol/L (3.5-5.1) 5.1 mmol/L (3.5-5.1) Chloride Level 103 mmol/L (98-107) 102 mmol/L (98-107) Carbon Dioxide Level 23 mmol/L (21-32) 23 mmol/L (21-32) Anion Gap 12 (6-14) 14 (6-14) Blood Urea Nitrogen 23 mg/dL (8-26) 23 mg/dL (8-26) Creatinine 2.0 mg/dL (0.7-1.3) 1.8 mg/dL (0.7-1.3) Estimated GFR (Cockcroft-Gault) 32.7 37.0 BUN/Creatinine Ratio 12 (6-20) 13 (6-20) Glucose Level 170 mg/dL (70-99) 217 mg/dL (70-99) Calcium Level 8.4 mg/dL (8.5-10.1) 8.5 mg/dL (8.5-10.1) Total Bilirubin 0.3 mg/dL (0.2-1.0) 0.3 mg/dL (0.2-1.0) Aspartate Amino Transf (AST/SGOT) 16 U/L (15-37) 15 U/L (15-37) Alanine Aminotransferase (ALT/SGPT) 22 U/L (16-63) 21 U/L (16-63) Alkaline Phosphatase 72 U/L (46-116) 77 U/L (46-116) Troponin I Quantitative < 0.017 ng/mL (0.000-0.055) Total Protein 7.0 g/dL (6.4-8.2) 6.8 g/dL (6.4-8.2) Albumin 3.6 g/dL (3.4-5.0) 3.7 g/dL (3.4-5.0) Albumin/Globulin Ratio 1.1 (1.0-1.7) 1.2 (1.0-1.7) Glucose (Fingerstick) 166 mg/dL (70-99) 190 mg/dL (70-99) Segmented Neutrophils % 88 % (35-66) Band Neutrophils % 4 % (0-9) Lymphocytes % 4 % (24-48) Monocytes % 4 % (0-10) Platelet Estimate Adequate (ADEQUATE) Lactic Acid Level 1.7 mmol/L (0.4-2.0) Test 04/27/20 11:17 O2 Saturation 84 % (92-99) Arterial Blood pH 7.32 (7.35-7.45) Arterial Blood pH (Temp corrected) 7.30 Arterial Blood pCO2 at Patient Temp 39 mmHg (35-46) Arterial Blood pCO2 (Temp correct) 42 mmHg Arterial Blood pO2 at Patient Temp 61 mmHg (65-108) Arterial Blood pO2 (Temp corrected) 67 mmHg Arterial Blood HCO3 20 mmol/L (21-28) Arterial Blood Base Excess -6 mmol/L (-3-3) FiO2 40 VTE Prophylaxis Ordered VTE Prophylaxis Devices: Yes VTE Pharmacological Prophylaxi: Yes Assessment/Plan Assessment/Plan Sepsis with most likely pulmonary etiology Acute hypoxemic respiratory failure Encephalopathy secondary to toxic and neurologic etiologies most likely Aspiration pneumonia given the findings on physical exam Morbid obesity with a BMI of 44 History of CVA and with the current deficits most likely has had a new event, not evident on initial CT he was not a candidate for TPA Atrial fibrillation on chronic anticoagulation Leukocytosis secondary to pneumonic process most likely Normocytic anemia of chronic disease Acute renal failure secondary to vasomotor etiology most likely Hyperglycemia secondary to diabetes mellitus type 2 History of chronic kidney disease stage II Plan We will broaden spectrum of antibiotics Recommendations from pulmonology consultation noted and greatly appreciated and they are as follows: RECOMMENDATIONS: 1. Discussed with the patient's and advanced directive discussed and she agrees with DNR. The patient has been DNR per his wishes. 2. We will place him on Vapotherm for hypoxic respiratory failure. 3. Neurology consult and probably need an MRI in the next 24-48 hours versus repeating a CT head. 4. Empiric antibiotic for aspiration pneumonia. 5. We will do COVID-19 testing. 6. The patient has been on Eliquis at home. We will continue with that for AFib. 7. Follow chest x-ray in response to treatment. 8. Discussed with RN and RT and the patient's . DNR status Further recommendations based on the clinical course Justicifation of Admission Dx: Justifications for Admission: Justification of Admission Dx: Yes Respiratory Failure: Severe Resp Distress JD GRANADOS MD Apr 27, 2020 14:44
--- NOTE | 2020-04-27 16:30 | NUR ---
Temp remains elevated after Tylenol suppos. Room temp decreased and ice packs placed on patient. Will monitor.
[2020-04-27] MEDS: ENOXAPARIN 40 MG/0.4 ML SYRINGE. SQ SCH (20:59)
[2020-04-27] MEDS: ATORVASTATIN CALCIUM 40 MG TABLET. PO SCH (21:00)
[2020-04-28] VITALS (24 sets, daily range): BP systolic 116–183; BP diastolic 68–109
--- NOTE | 2020-04-28 04:28 | EKG ---
[facility] [address] [place] [id number] Test Date: 2020-04-27 Test Time: 03:33:46 Pat Name: LISSA TIRADO Department: Room: 113 1 Gender: M [employer]: : 1945 Requested By: YANETH HOLM Order Number: [id number] Reading MD: Andrez Chavez MD Measurements Intervals Bradley Rate: 92 P: ND: QRS: 125 QRSD: 96 T: 161 QT: 374 QTc: 468 Interpretive Statements PROBABLE SINUS RHYTHM WITH 1ST DEGREE AVB CONSIDER PVC/ARTIFACT Electronically Signed On 05-02-2020 11:17:01 CDT by Andrez Chavez MD
--- NOTE | 2020-04-28 06:24 | NUR ---
[id number] Temp remains elevated over 102 degrees Farenheit despite tylenol suppository and ie packs to groin, armpits, and back of neck. Pt remains unresponsive ad obtunded, except that he spontaneously lifts right arm to face or neck, without apparent purpose. Abnormal extension of left arm to painful stimuli. Localizes to pain with RUE. Lt leg flaccid and right leg with minimal movement. See assessment for details. PERRLA, but does not focus or track when eyes opened.
[2020-04-28 07:43] LABS: CREATININE 1.8 mg/dL (0.7-1.3)
[2020-04-28] MEDS: PANTOPRAZOLE IV PUSH 40 MG VIAL. IVP SCH (08:17)
[2020-04-28 08:30] LABS: BASE EXCESS ABG 2 mmol/L (-3-3); HCO3 ABG 26 mmol/L (21-28); PCO2 ABG 40 mmHg (35-46); PO2 ABG 75 mmHg (65-108); SAT O2 ABG 94 % (92-99)
[2020-04-28 08:31] LABS: FIO2 ABG 80
[2020-04-28] MEDS: CEFEPIME HCL IV Push 1 GM VIAL. IVP SCH ×2 (08:34→20:51)
[2020-04-28] MEDS: ENOXAPARIN 40 MG/0.4 ML SYRINGE. SQ SCH (08:34)
[2020-04-28] MEDS: STERILE WATER for RESP 1,000 ML BAG. INH PRN (08:40)
[2020-04-28] MEDS: METOPROLOL SUCC 24HR ER 50 MG TAB.ER.24H. PO SCH (09:00)
[2020-04-28] MEDS: POTASSIUM CHLORIDE 10 MEQ TABLET.ER. PO SCH (09:00)
--- NOTE | 2020-04-28 09:15 | PDOC ---
PULMONARY PROGRESS NOTES Subjective Pt. remains minimally responsive, nursing reports he is moving his LUE on Vapotherm 80% No other overnight concerns Vitals Vital Signs Date Time Temp Pulse Resp B/P (MAP) Pulse Ox O2 Delivery O2 Flow Rate FiO2 04/28/20 08:46 35.0 04/28/20 08:00 97 VAPOTHERM 04/28/20 07:00 102 34 168/83 (111) 04/28/20 06:00 102.5 102.5 Comments unable to report ROS 2/2 lethargy General: Alert, No acute distress Lungs: Clear Cardiovascular: S1, S2 Abdomen: Soft Extremities: Other Labs Laboratory Tests Test 04/27/20 03:19 04/27/20 04:12 04/27/20 07:36 04/27/20 09:15 White Blood Count 12.1 x10^3/uL (4.0-11.0) 18.7 x10^3/uL (4.0-11.0) Red Blood Count 3.55 x10^6/uL (4.30-5.70) 3.76 x10^6/uL (4.30-5.70) Hemoglobin 10.9 g/dL (13.0-17.5) 11.4 g/dL (13.0-17.5) Hematocrit 32.9 % (39.0-53.0) 34.7 % (39.0-53.0) Mean Corpuscular Volume 93 fL (79-100) 93 fL (79-100) Mean Corpuscular Hemoglobin 31 pg (25-35) 30 pg (25-35) Mean Corpuscular Hemoglobin Concent 33 g/dL (31-37) 33 g/dL (31-37) Red Cell Distribution Width 16.0 % (11.5-14.5) 15.9 % (11.5-14.5) Platelet Count 288 x10^3/uL (140-400) 282 x10^3/uL (140-400) Neutrophils (%) (Auto) 68 % (31-73) 86 % (31-73) Lymphocytes (%) (Auto) 20 % (24-48) 6 % (24-48) Monocytes (%) (Auto) 9 % (0-9) 7 % (0-9) Eosinophils (%) (Auto) 3 % (0-3) 0 % (0-3) Basophils (%) (Auto) 1 % (0-3) 1 % (0-3) Neutrophils # (Auto) 8.2 x10^3/uL (1.8-7.7) 16.0 x10^3/uL (1.8-7.7) Lymphocytes # (Auto) 2.4 x10^3/uL (1.0-4.8) 1.2 x10^3/uL (1.0-4.8) Monocytes # (Auto) 1.0 x10^3/uL (0.0-1.1) 1.4 x10^3/uL (0.0-1.1) Eosinophils # (Auto) 0.4 x10^3/uL (0.0-0.7) 0.0 x10^3/uL (0.0-0.7) Basophils # (Auto) 0.1 x10^3/uL (0.0-0.2) 0.1 x10^3/uL (0.0-0.2) Prothrombin Time 12.5 SEC (11.7-14.0) Prothromb Time International Ratio 1.0 (0.8-1.1) Sodium Level 138 mmol/L (136-145) 139 mmol/L (136-145) Potassium Level 4.3 mmol/L (3.5-5.1) 5.1 mmol/L (3.5-5.1) Chloride Level 103 mmol/L (98-107) 102 mmol/L (98-107) Carbon Dioxide Level 23 mmol/L (21-32) 23 mmol/L (21-32) Anion Gap 12 (6-14) 14 (6-14) Blood Urea Nitrogen 23 mg/dL (8-26) 23 mg/dL (8-26) Creatinine 2.0 mg/dL (0.7-1.3) 1.8 mg/dL (0.7-1.3) Estimated GFR (Cockcroft-Gault) 32.7 37.0 BUN/Creatinine Ratio 12 (6-20) 13 (6-20) Glucose Level 170 mg/dL (70-99) 217 mg/dL (70-99) Calcium Level 8.4 mg/dL (8.5-10.1) 8.5 mg/dL (8.5-10.1) Total Bilirubin 0.3 mg/dL (0.2-1.0) 0.3 mg/dL (0.2-1.0) Aspartate Amino Transf (AST/SGOT) 16 U/L (15-37) 15 U/L (15-37) Alanine Aminotransferase (ALT/SGPT) 22 U/L (16-63) 21 U/L (16-63) Alkaline Phosphatase 72 U/L (46-116) 77 U/L (46-116) Troponin I Quantitative < 0.017 ng/mL (0.000-0.055) Total Protein 7.0 g/dL (6.4-8.2) 6.8 g/dL (6.4-8.2) Albumin 3.6 g/dL (3.4-5.0) 3.7 g/dL (3.4-5.0) Albumin/Globulin Ratio 1.1 (1.0-1.7) 1.2 (1.0-1.7) Glucose (Fingerstick) 166 mg/dL (70-99) 190 mg/dL (70-99) Segmented Neutrophils % 88 % (35-66) Band Neutrophils % 4 % (0-9) Lymphocytes % 4 % (24-48) Monocytes % 4 % (0-10) Platelet Estimate Adequate (ADEQUATE) Lactic Acid Level 1.7 mmol/L (0.4-2.0) Test 04/27/20 11:17 04/28/20 00:15 04/28/20 06:09 04/28/20 07:20 O2 Saturation 84 % (92-99) Arterial Blood pH 7.32 (7.35-7.45) Arterial Blood pH (Temp corrected) 7.30 Arterial Blood pCO2 at Patient Temp 39 mmHg (35-46) Arterial Blood pCO2 (Temp correct) 42 mmHg Arterial Blood pO2 at Patient Temp 61 mmHg (65-108) Arterial Blood pO2 (Temp corrected) 67 mmHg Arterial Blood HCO3 20 mmol/L (21-28) Arterial Blood Base Excess -6 mmol/L (-3-3) FiO2 40 Glucose (Fingerstick) 262 mg/dL (70-99) 205 mg/dL (70-99) Creatinine 1.8 mg/dL (0.7-1.3) Estimated GFR (Cockcroft-Gault) 37.0 Test 04/28/20 08:00 O2 Saturation 94 % (92-99) Arterial Blood pH 7.44 (7.35-7.45) Arterial Blood pCO2 at Patient Temp 40 mmHg (35-46) Arterial Blood pO2 at Patient Temp 75 mmHg (65-108) Arterial Blood HCO3 26 mmol/L (21-28) Arterial Blood Base Excess 2 mmol/L (-3-3) FiO2 80 Laboratory Tests Test 04/27/20 09:15 04/27/20 11:17 04/28/20 00:15 04/28/20 06:09 White Blood Count 18.7 x10^3/uL (4.0-11.0) Red Blood Count 3.76 x10^6/uL (4.30-5.70) Hemoglobin 11.4 g/dL (13.0-17.5) Hematocrit 34.7 % (39.0-53.0) Mean Corpuscular Volume 93 fL (79-100) Mean Corpuscular Hemoglobin 30 pg (25-35) Mean Corpuscular Hemoglobin Concent 33 g/dL (31-37) Red Cell Distribution Width 15.9 % (11.5-14.5) Platelet Count 282 x10^3/uL (140-400) Neutrophils (%) (Auto) 86 % (31-73) Lymphocytes (%) (Auto) 6 % (24-48) Monocytes (%) (Auto) 7 % (0-9) Eosinophils (%) (Auto) 0 % (0-3) Basophils (%) (Auto) 1 % (0-3) Neutrophils # (Auto) 16.0 x10^3/uL (1.8-7.7) Lymphocytes # (Auto) 1.2 x10^3/uL (1.0-4.8) Monocytes # (Auto) 1.4 x10^3/uL (0.0-1.1) Eosinophils # (Auto) 0.0 x10^3/uL (0.0-0.7) Basophils # (Auto) 0.1 x10^3/uL (0.0-0.2) Segmented Neutrophils % 88 % (35-66) Band Neutrophils % 4 % (0-9) Lymphocytes % 4 % (24-48) Monocytes % 4 % (0-10) Platelet Estimate Adequate (ADEQUATE) Sodium Level 139 mmol/L (136-145) Potassium Level 5.1 mmol/L (3.5-5.1) Chloride Level 102 mmol/L (98-107) Carbon Dioxide Level 23 mmol/L (21-32) Anion Gap 14 (6-14) Blood Urea Nitrogen 23 mg/dL (8-26) Creatinine 1.8 mg/dL (0.7-1.3) Estimated GFR (Cockcroft-Gault) 37.0 BUN/Creatinine Ratio 13 (6-20) Glucose Level 217 mg/dL (70-99) Lactic Acid Level 1.7 mmol/L (0.4-2.0) Calcium Level 8.5 mg/dL (8.5-10.1) Total Bilirubin 0.3 mg/dL (0.2-1.0) Aspartate Amino Transf (AST/SGOT) 15 U/L (15-37) Alanine Aminotransferase (ALT/SGPT) 21 U/L (16-63) Alkaline Phosphatase 77 U/L (46-116) Total Protein 6.8 g/dL (6.4-8.2) Albumin 3.7 g/dL (3.4-5.0) Albumin/Globulin Ratio 1.2 (1.0-1.7) O2 Saturation 84 % (92-99) Arterial Blood pH 7.32 (7.35-7.45) Arterial Blood pH (Temp corrected) 7.30 Arterial Blood pCO2 at Patient Temp 39 mmHg (35-46) Arterial Blood pCO2 (Temp correct) 42 mmHg Arterial Blood pO2 at Patient Temp 61 mmHg (65-108) Arterial Blood pO2 (Temp corrected) 67 mmHg Arterial Blood HCO3 20 mmol/L (21-28) Arterial Blood Base Excess -6 mmol/L (-3-3) FiO2 40 Glucose (Fingerstick) 262 mg/dL (70-99) 205 mg/dL (70-99) Test 04/28/20 07:20 04/28/20 08:00 Creatinine 1.8 mg/dL (0.7-1.3) Estimated GFR (Cockcroft-Gault) 37.0 O2 Saturation 94 % (92-99) Arterial Blood pH 7.44 (7.35-7.45) Arterial Blood pCO2 at Patient Temp 40 mmHg (35-46) Arterial Blood pO2 at Patient Temp 75 mmHg (65-108) Arterial Blood HCO3 26 mmol/L (21-28) Arterial Blood Base Excess 2 mmol/L (-3-3) FiO2 80 Medications Active Scripts Medications Dose Route/Sig Max Daily Dose Days Date Category Culturelle (Lactobacillus Rhamnosus Gg) 1 Each Cap.sprink 1 Cap PO BID 30 01/17/20 Rx Polyethylene Glycol 3350 17 Gm Powd.pack 17 Gm PO DAILY 30 01/17/20 Rx Dok (Docusate Sodium) 100 Mg Capsule 100 Mg PO PRN BID PRN 14 01/17/20 Rx Torsemide 20 Mg Tablet 20 Mg PO BID92 30 01/17/20 Rx Tylenol (Acetaminophen) 325 Mg Tablet 650 Mg PO PRN Q4HRS PRN 30 01/17/20 Rx Aspirin 81 Mg Tab.chew 81 Mg PO DAILYWBKFT 30 01/17/20 Rx Eliquis (Apixaban) 2.5 Mg Tablet 2.5 Mg PO BID 30 01/17/20 Rx Proair Hfa (Albuterol Sulfate) 8.5 Gm Hfa.aer.ad 2.5 Mg NEB PRN Q4HRS PRN 30 01/17/20 Rx Potassium Chloride (Potassium Chloride) 10 Meq Tab.sr.24h 10 Meq PO DAILY 30 12/10/19 Rx Senna-Time S Tablet (Sennosides/Docusate Sodium) 1 Each Tablet 1 Tab PO PRN BID PRN 30 09/08/18 Rx Flomax (Tamsulosin Hcl) 0.4 Mg Cap.er.24h 0.4 Mg PO DAILY 30 09/08/18 Rx Cardizem Cd (Diltiazem Hcl) 300 Mg Cap.er.24h 300 Mg PO DAILY 30 09/08/18 Rx Toprol Xl (Metoprolol Succinate) 50 Mg Tab.er.24h 50 Mg PO DAILY 06/19/14 Reported Glipizide 10 Mg Tablet 10 Mg PO DAILY 06/19/14 Reported Omeprazole 40 Mg Capsule.dr 40 Mg PO DAILY 06/19/14 Reported Atorvastatin Calcium 40 Mg Tablet 40 Mg PO DAILY 06/19/14 Reported Comments CXR 04/27/2020 IMPRESSION: Diffuse interstitial opacities may be interstitial edema or pneumonia. CT head 04/27/2020 IMPRESSION: 1. No evidence for acute intracranial process. 2. White matter changes, likely chronic small vessel disease. 3. Generalized cerebral atrophy. Impression . IMPRESSION: 1. Acute hypoxic respiratory failure secondary to likely another ischemic stroke. The patient has prior history of cerebrovascular accident. 2. Encephalopathy, likely related to cerebrovascular accident and sepsis. 3. Highly suspected aspiration pneumonia. The patient has a fever of 101 and had emesis x 2 and infiltrates seen on the chest x-ray. 4. The patient has prior history of lung surgery for removal of metal soda cap from his right upper lobe. 5. Leukocytosis secondary to aspiration pneumonia. 6. Low-suspicion for COVID-19. He has been at home for the last 2 months except that he went a few days ago for his cutting of nail. 7. Acute kidney injury versus chronic kidney disease. Plan . RECOMMENDATIONS: Cont. current oxygen support with Vapotherm at 80% and 40 Liters flow, ABG reviewed will reduce flow to 35% Follow CXR Covid-19 -- pending continue isolation precautions Cont. abx for aspiration PNA Follow Neurology recommendations-- CT head reviewed Discussed with RN and RT DVT/GI PPX: lovenox/protonix Critical care time 40 minutes including review of labs, chest x-rays Pt. is DNR KAYE BLEDSOE MD Apr 28, 2020 09:15
--- NOTE | 2020-04-28 09:58 | RAD ---
KUB, SUPINE Clinical Indication: Reason: placement of NG tube / Spl. Instructions: / History: Comparison: None. Findings: Enteric tube tip is in the stomach. There are bibasilar airspace opacities. Cholecystectomy clips. A paucity of bowel gas decreases sensitivity. No evidence of obstruction. Degenerative endplate spurring of the lumbar spine. IMPRESSION: Enteric tube tip is in the stomach. Electronically signed by: Casey Carey MD (04/28/2020 9:55 AM) [facility]
[2020-04-28] MEDS: POLYETHYLENE GLYCOL 3350 17 GM PACKET. PO SCH (10:22)
[2020-04-28] MEDS: ASPIRIN CHEWABLE 81 MG TABLET. PO SCH (10:22)
[2020-04-28] MEDS: LACTOBACILLUS RHAMNOSUS GG 1 CAPSULE. PO SCH ×2 (10:22→20:50)
[2020-04-28] MEDS: TORSEMIDE 20 MG TABLET. PO SCH ×2 (10:23→14:29)
[2020-04-28] MEDS: TAMSULOSIN 0.4 MG CAP.ER.24H. PO SCH (10:23)
[2020-04-28] MEDS: dilTIAZem HCL 30 MG TABLET PO SCH ×3 (10:29→22:54)
[2020-04-28] MEDS: ACETAMINOPHEN 325 MG TABLET. PO PRN ×2 (10:29→23:40)
[2020-04-28] MEDS: METOPROLOL TART IMMED RELEASE 25 MG TABLET. PO SCH ×2 (10:29→20:51)
[2020-04-28] MEDS ORDERED: DEXTROSE 50% 25 GM / 50ML DISP.SYRIN. IV PRN (10:45)
--- NOTE | 2020-04-28 10:49 | PDOC ---
GENERAL General: Patient examined chart reviewed discussed with nursing. This patient has extensive multi-morbidity lives at home with his they both have been laying lobe during the half-way in place. She noticed an abrupt change in his neurologic status early yesterday morning with expressive aphasia and left-sided neglect. She summoned 911 who knows his situation well and they also found him to be quite changed neurologically. On initial evaluation in the emergency department he still had the change in neurologic status and was admitted for continued work-up of stroke. CT head was negative for acute change. He developed acute hypoxic respiratory failure after what sounds like an aspiration event and was transferred to the ICU shortly after admission. He continues to clinically decline with hypoxia even on high flow oxygen and significant dyspn ea. The patient is unresponsive. At this point we are continuing broad- spectrum antibiotics and critical care support short of cardiopulmonary resuscitation. Discussions are ongoing with critical care team and family regarding transition to comfort care. Patient has been tested for COVID-19 and that result is pending agreed that it is low suspicion given that he and his of late very low during the last 2 months. We appreciate pulmonary critical care support. Continue current management otherwise. If patient does turn the corner we can proceed with MR brain. Total time today is 30 minutes with greater than 50% counseling and coordination of care most of which in discussion with nursing and review of records. Problems: (1) Type 2 diabetes mellitus (2) Aspiration pneumonia (3) Acute respiratory failure with hypoxia (4) Urinary retention (5) Respiratory distress (6) CKD stage 3 secondary to diabetes VITAL SIGNS Vital Signs/I&O: Vital Signs Date Time Temp Pulse Resp B/P (MAP) Pulse Ox O2 Delivery O2 Flow Rate FiO2 04/28/20 10:29 108 162/81 04/28/20 10:00 34 94 Vapotherm 35.0 04/28/20 08:00 102.0 102.0 I & O 04/27/20 04/27/20 04/28/20 15:00 23:00 07:00 Intake Total 500 ml 551 ml Output Total 1600 ml 1000 ml 475 ml Balance -1100 ml -449 ml -475 ml In general the patient is markedly dyspneic he is unresponsive does not arouse to verbal or physical stimuli. He does squeeze my hand using his right hand. HEENT exam is unremarkable for acute abnormality Neck is soft and supple no adenopathy or thyromegaly noted Chest notable for marked tachypnea inspiratory and expiratory upper airway rhonchi noted. Diminished air entry throughout Heart S1-S2 normal tachycardic no murmurs or gallops are noted Abdomen soft nontender nondistended no masses organomegaly noted Extremity exam is notable for flaccid paresis throughout patient is unresponsive and unable to participate in the exam ALLERGIES Allergies: Allergies Coded Allergies Type Severity Reaction Last Updated Verified Penicillins Allergy Intermediate hives 04/27/20 Yes MEDS Medications: Current Medications Medications (Trade) Dose Ordered Sig/Burke Route PRN Reason Start Time Stop Time Status Last Admin Dose Admin Vancomycin HCl (Vanco Per Pharmacy) 1 each PRN DAILY PRN MC SEE COMMENTS 04/27/20 11:00 04/27/20 14:31 Cefepime HCl (Maxipime) 1 gm Q12HR IVP 04/27/20 12:00 04/28/20 08:34 Vancomycin HCl 2 gm/Sodium Chloride 500 ml @ 250 mls/hr 1X ONCE IV 04/27/20 12:00 04/27/20 13:59 DC 04/27/20 11:45 Sterile Water (WATER for RESP) 1,000 ml CONT PRN INH VIA VAPOTHERM DEVICE 04/27/20 11:45 04/28/20 08:40 Sodium Bicarbonate (Sodium Bicarb Adult 8.4% Syr) 50 meq 1X ONCE IV 04/27/20 11:45 04/27/20 11:46 DC 04/27/20 11:41 Labetalol HCl (Normodyne Iv Push) 20 mg PRN Q2HR PRN IVP HYPERTENSION 04/27/20 14:00 04/27/20 14:29 Acetaminophen (Tylenol Supp) 325 mg PRN Q6HRS PRN WI MILD PAIN / TEMP > 100.3'F 04/27/20 14:30 04/27/20 16:47 DC 04/27/20 14:29 Enoxaparin Sodium (Lovenox 40mg Syringe) 40 mg Q12HR SQ 04/27/20 21:00 04/28/20 09:39 DC 04/28/20 08:34 Pantoprazole Sodium (PROTONIX VIAL for IV PUSH) 40 mg DAILY IVP 04/28/20 09:00 04/28/20 08:17 Acetaminophen (Tylenol Supp) 650 mg PRN Q6HRS PRN WI MILD PAIN / TEMP > 100.3'F 04/27/20 16:45 04/28/20 00:36 Diltiazem HCl (Cardizem) 60 mg Q6H PO 04/28/20 11:00 04/28/20 10:29 Metoprolol Tartrate (Lopressor) 25 mg BID PO 04/28/20 11:00 04/28/20 10:29 LAB Lab: Laboratory Tests Test 04/27/20 11:17 04/28/20 00:15 04/28/20 06:09 04/28/20 07:20 O2 Saturation 84 % (92-99) L Arterial Blood pH 7.32 (7.35-7.45) L Arterial Blood pH (Temp corrected) 7.30 Arterial Blood pCO2 at Patient Temp 39 mmHg (35-46) Arterial Blood pCO2 (Temp correct) 42 mmHg Arterial Blood pO2 at Patient Temp 61 mmHg (65-108) L Arterial Blood pO2 (Temp corrected) 67 mmHg Arterial Blood HCO3 20 mmol/L (21-28) L Arterial Blood Base Excess -6 mmol/L (-3-3) L FiO2 40 Glucose (Fingerstick) 262 mg/dL (70-99) H 205 mg/dL (70-99) H Creatinine 1.8 mg/dL (0.7-1.3) H Estimated GFR (Cockcroft-Gault) 37.0 Test 04/28/20 08:00 O2 Saturation 94 % (92-99) Arterial Blood pH 7.44 (7.35-7.45) Arterial Blood pCO2 at Patient Temp 40 mmHg (35-46) Arterial Blood pO2 at Patient Temp 75 mmHg (65-108) Arterial Blood HCO3 26 mmol/L (21-28) Arterial Blood Base Excess 2 mmol/L (-3-3) FiO2 80 Laboratory Tests 04/28/20 07:20 IMAGING Imaging: PATIENT: LISSA TIRADO CACCOUNT: [id number] : 1945 LOCATION: [address] [place] [address] AGE: 74 SEX: M EXAM STATUS: ADM IN ORD. PHYSICIAN: JD GRANADOS MD REASON: aspiration PROCEDURE: CHEST AP ONLY CHEST AP ONLY Clinical Indication: Reason: aspiration / Spl. Instructions: / History: Comparison: AP chest 01/12/2020. Findings: The patient is rotated. Allowing for this, the cardiomediastinal silhouette is stable. There are diffuse increased interstitial markings. There is no focal airspace disease. There is no pneumothorax. No pleural effusion is appreciated. No acute bone abnormality. IMPRESSION: Diffuse interstitial opacities may be interstitial edema or pneumonia. Electronically signed by: Casey Carey MD (04/27/2020 8:39 AM) [facility] ASSESSMENT & PLAN A&P Plan as noted above This note was created using [employer] and may have omissions and/or errors due to the nature of real-time voice activity coordinator. Problem Qualifiers (1) Type 2 diabetes mellitus: Diabetes mellitus terminal make up operator insulin use: without terminal make up operator use JEREMY MYRES MD Apr 28, 2020 10:49
--- NOTE | 2020-04-28 11:00 | NUR ---
After reviewing the pt's chart this AM, this RN noticed that there was no note in the system from yesterday (admission date) from neurology. Dr. Vitale (guest relations coordinator doctor) paged and said he did not receive notification yesterday that he had a new admission. This was the first time being notified of pt being here. Orders received for Follow up Head CT w/o contrast.
[2020-04-28] MEDS: APIXABAN 5 MG TABLET. PO SCH ×2 (11:58→20:51)
[2020-04-28 12:00] LABS: BILIRUBIN,URINE NEGATIVE (NEG); CLARITY,URINE CLOUDY; COLOR,URINE YELLOW; NITRITE,URINE NEGATIVE (NEG); PROTEIN,URINE >=300 mg/dL (NEG-TRACE); UROBILINOGEN,URINE 0.2 mg/dL (0.2 mg/dL)
[2020-04-28] MEDS ORDERED: VANCOMYCIN 750 MG in IV NORMAL SALINE 250ML 250 ML IV SCH (12:00)
[2020-04-28] MEDS ORDERED: VANCOMYCIN 2 GM in IV NORMAL SALINE 500ML BAG 500 ML IV SCH (12:00)
[2020-04-28] MEDS: INSULIN LISPRO 300 UNITS/3 ML VIAL. SQ SCH ×3 (12:24→23:36)
[2020-04-28 12:38] LABS: AMORPHOUS SEDIMENT,UR PRESENT /HPF; BACTERIA,URINE 0 /HPF (0-FEW); GRANULAR CASTS,URINE MODERATE /HPF; RBC,URINE 0 /HPF (0-2); SQUAMOUS EPITHELIAL CELL,UR MOD /LPF
--- NOTE | 2020-04-28 12:45 | NUR ---
Unable to obtain repeat Head CT. Pt was transferred from Vapotherm to Non Rebreather 15L and began to desat to 85%. Pt was not recovering. Dr. Vitale notified of decrease in oxygen and was okay with not obtaining repeat CT Head.
--- NOTE | 2020-04-28 14:46 | PDOC2 ---
CONSULT Date of Consult Date of Consult DATE: 04/28/20 TIME: 14:45 Reason for Consult Reason for Consult: AMS Identification/Chief Complaint Chief Complaint AMS History of Present Illness Reason for Visit: This patient is 74-year-old man with past medical history of multiple medical problems information obtained from patient's family member at bedside. Patient has history of atrial fibrillation previous CVA, diabetes, hyper lipidemia, gastroesophageal reflux disease, patient was not feeling well for over 1 to 2 days. Patient was noted by his not able to talk. Patient presented to emergency room. Patient had difficulty breathing, shortness of breath. Patient has worsening of respiratory distress. Patient was started on antibiotics. Patient was transferred to ICU for close monitoring, further workup. Past Medical History Cardiovascular: AFIB, CAD, HTN, Hyperlipidemia, Other CENTRAL NERVOUS SYSTEM: CVA, Periperal neuropathy GI: GERD, Peptic Ulcer disease Heme/Onc: Anemia NOS, Cancer Hepatobiliary: No pertinent hx Psych: No pertinent hx Musculoskeletal: Osteoarthritis Rheumatologic: No pertinent hx Infectious disease: No pertinent hx Renal/: Benign prostatic enlarg., Urinary Incontinence Endocrine: Diabetes Past Surgical History Past Surgical History: Cholecystectomy, Other Family History Family History: Hypertension Social History ALCOHOL: none Drugs: None Lives: with Family Current Problem List Problem List Problems Medical Problems: (1) Altered mental status Status: Acute (2) CVA (cerebral vascular accident) Status: Acute Current Medications Current Medications Current Medications Ondansetron HCl (Zofran) 4 mg STK-MED ONCE .ROUTE ; Start 04/27/20 at 03:24; Stop 04/27/20 at 03:24; Status DC Ondansetron HCl (Zofran) 4 mg PRN Q4HRS PRN IV NAUSEA/VOMITING Last administered on 04/27/20at 10:02; Start 04/27/20 at 08:15 Docusate Sodium (Colace) 100 mg PRN BID PRN PO HARD STOOLS; Start 04/27/20 at 08:15; Status Cancel Albuterol Sulfate (Ventolin Neb Soln) 2.5 mg PRN Q4HRS PRN NEB SHORTNESS OF BREATH; Start 04/27/20 at 08:15; Status Cancel Guaifenesin (Robitussin) 200 mg PRN Q4HRS PRN PO COUGH; Start 04/27/20 at 08:15 Lorazepam (Ativan) 0.5 mg PRN Q4HRS PRN PO ANXIETY / AGITATION; Start 04/27/20 at 08:15 Enoxaparin Sodium (Lovenox 40mg Syringe) 40 mg Q12H SQ ; Start 04/27/20 at 09:00; Status UNV Dextrose (Dextrose 50%-Water Syringe) 12.5 gm PRN Q15MIN PRN IV SEE COMMENTS; Start 04/27/20 at 08:15 Acetaminophen (Tylenol) 650 mg PRN Q4HRS PRN PO TEMP OVER 100.4F OR MILD PAIN Last administered on 04/28/20at 10:29; Start 04/27/20 at 08:15 Albuterol Sulfate (Ventolin Neb Soln) 2.5 mg PRN Q4HRS PRN NEB SHORTNESS OF BREATH Last administered on 04/27/20at 08:37; Start 04/27/20 at 08:15 Apixaban (Eliquis) 2.5 mg BID PO ; Start 04/27/20 at 09:00; Stop 04/27/20 at 14:41; Status DC Aspirin (Aspirin Chewable) 81 mg DAILYWBKFT PO Last administered on 04/28/20at 10:22; Start 04/27/20 at 08:30 Atorvastatin Calcium (Lipitor) 40 mg QHS PO ; Start 04/27/20 at 21:00 Diltiazem HCl (Cardizem 24hr Cd) 300 mg DAILY PO ; Start 04/27/20 at 09:00; Stop 04/28/20 at 10:25; Status DC Docusate Sodium (Colace) 100 mg PRN BID PRN PO HARD STOOLS; Start 04/27/20 at 08:15 Lactobacillus Rhamnosus (Culturelle) 1 cap BID PO Last administered on 04/28/20at 10:22; Start 04/27/20 at 09:00 Polyethylene Glycol (miraLAX PACKET) 17 gm DAILY PO Last administered on 04/28/20at 10:22; Start 04/27/20 at 09:00 Potassium Chloride (Klor-Con) 10 meq DAILY PO ; Start 04/27/20 at 09:00 Senna/Docusate Sodium (Senna Plus) 1 tab PRN BID PRN PO CONSTIPATION 1ST CHOICE; Start 04/27/20 at 08:15 Tamsulosin HCl (Flomax) 0.4 mg DAILY PO Last administered on 04/28/20at 10:23; Start 04/27/20 at 09:00 Torsemide (Demadex) 20 mg BID92 PO Last administered on 04/28/20at 14:29; Start 04/27/20 at 09:00 Metoprolol Succinate (Toprol Xl) 50 mg DAILY PO ; Start 04/27/20 at 09:00; Stop 04/28/20 at 10:26; Status DC Pantoprazole Sodium (Protonix) 40 mg DAILYAC PO ; Start 04/27/20 at 08:30; Stop 04/27/20 at 14:47; Status DC Piperacillin Sod/ Tazobactam Sod 3.375 gm/Sodium Chloride 50 ml @ 100 mls/hr Q6HRS IV ; Start 04/27/20 at 12:00; Status UNV Info (Anti-Coagulation Monitoring By Pharmacy) 1 each PRN DAILY PRN MC SEE COMMENTS; Start 04/27/20 at 08:45; Stop 04/27/20 at 14:41; Status DC Vancomycin HCl (Vanco Per Pharmacy) 1 each PRN DAILY PRN MC SEE COMMENTS Last administered on 04/27/20at 14:31; Start 04/27/20 at 11:00 Cefepime HCl (Maxipime) 1 gm Q12HR IVP Last administered on 04/28/20at 08:34; Start 04/27/20 at 12:00 Vancomycin HCl 2 gm/Sodium Chloride 500 ml @ 250 mls/hr 1X ONCE IV Last administered on 04/27/20at 11:45; Start 04/27/20 at 12:00; Stop 04/27/20 at 13:59; Status DC Sodium Bicarbonate (Sodium Bicarb Adult 8.4% Syr) 50 meq STK-MED ONCE .ROUTE ; Start 04/27/20 at 11:25; Stop 04/27/20 at 11:26; Status DC Sterile Water (WATER for RESP) 1,000 ml CONT PRN INH VIA VAPOTHERM DEVICE Last administered on 04/28/20at 08:40; Start 04/27/20 at 11:45 Sodium Bicarbonate (Sodium Bicarb Adult 8.4% Syr) 50 meq 1X ONCE IV Last administered on 04/27/20at 11:41; Start 04/27/20 at 11:45; Stop 04/27/20 at 11:46; Status DC Labetalol HCl (Normodyne Iv Push) 20 mg PRN Q2HR PRN IVP HYPERTENSION Last administered on 04/27/20 14:29; Start 04/27/20 at 14:00 Acetaminophen (Tylenol Supp) 325 mg PRN Q6HRS PRN SC MILD PAIN / TEMP > 100.3'F Last administered on 04/27/20at 14:29; Start 04/27/20 at 14:30; Stop 04/27/20 at 16: 47; Status DC Vancomycin HCl 750 mg/Sodium Chloride 250 ml @ 250 mls/hr Q24H IV ; Start 04/28/20 at 12:00; Status Cancel Vancomycin HCl (Vancomycin Trough Level) 1 each 1X ONCE MC ; Start 04/29/20 at 11:30; Stop 04/29/20 at 11:31 Enoxaparin Sodium (Lovenox 40mg Syringe) 40 mg Q12HR SQ Last administered on 04/28/20at 08:34; Start 04/27/20 at 21:00; Stop 04/28/20 at 09:39; Status DC Vancomycin HCl 2 gm/Sodium Chloride 500 ml @ 250 mls/hr Q24H IV Last administered on 04/28/20at 11:58; Start 04/28/20 at 12:00 Pantoprazole Sodium (PROTONIX VIAL for IV PUSH) 40 mg DAILY IVP Last administered on 04/28/20 08:17; Start 04/28/20 at 09:00 Acetaminophen (Tylenol Supp) 650 mg PRN Q6HRS PRN SC MILD PAIN / TEMP > 100.3'F Last administered on 04/28/20at 00:36; Start 04/27/20 at 16:45 Diltiazem HCl (Cardizem) 60 mg Q6H PO Last administered on 04/28/20 10:29; Start 04/28/20 at 11:00 Metoprolol Tartrate (Lopressor) 25 mg BID PO Last administered on 04/28/20 10:29; Start 04/28/20 at 11:00 Insulin Human Lispro (HumaLOG) 0-7 UNITS Q6HRS SQ Last administered on 04/28/20at 12:24; Start 04/28/20 at 12:00 Dextrose (Dextrose 50%-Water Syringe) 12.5 gm PRN Q15MIN PRN IV SEE COMMENTS; Start 04/28/20 at 10:45 Apixaban (Eliquis) 5 mg BID PO Last administered on 04/28/20at 11:58; Start 04/28/20 at 11:00 Active Scripts Active Culturelle (Lactobacillus Rhamnosus Gg) 1 Each Cap.sprink 1 Cap PO BID 30 Days Polyethylene Glycol 3350 17 Gm Powd.pack 17 Gm PO DAILY 30 Days Dok (Docusate Sodium) 100 Mg Capsule 100 Mg PO PRN BID PRN 14 Days Torsemide 20 Mg Tablet 20 Mg PO BID92 30 Days Tylenol (Acetaminophen) 325 Mg Tablet 650 Mg PO PRN Q4HRS PRN 30 Days Aspirin 81 Mg Tab.chew 81 Mg PO DAILYWBKFT 30 Days Eliquis (Apixaban) 2.5 Mg Tablet 2.5 Mg PO BID 30 Days Proair Hfa (Albuterol Sulfate) 8.5 Gm Hfa.aer.ad 2.5 Mg NEB PRN Q4HRS PRN 30 Days Potassium Chloride (Potassium Chloride) 10 Meq Tab.sr.24h 10 Meq PO DAILY 30 Days Senna-Time S Tablet (Sennosides/Docusate Sodium) 1 Each Tablet 1 Tab PO PRN BID PRN 30 Days Flomax (Tamsulosin Hcl) 0.4 Mg Cap.er.24h 0.4 Mg PO DAILY 30 Days Cardizem Cd (Diltiazem Hcl) 300 Mg Cap.er.24h 300 Mg PO DAILY 30 Days Reported Toprol Xl (Metoprolol Succinate) 50 Mg Tab.er.24h 50 Mg PO DAILY Glipizide 10 Mg Tablet 10 Mg PO DAILY Omeprazole 40 Mg Capsule.dr 40 Mg PO DAILY Atorvastatin Calcium 40 Mg Tablet 40 Mg PO DAILY Allergies Allergies: Coded Allergies: Penicillins (Verified Allergy, Intermediate, hives, 04/27/20) tolerates cephalosporins Physical Exam Physical Exam PHYSICAL EXAMINATION: General: lethargy HEENT: Normal cephalic and non traumatic. Neck: No lymphadenopathy. No resistance. Cardiac: S1, S2, regular rate and rhythm. Abdomen: Bowel sounds are normal. NEUROLOGICAL EXAMINATION: lethargy Pupils +reaction to light stimuli. EOMI not elicited. CN: No acute findings. Neck: No resistance Muscle Tone: decreased. Muscle Strength: minimal movements noted to stimuli more On right side DTR: 0-1 Sensory: Minimal response to pain stimuli. Plantar Reflex: No response bilaterally Cerebellar Signs: Not able Gait: Not able. Vitals VITALS Vital Signs Date Time Temp Pulse Resp B/P (MAP) Pulse Ox O2 Delivery O2 Flow Rate FiO2 04/28/20 14:00 107 32 152/81 (104) 97 Vapotherm 35.0 04/28/20 12:00 99.8 99.8 Labs Labs Laboratory Tests Test 04/27/20 00:00 04/27/20 03:19 04/27/20 04:12 04/27/20 07:36 Coronavirus (COVID-19)(PCR) Not detected (NOT DETECT.) White Blood Count 12.1 x10^3/uL (4.0-11.0) Red Blood Count 3.55 x10^6/uL (4.30-5.70) Hemoglobin 10.9 g/dL (13.0-17.5) Hematocrit 32.9 % (39.0-53.0) Mean Corpuscular Volume 93 fL (79-100) Mean Corpuscular Hemoglobin 31 pg (25-35) Mean Corpuscular Hemoglobin Concent 33 g/dL (31-37) Red Cell Distribution Width 16.0 % (11.5-14.5) Platelet Count 288 x10^3/uL (140-400) Neutrophils (%) (Auto) 68 % (31-73) Lymphocytes (%) (Auto) 20 % (24-48) Monocytes (%) (Auto) 9 % (0-9) Eosinophils (%) (Auto) 3 % (0-3) Basophils (%) (Auto) 1 % (0-3) Neutrophils # (Auto) 8.2 x10^3/uL (1.8-7.7) Lymphocytes # (Auto) 2.4 x10^3/uL (1.0-4.8) Monocytes # (Auto) 1.0 x10^3/uL (0.0-1.1) Eosinophils # (Auto) 0.4 x10^3/uL (0.0-0.7) Basophils # (Auto) 0.1 x10^3/uL (0.0-0.2) Prothrombin Time 12.5 SEC (11.7-14.0) Prothromb Time International Ratio 1.0 (0.8-1.1) Sodium Level 138 mmol/L (136-145) Potassium Level 4.3 mmol/L (3.5-5.1) Chloride Level 103 mmol/L (98-107) Carbon Dioxide Level 23 mmol/L (21-32) Anion Gap 12 (6-14) Blood Urea Nitrogen 23 mg/dL (8-26) Creatinine 2.0 mg/dL (0.7-1.3) Estimated GFR (Cockcroft-Gault) 32.7 BUN/Creatinine Ratio 12 (6-20) Glucose Level 170 mg/dL (70-99) Calcium Level 8.4 mg/dL (8.5-10.1) Total Bilirubin 0.3 mg/dL (0.2-1.0) Aspartate Amino Transf (AST/SGOT) 16 U/L (15-37) Alanine Aminotransferase (ALT/SGPT) 22 U/L (16-63) Alkaline Phosphatase 72 U/L (46-116) Troponin I Quantitative < 0.017 ng/mL (0.000-0.055) Total Protein 7.0 g/dL (6.4-8.2) Albumin 3.6 g/dL (3.4-5.0) Albumin/Globulin Ratio 1.1 (1.0-1.7) Glucose (Fingerstick) 166 mg/dL (70-99) 190 mg/dL (70-99) Test 04/27/20 09:15 04/27/20 11:17 04/28/20 00:15 04/28/20 06:09 White Blood Count 18.7 x10^3/uL (4.0-11.0) Red Blood Count 3.76 x10^6/uL (4.30-5.70) Hemoglobin 11.4 g/dL (13.0-17.5) Hematocrit 34.7 % (39.0-53.0) Mean Corpuscular Volume 93 fL (79-100) Mean Corpuscular Hemoglobin 30 pg (25-35) Mean Corpuscular Hemoglobin Concent 33 g/dL (31-37) Red Cell Distribution Width 15.9 % (11.5-14.5) Platelet Count 282 x10^3/uL (140-400) Neutrophils (%) (Auto) 86 % (31-73) Lymphocytes (%) (Auto) 6 % (24-48) Monocytes (%) (Auto) 7 % (0-9) Eosinophils (%) (Auto) 0 % (0-3) Basophils (%) (Auto) 1 % (0-3) Neutrophils # (Auto) 16.0 x10^3/uL (1.8-7.7) Lymphocytes # (Auto) 1.2 x10^3/uL (1.0-4.8) Monocytes # (Auto) 1.4 x10^3/uL (0.0-1.1) Eosinophils # (Auto) 0.0 x10^3/uL (0.0-0.7) Basophils # (Auto) 0.1 x10^3/uL (0.0-0.2) Segmented Neutrophils % 88 % (35-66) Band Neutrophils % 4 % (0-9) Lymphocytes % 4 % (24-48) Monocytes % 4 % (0-10) Platelet Estimate Adequate (ADEQUATE) Sodium Level 139 mmol/L (136-145) Potassium Level 5.1 mmol/L (3.5-5.1) Chloride Level 102 mmol/L (98-107) Carbon Dioxide Level 23 mmol/L (21-32) Anion Gap 14 (6-14) Blood Urea Nitrogen 23 mg/dL (8-26) Creatinine 1.8 mg/dL (0.7-1.3) Estimated GFR (Cockcroft-Gault) 37.0 BUN/Creatinine Ratio 13 (6-20) Glucose Level 217 mg/dL (70-99) Lactic Acid Level 1.7 mmol/L (0.4-2.0) Calcium Level 8.5 mg/dL (8.5-10.1) Total Bilirubin 0.3 mg/dL (0.2-1.0) Aspartate Amino Transf (AST/SGOT) 15 U/L (15-37) Alanine Aminotransferase (ALT/SGPT) 21 U/L (16-63) Alkaline Phosphatase 77 U/L (46-116) Total Protein 6.8 g/dL (6.4-8.2) Albumin 3.7 g/dL (3.4-5.0) Albumin/Globulin Ratio 1.2 (1.0-1.7) O2 Saturation 84 % (92-99) Arterial Blood pH 7.32 (7.35-7.45) Arterial Blood pH (Temp corrected) 7.30 Arterial Blood pCO2 at Patient Temp 39 mmHg (35-46) Arterial Blood pCO2 (Temp correct) 42 mmHg Arterial Blood pO2 at Patient Temp 61 mmHg (65-108) Arterial Blood pO2 (Temp corrected) 67 mmHg Arterial Blood HCO3 20 mmol/L (21-28) Arterial Blood Base Excess -6 mmol/L (-3-3) FiO2 40 Glucose (Fingerstick) 262 mg/dL (70-99) 205 mg/dL (70-99) Test 04/28/20 07:20 04/28/20 08:00 04/28/20 10:15 04/28/20 12:06 Creatinine 1.8 mg/dL (0.7-1.3) Estimated GFR (Cockcroft-Gault) 37.0 O2 Saturation 94 % (92-99) Arterial Blood pH 7.44 (7.35-7.45) Arterial Blood pCO2 at Patient Temp 40 mmHg (35-46) Arterial Blood pO2 at Patient Temp 75 mmHg (65-108) Arterial Blood HCO3 26 mmol/L (21-28) Arterial Blood Base Excess 2 mmol/L (-3-3) FiO2 80 Urine Collection Type Unknown Urine Color Yellow Urine Clarity Cloudy Urine pH 5.0 (<5.0-8.0) Urine Specific [place] 1.025 (1.000-1.030) Urine Protein >=300 mg/dL (NEG-TRACE) Urine Glucose (UA) >=1000 mg/dL (NEG) Urine Ketones (Stick) 15 mg/dL (NEG) Urine Blood Trace (NEG) Urine Nitrite Negative (NEG) Urine Bilirubin Negative (NEG) Urine Urobilinogen Dipstick 0.2 mg/dL (0.2 mg/dL) Urine Leukocyte Esterase Trace (NEG) Urine RBC 0 /HPF (0-2) Urine WBC 5-10 /HPF (0-4) Urine Squamous Epithelial Cells Mod /LPF Urine Transitional Epithelial Cells Few /LPF Urine Amorphous Sediment Present /HPF Urine Bacteria 0 /HPF (0-FEW) Urine Granular Casts Moderate /HPF Urine Mucus Mod /LPF Glucose (Fingerstick) 185 mg/dL (70-99) Laboratory Tests Test 04/28/20 00:15 04/28/20 06:09 04/28/20 07:20 04/28/20 08:00 Glucose (Fingerstick) 262 mg/dL (70-99) 205 mg/dL (70-99) Creatinine 1.8 mg/dL (0.7-1.3) Estimated GFR (Cockcroft-Gault) 37.0 O2 Saturation 94 % (92-99) Arterial Blood pH 7.44 (7.35-7.45) Arterial Blood pCO2 at Patient Temp 40 mmHg (35-46) Arterial Blood pO2 at Patient Temp 75 mmHg (65-108) Arterial Blood HCO3 26 mmol/L (21-28) Arterial Blood Base Excess 2 mmol/L (-3-3) FiO2 80 Test 04/28/20 10:15 04/28/20 12:06 Urine Collection Type Unknown Urine Color Yellow Urine Clarity Cloudy Urine pH 5.0 (<5.0-8.0) Urine Specific [place] 1.025 (1.000-1.030) Urine Protein >=300 mg/dL (NEG-TRACE) Urine Glucose (UA) >=1000 mg/dL (NEG) Urine Ketones (Stick) 15 mg/dL (NEG) Urine Blood Trace (NEG) Urine Nitrite Negative (NEG) Urine Bilirubin Negative (NEG) Urine Urobilinogen Dipstick 0.2 mg/dL (0.2 mg/dL) Urine Leukocyte Esterase Trace (NEG) Urine RBC 0 /HPF (0-2) Urine WBC 5-10 /HPF (0-4) Urine Squamous Epithelial Cells Mod /LPF Urine Transitional Epithelial Cells Few /LPF Urine Amorphous Sediment Present /HPF Urine Bacteria 0 /HPF (0-FEW) Urine Granular Casts Moderate /HPF Urine Mucus Mod /LPF Glucose (Fingerstick) 185 mg/dL (70-99) Assessment/Plan Assessment/Plan This patient is 74-year-old man with past medical history of multiple medical problems information obtained from patient's family member at bedside. Patient has history of atrial fibrillation previous CVA, diabetes, hyper lipidemia, gastroesophageal reflux disease, patient was not feeling well for over 1 to 2 days. Patient was noted by his not able to talk. Patient presented to emergency room. Patient had difficulty breathing, shortness of breath. Patient has worsening of respiratory distress. Patient was started on antibiotics. Patient was transferred to ICU for close monitoring, further workup.With previous history of CVA, currently being treated for acute respiratory failure with hypoxia, encephalopathy, previous stroke. Patient was evaluated for CVA.CT scan done brain did not show any evidence of acute intracranial etiology no evidence of acute hemorrhage or mass. Changes noted for atrophy, chronic small vessel ischemic disease. MRI of brain cannot be done due to current medical condition. Will get CT scan brain for interval exam when medically stable Patient continue to require high flow oxygen, dyspnea. On antibiotics. Pulmonary recommendations appreciated. Continue medical management. Plan discussed with family at bedside at length KAYE DAVENPORT MD Apr 28, 2020 14:46
--- NOTE | 2020-04-28 16:17 | RAD ---
Ultrasound carotid Doppler 04/28/2020 3:09 PM INDICATION: Stroke COMPARISON: None available TECHNIQUE: Sonographic imaging of the carotid vasculature was performed utilizing grayscale, color Doppler and spectral waveform analysis. FINDINGS: (All velocities are measured cm per second) Right carotid: Mild calcified plaque is identified at the bifurcation without significant luminal stenosis. Peak systolic velocity: Proximal common carotid artery: 97 Middle common carotid artery: 80 Distal common carotid artery: 72 Proximal internal carotid artery: 48 Middle internal carotid artery: 48 Distal internal carotid artery: 44 End-diastolic velocity: 56 External carotid artery: 22 Internal carotid artery/common carotid artery ratio: .60 Vertebral artery: Not visualized Left carotid: And noncalcified plaque is identified at the carotid bifurcation without significant luminal stenosis. Peak systolic velocity: Proximal common carotid artery: 92 Middle common carotid artery: 85 Distal common carotid artery: 64 Proximal internal carotid artery: 54 Middle internal carotid artery: 56 Distal internal carotid artery: 51 End-diastolic velocity: 16 External carotid artery: 133 Internal carotid artery/common carotid artery ratio: .65 Vertebral artery: Antegrade flow IMPRESSION: 1. No hemodynamically significant stenosis is identified (less than 50 percent) bilaterally. 2. Antegrade flow is identified in the left vertebral artery. Right vertebral artery is not visualized. 3. Evaluation of the carotid vasculature and measurements for luminal stenosis was performed utilizing NASCET criteria. Electronically signed by: Pilar Feldman MD (04/28/2020 4:14 PM) [facility]
[2020-04-28] MEDS ORDERED: FUROSEMIDE 40 MG/4 ML VIAL. IVP ONE (17:30)
[2020-04-28] MEDS: ALBUTEROL SULFATE 2.5 MG/3 ML NEBU. NEB PRN (17:39)
--- NOTE | 2020-04-28 17:50 | NUR ---
Dr. Hinds paged at 1720 because pt began to desat to the 70s on 100% FIO2. Dr. Hinds ordered 40 Lasix x1, chest xray, and adjust bipap settings to 28/8. Orders placed and medications given. At approximately 1745, pt had a 3 minute seizure while RN and RT were at bedside. Full body jerking and eye's fixed to the left. 2mg Ativan given IVP. Dr. Vitale paged, awaiting call back. Currently pt is sating 96% on Bipap.
--- NOTE | 2020-04-28 18:00 | NUR ---
Dr. Vitale paged back and ordered Keppra 500 BID starting tonight. Orders placed.
--- NOTE | 2020-04-28 18:22 | RAD ---
Exam: Chest one view INDICATION: Increased oxygen demand TECHNIQUE: Frontal view of the chest Comparisons: 04/27/2020 FINDINGS: Enteric tube traverses below the diaphragm distal tip not visualized likely within the stomach. The cardiomediastinal silhouette and pulmonary vessels are within normal limits. Linear bandlike opacity at the right midlung likely atelectasis. Additionally there is complete atelectasis of the left lower lobe. IMPRESSION: Atelectasis-/collapse of the right lower lobe and atelectasis of the left midlung. Electronically signed by: Herlinda Tillman MD (04/28/2020 6:19 PM) [id number]
[2020-04-28] MEDS: LORazepam 0.5 MG TABLET PO PRN (20:50)
[2020-04-28] MEDS: ATORVASTATIN CALCIUM 40 MG TABLET. PO SCH (20:50)
[2020-04-28] MEDS: levETIRAcetam 500 MG in IV DEXTROSE 5% 100ML 100 ML IV SCH (20:51)
[2020-04-28] MEDS: MORPHINE SULFATE 4 MG/ML VIAL. IV PRN (22:52)
[2020-04-29] VITALS (24 sets, daily range): BP systolic 102–168; BP diastolic 58–99
[2020-04-29] MEDS: MORPHINE SULFATE 4 MG/ML VIAL. IV PRN (02:53)
--- NOTE | 2020-04-29 03:00 | NUR ---
Patient noted to have green bile seeping out from under bipap mask. Bed sheets/lift pad changed, patient cleaned up. NG hooked to LIS, received almost 200cc of green bile out immediately.
[2020-04-29] MEDS: LORazepam 0.5 MG TABLET PO PRN (04:47)
[2020-04-29] MEDS: dilTIAZem HCL 30 MG TABLET PO SCH ×2 (04:47→11:42)
[2020-04-29 05:04] LABS: BASO % 0 % (0-3); EOS % 0 % (0-3); HEMATOCRIT 34.3 % (39.0-53.0); HEMOGLOBIN 11.3 g/dL (13.0-17.5); LYMPH # 1.4 x10^3/uL (1.0-4.8); LYMPH % 7 % (24-48); MEAN CORPUSCULAR HEMOGLOBIN 30 pg (25-35); MEAN CORPUSCULAR HGB CONC 33 g/dL (31-37); MEAN CORPUSCULAR VOLUME 91 fL (79-100); MONO # 1.5 x10^3/uL (0.0-1.1); MONO % 7 % (0-9); NEUT # 17.5 x10^3/uL (1.8-7.7); NEUT % 86 % (31-73); PLATELET COUNT 226 x10^3/uL (140-400); RED BLOOD COUNT 3.77 x10^6/uL (4.30-5.70); RED CELL DISTRIBUTION WIDTH 15.9 % (11.5-14.5); WHITE BLOOD COUNT 20.5 x10^3/uL (4.0-11.0)
[2020-04-29 05:38] LABS: ALBUMIN/GLOBULIN RATIO 0.9 (1.0-1.7); CALCIUM 8.7 mg/dL (8.5-10.1); CREATININE 2.7 mg/dL (0.7-1.3); GFR 23.2; POTASSIUM 3.7 mmol/L (3.5-5.1); TOTAL PROTEIN 6.3 g/dL (6.4-8.2)
[2020-04-29] MEDS: INSULIN LISPRO 300 UNITS/3 ML VIAL. SQ SCH ×2 (05:42→13:04)
--- NOTE | 2020-04-29 06:15 | NUR ---
Shift note: This RN unable to elicit any movement from extremities. Patient occasionally groans-morphine Q4HRS added per Dr. Miller. Eyes PERRL, but do not track. Patient had probable seizure lasing 30seconds at around 0400- only facial twitches- Ativan given.
--- NOTE | 2020-04-29 07:30 | PDOC ---
PROGRESS NOTES Chief Complaint Chief Complaint A/P: Acute Encephalopathy - likely metabolic 2/2 cerebrovascular accident and toxic 2/2 sepsis. Acute hypoxic respiratory failure - likely 2/2 CVA and pneumonia Abnormal CXR - likely aspiration pneumonia Sepsis - febrile, tachy H/o lung surgery for removal of metal soda cap from his right upper lobe. Low-suspicion for COVID-19. He has been at home for the last 2 months except that he went a few days ago for his cutting of nail. Acute kidney injury versus chronic kidney disease - vasomotor nephropathy Chronic A. 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 He did not meet the criteria for TPA. Noted with fever of 101 and dyspneic and hypoxic. He was transferred to ICU after noted on med/tele more hypoxic and vomiting. ABG pH of 7.32, pCO2 of 39, a pO2 of 61 on nonrebreather mask. CXR with interstitial infiltrates, more on the right upper lobe suggesting aspiration. Head CT negative. CR up to 2.7 from 1.8. UOP dropped. He did receive x1 IV lasix 40mg on 04/28 and his home dosing of torsemide. Not meaningfully interacting. some lue movement. Afebrile. BIPAP 26/10 100% FiO2 currently. Vitals Vitals Vital Signs Date Time Temp Pulse Resp B/P (MAP) Pulse Ox O2 Delivery O2 Flow Rate FiO2 04/29/20 06:00 106 18 109/65 (80) 94 BiPAP/CPAP 04/29/20 04:00 98.9 98.9 04/28/20 15:00 35.0 Physical Exam Lungs: Wheezing Abdomen: Normal bowel sounds Labs LABS Laboratory Tests Test 04/28/20 08:00 04/28/20 10:15 04/28/20 12:06 04/28/20 17:43 O2 Saturation 94 % (92-99) Arterial Blood pH 7.44 (7.35-7.45) Arterial Blood pCO2 at Patient Temp 40 mmHg (35-46) Arterial Blood pO2 at Patient Temp 75 mmHg (65-108) Arterial Blood HCO3 26 mmol/L (21-28) Arterial Blood Base Excess 2 mmol/L (-3-3) FiO2 80 Urine Collection Type Unknown Urine Color Yellow Urine Clarity Cloudy Urine pH 5.0 (<5.0-8.0) Urine Specific [place] 1.025 (1.000-1.030) Urine Protein >=300 mg/dL (NEG-TRACE) Urine Glucose (UA) >=1000 mg/dL (NEG) Urine Ketones (Stick) 15 mg/dL (NEG) Urine Blood Trace (NEG) Urine Nitrite Negative (NEG) Urine Bilirubin Negative (NEG) Urine Urobilinogen Dipstick 0.2 mg/dL (0.2 mg/dL) Urine Leukocyte Esterase Trace (NEG) Urine RBC 0 /HPF (0-2) Urine WBC 5-10 /HPF (0-4) Urine Squamous Epithelial Cells Mod /LPF Urine Transitional Epithelial Cells Few /LPF Urine Amorphous Sediment Present /HPF Urine Bacteria 0 /HPF (0-FEW) Urine Granular Casts Moderate /HPF Urine Mucus Mod /LPF Glucose (Fingerstick) 185 mg/dL (70-99) 164 mg/dL (70-99) Test 04/28/20 23:36 04/29/20 03:20 04/29/20 05:37 Glucose (Fingerstick) 195 mg/dL (70-99) 248 mg/dL (70-99) White Blood Count 20.5 x10^3/uL (4.0-11.0) Red Blood Count 3.77 x10^6/uL (4.30-5.70) Hemoglobin 11.3 g/dL (13.0-17.5) Hematocrit 34.3 % (39.0-53.0) Mean Corpuscular Volume 91 fL (79-100) Mean Corpuscular Hemoglobin 30 pg (25-35) Mean Corpuscular Hemoglobin Concent 33 g/dL (31-37) Red Cell Distribution Width 15.9 % (11.5-14.5) Platelet Count 226 x10^3/uL (140-400) Neutrophils (%) (Auto) 86 % (31-73) Lymphocytes (%) (Auto) 7 % (24-48) Monocytes (%) (Auto) 7 % (0-9) Eosinophils (%) (Auto) 0 % (0-3) Basophils (%) (Auto) 0 % (0-3) Neutrophils # (Auto) 17.5 x10^3/uL (1.8-7.7) Lymphocytes # (Auto) 1.4 x10^3/uL (1.0-4.8) Monocytes # (Auto) 1.5 x10^3/uL (0.0-1.1) Eosinophils # (Auto) 0.0 x10^3/uL (0.0-0.7) Basophils # (Auto) 0.0 x10^3/uL (0.0-0.2) Sodium Level 141 mmol/L (136-145) Potassium Level 3.7 mmol/L (3.5-5.1) Chloride Level 98 mmol/L (98-107) Carbon Dioxide Level 24 mmol/L (21-32) Anion Gap 19 (6-14) Blood Urea Nitrogen 37 mg/dL (8-26) Creatinine 2.7 mg/dL (0.7-1.3) Estimated GFR (Cockcroft-Gault) 23.2 BUN/Creatinine Ratio 14 (6-20) Glucose Level 228 mg/dL (70-99) Calcium Level 8.7 mg/dL (8.5-10.1) Total Bilirubin 1.0 mg/dL (0.2-1.0) Aspartate Amino Transf (AST/SGOT) 14 U/L (15-37) Alanine Aminotransferase (ALT/SGPT) 21 U/L (16-63) Alkaline Phosphatase 56 U/L (46-116) Total Protein 6.3 g/dL (6.4-8.2) Albumin 3.0 g/dL (3.4-5.0) Albumin/Globulin Ratio 0.9 (1.0-1.7) Assessment and Plan Assessmemt and Plan Problems Medical Problems: (1) Altered mental status Status: Acute (2) CVA (cerebral vascular accident) Status: Acute Comment Review of Relevant I have reviewed the following items logan (where applicable) has been applied. Labs Laboratory Tests Test 04/27/20 07:36 04/27/20 09:15 04/27/20 11:17 04/28/20 00:15 Glucose (Fingerstick) 190 mg/dL (70-99) 262 mg/dL (70-99) White Blood Count 18.7 x10^3/uL (4.0-11.0) Red Blood Count 3.76 x10^6/uL (4.30-5.70) Hemoglobin 11.4 g/dL (13.0-17.5) Hematocrit 34.7 % (39.0-53.0) Mean Corpuscular Volume 93 fL (79-100) Mean Corpuscular Hemoglobin 30 pg (25-35) Mean Corpuscular Hemoglobin Concent 33 g/dL (31-37) Red Cell Distribution Width 15.9 % (11.5-14.5) Platelet Count 282 x10^3/uL (140-400) Neutrophils (%) (Auto) 86 % (31-73) Lymphocytes (%) (Auto) 6 % (24-48) Monocytes (%) (Auto) 7 % (0-9) Eosinophils (%) (Auto) 0 % (0-3) Basophils (%) (Auto) 1 % (0-3) Neutrophils # (Auto) 16.0 x10^3/uL (1.8-7.7) Lymphocytes # (Auto) 1.2 x10^3/uL (1.0-4.8) Monocytes # (Auto) 1.4 x10^3/uL (0.0-1.1) Eosinophils # (Auto) 0.0 x10^3/uL (0.0-0.7) Basophils # (Auto) 0.1 x10^3/uL (0.0-0.2) Segmented Neutrophils % 88 % (35-66) Band Neutrophils % 4 % (0-9) Lymphocytes % 4 % (24-48) Monocytes % 4 % (0-10) Platelet Estimate Adequate (ADEQUATE) Sodium Level 139 mmol/L (136-145) Potassium Level 5.1 mmol/L (3.5-5.1) Chloride Level 102 mmol/L (98-107) Carbon Dioxide Level 23 mmol/L (21-32) Anion Gap 14 (6-14) Blood Urea Nitrogen 23 mg/dL (8-26) Creatinine 1.8 mg/dL (0.7-1.3) Estimated GFR (Cockcroft-Gault) 37.0 BUN/Creatinine Ratio 13 (6-20) Glucose Level 217 mg/dL (70-99) Lactic Acid Level 1.7 mmol/L (0.4-2.0) Calcium Level 8.5 mg/dL (8.5-10.1) Total Bilirubin 0.3 mg/dL (0.2-1.0) Aspartate Amino Transf (AST/SGOT) 15 U/L (15-37) Alanine Aminotransferase (ALT/SGPT) 21 U/L (16-63) Alkaline Phosphatase 77 U/L (46-116) Total Protein 6.8 g/dL (6.4-8.2) Albumin 3.7 g/dL (3.4-5.0) Albumin/Globulin Ratio 1.2 (1.0-1.7) O2 Saturation 84 % (92-99) Arterial Blood pH 7.32 (7.35-7.45) Arterial Blood pH (Temp corrected) 7.30 Arterial Blood pCO2 at Patient Temp 39 mmHg (35-46) Arterial Blood pCO2 (Temp correct) 42 mmHg Arterial Blood pO2 at Patient Temp 61 mmHg (65-108) Arterial Blood pO2 (Temp corrected) 67 mmHg Arterial Blood HCO3 20 mmol/L (21-28) Arterial Blood Base Excess -6 mmol/L (-3-3) FiO2 40 Test 04/28/20 06:09 04/28/20 07:20 04/28/20 08:00 04/28/20 10:15 Glucose (Fingerstick) 205 mg/dL (70-99) Creatinine 1.8 mg/dL (0.7-1.3) Estimated GFR (Cockcroft-Gault) 37.0 O2 Saturation 94 % (92-99) Arterial Blood pH 7.44 (7.35-7.45) Arterial Blood pCO2 at Patient Temp 40 mmHg (35-46) Arterial Blood pO2 at Patient Temp 75 mmHg (65-108) Arterial Blood HCO3 26 mmol/L (21-28) Arterial Blood Base Excess 2 mmol/L (-3-3) FiO2 80 Urine Collection Type Unknown Urine Color Yellow Urine Clarity Cloudy Urine pH 5.0 (<5.0-8.0) Urine Specific [place] 1.025 (1.000-1.030) Urine Protein >=300 mg/dL (NEG-TRACE) Urine Glucose (UA) >=1000 mg/dL (NEG) Urine Ketones (Stick) 15 mg/dL (NEG) Urine Blood Trace (NEG) Urine Nitrite Negative (NEG) Urine Bilirubin Negative (NEG) Urine Urobilinogen Dipstick 0.2 mg/dL (0.2 mg/dL) Urine Leukocyte Esterase Trace (NEG) Urine RBC 0 /HPF (0-2) Urine WBC 5-10 /HPF (0-4) Urine Squamous Epithelial Cells Mod /LPF Urine Transitional Epithelial Cells Few /LPF Urine Amorphous Sediment Present /HPF Urine Bacteria 0 /HPF (0-FEW) Urine Granular Casts Moderate /HPF Urine Mucus Mod /LPF Test 04/28/20 12:06 04/28/20 17:43 04/28/20 23:36 04/29/20 03:20 Glucose (Fingerstick) 185 mg/dL (70-99) 164 mg/dL (70-99) 195 mg/dL (70-99) White Blood Count 20.5 x10^3/uL (4.0-11.0) Red Blood Count 3.77 x10^6/uL (4.30-5.70) Hemoglobin 11.3 g/dL (13.0-17.5) Hematocrit 34.3 % (39.0-53.0) Mean Corpuscular Volume 91 fL (79-100) Mean Corpuscular Hemoglobin 30 pg (25-35) Mean Corpuscular Hemoglobin Concent 33 g/dL (31-37) Red Cell Distribution Width 15.9 % (11.5-14.5) Platelet Count 226 x10^3/uL (140-400) Neutrophils (%) (Auto) 86 % (31-73) Lymphocytes (%) (Auto) 7 % (24-48) Monocytes (%) (Auto) 7 % (0-9) Eosinophils (%) (Auto) 0 % (0-3) Basophils (%) (Auto) 0 % (0-3) Neutrophils # (Auto) 17.5 x10^3/uL (1.8-7.7) Lymphocytes # (Auto) 1.4 x10^3/uL (1.0-4.8) Monocytes # (Auto) 1.5 x10^3/uL (0.0-1.1) Eosinophils # (Auto) 0.0 x10^3/uL (0.0-0.7) Basophils # (Auto) 0.0 x10^3/uL (0.0-0.2) Sodium Level 141 mmol/L (136-145) Potassium Level 3.7 mmol/L (3.5-5.1) Chloride Level 98 mmol/L (98-107) Carbon Dioxide Level 24 mmol/L (21-32) Anion Gap 19 (6-14) Blood Urea Nitrogen 37 mg/dL (8-26) Creatinine 2.7 mg/dL (0.7-1.3) Estimated GFR (Cockcroft-Gault) 23.2 BUN/Creatinine Ratio 14 (6-20) Glucose Level 228 mg/dL (70-99) Calcium Level 8.7 mg/dL (8.5-10.1) Total Bilirubin 1.0 mg/dL (0.2-1.0) Aspartate Amino Transf (AST/SGOT) 14 U/L (15-37) Alanine Aminotransferase (ALT/SGPT) 21 U/L (16-63) Alkaline Phosphatase 56 U/L (46-116) Total Protein 6.3 g/dL (6.4-8.2) Albumin 3.0 g/dL (3.4-5.0) Albumin/Globulin Ratio 0.9 (1.0-1.7) Test 04/29/20 05:37 Glucose (Fingerstick) 248 mg/dL (70-99) Laboratory Tests Test 04/28/20 08:00 04/28/20 10:15 04/28/20 12:06 04/28/20 17:43 O2 Saturation 94 % (92-99) Arterial Blood pH 7.44 (7.35-7.45) Arterial Blood pCO2 at Patient Temp 40 mmHg (35-46) Arterial Blood pO2 at Patient Temp 75 mmHg (65-108) Arterial Blood HCO3 26 mmol/L (21-28) Arterial Blood Base Excess 2 mmol/L (-3-3) FiO2 80 Urine Collection Type Unknown Urine Color Yellow Urine Clarity Cloudy Urine pH 5.0 (<5.0-8.0) Urine Specific [place] 1.025 (1.000-1.030) Urine Protein >=300 mg/dL (NEG-TRACE) Urine Glucose (UA) >=1000 mg/dL (NEG) Urine Ketones (Stick) 15 mg/dL (NEG) Urine Blood Trace (NEG) Urine Nitrite Negative (NEG) Urine Bilirubin Negative (NEG) Urine Urobilinogen Dipstick 0.2 mg/dL (0.2 mg/dL) Urine Leukocyte Esterase Trace (NEG) Urine RBC 0 /HPF (0-2) Urine WBC 5-10 /HPF (0-4) Urine Squamous Epithelial Cells Mod /LPF Urine Transitional Epithelial Cells Few /LPF Urine Amorphous Sediment Present /HPF Urine Bacteria 0 /HPF (0-FEW) Urine Granular Casts Moderate /HPF Urine Mucus Mod /LPF Glucose (Fingerstick) 185 mg/dL (70-99) 164 mg/dL (70-99) Test 04/28/20 23:36 04/29/20 03:20 04/29/20 05:37 Glucose (Fingerstick) 195 mg/dL (70-99) 248 mg/dL (70-99) White Blood Count 20.5 x10^3/uL (4.0-11.0) Red Blood Count 3.77 x10^6/uL (4.30-5.70) Hemoglobin 11.3 g/dL (13.0-17.5) Hematocrit 34.3 % (39.0-53.0) Mean Corpuscular Volume 91 fL (79-100) Mean Corpuscular Hemoglobin 30 pg (25-35) Mean Corpuscular Hemoglobin Concent 33 g/dL (31-37) Red Cell Distribution Width 15.9 % (11.5-14.5) Platelet Count 226 x10^3/uL (140-400) Neutrophils (%) (Auto) 86 % (31-73) Lymphocytes (%) (Auto) 7 % (24-48) Monocytes (%) (Auto) 7 % (0-9) Eosinophils (%) (Auto) 0 % (0-3) Basophils (%) (Auto) 0 % (0-3) Neutrophils # (Auto) 17.5 x10^3/uL (1.8-7.7) Lymphocytes # (Auto) 1.4 x10^3/uL (1.0-4.8) Monocytes # (Auto) 1.5 x10^3/uL (0.0-1.1) Eosinophils # (Auto) 0.0 x10^3/uL (0.0-0.7) Basophils # (Auto) 0.0 x10^3/uL (0.0-0.2) Sodium Level 141 mmol/L (136-145) Potassium Level 3.7 mmol/L (3.5-5.1) Chloride Level 98 mmol/L (98-107) Carbon Dioxide Level 24 mmol/L (21-32) Anion Gap 19 (6-14) Blood Urea Nitrogen 37 mg/dL (8-26) Creatinine 2.7 mg/dL (0.7-1.3) Estimated GFR (Cockcroft-Gault) 23.2 BUN/Creatinine Ratio 14 (6-20) Glucose Level 228 mg/dL (70-99) Calcium Level 8.7 mg/dL (8.5-10.1) Total Bilirubin 1.0 mg/dL (0.2-1.0) Aspartate Amino Transf (AST/SGOT) 14 U/L (15-37) Alanine Aminotransferase (ALT/SGPT) 21 U/L (16-63) Alkaline Phosphatase 56 U/L (46-116) Total Protein 6.3 g/dL (6.4-8.2) Albumin 3.0 g/dL (3.4-5.0) Albumin/Globulin Ratio 0.9 (1.0-1.7) Medications Current Medications Ondansetron HCl (Zofran) 4 mg STK-MED ONCE .ROUTE ; Start 04/27/20 at 03:24; Stop 04/27/20 at 03:24; Status DC Ondansetron HCl (Zofran) 4 mg PRN Q4HRS PRN IV NAUSEA/VOMITING Last administered on 04/27/20at 10:02; Start 04/27/20 at 08:15 Docusate Sodium (Colace) 100 mg PRN BID PRN PO HARD STOOLS; Start 04/27/20 at 08:15; Status Cancel Albuterol Sulfate (Ventolin Neb Soln) 2.5 mg PRN Q4HRS PRN NEB SHORTNESS OF BREATH; Start 04/27/20 at 08:15; Status Cancel Guaifenesin (Robitussin) 200 mg PRN Q4HRS PRN PO COUGH; Start 04/27/20 at 08:15 Lorazepam (Ativan) 0.5 mg PRN Q4HRS PRN PO ANXIETY / AGITATION Last administer ed on 04/29/20at 04:47; Start 04/27/20 at 08:15 Enoxaparin Sodium (Lovenox 40mg Syringe) 40 mg Q12H SQ ; Start 04/27/20 at 09:00; Status UNV Dextrose (Dextrose 50%-Water Syringe) 12.5 gm PRN Q15MIN PRN IV SEE COMMENTS; Start 04/27/20 at 08:15 Acetaminophen (Tylenol) 650 mg PRN Q4HRS PRN PO TEMP OVER 100.4F OR MILD PAIN Last administered on 04/28/20at 23:40; Start 04/27/20 at 08:15 Albuterol Sulfate (Ventolin Neb Soln) 2.5 mg PRN Q4HRS PRN NEB SHORTNESS OF BREATH Last administered on 04/28/20at 17:39; Start 04/27/20 at 08:15 Apixaban (Eliquis) 2.5 mg BID PO ; Start 04/27/20 at 09:00; Stop 04/27/20 at 14:41; Status DC Aspirin (Aspirin Chewable) 81 mg DAILYWBKFT PO Last administered on 04/28/20at 10:22; Start 04/27/20 at 08:30 Atorvastatin Calcium (Lipitor) 40 mg QHS PO Last administered on 04/28/20at 20:50; Start 04/27/20 at 21:00 Diltiazem HCl (Cardizem 24hr Cd) 300 mg DAILY PO ; Start 04/27/20 at 09:00; Stop 04/28/20 at 10:25; Status DC Docusate Sodium (Colace) 100 mg PRN BID PRN PO HARD STOOLS; Start 04/27/20 at 08:15 Lactobacillus Rhamnosus (Culturelle) 1 cap BID PO Last administered on 04/28/20at 20:50; Start 04/27/20 at 09:00 Polyethylene Glycol (miraLAX PACKET) 17 gm DAILY PO Last administered on 04/28/20 10:22; Start 04/27/20 at 09:00 Potassium Chloride (Klor-Con) 10 meq DAILY PO ; Start 04/27/20 at 09:00 Senna/Docusate Sodium (Senna Plus) 1 tab PRN BID PRN PO CONSTIPATION 1ST CHOICE; Start 04/27/20 at 08:15 Tamsulosin HCl (Flomax) 0.4 mg DAILY PO Last administered on 6/7/20at 10:23; Start 04/27/20 at 09:00 Torsemide (Demadex) 20 mg BID92 PO Last administered on 04/28/20at 14:29; Start 04/27/20 at 09:00 Metoprolol Succinate (Toprol Xl) 50 mg DAILY PO ; Start 04/27/20 at 09:00; Stop 04/28/20 at 10:26; Status DC Pantoprazole Sodium (Protonix) 40 mg DAILYAC PO ; Start 04/27/20 at 08:30; Stop 04/27/20 at 14:47; Status DC Piperacillin Sod/ Tazobactam Sod 3.375 gm/Sodium Chloride 50 ml @ 100 mls/hr Q6HRS IV ; Start 04/27/20 at 12:00; Status UNV Info (Anti-Coagulation Monitoring By Pharmacy) 1 each PRN DAILY PRN MC SEE COMMENTS; Start 04/27/20 at 08:45; Stop 04/27/20 at 14:41; Status DC Vancomycin HCl (Vanco Per Pharmacy) 1 each PRN DAILY PRN MC SEE COMMENTS Last administered on 04/27/20at 14:31; Start 04/27/20 at 11:00 Cefepime HCl (Maxipime) 1 gm Q12HR IVP Last administered on 04/28/20at 20:51; Start 04/27/20 at 12:00 Vancomycin HCl 2 gm/Sodium Chloride 500 ml @ 250 mls/hr 1X ONCE IV Last administered on 04/27/20at 11:45; Start 04/27/20 at 12:00; Stop 04/27/20 at 13:59; Status DC Sodium Bicarbonate (Sodium Bicarb Adult 8.4% Syr) 50 meq STK-MED ONCE .ROUTE ; Start 04/27/20 at 11:25; Stop 04/27/20 at 11:26; Status DC Sterile Water (WATER for RESP) 1,000 ml CONT PRN INH VIA VAPOTHERM DEVICE Last administered on 04/28/20at 08:40; Start 04/27/20 at 11:45 Sodium Bicarbonate (Sodium Bicarb Adult 8.4% Syr) 50 meq 1X ONCE IV Last administered on 04/27/20at 11:41; Start 04/27/20 at 11:45; Stop 04/27/20 at 11:46; Status DC Labetalol HCl (Normodyne Iv Push) 20 mg PRN Q2HR PRN IVP HYPERTENSION Last administered on 04/27/20at 14:29; Start 04/27/20 at 14:00 Acetaminophen (Tylenol Supp) 325 mg PRN Q6HRS PRN ME MILD PAIN / TEMP > 100.3'F Last administered on 04/27/20at 14:29; Start 04/27/20 at 14:30; Stop 04/27/20 at 16:47; Status DC Vancomycin HCl 750 mg/Sodium Chloride 250 ml @ 250 mls/hr Q24H IV ; Start 04/28/20 at 12:00; Status Cancel Vancomycin HCl (Vancomycin Trough Level) 1 each 1X ONCE MC ; Start 04/29/20 at 11:30; Stop 04/29/20 at 11:31 Enoxaparin Sodium (Lovenox 40mg Syringe) 40 mg Q12HR SQ Last administered on 04/28/20at 08:34; Start 04/27/20 at 21:00; Stop 04/28/20 at 09:39; Status DC Vancomycin HCl 2 gm/Sodium Chloride 500 ml @ 250 mls/hr Q24H IV Last administered on 04/28/20at 11:58; Start 04/28/20 at 12:00 Pantoprazole Sodium (PROTONIX VIAL for IV PUSH) 40 mg DAILY IVP Last administered on 04/28/20 08:17; Start 04/28/20 at 09:00 Acetaminophen (Tylenol Supp) 650 mg PRN Q6HRS PRN ME MILD PAIN / TEMP > 100.3'F Last administered on 04/28/20at 00:36; Start 04/27/20 at 16:45 Diltiazem HCl (Cardizem) 60 mg Q6H PO Last administered on 04/29/20 04:47; Start 04/28/20 at 11:00 Metoprolol Tartrate (Lopressor) 25 mg BID PO Last administered on 04/28/20at 20:51; Start 04/28/20 at 11:00 Insulin Human Lispro (HumaLOG) 0-7 UNITS Q6HRS SQ Last administered on 04/29/20at 05:42; Start 04/28/20 at 12:00 Dextrose (Dextrose 50%-Water Syringe) 12.5 gm PRN Q15MIN PRN IV SEE COMMENTS; Start 04/28/20 at 10:45 Apixaban (Eliquis) 5 mg BID PO Last administered on 04/28/20at 20:51; Start 04/28/20 at 11:00 Furosemide (Lasix) 40 mg 1X ONCE IVP Last administered on 04/28/20at 17:37; Start 04/28/20 at 17:30; Stop 04/28/20 at 17:35; Status DC Lorazepam (Ativan Inj) 2 mg STK-MED ONCE .ROUTE ; Start 04/28/20 at 17:45; Stop 04/28/20 at 17:45; Status DC Lorazepam (Ativan Inj) 2 mg 1X ONCE IVP Last administered on 04/28/20at 17:56; Start 04/28/20 at 18:00; Stop 04/28/20 at 18:01; Status DC Levetiracetam 500 mg/Dextrose 105 ml @ 420 mls/hr Q12HR IV Last administered on 04/28/20at 20:51; Start 04/28/20 at 21:00 Morphine Sulfate (Morphine Sulfate) 3 mg PRN Q4HRS PRN IV PAIN/AIR HUNGER Last administered on 04/29/20at 02:53; Start 04/28/20 at 22:00 Active Scripts Active Culturelle (Lactobacillus Rhamnosus Gg) 1 Each Cap.sprink 1 Cap PO BID 30 Days Polyethylene Glycol 3350 17 Gm Powd.pack 17 Gm PO DAILY 30 Days Dok (Docusate Sodium) 100 Mg Capsule 100 Mg PO PRN BID PRN 14 Days Torsemide 20 Mg Tablet 20 Mg PO [id number] 30 Days Tylenol (Acetaminophen) 325 Mg Tablet 650 Mg PO PRN Q4HRS PRN 30 Days Aspirin 81 Mg Tab.chew 81 Mg PO [id number] 30 Days Eliquis (Apixaban) 2.5 Mg Tablet 2.5 Mg PO BID 30 Days Proair Hfa (Albuterol Sulfate) 8.5 Gm Hfa.aer.ad 2.5 Mg NEB PRN Q4HRS PRN 30 Days Potassium Chloride (Potassium Chloride) 10 Meq Tab.sr.24h 10 Meq PO DAILY 30 Days Senna-Time S Tablet (Sennosides/Docusate Sodium) 1 Each Tablet 1 Tab PO PRN BID PRN 30 Days Flomax (Tamsulosin Hcl) 0.4 Mg Cap.er.24h 0.4 Mg PO DAILY 30 Days Cardizem Cd (Diltiazem Hcl) 300 Mg Cap.er.24h 300 Mg PO DAILY 30 Days Reported Toprol Xl (Metoprolol Succinate) 50 Mg Tab.er.24h 50 Mg PO DAILY Glipizide 10 Mg Tablet 10 Mg PO DAILY Omeprazole 40 Mg Capsule.dr 40 Mg PO DAILY Atorvastatin Calcium 40 Mg Tablet 40 Mg PO DAILY Vitals/I & O Vital Sign - Last 24 Hours 04/28/20 04/28/20 04/28/20 04/28/20 08:00 08:00 08:00 08:46 Temp 102.0 102.0 Pulse 108 Resp 33 B/P (MAP) 169/83 (111) Pulse Ox 97 95 O2 Delivery VAPOTHERM Vapotherm Room Air O2 Flow Rate 40.0 35.0 35.0 35.0 04/28/20 04/28/20 04/28/20 04/28/20 09:00 10:00 10:29 10:29 Temp 98.9 98.9 Pulse 112 106 108 108 Resp 26 34 B/P (MAP) 161/81 (107) 162/81 (108) 162/81 162/81 Pulse Ox 95 94 O2 Delivery Vapotherm Vapotherm O2 Flow Rate 35.0 35.0 04/28/20 04/28/20 04/28/20 04/28/20 11:00 11:58 12:00 12:00 Temp 99.8 99.8 Pulse 83 90 Resp 15 32 B/P (MAP) 153/68 (96) 151/83 (105) Pulse Ox 91 91 94 O2 Delivery Vapotherm Vepotherm Nasal Cannula Vapotherm O2 Flow Rate 35.0 35.0 35.0 35.0 04/28/20 04/28/20 04/28/20 04/28/20 13:00 14:00 15:00 16:00 Pulse 92 107 106 Resp 32 32 35 B/P (MAP) 153/76 (101) 152/81 (104) 150/75 (100) Pulse Ox 97 97 90 O2 Delivery Vapotherm Vapotherm Vapotherm Bi-pap O2 Flow Rate 35.0 35.0 35.0 04/28/20 04/28/20 04/28/20 04/28/20 16:00 16:50 17:00 17:30 Temp 99.4 99.4 Pulse 103 114 115 Resp 28 41 B/P (MAP) 153/79 (103) 183/93 (123) 186/86 Pulse Ox 98 98 68 O2 Delivery BiPAP/CPAP BiPAP/CPAP BiPAP/CPAP 04/28/20 04/28/20 04/28/20 04/28/20 18:00 19:00 19:29 20:00 Pulse 120 120 Resp 20 20 B/P (MAP) 175/86 (115) 116/68 (84) Pulse Ox 97 95 97 O2 Delivery BiPAP/CPAP BiPAP/CPAP BiPAP/CPAP Bi-pap 04/28/20 04/28/20 04/28/20 04/28/20 20:00 20:51 21:00 22:00 Temp 100.4 100.4 Pulse 126 126 128 117 Resp 30 20 31 B/P (MAP) 165/85 (111) 165/85 154/109 (124) 166/93 (117) Pulse Ox 86 95 98 O2 Delivery BiPAP/CPAP BiPAP/CPAP BiPAP/CPAP 04/28/20 04/28/20 04/28/20 04/28/20 22:52 22:54 23:00 23:34 Temp 101.6 101.6 Pulse 120 124 Resp 27 27 29 B/P (MAP) 162/84 152/89 (110) Pulse Ox 100 99 100 O2 Delivery BiPAP/CPAP BiPAP/CPAP BiPAP/CPAP 04/28/20 04/29/20 04/29/20 04/29/20 23:45 00:01 00:15 01:00 Pulse 125 122 Resp 32 32 B/P (MAP) 168/97 (120) 142/99 (113) Pulse Ox 98 98 93 O2 Delivery Bi-pap BiPAP/CPAP BiPAP/CPAP BiPAP/CPAP 04/29/20 04/29/20 04/29/20 04/29/20 02:00 02:00 02:53 03:00 Temp 99.5 99.5 Pulse 130 130 Resp 32 22 32 B/P (MAP) 151/90 (110) 158/93 (114) Pulse Ox 96 92 92 90 O2 Delivery BiPAP/CPAP BiPAP/CPAP BiPAP/CPAP BiPAP/CPAP 04/29/20 04/29/20 04/29/20 04/29/20 03:24 03:45 04:00 04:29 Temp 98.9 98.9 Pulse 106 Resp 33 20 B/P (MAP) 148/75 (99) Pulse Ox 92 94 98 O2 Delivery BiPAP/CPAP Bi-pap BiPAP/CPAP BiPAP/CPAP 04/29/20 04/29/20 04/29/20 04/29/20 04:47 05:00 05:50 06:00 Pulse 117 109 106 Resp 20 18 B/P (MAP) 140/64 127/70 (89) 109/65 (80) Pulse Ox 97 95 94 O2 Delivery BiPAP/CPAP BiPAP/CPAP BiPAP/CPAP Intake and Output 04/28/20 04/28/20 04/29/20 15:00 23:00 07:00 Intake Total 500 ml 105 ml Output Total 604 ml 1320 ml 725 ml Balance -104 ml -1215 ml -725 ml BRIAN JARAMILLO MD Apr 29, 2020 07:30
[2020-04-29] MEDS: TORSEMIDE 20 MG TABLET. PO SCH (08:10)
[2020-04-29] MEDS: APIXABAN 5 MG TABLET. PO SCH (08:10)
[2020-04-29] MEDS: LACTOBACILLUS RHAMNOSUS GG 1 CAPSULE. PO SCH (08:10)
[2020-04-29] MEDS: ASPIRIN CHEWABLE 81 MG TABLET. PO SCH (08:10)
[2020-04-29] MEDS: TAMSULOSIN 0.4 MG CAP.ER.24H. PO SCH (08:10)
[2020-04-29] MEDS: PANTOPRAZOLE IV PUSH 40 MG VIAL. IVP SCH (08:10)
[2020-04-29] MEDS: METOPROLOL TART IMMED RELEASE 25 MG TABLET. PO SCH (08:10)
[2020-04-29] MEDS: levETIRAcetam 500 MG in IV DEXTROSE 5% 100ML 100 ML IV SCH (08:11)
[2020-04-29] MEDS: CEFEPIME HCL IV Push 1 GM VIAL. IVP SCH (08:11)
[2020-04-29] MEDS: POLYETHYLENE GLYCOL 3350 17 GM PACKET. PO SCH (08:11)
[2020-04-29] MEDS: POTASSIUM CHLORIDE 10 MEQ TABLET.ER. PO SCH (08:11)
[2020-04-29 08:22] LABS: BASE EXCESS ABG 0 mmol/L (-3-3); HCO3 ABG 23 mmol/L (21-28); PCO2 ABG 35 mmHg (35-46); PO2 ABG 79 mmHg (65-108); SAT O2 ABG 95 % (92-99)
[2020-04-29 08:38] LABS: FIO2 ABG 100% BIPAP
--- NOTE | 2020-04-29 08:57 | PDOC ---
PROGRESS NOTES Assessment Problems Medical Problems: (1) Altered mental status Status: Acute (2) CVA (cerebral vascular accident) Status: Acute Previous CVAs 3 minute seizure yesterday Encephalopathy Acute respiratory failure with hypoxia NOREEN in CKD, atrial fibrillation, diabetes, hyperlipidemia, gastroesophageal reflux diseasea Plan Repeat head CT today if medically stable EEG Levetiracetam Too unstable for MRI Treat medical diseases I understand the family is really leaning toward comfort care Subjective None Objective Vital Signs Date Time Temp Pulse Resp B/P (MAP) Pulse Ox O2 Delivery O2 Flow Rate FiO2 04/29/20 08:10 120 114/73 04/29/20 08:00 100.0 19 99 BiPAP/CPAP 100.0 04/28/20 15:00 35.0 Intake and Output 04/29/20 07:00 Intake Total 605 ml Output Total 2649 ml Balance -2044 ml IV Total 605 ml Output Urine Total 2299 ml Gastric Drainage Total 350 ml # Voids 1 PHYSICAL EXAM On BiPAP, lethargic, does not follow commands PERRL. EOMI. CN: no focal findings. Muscle tone: normal. Muscle strength: no spontaneous movement of the left upper extremity, slight withdrawal in the other extremities DTR: 1+ Plantar reflex: extensor Gait: not examined Sensory exam: not cooperative. Cerebellar: not cooperative Review of Relevant I have reviewed the following items logan (where applicable) has been applied. Labs Laboratory Tests Test 04/27/20 09:15 04/27/20 11:17 04/28/20 00:15 04/28/20 06:09 White Blood Count 18.7 x10^3/uL (4.0-11.0) Red Blood Count 3.76 x10^6/uL (4.30-5.70) Hemoglobin 11.4 g/dL (13.0-17.5) Hematocrit 34.7 % (39.0-53.0) Mean Corpuscular Volume 93 fL (79-100) Mean Corpuscular Hemoglobin 30 pg (25-35) Mean Corpuscular Hemoglobin Concent 33 g/dL (31-37) Red Cell Distribution Width 15.9 % (11.5-14.5) Platelet Count 282 x10^3/uL (140-400) Neutrophils (%) (Auto) 86 % (31-73) Lymphocytes (%) (Auto) 6 % (24-48) Monocytes (%) (Auto) 7 % (0-9) Eosinophils (%) (Auto) 0 % (0-3) Basophils (%) (Auto) 1 % (0-3) Neutrophils # (Auto) 16.0 x10^3/uL (1.8-7.7) Lymphocytes # (Auto) 1.2 x10^3/uL (1.0-4.8) Monocytes # (Auto) 1.4 x10^3/uL (0.0-1.1) Eosinophils # (Auto) 0.0 x10^3/uL (0.0-0.7) Basophils # (Auto) 0.1 x10^3/uL (0.0-0.2) Segmented Neutrophils % 88 % (35-66) Band Neutrophils % 4 % (0-9) Lymphocytes % 4 % (24-48) Monocytes % 4 % (0-10) Platelet Estimate Adequate (ADEQUATE) Sodium Level 139 mmol/L (136-145) Potassium Level 5.1 mmol/L (3.5-5.1) Chloride Level 102 mmol/L (98-107) Carbon Dioxide Level 23 mmol/L (21-32) Anion Gap 14 (6-14) Blood Urea Nitrogen 23 mg/dL (8-26) Creatinine 1.8 mg/dL (0.7-1.3) Estimated GFR (Cockcroft-Gault) 37.0 BUN/Creatinine Ratio 13 (6-20) Glucose Level 217 mg/dL (70-99) Lactic Acid Level 1.7 mmol/L (0.4-2.0) Calcium Level 8.5 mg/dL (8.5-10.1) Total Bilirubin 0.3 mg/dL (0.2-1.0) Aspartate Amino Transf (AST/SGOT) 15 U/L (15-37) Alanine Aminotransferase (ALT/SGPT) 21 U/L (16-63) Alkaline Phosphatase 77 U/L (46-116) Total Protein 6.8 g/dL (6.4-8.2) Albumin 3.7 g/dL (3.4-5.0) Albumin/Globulin Ratio 1.2 (1.0-1.7) O2 Saturation 84 % (92-99) Arterial Blood pH 7.32 (7.35-7.45) Arterial Blood pH (Temp corrected) 7.30 Arterial Blood pCO2 at Patient Temp 39 mmHg (35-46) Arterial Blood pCO2 (Temp correct) 42 mmHg Arterial Blood pO2 at Patient Temp 61 mmHg (65-108) Arterial Blood pO2 (Temp corrected) 67 mmHg Arterial Blood HCO3 20 mmol/L (21-28) Arterial Blood Base Excess -6 mmol/L (-3-3) FiO2 40 Glucose (Fingerstick) 262 mg/dL (70-99) 205 mg/dL (70-99) Test 04/28/20 07:20 04/28/20 08:00 04/28/20 10:15 04/28/20 12:06 Creatinine 1.8 mg/dL (0.7-1.3) Estimated GFR (Cockcroft-Gault) 37.0 O2 Saturation 94 % (92-99) Arterial Blood pH 7.44 (7.35-7.45) Arterial Blood pCO2 at Patient Temp 40 mmHg (35-46) Arterial Blood pO2 at Patient Temp 75 mmHg (65-108) Arterial Blood HCO3 26 mmol/L (21-28) Arterial Blood Base Excess 2 mmol/L (-3-3) FiO2 80 Urine Collection Type Unknown Urine Color Yellow Urine Clarity Cloudy Urine pH 5.0 (<5.0-8.0) Urine Specific [place] 1.025 (1.000-1.030) Urine Protein >=300 mg/dL (NEG-TRACE) Urine Glucose (UA) >=1000 mg/dL (NEG) Urine Ketones (Stick) 15 mg/dL (NEG) Urine Blood Trace (NEG) Urine Nitrite Negative (NEG) Urine Bilirubin Negative (NEG) Urine Urobilinogen Dipstick 0.2 mg/dL (0.2 mg/dL) Urine Leukocyte Esterase Trace (NEG) Urine RBC 0 /HPF (0-2) Urine WBC 5-10 /HPF (0-4) Urine Squamous Epithelial Cells Mod /LPF Urine Transitional Epithelial Cells Few /LPF Urine Amorphous Sediment Present /HPF Urine Bacteria 0 /HPF (0-FEW) Urine Granular Casts Moderate /HPF Urine Mucus Mod /LPF Glucose (Fingerstick) 185 mg/dL (70-99) Test 04/28/20 17:43 04/28/20 23:36 04/29/20 03:20 04/29/20 05:37 Glucose (Fingerstick) 164 mg/dL (70-99) 195 mg/dL (70-99) 248 mg/dL (70-99) White Blood Count 20.5 x10^3/uL (4.0-11.0) Red Blood Count 3.77 x10^6/uL (4.30-5.70) Hemoglobin 11.3 g/dL (13.0-17.5) Hematocrit 34.3 % (39.0-53.0) Mean Corpuscular Volume 91 fL (79-100) Mean Corpuscular Hemoglobin 30 pg (25-35) Mean Corpuscular Hemoglobin Concent 33 g/dL (31-37) Red Cell Distribution Width 15.9 % (11.5-14.5) Platelet Count 226 x10^3/uL (140-400) Neutrophils (%) (Auto) 86 % (31-73) Lymphocytes (%) (Auto) 7 % (24-48) Monocytes (%) (Auto) 7 % (0-9) Eosinophils (%) (Auto) 0 % (0-3) Basophils (%) (Auto) 0 % (0-3) Neutrophils # (Auto) 17.5 x10^3/uL (1.8-7.7) Lymphocytes # (Auto) 1.4 x10^3/uL (1.0-4.8) Monocytes # (Auto) 1.5 x10^3/uL (0.0-1.1) Eosinophils # (Auto) 0.0 x10^3/uL (0.0-0.7) Basophils # (Auto) 0.0 x10^3/uL (0.0-0.2) Sodium Level 141 mmol/L (136-145) Potassium Level 3.7 mmol/L (3.5-5.1) Chloride Level 98 mmol/L (98-107) Carbon Dioxide Level 24 mmol/L (21-32) Anion Gap 19 (6-14) Blood Urea Nitrogen 37 mg/dL (8-26) Creatinine 2.7 mg/dL (0.7-1.3) Estimated GFR (Cockcroft-Gault) 23.2 BUN/Creatinine Ratio 14 (6-20) Glucose Level 228 mg/dL (70-99) Calcium Level 8.7 mg/dL (8.5-10.1) Total Bilirubin 1.0 mg/dL (0.2-1.0) Aspartate Amino Transf (AST/SGOT) 14 U/L (15-37) Alanine Aminotransferase (ALT/SGPT) 21 U/L (16-63) Alkaline Phosphatase 56 U/L (46-116) Total Protein 6.3 g/dL (6.4-8.2) Albumin 3.0 g/dL (3.4-5.0) Albumin/Globulin Ratio 0.9 (1.0-1.7) Test 04/29/20 08:10 O2 Saturation 95 % (92-99) Arterial Blood pH 7.45 (7.35-7.45) Arterial Blood pCO2 at Patient Temp 35 mmHg (35-46) Arterial Blood pO2 at Patient Temp 79 mmHg (65-108) Arterial Blood HCO3 23 mmol/L (21-28) Arterial Blood Base Excess 0 mmol/L (-3-3) FiO2 100% bipap Laboratory Tests Test 04/28/20 10:15 04/28/20 12:06 04/28/20 17:43 04/28/20 23:36 Urine Collection Type Unknown Urine Color Yellow Urine Clarity Cloudy Urine pH 5.0 (<5.0-8.0) Urine Specific [place] 1.025 (1.000-1.030) Urine Protein >=300 mg/dL (NEG-TRACE) Urine Glucose (UA) >=1000 mg/dL (NEG) Urine Ketones (Stick) 15 mg/dL (NEG) Urine Blood Trace (NEG) Urine Nitrite Negative (NEG) Urine Bilirubin Negative (NEG) Urine Urobilinogen Dipstick 0.2 mg/dL (0.2 mg/dL) Urine Leukocyte Esterase Trace (NEG) Urine RBC 0 /HPF (0-2) Urine WBC 5-10 /HPF (0-4) Urine Squamous Epithelial Cells Mod /LPF Urine Transitional Epithelial Cells Few /LPF Urine Amorphous Sediment Present /HPF Urine Bacteria 0 /HPF (0-FEW) Urine Granular Casts Moderate /HPF Urine Mucus Mod /LPF Glucose (Fingerstick) 185 mg/dL (70-99) 164 mg/dL (70-99) 195 mg/dL (70-99) Test 04/29/20 03:20 04/29/20 05:37 04/29/20 08:10 White Blood Count 20.5 x10^3/uL (4.0-11.0) Red Blood Count 3.77 x10^6/uL (4.30-5.70) Hemoglobin 11.3 g/dL (13.0-17.5) Hematocrit 34.3 % (39.0-53.0) Mean Corpuscular Volume 91 fL (79-100) Mean Corpuscular Hemoglobin 30 pg (25-35) Mean Corpuscular Hemoglobin Concent 33 g/dL (31-37) Red Cell Distribution Width 15.9 % (11.5-14.5) Platelet Count 226 x10^3/uL (140-400) Neutrophils (%) (Auto) 86 % (31-73) Lymphocytes (%) (Auto) 7 % (24-48) Monocytes (%) (Auto) 7 % (0-9) Eosinophils (%) (Auto) 0 % (0-3) Basophils (%) (Auto) 0 % (0-3) Neutrophils # (Auto) 17.5 x10^3/uL (1.8-7.7) Lymphocytes # (Auto) 1.4 x10^3/uL (1.0-4.8) Monocytes # (Auto) 1.5 x10^3/uL (0.0-1.1) Eosinophils # (Auto) 0.0 x10^3/uL (0.0-0.7) Basophils # (Auto) 0.0 x10^3/uL (0.0-0.2) Sodium Level 141 mmol/L (136-145) Potassium Level 3.7 mmol/L (3.5-5.1) Chloride Level 98 mmol/L (98-107) Carbon Dioxide Level 24 mmol/L (21-32) Anion Gap 19 (6-14) Blood Urea Nitrogen 37 mg/dL (8-26) Creatinine 2.7 mg/dL (0.7-1.3) Estimated GFR (Cockcroft-Gault) 23.2 BUN/Creatinine Ratio 14 (6-20) Glucose Level 228 mg/dL (70-99) Calcium Level 8.7 mg/dL (8.5-10.1) Total Bilirubin 1.0 mg/dL (0.2-1.0) Aspartate Amino Transf (AST/SGOT) 14 U/L (15-37) Alanine Aminotransferase (ALT/SGPT) 21 U/L (16-63) Alkaline Phosphatase 56 U/L (46-116) Total Protein 6.3 g/dL (6.4-8.2) Albumin 3.0 g/dL (3.4-5.0) Albumin/Globulin Ratio 0.9 (1.0-1.7) Glucose (Fingerstick) 248 mg/dL (70-99) O2 Saturation 95 % (92-99) Arterial Blood pH 7.45 (7.35-7.45) Arterial Blood pCO2 at Patient Temp 35 mmHg (35-46) Arterial Blood pO2 at Patient Temp 79 mmHg (65-108) Arterial Blood HCO3 23 mmol/L (21-28) Arterial Blood Base Excess 0 mmol/L (-3-3) FiO2 100% bipap Medications Current Medications Ondansetron HCl (Zofran) 4 mg STK-MED ONCE .ROUTE ; Start 04/27/20 at 03:24; Stop 04/27/20 at 03:24; Status DC Ondansetron HCl (Zofran) 4 mg PRN Q4HRS PRN IV NAUSEA/VOMITING Last administered on 04/27/20at 10:02; Start 04/27/20 at 08:15 Docusate Sodium (Colace) 100 mg PRN BID PRN PO HARD STOOLS; Start 04/27/20 at 08:15; Status Cancel Albuterol Sulfate (Ventolin Neb Soln) 2.5 mg PRN Q4HRS PRN NEB SHORTNESS OF BREATH; Start 04/27/20 at 08:15; Status Cancel Guaifenesin (Robitussin) 200 mg PRN Q4HRS PRN PO COUGH; Start 04/27/20 at 08:15 Lorazepam (Ativan) 0.5 mg PRN Q4HRS PRN PO ANXIETY / AGITATION Last administere d on 04/29/20at 04:47; Start 04/27/20 at 08:15 Enoxaparin Sodium (Lovenox 40mg Syringe) 40 mg Q12H SQ ; Start 04/27/20 at 09:00; Status UNV Dextrose (Dextrose 50%-Water Syringe) 12.5 gm PRN Q15MIN PRN IV SEE COMMENTS; Start 04/27/20 at 08:15 Acetaminophen (Tylenol) 650 mg PRN Q4HRS PRN PO TEMP OVER 100.4F OR MILD PAIN Last administered on 04/28/20 23:40; Start 04/27/20 at 08:15 Albuterol Sulfate (Ventolin Neb Soln) 2.5 mg PRN Q4HRS PRN NEB SHORTNESS OF BREATH Last administered on 04/28/20at 17:39; Start 04/27/20 at 08:15 Apixaban (Eliquis) 2.5 mg BID PO ; Start 04/27/20 at 09:00; Stop 04/27/20 at 14:41; Status DC Aspirin (Aspirin Chewable) 81 mg DAILYWBKFT PO Last administered on 04/29/20at 08:10; Start 04/27/20 at 08:30 Atorvastatin Calcium (Lipitor) 40 mg QHS PO Last administered on 04/28/20at 20:50; Start 04/27/20 at 21:00 Diltiazem HCl (Cardizem 24hr Cd) 300 mg DAILY PO ; Start 04/27/20 at 09:00; Stop 04/28/20 at 10:25; Status DC Docusate Sodium (Colace) 100 mg PRN BID PRN PO HARD STOOLS; Start 04/27/20 at 08:15 Lactobacillus Rhamnosus (Culturelle) 1 cap BID PO Last administered on 04/29/20 08:10; Start 04/27/20 at 09:00 Polyethylene Glycol (miraLAX PACKET) 17 gm DAILY PO Last administered on 04/29/20at 08:11; Start 04/27/20 at 09:00 Potassium Chloride (Klor-Con) 10 meq DAILY PO ; Start 04/27/20 at 09:00 Senna/Docusate Sodium (Senna Plus) 1 tab PRN BID PRN PO CONSTIPATION 1ST CHOICE; Start 04/27/20 at 08:15 Tamsulosin HCl (Flomax) 0.4 mg DAILY PO Last administered on 04/29/20at 08:10; Start 04/27/20 at 09:00 Torsemide (Demadex) 20 mg BID92 PO Last administered on 04/29/20at 08:10; Start 04/27/20 at 09:00 Metoprolol Succinate (Toprol Xl) 50 mg DAILY PO ; Start 04/27/20 at 09:00; Stop 04/28/20 at 10:26; Status DC Pantoprazole Sodium (Protonix) 40 mg DAILYAC PO ; Start 04/27/20 at 08:30; Stop 04/27/20 at 14:47; Status DC Piperacillin Sod/ Tazobactam Sod 3.375 gm/Sodium Chloride 50 ml @ 100 mls/hr Q6HRS IV ; Start 04/27/20 at 12:00; Status UNV Info (Anti-Coagulation Monitoring By Pharmacy) 1 each PRN DAILY PRN MC SEE COMMENTS; Start 04/27/20 at 08:45; Stop 04/27/20 at 14:41; Status DC Vancomycin HCl (Vanco Per Pharmacy) 1 each PRN DAILY PRN MC SEE COMMENTS Last administered on 04/27/20at 14:31; Start 04/27/20 at 11:00 Cefepime HCl (Maxipime) 1 gm Q12HR IVP Last administered on 04/29/20at 08:11; Start 04/27/20 at 12:00 Vancomycin HCl 2 gm/Sodium Chloride 500 ml @ 250 mls/hr 1X ONCE IV Last administered on 04/27/20at 11:45; Start 04/27/20 at 12:00; Stop 04/27/20 at 13:59; Status DC Sodium Bicarbonate (Sodium Bicarb Adult 8.4% Syr) 50 meq STK-MED ONCE .ROUTE ; Start 04/27/20 at 11:25; Stop 04/27/20 at 11:26; Status DC Sterile Water (WATER for RESP) 1,000 ml CONT PRN INH VIA VAPOTHERM DEVICE Last administered on 04/28/20at 08:40; Start 04/27/20 at 11:45 Sodium Bicarbonate (Sodium Bicarb Adult 8.4% Syr) 50 meq 1X ONCE IV Last administered on 04/27/20at 11:41; Start 04/27/20 at 11:45; Stop 04/27/20 at 11:46; Status DC Labetalol HCl (Normodyne Iv Push) 20 mg PRN Q2HR PRN IVP HYPERTENSION Last administered on 04/27/20at 14:29; Start 04/27/20 at 14:00 Acetaminophen (Tylenol Supp) 325 mg PRN Q6HRS PRN CA MILD PAIN / TEMP > 100.3'F Last administered on 04/27/20at 14:29; Start 04/27/20 at 14:30; Stop 04/27/20 at 16:47; Status DC Vancomycin HCl 750 mg/Sodium Chloride 250 ml @ 250 mls/hr Q24H IV ; Start 04/28/20 at 12:00; Status Cancel Vancomycin HCl (Vancomycin Trough Level) 1 each 1X ONCE MC ; Start 04/29/20 at 11:30; Stop 04/29/20 at 11:31 Enoxaparin Sodium (Lovenox 40mg Syringe) 40 mg Q12HR SQ Last administered on 04/28/20at 08:34; Start 04/27/20 at 21:00; Stop 04/28/20 at 09:39; Status DC Vancomycin HCl 2 gm/Sodium Chloride 500 ml @ 250 mls/hr Q24H IV Last administered on 04/28/20at 11:58; Start 04/28/20 at 12:00 Pantoprazole Sodium (PROTONIX VIAL for IV PUSH) 40 mg DAILY IVP Last administered on 04/29/20at 08:10; Start 04/28/20 at 09:00 Acetaminophen (Tylenol Supp) 650 mg PRN Q6HRS PRN CA MILD PAIN / TEMP > 100.3'F Last administered on 04/28/20at 00:36; Start 04/27/20 at 16:45 Diltiazem HCl (Cardizem) 60 mg Q6H PO Last administered on 04/29/20at 04:47; Start 04/28/20 at 11:00 Metoprolol Tartrate (Lopressor) 25 mg BID PO Last administered on 04/29/20at 08:10; Start 04/28/20 at 11:00 Insulin Human Lispro (HumaLOG) 0-7 UNITS Q6HRS SQ Last administered on 04/29/20at 05:42; Start 04/28/20 at 12:00 Dextrose (Dextrose 50%-Water Syringe) 12.5 gm PRN Q15MIN PRN IV SEE COMMENTS; Start 04/28/20 at 10:45 Apixaban (Eliquis) 5 mg BID PO Last administered on 04/29/20at 08:10; Start 04/28/20 at 11:00 Furosemide (Lasix) 40 mg 1X ONCE IVP Last administered on 04/28/20at 17:37; Start 04/28/20 at 17:30; Stop 04/28/20 at 17:35; Status DC Lorazepam (Ativan Inj) 2 mg STK-MED ONCE .ROUTE ; Start 04/28/20 at 17:45; Stop 04/28/20 at 17:45; Status DC Lorazepam (Ativan Inj) 2 mg 1X ONCE IVP Last administered on 04/28/20at 17:56; Start 04/28/20 at 18:00; Stop 04/28/20 at 18:01; Status DC Levetiracetam 500 mg/Dextrose 105 ml @ 420 mls/hr Q12HR IV Last administered on 04/29/20at 08:11; Start 04/28/20 at 21:00 Morphine Sulfate (Morphine Sulfate) 3 mg PRN Q4HRS PRN IV PAIN/AIR HUNGER Last administered on 04/29/20at 02:53; Start 04/28/20 at 22:00 Active Scripts Active Culturelle (Lactobacillus Rhamnosus Gg) 1 Each Cap.sprink 1 Cap PO BID 30 Days Polyethylene Glycol 3350 17 Gm Powd.pack 17 Gm PO DAILY 30 Days Dok (Docusate Sodium) 100 Mg Capsule 100 Mg PO PRN BID PRN 14 Days Torsemide 20 Mg Tablet 20 Mg PO BID92 30 Days Tylenol (Acetaminophen) 325 Mg Tablet 650 Mg PO PRN Q4HRS PRN 30 Days Aspirin 81 Mg Tab.chew 81 Mg PO DAILYWBKFT 30 Days Eliquis (Apixaban) 2.5 Mg Tablet 2.5 Mg PO BID 30 Days Proair Hfa (Albuterol Sulfate) 8.5 Gm Hfa.aer.ad 2.5 Mg NEB PRN Q4HRS PRN 30 Days Potassium Chloride (Potassium Chloride) 10 Meq Tab.sr.24h 10 Meq PO DAILY 30 Days Senna-Time S Tablet (Sennosides/Docusate Sodium) 1 Each Tablet 1 Tab PO PRN BID PRN 30 Days Flomax (Tamsulosin Hcl) 0.4 Mg Cap.er.24h 0.4 Mg PO DAILY 30 Days Cardizem Cd (Diltiazem Hcl) 300 Mg Cap.er.24h 300 Mg PO DAILY 30 Days Reported Toprol Xl (Metoprolol Succinate) 50 Mg Tab.er.24h 50 Mg PO DAILY Glipizide 10 Mg Tablet 10 Mg PO DAILY Omeprazole 40 Mg Capsule.dr 40 Mg PO DAILY Atorvastatin Calcium 40 Mg Tablet 40 Mg PO DAILY Vitals/I & O Vital Sign - Last 24 Hours 04/28/20 04/28/20 04/28/20 04/28/20 09:00 10:00 10:29 10:29 Temp 98.9 98.9 Pulse 112 106 108 108 Resp 26 34 B/P (MAP) 161/81 (107) 162/81 (108) 162/81 162/81 Pulse Ox 95 94 O2 Delivery Vapotherm Vapotherm O2 Flow Rate 35.0 35.0 04/28/20 04/28/20 04/28/20 04/28/20 11:00 11:58 12:00 12:00 Temp 99.8 99.8 Pulse 83 90 Resp 15 32 B/P (MAP) 153/68 (96) 151/83 (105) Pulse Ox 91 91 94 O2 Delivery Vapotherm Vepotherm Nasal Cannula Vapotherm O2 Flow Rate 35.0 35.0 35.0 35.0 04/28/20 04/28/20 04/28/20 04/28/20 13:00 14:00 15:00 16:00 Pulse 92 107 106 Resp 32 32 35 B/P (MAP) 153/76 (101) 152/81 (104) 150/75 (100) Pulse Ox 97 97 90 O2 Delivery Vapotherm Vapotherm Vapotherm Bi-pap O2 Flow Rate 35.0 35.0 35.0 04/28/20 04/28/20 04/28/20 04/28/20 16:00 16:50 17:00 17:30 Temp 99.4 99.4 Pulse 103 114 115 Resp 28 41 B/P (MAP) 153/79 (103) 183/93 (123) 186/86 Pulse Ox 98 98 68 O2 Delivery BiPAP/CPAP BiPAP/CPAP BiPAP/CPAP 04/28/20 04/28/20 04/28/20 04/28/20 18:00 19:00 19:29 20:00 Pulse 120 120 Resp 20 20 B/P (MAP) 175/86 (115) 116/68 (84) Pulse Ox 97 95 97 O2 Delivery BiPAP/CPAP BiPAP/CPAP BiPAP/CPAP Bi-pap 04/28/20 04/28/20 04/28/20 04/28/20 20:00 20:51 21:00 22:00 Temp 100.4 100.4 Pulse 126 126 128 117 Resp 30 20 31 B/P (MAP) 165/85 (111) 165/85 154/109 (124) 166/93 (117) Pulse Ox 86 95 98 O2 Delivery BiPAP/CPAP BiPAP/CPAP BiPAP/CPAP 04/28/20 04/28/20 04/28/20 04/28/20 22:52 22:54 23:00 23:34 Temp 101.6 101.6 Pulse 120 124 Resp 27 27 29 B/P (MAP) 162/84 152/89 (110) Pulse Ox 100 99 100 O2 Delivery BiPAP/CPAP BiPAP/CPAP BiPAP/CPAP 04/28/20 04/29/20 04/29/20 04/29/20 23:45 00:01 00:15 01:00 Pulse 125 122 Resp 32 32 B/P (MAP) 168/97 (120) 142/99 (113) Pulse Ox 98 98 93 O2 Delivery Bi-pap BiPAP/CPAP BiPAP/CPAP BiPAP/CPAP 04/29/20 04/29/20 04/29/20 04/29/20 02:00 02:00 02:53 03:00 Temp 99.5 99.5 Pulse 130 130 Resp 32 22 32 B/P (MAP) 151/90 (110) 158/93 (114) Pulse Ox 96 92 92 90 O2 Delivery BiPAP/CPAP BiPAP/CPAP BiPAP/CPAP BiPAP/CPAP 04/29/20 04/29/20 04/29/20 04/29/20 03:24 03:45 04:00 04:29 Temp 98.9 98.9 Pulse 106 Resp 33 20 B/P (MAP) 148/75 (99) Pulse Ox 92 94 98 O2 Delivery BiPAP/CPAP Bi-pap BiPAP/CPAP BiPAP/CPAP 04/29/20 04/29/20 04/29/20 04/29/20 04:47 05:00 05:50 06:00 Pulse 117 109 106 Resp 20 18 B/P (MAP) 140/64 127/70 (89) 109/65 (80) Pulse Ox 97 95 94 O2 Delivery BiPAP/CPAP BiPAP/CPAP BiPAP/CPAP 04/29/20 04/29/20 04/29/20 04/29/20 07:00 07:34 08:00 08:10 Temp 100.0 100.0 Pulse 109 121 120 Resp 19 19 B/P (MAP) 108/66 (80) 114/73 (87) 114/73 Pulse Ox 98 97 99 O2 Delivery BiPAP/CPAP BiPAP/CPAP BiPAP/CPAP Intake and Output 04/28/20 04/28/20 04/29/20 15:00 23:00 07:00 Intake Total 500 ml 105 ml Output Total 604 ml 1320 ml 725 ml Balance -104 ml -1215 ml -725 ml Justicifation of Admission Dx: Justifications for Admission: Justification of Admission Dx: Yes Respiratory Failure: Severe Resp Distress GUMARO MONET MD Apr 29, 2020 08:57
[2020-04-29] MEDS ORDERED: IV NORMAL SALINE 1000ML BAG 1,000 ML IV ONE (09:30)
--- NOTE | 2020-04-29 11:15 | PDOC ---
PULMONARY PROGRESS NOTES Subjective Pt. remains non responsive, nursing reports siizure yesterday on BIPAP 100%FIO2 Vitals Vital Signs Date Time Temp Pulse Resp B/P (MAP) Pulse Ox O2 Delivery O2 Flow Rate FiO2 04/29/20 11:00 99.9 137 27 131/78 (95) 97 BiPAP/CPAP 99.9 04/28/20 15:00 35.0 Comments unable to report ROS 2/2 lethargy General: Lethargic Lungs: Other (few rhonchi) Cardiovascular: S1, S2 Abdomen: Soft Extremities: Other (1+edema) Labs Laboratory Tests Test 04/27/20 11:17 04/28/20 00:15 04/28/20 06:09 04/28/20 07:20 O2 Saturation 84 % (92-99) Arterial Blood pH 7.32 (7.35-7.45) Arterial Blood pH (Temp corrected) 7.30 Arterial Blood pCO2 at Patient Temp 39 mmHg (35-46) Arterial Blood pCO2 (Temp correct) 42 mmHg Arterial Blood pO2 at Patient Temp 61 mmHg (65-108) Arterial Blood pO2 (Temp corrected) 67 mmHg Arterial Blood HCO3 20 mmol/L (21-28) Arterial Blood Base Excess -6 mmol/L (-3-3) FiO2 40 Glucose (Fingerstick) 262 mg/dL (70-99) 205 mg/dL (70-99) Creatinine 1.8 mg/dL (0.7-1.3) Estimated GFR (Cockcroft-Gault) 37.0 Test 04/28/20 08:00 04/28/20 10:15 04/28/20 12:06 04/28/20 17:43 O2 Saturation 94 % (92-99) Arterial Blood pH 7.44 (7.35-7.45) Arterial Blood pCO2 at Patient Temp 40 mmHg (35-46) Arterial Blood pO2 at Patient Temp 75 mmHg (65-108) Arterial Blood HCO3 26 mmol/L (21-28) Arterial Blood Base Excess 2 mmol/L (-3-3) FiO2 80 Urine Collection Type Unknown Urine Color Yellow Urine Clarity Cloudy Urine pH 5.0 (<5.0-8.0) Urine Specific Malone 1.025 (1.000-1.030) Urine Protein >=300 mg/dL (NEG-TRACE) Urine Glucose (UA) >=1000 mg/dL (NEG) Urine Ketones (Stick) 15 mg/dL (NEG) Urine Blood Trace (NEG) Urine Nitrite Negative (NEG) Urine Bilirubin Negative (NEG) Urine Urobilinogen Dipstick 0.2 mg/dL (0.2 mg/dL) Urine Leukocyte Esterase Trace (NEG) Urine RBC 0 /HPF (0-2) Urine WBC 5-10 /HPF (0-4) Urine Squamous Epithelial Cells Mod /LPF Urine Transitional Epithelial Cells Few /LPF Urine Amorphous Sediment Present /HPF Urine Bacteria 0 /HPF (0-FEW) Urine Granular Casts Moderate /HPF Urine Mucus Mod /LPF Glucose (Fingerstick) 185 mg/dL (70-99) 164 mg/dL (70-99) Test 04/28/20 23:36 04/29/20 03:20 04/29/20 05:37 04/29/20 08:10 Glucose (Fingerstick) 195 mg/dL (70-99) 248 mg/dL (70-99) White Blood Count 20.5 x10^3/uL (4.0-11.0) Red Blood Count 3.77 x10^6/uL (4.30-5.70) Hemoglobin 11.3 g/dL (13.0-17.5) Hematocrit 34.3 % (39.0-53.0) Mean Corpuscular Volume 91 fL (79-100) Mean Corpuscular Hemoglobin 30 pg (25-35) Mean Corpuscular Hemoglobin Concent 33 g/dL (31-37) Red Cell Distribution Width 15.9 % (11.5-14.5) Platelet Count 226 x10^3/uL (140-400) Neutrophils (%) (Auto) 86 % (31-73) Lymphocytes (%) (Auto) 7 % (24-48) Monocytes (%) (Auto) 7 % (0-9) Eosinophils (%) (Auto) 0 % (0-3) Basophils (%) (Auto) 0 % (0-3) Neutrophils # (Auto) 17.5 x10^3/uL (1.8-7.7) Lymphocytes # (Auto) 1.4 x10^3/uL (1.0-4.8) Monocytes # (Auto) 1.5 x10^3/uL (0.0-1.1) Eosinophils # (Auto) 0.0 x10^3/uL (0.0-0.7) Basophils # (Auto) 0.0 x10^3/uL (0.0-0.2) Sodium Level 141 mmol/L (136-145) Potassium Level 3.7 mmol/L (3.5-5.1) Chloride Level 98 mmol/L (98-107) Carbon Dioxide Level 24 mmol/L (21-32) Anion Gap 19 (6-14) Blood Urea Nitrogen 37 mg/dL (8-26) Creatinine 2.7 mg/dL (0.7-1.3) Estimated GFR (Cockcroft-Gault) 23.2 BUN/Creatinine Ratio 14 (6-20) Glucose Level 228 mg/dL (70-99) Calcium Level 8.7 mg/dL (8.5-10.1) Total Bilirubin 1.0 mg/dL (0.2-1.0) Aspartate Amino Transf (AST/SGOT) 14 U/L (15-37) Alanine Aminotransferase (ALT/SGPT) 21 U/L (16-63) Alkaline Phosphatase 56 U/L (46-116) Total Protein 6.3 g/dL (6.4-8.2) Albumin 3.0 g/dL (3.4-5.0) Albumin/Globulin Ratio 0.9 (1.0-1.7) O2 Saturation 95 % (92-99) Arterial Blood pH 7.45 (7.35-7.45) Arterial Blood pCO2 at Patient Temp 35 mmHg (35-46) Arterial Blood pO2 at Patient Temp 79 mmHg (65-108) Arterial Blood HCO3 23 mmol/L (21-28) Arterial Blood Base Excess 0 mmol/L (-3-3) FiO2 100% bipap Laboratory Tests Test 04/28/20 12:06 04/28/20 17:43 04/28/20 23:36 04/29/20 03:20 Glucose (Fingerstick) 185 mg/dL (70-99) 164 mg/dL (70-99) 195 mg/dL (70-99) White Blood Count 20.5 x10^3/uL (4.0-11.0) Red Blood Count 3.77 x10^6/uL (4.30-5.70) Hemoglobin 11.3 g/dL (13.0-17.5) Hematocrit 34.3 % (39.0-53.0) Mean Corpuscular Volume 91 fL (79-100) Mean Corpuscular Hemoglobin 30 pg (25-35) Mean Corpuscular Hemoglobin Concent 33 g/dL (31-37) Red Cell Distribution Width 15.9 % (11.5-14.5) Platelet Count 226 x10^3/uL (140-400) Neutrophils (%) (Auto) 86 % (31-73) Lymphocytes (%) (Auto) 7 % (24-48) Monocytes (%) (Auto) 7 % (0-9) Eosinophils (%) (Auto) 0 % (0-3) Basophils (%) (Auto) 0 % (0-3) Neutrophils # (Auto) 17.5 x10^3/uL (1.8-7.7) Lymphocytes # (Auto) 1.4 x10^3/uL (1.0-4.8) Monocytes # (Auto) 1.5 x10^3/uL (0.0-1.1) Eosinophils # (Auto) 0.0 x10^3/uL (0.0-0.7) Basophils # (Auto) 0.0 x10^3/uL (0.0-0.2) Sodium Level 141 mmol/L (136-145) Potassium Level 3.7 mmol/L (3.5-5.1) Chloride Level 98 mmol/L (98-107) Carbon Dioxide Level 24 mmol/L (21-32) Anion Gap 19 (6-14) Blood Urea Nitrogen 37 mg/dL (8-26) Creatinine 2.7 mg/dL (0.7-1.3) Estimated GFR (Cockcroft-Gault) 23.2 BUN/Creatinine Ratio 14 (6-20) Glucose Level 228 mg/dL (70-99) Calcium Level 8.7 mg/dL (8.5-10.1) Total Bilirubin 1.0 mg/dL (0.2-1.0) Aspartate Amino Transf (AST/SGOT) 14 U/L (15-37) Alanine Aminotransferase (ALT/SGPT) 21 U/L (16-63) Alkaline Phosphatase 56 U/L (46-116) Total Protein 6.3 g/dL (6.4-8.2) Albumin 3.0 g/dL (3.4-5.0) Albumin/Globulin Ratio 0.9 (1.0-1.7) Test 04/29/20 05:37 04/29/20 08:10 Glucose (Fingerstick) 248 mg/dL (70-99) O2 Saturation 95 % (92-99) Arterial Blood pH 7.45 (7.35-7.45) Arterial Blood pCO2 at Patient Temp 35 mmHg (35-46) Arterial Blood pO2 at Patient Temp 79 mmHg (65-108) Arterial Blood HCO3 23 mmol/L (21-28) Arterial Blood Base Excess 0 mmol/L (-3-3) FiO2 100% bipap Medications Active Scripts Medications Dose Route/Sig Max Daily Dose Days Date Category Culturelle (Lactobacillus Rhamnosus Gg) 1 Each Cap.sprink 1 Cap PO BID 30 01/17/20 Rx Polyethylene Glycol 3350 17 Gm Powd.pack 17 Gm PO DAILY 30 01/17/20 Rx Dok (Docusate Sodium) 100 Mg Capsule 100 Mg PO PRN BID PRN 14 01/17/20 Rx Torsemide 20 Mg Tablet 20 Mg PO BID92 30 01/17/20 Rx Tylenol (Acetaminophen) 325 Mg Tablet 650 Mg PO PRN Q4HRS PRN 30 01/17/20 Rx Aspirin 81 Mg Tab.chew 81 Mg PO DAILYWBKFT 30 01/17/20 Rx Eliquis (Apixaban) 2.5 Mg Tablet 2.5 Mg PO BID 30 01/17/20 Rx Proair Hfa (Albuterol Sulfate) 8.5 Gm Hfa.aer.ad 2.5 Mg NEB PRN Q4HRS PRN 30 01/17/20 Rx Potassium Chloride (Potassium Chloride) 10 Meq Tab.sr.24h 10 Meq PO DAILY 30 12/10/19 Rx Senna-Time S Tablet (Sennosides/Docusate Sodium) 1 Each Tablet 1 Tab PO PRN BID PRN 30 09/08/18 Rx Flomax (Tamsulosin Hcl) 0.4 Mg Cap.er.24h 0.4 Mg PO DAILY 30 09/08/18 Rx Cardizem Cd (Diltiazem Hcl) 300 Mg Cap.er.24h 300 Mg PO DAILY 30 09/08/18 Rx Toprol Xl (Metoprolol Succinate) 50 Mg Tab.er.24h 50 Mg PO DAILY 06/19/14 Reported Glipizide 10 Mg Tablet 10 Mg PO DAILY 06/19/14 Reported Omeprazole 40 Mg Capsule.dr 40 Mg PO DAILY 06/19/14 Reported Atorvastatin Calcium 40 Mg Tablet 40 Mg PO DAILY 06/19/14 Reported Comments CXR 04/27/2020 IMPRESSION: Diffuse interstitial opacities may be interstitial edema or pneumonia. CT head 04/27/2020 IMPRESSION: 1. No evidence for acute intracranial process. 2. White matter changes, likely chronic small vessel disease. 3. Generalized cerebral atrophy. Impression . IMPRESSION: 1. Acute hypoxic respiratory failure secondary to likely another ischemic stroke. The patient has prior history of cerebrovascular accident. 2. Encephalopathy, likely related to cerebrovascular accident and sepsis. 3. Highly suspected aspiration pneumonia. The patient has a fever of 101 and had emesis x 2 and infiltrates seen on the chest x-ray. 4. The patient has prior history of lung surgery for removal of metal soda cap from his right upper lobe. 5. Leukocytosis secondary to aspiration pneumonia. 6. Low-suspicion for COVID-19. Test neg 7. Acute kidney injury versus chronic kidney disease. 8. seizures Plan . RECOMMENDATIONS: Cont. current oxygen support with BIPAP 100%FIO2 . ABG reviewed Follow CXR IN AM Covid-19 --Neg Cont. abx for aspiration PNA / check all cultures Follow Neurology recommendations-- repeat CT head monitor for seizures Discussed with RN and RT DVT/GI PPX: lovenox/protonix Critical care time 30 minutes including review of labs, chest x-rays Pt. is DNR KAYE BLEDSOE MD Apr 29, 2020 11:15
[2020-04-29] MEDS: VANCOMYCIN PER PHARMACY MC PRN (12:07)
--- NOTE | 2020-04-29 12:12 | NUR ---
Pharmacy Vancomycin Dosing Note S:Consulted to monitor and dose vancomycin started 04/27/20. O:LISSA TIRADO is a 74 year old M with Empiric . Height: 5 feet, 8 inches Weight: 104.0 kg Taft Body Weight: 68.40 Adjusted Body Weight: 82.64 Dosing Weight: Actual Other Antibiotics: CEFEPIME 1G IV Q12HRS LABS: Last BUN: 23 Last Creatinine: 2.7 Creatinine Clearance: 27 mL/min Last WBC: 20.5 Last Procalcitonin: - Tmax (past 24 hours): 101.3 Microbiology: COVID-19 PENDING I/O: -/1000 Drug Levels: Last Trough level: 22 on 04/29/20 at 1130 Last dose given 04/27/20 at 1145 Vancomycin Dosing: Loading Dose: 2000 mg x1 Dosing Weight: Actual Target Trough: 15-20 A: Based on: LEVEL P: 1. Change Vancomycin 1500 mg IV q24h 2. Follow up Trough level on 05/01/20 at 1430 3. Pharmacy will continue to monitor, follow and adjust therapy as needed. LUPE LEMUS RPH, 04/29/20 1212
--- NOTE | 2020-04-29 12:36 | RAD ---
CT HEAD WO CONTRAST History: Reason: follow up CVA-- PUI, / Spl. Instructions: / History: Comparison: April 27, 2020 CT. MRI November 28, 2019 Technique: Noncontrast CT imaging was performed of the head. Exposure: One or more of the following individualized dose reduction techniques were utilized for this examination: 1. Automated exposure control 2. Adjustment of the mA and/or kV according to patient size 3. Use of iterative reconstruction technique. Findings: No intracranial hemorrhage. No mass effect. No hydrocephalus. Chronic left bucio radiata/lentiform nucleus infarct. Mild additional foci of decreased attenuation within the hemispheric white matter, most often due to chronic microvascular ischemia, unchanged. Mild brain parenchymal volume loss. Imaged orbits are unremarkable. Imaged paranasal sinuses and mastoid air cells are clear. No acute calvarial fracture. Impression: 1. No acute intracranial abnormality. If concern for acute ischemia, MRI can better evaluate. 2. Chronic left bucio radiata/lentiform nucleus infarct. Electronically signed by: Caleb Alejandro DO (04/29/2020 12:33 PM) [id number]
--- NOTE | 2020-04-29 13:07 | EEG ---
DATE OF SERVICE: 04/29/2020 ELECTROENCEPHALOGRAM EEG NUMBER: [id number] OBJECTIVE: The patient is a 74-year-old male with altered mental status and a new seizure yesterday. DESCRIPTION: This is a digital study. Electrodes are placed according to the international 10-20 system. Bipolar and referential montages are available. Activation procedures typically include hyperventilation and intermittent photic stimulation. INTERPRETATION: The record consists of 5-6 Hz, 20-50 microvolt activity with little reactivity. There are bilateral periodic lateralizing epileptiform discharges much more predominant on the right side and independent on the left side. The left sided discharges are not as continuous. Hyperventilation is not performed. Intermittent photic stimulation is noncontributory. IMPRESSION: This electroencephalogram with the patient in an obtunded state is abnormal. There is epileptiform activity bilaterally. This may be seen in structural lesions such as infarcts, but also can be due to profound metabolic disturbance. Thank you for letting us help with the patient's care. GUMARO MONET MD DR: ASIA/nestor JOB#: [id number] / [id number]
--- NOTE | 2020-04-29 13:10 | NUR ---
This RN spoke with Dr. Abreu regarding results of EEG and CT Head. See reports. Dr. Abreu spoke with Milly (daughter) and updated her on condition. Family will call the unit back later tonight with what they wish for plan of care going forward.
--- NOTE | 2020-04-29 13:20 | RAD ---
EXAM: Renal sonogram. HISTORY: Renal insufficiency. TECHNIQUE: Sonographic imaging of the kidneys and bladder was performed. COMPARISON: None. FINDINGS: The kidneys are normal in size. No solid or cystic renal lesion is seen. There is no hydronephrosis. There is a Jiang catheter within a decompressed urinary bladder. IMPRESSION: Sonographically unremarkable kidneys. Electronically signed by: Jewels Cobos MD (04/29/2020 1:17 PM) [id number]
--- NOTE | 2020-04-29 13:20 | NUR ---
SS following for discharge planning. SS reviewed pt chart and discussed with pt RN. Pt is from home with spouse and is currently on BIPAP. Pt on IV Vancomycin and Cefepime. Pt COVID19 negative. Pt has home oxygen at home through [facility] and was previously on services with [facility], ; fax [phone]. SS will continue to follow for discharge planning.
[2020-04-29] MEDS: ONDANSETRON PF 4 MG/2 ML VIAL. IV PRN (14:37)
[2020-04-29] MEDS ORDERED: VANCOMYCIN 1.5 GM in IV NORMAL SALINE 500ML BAG 500 ML IV SCH (15:00)
--- NOTE | 2020-04-29 15:01 | NUR ---
At approximately 1440, pt began desating on bipap 100%. This RN went into room and pt is turned to the right side with green bile in bipap mask and all over gown. Pt suctioned out and projectile vomited again. NG tube hooked back up to LIS (clamped for medication administration). Thin green bile suctioned out. Dr. Hinds paged and notified. Orders received to switch pt over to Vapotherm 40L/100% due to pt vomiting. Milly (daughter) notified and called . and daughter are on the way to hospital now to see patient.
--- NOTE | 2020-04-29 16:11 | NUR ---
and Daughter at bedside, updated on patient condition. and daughter made the decision to make patient comfort measures only. Dr. Hinds and Dr. Abreu updated and notified of family's decision.
--- NOTE | 2020-04-29 16:49 | NUR ---
Daughter informed this RN that she does not want to take oxygen off until tomorrow afternoon when the rest of the family can see patient. Pt remains on Vapotherm 100%.
--- NOTE | 2020-04-29 17:00 | NUR ---
Pt will be left supine as he does not tolerate turns. Pt begans to desat when turned.
[2020-04-30] VITALS (11 sets, daily range): BP systolic 65–121; BP diastolic 43–71
--- NOTE | 2020-04-30 | NUR ---
-At 2200 patient saturation began to drop into 70s, HR up to 140s. When this RN went into room, patient was having continuous facial twitches. Ativan IVP given as ordered. Patient's mouth also suctioned out. Patient saturation continued to drop going into the 50s. -This RN called - voicemail left for callback. Daughter Janeen then called with updated status. Janeen said her daughter Alee, was going to come up in the morning, wondering if Alee could come up earlier. marketing coordinator received permission from [employer] that Alee could come in anytime if she was able to and her name was added to security's list. This RN passed this info to Janeen who said she will reach out to her daughter. -Patient resting comfortably at this time, saturation steadily in 70s
[2020-04-30] MEDS ORDERED: STERILE WATER for RESP 1,000 ML BAG. INH PRN (04:30)
--- NOTE | 2020-04-30 06:26 | NUR ---
Daughter Janeen called for update, says that granddaughter Alee is on her way to see patient. Janeen has reached out to Franci (pts ). Plan is to withdraw care once granddaughter and make it up to room. This RN called [facility], was instructed to call back when patient passes, no referral number given at this time.
--- NOTE | 2020-04-30 07:40 | PDOC ---
PROGRESS NOTES Chief Complaint Chief Complaint A/P: Acute Encephalopathy - likely metabolic 2/2 cerebrovascular accident and toxic 2/2 sepsis. Acute hypoxic respiratory failure - likely 2/2 CVA and pneumonia Abnormal CXR - likely aspiration pneumonia Sepsis - febrile, tachy H/o lung surgery for removal of metal soda cap from his right upper lobe. Low-suspicion for COVID-19. He has been at home for the last 2 months except that he went a few days ago for his cutting of nail. Acute kidney injury versus chronic kidney disease - vasomotor nephropathy Chronic A. 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 He did not meet the criteria for TPA. Noted with fever of 101 and dyspneic and hypoxic. He was transferred to ICU after noted on med/tele more hypoxic and vomiting. ABG pH of 7.32, pCO2 of 39, a pO2 of 61 on nonrebreather mask. CXR with interstitial infiltrates, more on the right upper lobe suggesting aspiration. Head CT negative. 04/29: CR up to 2.7 from 1.8. UOP dropped. He did receive x1 IV lasix 40mg on 04/28 and his home dosing of torsemide. Not meaningfully interacting. some lue movement. Afebrile. BIPAP 26/10 100% FiO2 currently. Seizures noted and confirme d on EEG Vomiting on BIPAP yesterday, had to remove. Afebrile. UOP minimal. No meaningful responses.On vapotherm currently with O2 saturations 96%. Seizures discussed with family by neurology. Grand-daughter and bedside today have requested that he be placed on comfort care at 0900 when his daughter, Milly arrives. Vitals Vitals Vital Signs Date Time Temp Pulse Resp B/P (MAP) Pulse Ox O2 Delivery O2 Flow Rate FiO2 04/30/20 07:00 149 29 111/71 (84) 76 Vapotherm 40.0 04/30/20 04:00 98.3 98.3 Physical Exam Lungs: Other (few rhonchi) Abdomen: Normal bowel sounds Labs LABS Laboratory Tests Test 04/29/20 08:10 04/29/20 11:15 04/29/20 13:02 O2 Saturation 95 % (92-99) Arterial Blood pH 7.45 (7.35-7.45) Arterial Blood pCO2 at Patient Temp 35 mmHg (35-46) Arterial Blood pO2 at Patient Temp 79 mmHg (65-108) Arterial Blood HCO3 23 mmol/L (21-28) Arterial Blood Base Excess 0 mmol/L (-3-3) FiO2 100% bipap Vancomycin Level Trough 22.0 mcg/mL (10.0-20.0) Vancomycin Last Dose Date 04/28/20 Vancomycin Last Dose Time 1200 Glucose (Fingerstick) 248 mg/dL (70-99) Assessment and Plan Assessmemt and Plan Problems Medical Problems: (1) Altered mental status Status: Acute (2) CVA (cerebral vascular accident) Status: Acute Comment Review of Relevant I have reviewed the following items logan (where applicable) has been applied. Labs Laboratory Tests Test 04/28/20 08:00 04/28/20 10:15 04/28/20 12:06 04/28/20 17:43 O2 Saturation 94 % (92-99) Arterial Blood pH 7.44 (7.35-7.45) Arterial Blood pCO2 at Patient Temp 40 mmHg (35-46) Arterial Blood pO2 at Patient Temp 75 mmHg (65-108) Arterial Blood HCO3 26 mmol/L (21-28) Arterial Blood Base Excess 2 mmol/L (-3-3) FiO2 80 Urine Collection Type Unknown Urine Color Yellow Urine Clarity Cloudy Urine pH 5.0 (<5.0-8.0) Urine Specific [place] 1.025 (1.000-1.030) Urine Protein >=300 mg/dL (NEG-TRACE) Urine Glucose (UA) >=1000 mg/dL (NEG) Urine Ketones (Stick) 15 mg/dL (NEG) Urine Blood Trace (NEG) Urine Nitrite Negative (NEG) Urine Bilirubin Negative (NEG) Urine Urobilinogen Dipstick 0.2 mg/dL (0.2 mg/dL) Urine Leukocyte Esterase Trace (NEG) Urine RBC 0 /HPF (0-2) Urine WBC 5-10 /HPF (0-4) Urine Squamous Epithelial Cells Mod /LPF Urine Transitional Epithelial Cells Few /LPF Urine Amorphous Sediment Present /HPF Urine Bacteria 0 /HPF (0-FEW) Urine Granular Casts Moderate /HPF Urine Mucus Mod /LPF Glucose (Fingerstick) 185 mg/dL (70-99) 164 mg/dL (70-99) Test 04/28/20 23:36 04/29/20 03:20 04/29/20 05:37 04/29/20 08:10 Glucose (Fingerstick) 195 mg/dL (70-99) 248 mg/dL (70-99) White Blood Count 20.5 x10^3/uL (4.0-11.0) Red Blood Count 3.77 x10^6/uL (4.30-5.70) Hemoglobin 11.3 g/dL (13.0-17.5) Hematocrit 34.3 % (39.0-53.0) Mean Corpuscular Volume 91 fL (79-100) Mean Corpuscular Hemoglobin 30 pg (25-35) Mean Corpuscular Hemoglobin Concent 33 g/dL (31-37) Red Cell Distribution Width 15.9 % (11.5-14.5) Platelet Count 226 x10^3/uL (140-400) Neutrophils (%) (Auto) 86 % (31-73) Lymphocytes (%) (Auto) 7 % (24-48) Monocytes (%) (Auto) 7 % (0-9) Eosinophils (%) (Auto) 0 % (0-3) Basophils (%) (Auto) 0 % (0-3) Neutrophils # (Auto) 17.5 x10^3/uL (1.8-7.7) Lymphocytes # (Auto) 1.4 x10^3/uL (1.0-4.8) Monocytes # (Auto) 1.5 x10^3/uL (0.0-1.1) Eosinophils # (Auto) 0.0 x10^3/uL (0.0-0.7) Basophils # (Auto) 0.0 x10^3/uL (0.0-0.2) Sodium Level 141 mmol/L (136-145) Potassium Level 3.7 mmol/L (3.5-5.1) Chloride Level 98 mmol/L (98-107) Carbon Dioxide Level 24 mmol/L (21-32) Anion Gap 19 (6-14) Blood Urea Nitrogen 37 mg/dL (8-26) Creatinine 2.7 mg/dL (0.7-1.3) Estimated GFR (Cockcroft-Gault) 23.2 BUN/Creatinine Ratio 14 (6-20) Glucose Level 228 mg/dL (70-99) Calcium Level 8.7 mg/dL (8.5-10.1) Total Bilirubin 1.0 mg/dL (0.2-1.0) Aspartate Amino Transf (AST/SGOT) 14 U/L (15-37) Alanine Aminotransferase (ALT/SGPT) 21 U/L (16-63) Alkaline Phosphatase 56 U/L (46-116) Total Protein 6.3 g/dL (6.4-8.2) Albumin 3.0 g/dL (3.4-5.0) Albumin/Globulin Ratio 0.9 (1.0-1.7) O2 Saturation 95 % (92-99) Arterial Blood pH 7.45 (7.35-7.45) Arterial Blood pCO2 at Patient Temp 35 mmHg (35-46) Arterial Blood pO2 at Patient Temp 79 mmHg (65-108) Arterial Blood HCO3 23 mmol/L (21-28) Arterial Blood Base Excess 0 mmol/L (-3-3) FiO2 100% bipap Test 04/29/20 11:15 04/29/20 13:02 Vancomycin Level Trough 22.0 mcg/mL (10.0-20.0) Vancomycin Last Dose Date 04/28/20 Vancomycin Last Dose Time 1200 Glucose (Fingerstick) 248 mg/dL (70-99) Laboratory Tests Test 04/29/20 08:10 04/29/20 11:15 04/29/20 13:02 O2 Saturation 95 % (92-99) Arterial Blood pH 7.45 (7.35-7.45) Arterial Blood pCO2 at Patient Temp 35 mmHg (35-46) Arterial Blood pO2 at Patient Temp 79 mmHg (65-108) Arterial Blood HCO3 23 mmol/L (21-28) Arterial Blood Base Excess 0 mmol/L (-3-3) FiO2 100% bipap Vancomycin Level Trough 22.0 mcg/mL (10.0-20.0) Vancomycin Last Dose Date 04/28/20 Vancomycin Last Dose Time 1200 Glucose (Fingerstick) 248 mg/dL (70-99) Microbiology 04/28/20 Urine Culture - Final, Complete 04/27/20 Blood Culture - Preliminary, Resulted NO GROWTH AFTER 1 DAY Medications Current Medications Ondansetron HCl (Zofran) 4 mg STK-MED ONCE .ROUTE ; Start 04/27/20 at 03:24; Stop 04/27/20 at 03:24; Status DC Ondansetron HCl (Zofran) 4 mg PRN Q4HRS PRN IV NAUSEA/VOMITING Last administered on 04/29/20at 14:37; Start 04/27/20 at 08:15; Stop 04/29/20 at 16:26; Status DC Docusate Sodium (Colace) 100 mg PRN BID PRN PO HARD STOOLS; Start 04/27/20 at 08:15; Status Cancel Albuterol Sulfate (Ventolin Neb Soln) 2.5 mg PRN Q4HRS PRN NEB SHORTNESS OF BREATH; Start 04/27/20 at 08:15; Status Cancel Guaifenesin (Robitussin) 200 mg PRN Q4HRS PRN PO COUGH; Start 04/27/20 at 08:15; Stop 04/29/20 at 16:26; Status DC Lorazepam (Ativan) 0.5 mg PRN Q4HRS PRN PO ANXIETY / AGITATION Last administered on 04/29/20at 04:47; Start 04/27/20 at 08:15; Stop 04/29/20 at 16:26; Status DC Enoxaparin Sodium (Lovenox 40mg Syringe) 40 mg Q12H SQ ; Start 04/27/20 at 09:00; Status UNV Dextrose (Dextrose 50%-Water Syringe) 12.5 gm PRN Q15MIN PRN IV SEE COMMENTS; Start 04/27/20 at 08:15; Status Cancel Acetaminophen (Tylenol) 650 mg PRN Q4HRS PRN PO TEMP OVER 100.4F OR MILD PAIN Last administered on 04/28/20at 23:40; Start 04/27/20 at 08:15 Albuterol Sulfate (Ventolin Neb Soln) 2.5 mg PRN Q4HRS PRN NEB SHORTNESS OF BREATH Last administered on 04/28/20at 17:39; Start 04/27/20 at 08:15; Stop 04/29/20 at 16:26; Status DC Apixaban (Eliquis) 2.5 mg BID PO ; Start 04/27/20 at 09:00; Stop 04/27/20 at 14:4 1; Status DC Aspirin (Aspirin Chewable) 81 mg DAILYWBKFT PO Last administered on 04/29/20at 08:10; Start 04/27/20 at 08:30; Stop 04/29/20 at 16:26; Status DC Atorvastatin Calcium (Lipitor) 40 mg QHS PO Last administered on 04/28/20at 20:50; Start 04/27/20 at 21:00; Stop 04/29/20 at 16:26; Status DC Diltiazem HCl (Cardizem 24hr Cd) 300 mg DAILY PO ; Start 04/27/20 at 09:00; Stop 04/28/20 at 10:25; Status DC Docusate Sodium (Colace) 100 mg PRN BID PRN PO HARD STOOLS; Start 04/27/20 at 08:15; Stop 04/29/20 at 16:26; Status DC Lactobacillus Rhamnosus (Culturelle) 1 cap BID PO Last administered on 04/29/20at 08:10; Start 04/27/20 at 09:00; Stop 04/29/20 at 16:26; Status DC Polyethylene Glycol (miraLAX PACKET) 17 gm DAILY PO Last administered on 04/29/20at 08:11; Start 04/27/20 at 09:00; Stop 04/29/20 at 16:26; Status DC Potassium Chloride (Klor-Con) 10 meq DAILY PO ; Start 04/27/20 at 09:00; Stop 04/29/20 at 16:26; Status DC Senna/Docusate Sodium (Senna Plus) 1 tab PRN BID PRN PO CONSTIPATION 1ST CHOICE; Start 04/27/20 at 08:15; Stop 04/29/20 at 16:26; Status DC Tamsulosin HCl (Flomax) 0.4 mg DAILY PO Last administered on 04/29/20at 08:10; Start 04/27/20 at 09:00; Stop 04/29/20 at 16:26; Status DC Torsemide (Demadex) 20 mg BID92 PO Last administered on 04/29/20at 08:10; Start 04/27/20 at 09:00; Stop 04/29/20 at 09:32; Status DC Metoprolol Succinate (Toprol Xl) 50 mg DAILY PO ; Start 04/27/20 at 09:00; Stop 04/28/20 at 10:26; Status DC Pantoprazole Sodium (Protonix) 40 mg DAILYAC PO ; Start 04/27/20 at 08:30; Stop 04/27/20 at 14:47; Status DC Piperacillin Sod/ Tazobactam Sod 3.375 gm/Sodium Chloride 50 ml @ 100 mls/hr Q6HRS IV ; Start 04/27/20 at 12:00; Status UNV Info (Anti-Coagulation Monitoring By Pharmacy) 1 each PRN DAILY PRN MC SEE COMMENTS; Start 04/27/20 at 08:45; Stop 04/27/20 at 14:41; Status DC Vancomycin HCl (Vanco Per Pharmacy) 1 each PRN DAILY PRN MC SEE COMMENTS Last administered on 04/29/20at 12:07; Start 04/27/20 at 11:00; Stop 04/29/20 at 16:26; Status DC Cefepime HCl (Maxipime) 1 gm Q12HR IVP Last administered on 04/29/20at 08:11; Start 04/27/20 at 12:00; Stop 04/29/20 at 16:26; Status DC Vancomycin HCl 2 gm/Sodium Chloride 500 ml @ 250 mls/hr 1X ONCE IV Last administered on 04/27/20at 11:45; Start 04/27/20 at 12:00; Stop 04/27/20 at 13:59; Status DC Sodium Bicarbonate (Sodium Bicarb Adult 8.4% Syr) 50 meq STK-MED ONCE .ROUTE ; Start 04/27/20 at 11:25; Stop 04/27/20 at 11:26; Status DC Sterile Water (WATER for RESP) 1,000 ml CONT PRN INH VIA VAPOTHERM DEVICE Last administered on 04/28/20at 08:40; Start 04/27/20 at 11:45; Stop 04/29/20 at 16:26; Status DC Sodium Bicarbonate (Sodium Bicarb Adult 8.4% Syr) 50 meq 1X ONCE IV Last administered on 04/27/20at 11:41; Start 04/27/20 at 11:45; Stop 04/27/20 at 11:46; Status DC Labetalol HCl (Normodyne Iv Push) 20 mg PRN Q2HR PRN IVP HYPERTENSION Last administered on 04/27/20 14:29; Start 04/27/20 at 14:00; Stop 04/29/20 at 16:26; Status DC Acetaminophen (Tylenol Supp) 325 mg PRN Q6HRS PRN AL MILD PAIN / TEMP > 100.3'F Last administered on 04/27/20at 14:29; Start 04/27/20 at 14:30; Stop 04/27/20 at 16:47; Status DC Vancomycin HCl 750 mg/Sodium Chloride 250 ml @ 250 mls/hr Q24H IV ; Start 04/28/20 at 12:00; Status Cancel Vancomycin HCl (Vancomycin Trough Level) 1 each 1X ONCE MC Last administered on 04/29/20at 11:30; Start 04/29/20 at 11:30; Stop 04/29/20 at 11:31; Status DC Enoxaparin Sodium (Lovenox 40mg Syringe) 40 mg Q12HR SQ Last administered on 04/28/20at 08:34; Start 04/27/20 at 21:00; Stop 04/28/20 at 09:39; Status DC Vancomycin HCl 2 gm/Sodium Chloride 500 ml @ 250 mls/hr Q24H IV Last administered on 04/28/20 11:58; Start 04/28/20 at 12:00; Stop 04/29/20 at 12:05; Status DC Pantoprazole Sodium (PROTONIX VIAL for IV PUSH) 40 mg DAILY IVP Last administered on 04/29/20at 08:10; Start 04/28/20 at 09:00; Stop 04/29/20 at 16:26; Status DC Acetaminophen (Tylenol Supp) 650 mg PRN Q6HRS PRN AL MILD PAIN / TEMP > 100.3'F Last administered on 04/28/20at 00:36; Start 04/27/20 at 16:45; Stop 04/29/20 at 16:26; Status DC Diltiazem HCl (Cardizem) 60 mg Q6H PO Last administered on 04/29/20at 11:42; Start 04/28/20 at 11:00; Stop 04/29/20 at 16:26; Status DC Metoprolol Tartrate (Lopressor) 25 mg BID PO Last administered on 04/29/20at 0 8:10; Start 04/28/20 at 11:00; Stop 04/29/20 at 16:26; Status DC Insulin Human Lispro (HumaLOG) 0-7 UNITS Q6HRS SQ Last administered on 04/29/20at 13:04; Start 04/28/20 at 12:00; Stop 04/29/20 at 16:26; Status DC Dextrose (Dextrose 50%-Water Syringe) 12.5 gm PRN Q15MIN PRN IV SEE COMMENTS; Start 04/28/20 at 10:45; Stop 04/29/20 at 16:26; Status DC Apixaban (Eliquis) 5 mg BID PO Last administered on 04/29/20at 08:10; Start 04/28/20 at 11:00; Stop 04/29/20 at 16:26; Status DC Furosemide (Lasix) 40 mg 1X ONCE IVP Last administered on 04/28/20at 17:37; Start 04/28/20 at 17:30; Stop 04/28/20 at 17:35; Status DC Lorazepam (Ativan Inj) 2 mg STK-MED ONCE .ROUTE ; Start 04/28/20 at 17:45; Stop 04/28/20 at 17:45; Status DC Lorazepam (Ativan Inj) 2 mg 1X ONCE IVP Last administered on 04/28/20at 17:56; Start 04/28/20 at 18:00; Stop 04/28/20 at 18:01; Status DC Levetiracetam 500 mg/Dextrose 105 ml @ 420 mls/hr Q12HR IV Last administered on 04/29/20at 08:11; Start 04/28/20 at 21:00; Stop 04/29/20 at 16:26; Status DC Morphine Sulfate (Morphine Sulfate) 3 mg PRN Q4HRS PRN IV PAIN/AIR HUNGER Last administered on 04/29/20at 02:53; Start 04/28/20 at 22:00 Sodium Chloride 1,000 ml @ 125 mls/hr 1X ONCE IV Last administered on 04/29/20at 09:37; Start 04/29/20 at 09:30; Stop 04/29/20 at 17:29; Status DC Vancomycin HCl 1.5 gm/Sodium Chloride 500 ml @ 250 mls/hr Q24H IV Last administered on 04/29/20at 15:52; Start 04/29/20 at 15:00; Stop 04/29/20 at 16:26; Status DC Vancomycin HCl (Vancomycin Trough Level) 1 each 1X ONCE MC ; Start 05/01/20 at 14:30; Stop 05/01/20 at 14:31; Status Cancel Morphine Sulfate (Morphine Sulfate) 5 mg PRN Q30MIN PRN IV PAIN; Start 04/29/20 at 16:30 Lorazepam (Ativan Inj) 1 mg PRN Q1HR PRN IVP ANXIETY / AGITATION Last administered on 04/29/20at 22:06; Start 04/29/20 at 16:30 Sterile Water (WATER for RESP) 1,000 ml CONT PRN INH VIA VAPOTHERM DEVICE; Start 04/30/20 at 04:30 Active Scripts Active Culturelle (Lactobacillus Rhamnosus Gg) 1 Each Cap.sprink 1 Cap PO BID 30 Days Polyethylene Glycol 3350 17 Gm Powd.pack 17 Gm PO DAILY 30 Days Dok (Docusate Sodium) 100 Mg Capsule 100 Mg PO PRN BID PRN 14 Days Torsemide 20 Mg Tablet 20 Mg PO BID92 30 Days Tylenol (Acetaminophen) 325 Mg Tablet 650 Mg PO PRN Q4HRS PRN 30 Days Aspirin 81 Mg Tab.chew 81 Mg PO DAILYWBKFT 30 Days Eliquis (Apixaban) 2.5 Mg Tablet 2.5 Mg PO BID 30 Days Proair Hfa (Albuterol Sulfate) 8.5 Gm Hfa.aer.ad 2.5 Mg NEB PRN Q4HRS PRN 30 Days Potassium Chloride (Potassium Chloride) 10 Meq Tab.sr.24h 10 Meq PO DAILY 30 Days Senna-Time S Tablet (Sennosides/Docusate Sodium) 1 Each Tablet 1 Tab PO PRN BID PRN 30 Days Flomax (Tamsulosin Hcl) 0.4 Mg Cap.er.24h 0.4 Mg PO DAILY 30 Days Cardizem Cd (Diltiazem Hcl) 300 Mg Cap.er.24h 300 Mg PO DAILY 30 Days Reported Toprol Xl (Metoprolol Succinate) 50 Mg Tab.er.24h 50 Mg PO DAILY Glipizide 10 Mg Tablet 10 Mg PO DAILY Omeprazole 40 Mg Capsule.dr 40 Mg PO DAILY Atorvastatin Calcium 40 Mg Tablet 40 Mg PO DAILY Vitals/I & O Vital Sign - Last 24 Hours 04/29/20 04/29/20 04/29/20 04/29/20 08:00 08:00 08:10 09:00 Temp 100.0 100.0 Pulse 121 120 123 Resp 19 19 B/P (MAP) 114/73 (87) 114/73 133/86 (102) Pulse Ox 99 99 O2 Delivery Bi-pap BiPAP/CPAP BiPAP/CPAP 04/29/20 04/29/20 04/29/20 04/29/20 10:00 11:00 11:42 11:46 Temp 99.9 99.9 Pulse 123 137 134 Resp 22 27 B/P (MAP) 117/81 (93) 131/78 (95) 131/78 Pulse Ox 97 97 98 O2 Delivery BiPAP/CPAP BiPAP/CPAP BiPAP/CPAP 04/29/20 04/29/20 04/29/20 04/29/20 12:00 12:00 13:00 14:00 Temp 99.6 99.6 Pulse 131 121 123 Resp 24 24 21 B/P (MAP) 102/81 (88) 152/75 (100) 152/75 (100) Pulse Ox 100 92 94 O2 Delivery Bi-pap BiPAP/CPAP BiPAP/CPAP BiPAP/CPAP 04/29/20 04/29/20 04/29/20 04/29/20 15:00 16:00 16:00 16:00 Temp 100.0 100.0 Pulse 130 121 Resp B/P (MAP) 148/82 (104) 108/65 (79) Pulse Ox 85 84 O2 Delivery BiPAP/CPAP Vapotherm Nasal Cannula O2 Flow Rate 40.0 40.0 40.0 04/29/20 04/29/20 04/29/20 04/29/20 17:00 18:00 19:00 19:45 Pulse 122 118 111 Resp 27 25 B/P (MAP) 107/63 (78) 108/71 (83) 104/58 (73) Pulse Ox 92 93 88 O2 Delivery Vapotherm Vapotherm Vapotherm O2 Flow Rate 40.0 40.0 40.0 40.0 6/804/29/20 04/29/20 04/29/20 19:45 19:56 20:00 21:00 Temp 98.1 98.1 Pulse 117 121 Resp 28 26 B/P (MAP) 118/74 (89) 123/73 (90) Pulse Ox 90 91 92 O2 Delivery Nasal Cannula Vepotherm Vapotherm Vapotherm O2 Flow Rate 40.0 40.0 40.0 40.0 04/29/20 04/29/20 04/29/20 04/30/20 21:44 22:00 23:00 00:00 Pulse 124 130 Resp 26 30 B/P (MAP) 118/76 (90) 116/61 (79) Pulse Ox 92 76 66 O2 Delivery Vepotherm Vapotherm Vapotherm Nasal Cannula O2 Flow Rate 40.0 40.0 40.0 40.0 04/30/20 04/30/20 04/30/20 04/30/20 00:00 00:05 01:00 01:31 Temp 98.3 98.3 Pulse 125 134 Resp 28 32 B/P (MAP) 93/64 (74) 86/62 (70) Pulse Ox 75 76 75 O2 Delivery Vapotherm Vapotherm Vepotherm O2 Flow Rate 40.0 40.0 40.0 40.0 04/30/20 04/30/20 04/30/20 04/30/20 02:00 03:00 03:30 03:30 Pulse 130 128 Resp 32 32 B/P (MAP) 99/63 (75) 111/57 (75) Pulse Ox 82 80 O2 Delivery Vapotherm Vapotherm Nasal Cannula O2 Flow Rate 40.0 40.0 40.0 40.0 04/30/20 04/30/20 04/30/20 04/30/20 04:00 04:24 05:00 06:00 Temp 98.3 98.3 Pulse 133 140 130 Resp 30 32 36 B/P (MAP) 120/66 (84) 111/67 (82) 95/71 (79) Pulse Ox 85 82 79 80 O2 Delivery Vapotherm Vepotherm Vapotherm Vapotherm O2 Flow Rate 40.0 40.0 40.0 40.0 04/30/20 07:00 Pulse 149 Resp 29 B/P (MAP) 111/71 (84) Pulse Ox 76 O2 Delivery Vapotherm O2 Flow Rate 40.0 Intake and Output 04/29/20 04/29/20 04/30/20 15:00 23:00 07:00 Intake Total 105 ml 733 ml Output Total 118 ml 220 ml 95 ml Balance -13 ml 513 ml -95 ml BRIAN JARAMILLO MD Apr 30, 2020 07:40
--- NOTE | 2020-04-30 08:14 | NUR ---
Dr. Abreu and Dr. Al both assessed pt this morning and spoke with and grand daughter. Pt to be moved to comfort measures at 0900 when daughter Milly arrives.
--- NOTE | 2020-04-30 08:45 | RAD ---
Examination: PORTABLE CHEST 1V History: aspiration PNA 102 Comparison/Correlation: 04/28/2020 AP view of the chest Findings: Portable semiupright frontal view of chest was obtained. Enteric tube is identified terminating in stomach. Surgical clips are present at the subcarinal level. Opacification of the entire right hemithorax is seen in the interval. Resolution of much and appears is in the midthoracic linear atelectasis is noted. Minimal left basilar linear atelectasis is seen. Minimal left costophrenic angle blunting which may represent a small pleural effusion is again seen. Mediastinal shift to the right is noted. Obscuration right heart border is noted in the interval. Impression: Complete opacification right hemithorax and interval which may represent underlying aspiration pneumonia or other obstructive airway process on the right with associated complete atelectasis and effusion. Small left effusion. Mild left basilar atelectasis in the interval. Resolution of left mid thoracic level linear atelectasis. Electronically signed by: Wesley Reyes MD (04/30/2020 8:42 AM) [id number]
--- NOTE | 2020-04-30 09:09 | NUR ---
SS following up with discharge planning. SS reviewed pt chart and discussed with pt RN. Pt's RN requested referral be sent for inpatient hospice. She reported that family is withdrawing care today. SS phoned and faxed referral to [facility], ; fax [phone], for inpatient hospice. Pt's RN and physician notified. SS will continue to follow as needed.
--- NOTE | 2020-04-30 09:21 | PDOC ---
PROGRESS NOTES Assessment Problems Medical Problems: (1) Altered mental status Status: Acute (2) CVA (cerebral vascular accident) Status: Acute Bilateral PLEDS, worse on the right Previous CVAs 3 minute seizure 04/28 Encephalopathy Acute respiratory failure with hypoxia NOREEN in CKD, atrial fibrillation, diabetes, hyperlipidemia, gastroesophageal reflux disease Plan Comfort care Levetiracetam Discussed with , granddaughter, and Dr. Al Subjective None Objective Vital Signs Date Time Temp Pulse Resp B/P (MAP) Pulse Ox O2 Delivery O2 Flow Rate FiO2 04/30/20 08:56 77 Vepotherm 40.0 04/30/20 07:00 98.7 149 29 111/71 (84) 98.7 Intake and Output 04/30/20 07:00 Intake Total 838 ml Output Total 433 ml Balance 405 ml IV Total 838 ml Output Urine Total 433 ml PHYSICAL EXAM Appears comfortable Review of Relevant I have reviewed the following items logan (where applicable) has been applied. Labs Laboratory Tests Test 04/28/20 10:15 04/28/20 12:06 04/28/20 17:43 04/28/20 23:36 Urine Collection Type Unknown Urine Color Yellow Urine Clarity Cloudy Urine pH 5.0 (<5.0-8.0) Urine Specific [place] 1.025 (1.000-1.030) Urine Protein >=300 mg/dL (NEG-TRACE) Urine Glucose (UA) >=1000 mg/dL (NEG) Urine Ketones (Stick) 15 mg/dL (NEG) Urine Blood Trace (NEG) Urine Nitrite Negative (NEG) Urine Bilirubin Negative (NEG) Urine Urobilinogen Dipstick 0.2 mg/dL (0.2 mg/dL) Urine Leukocyte Esterase Trace (NEG) Urine RBC 0 /HPF (0-2) Urine WBC 5-10 /HPF (0-4) Urine Squamous Epithelial Cells Mod /LPF Urine Transitional Epithelial Cells Few /LPF Urine Amorphous Sediment Present /HPF Urine Bacteria 0 /HPF (0-FEW) Urine Granular Casts Moderate /HPF Urine Mucus Mod /LPF Glucose (Fingerstick) 185 mg/dL (70-99) 164 mg/dL (70-99) 195 mg/dL (70-99) Test 04/29/20 03:20 04/29/20 05:37 04/29/20 08:10 6/8/20 11:15 White Blood Count 20.5 x10^3/uL (4.0-11.0) Red Blood Count 3.77 x10^6/uL (4.30-5.70) Hemoglobin 11.3 g/dL (13.0-17.5) Hematocrit 34.3 % (39.0-53.0) Mean Corpuscular Volume 91 fL (79-100) Mean Corpuscular Hemoglobin 30 pg (25-35) Mean Corpuscular Hemoglobin Concent 33 g/dL (31-37) Red Cell Distribution Width 15.9 % (11.5-14.5) Platelet Count 226 x10^3/uL (140-400) Neutrophils (%) (Auto) 86 % (31-73) Lymphocytes (%) (Auto) 7 % (24-48) Monocytes (%) (Auto) 7 % (0-9) Eosinophils (%) (Auto) 0 % (0-3) Basophils (%) (Auto) 0 % (0-3) Neutrophils # (Auto) 17.5 x10^3/uL (1.8-7.7) Lymphocytes # (Auto) 1.4 x10^3/uL (1.0-4.8) Monocytes # (Auto) 1.5 x10^3/uL (0.0-1.1) Eosinophils # (Auto) 0.0 x10^3/uL (0.0-0.7) Basophils # (Auto) 0.0 x10^3/uL (0.0-0.2) Sodium Level 141 mmol/L (136-145) Potassium Level 3.7 mmol/L (3.5-5.1) Chloride Level 98 mmol/L (98-107) Carbon Dioxide Level 24 mmol/L (21-32) Anion Gap 19 (6-14) Blood Urea Nitrogen 37 mg/dL (8-26) Creatinine 2.7 mg/dL (0.7-1.3) Estimated GFR (Cockcroft-Gault) 23.2 BUN/Creatinine Ratio 14 (6-20) Glucose Level 228 mg/dL (70-99) Calcium Level 8.7 mg/dL (8.5-10.1) Total Bilirubin 1.0 mg/dL (0.2-1.0) Aspartate Amino Transf (AST/SGOT) 14 U/L (15-37) Alanine Aminotransferase (ALT/SGPT) 21 U/L (16-63) Alkaline Phosphatase 56 U/L (46-116) Total Protein 6.3 g/dL (6.4-8.2) Albumin 3.0 g/dL (3.4-5.0) Albumin/Globulin Ratio 0.9 (1.0-1.7) Glucose (Fingerstick) 248 mg/dL (70-99) O2 Saturation 95 % (92-99) Arterial Blood pH 7.45 (7.35-7.45) Arterial Blood pCO2 at Patient Temp 35 mmHg (35-46) Arterial Blood pO2 at Patient Temp 79 mmHg (65-108) Arterial Blood HCO3 23 mmol/L (21-28) Arterial Blood Base Excess 0 mmol/L (-3-3) FiO2 100% bipap Vancomycin Level Trough 22.0 mcg/mL (10.0-20.0) Vancomycin Last Dose Date 04/28/20 Vancomycin Last Dose Time 1200 Test 04/29/20 13:02 Glucose (Fingerstick) 248 mg/dL (70-99) Laboratory Tests Test 04/29/20 11:15 04/29/20 13:02 Vancomycin Level Trough 22.0 mcg/mL (10.0-20.0) Vancomycin Last Dose Date 04/28/20 Vancomycin Last Dose Time 1200 Glucose (Fingerstick) 248 mg/dL (70-99) Microbiology 04/28/20 Urine Culture - Final, Complete 04/27/20 Blood Culture - Preliminary, Resulted NO GROWTH AFTER 1 DAY Medications Current Medications Ondansetron HCl (Zofran) 4 mg STK-MED ONCE .ROUTE ; Start 04/27/20 at 03:24; Stop 04/27/20 at 03:24; Status DC Ondansetron HCl (Zofran) 4 mg PRN Q4HRS PRN IV NAUSEA/VOMITING Last administered on 04/29/20at 14:37; Start 04/27/20 at 08:15; Stop 04/29/20 at 16:26; Status DC Docusate Sodium (Colace) 100 mg PRN BID PRN PO HARD STOOLS; Start 04/27/20 at 08:15; Status Cancel Albuterol Sulfate (Ventolin Neb Soln) 2.5 mg PRN Q4HRS PRN NEB SHORTNESS OF BREATH; Start 04/27/20 at 08:15; Status Cancel Guaifenesin (Robitussin) 200 mg PRN Q4HRS PRN PO COUGH; Start 04/27/20 at 08:15; Stop 04/29/20 at 16:26; Status DC Lorazepam (Ativan) 0.5 mg PRN Q4HRS PRN PO ANXIETY / AGITATION Last administered on 04/29/20at 04:47; Start 04/27/20 at 08:15; Stop 04/29/20 at 16:26; Status DC Enoxaparin Sodium (Lovenox 40mg Syringe) 40 mg Q12H SQ ; Start 04/27/20 at 09:00; Status UNV Dextrose (Dextrose 50%-Water Syringe) 12.5 gm PRN Q15MIN PRN IV SEE COMMENTS; Start 04/27/20 at 08:15; Status Cancel Acetaminophen (Tylenol) 650 mg PRN Q4HRS PRN PO TEMP OVER 100.4F OR MILD PAIN Last administered on 04/28/20at 23:40; Start 04/27/20 at 08:15 Albuterol Sulfate (Ventolin Neb Soln) 2.5 mg PRN Q4HRS PRN NEB SHORTNESS OF BREATH Last administered on 04/28/20at 17:39; Start 04/27/20 at 08:15; Stop 04/29/20 at 16:26; Status DC Apixaban (Eliquis) 2.5 mg BID PO ; Start 04/27/20 at 09:00; Stop 04/27/20 at 14:41; Status DC Aspirin (Aspirin Chewable) 81 mg DAILYWBKFT PO Last administered on 04/29/20at 08:10; Start 04/27/20 at 08:30; Stop 04/29/20 at 16:26; Status DC Atorvastatin Calcium (Lipitor) 40 mg QHS PO Last administered on 04/28/20at 20:50; Start 04/27/20 at 21:00; Stop 04/29/20 at 16:26; Status DC Diltiazem HCl (Cardizem 24hr Cd) 300 mg DAILY PO ; Start 04/27/20 at 09:00; Stop 04/28/20 at 10:25; Status DC Docusate Sodium (Colace) 100 mg PRN BID PRN PO HARD STOOLS; Start 04/27/20 at 08:15; Stop 04/29/20 at 16:26; Status DC Lactobacillus Rhamnosus (Culturelle) 1 cap BID PO Last administered on 04/29/20at 08:10; Start 04/27/20 at 09:00; Stop 04/29/20 at 16:26; Status DC Polyethylene Glycol (miraLAX PACKET) 17 gm DAILY PO Last administered on 04/29/20at 08:11; Start 04/27/20 at 09:00; Stop 04/29/20 at 16:26; Status DC Potassium Chloride (Klor-Con) 10 meq DAILY PO ; Start 04/27/20 at 09:00; Stop 04/29/20 at 16:26; Status DC Senna/Docusate Sodium (Senna Plus) 1 tab PRN BID PRN PO CONSTIPATION 1ST CHOICE; Start 04/27/20 at 08:15; Stop 04/29/20 at 16:26; Status DC Tamsulosin HCl (Flomax) 0.4 mg DAILY PO Last administered on 04/29/20at 08:10; Start 04/27/20 at 09:00; Stop 04/29/20 at 16:26; Status DC Torsemide (Demadex) 20 mg BID92 PO Last administered on 04/29/20at 08:10; Start 04/27/20 at 09:00; Stop 04/29/20 at 09:32; Status DC Metoprolol Succinate (Toprol Xl) 50 mg DAILY PO ; Start 04/27/20 at 09:00; Stop 04/28/20 at 10:26; Status DC Pantoprazole Sodium (Protonix) 40 mg DAILYAC PO ; Start 04/27/20 at 08:30; Stop 04/27/20 at 14:47; Status DC Piperacillin Sod/ Tazobactam Sod 3.375 gm/Sodium Chloride 50 ml @ 100 mls/hr Q6HRS IV ; Start 04/27/20 at 12:00; Status UNV Info (Anti-Coagulation Monitoring By Pharmacy) 1 each PRN DAILY PRN MC SEE COMMENTS; Start 04/27/20 at 08:45; Stop 04/27/20 at 14:41; Status DC Vancomycin HCl (Vanco Per Pharmacy) 1 each PRN DAILY PRN MC SEE COMMENTS Last administered on 04/29/20at 12:07; Start 04/27/20 at 11:00; Stop 04/29/20 at 16:26; Status DC Cefepime HCl (Maxipime) 1 gm Q12HR IVP Last administered on 04/29/20at 08:11; Start 04/27/20 at 12:00; Stop 04/29/20 at 16:26; Status DC Vancomycin HCl 2 gm/Sodium Chloride 500 ml @ 250 mls/hr 1X ONCE IV Last administered on 04/27/20at 11:45; Start 04/27/20 at 12:00; Stop 04/27/20 at 13:59; Status DC Sodium Bicarbonate (Sodium Bicarb Adult 8.4% Syr) 50 meq STK-MED ONCE .ROUTE ; Start 04/27/20 at 11:25; Stop 04/27/20 at 11:26; Status DC Sterile Water (WATER for RESP) 1,000 ml CONT PRN INH VIA VAPOTHERM DEVICE Last administered on 04/28/20at 08:40; Start 04/27/20 at 11:45; Stop 04/29/20 at 16:26; Status DC Sodium Bicarbonate (Sodium Bicarb Adult 8.4% Syr) 50 meq 1X ONCE IV Last administered on 04/27/20at 11:41; Start 04/27/20 at 11:45; Stop 04/27/20 at 11:46; Status DC Labetalol HCl (Normodyne Iv Push) 20 mg PRN Q2HR PRN IVP HYPERTENSION Last administered on 04/27/20at 14:29; Start 04/27/20 at 14:00; Stop 04/29/20 at 16:26; Status DC Acetaminophen (Tylenol Supp) 325 mg PRN Q6HRS PRN VT MILD PAIN / TEMP > 100.3'F Last administered on 04/27/20at 14:29; Start 04/27/20 at 14:30; Stop 04/27/20 at 16:47; Status DC Vancomycin HCl 750 mg/Sodium Chloride 250 ml @ 250 mls/hr Q24H IV ; Start 04/28/20 at 12:00; Status Cancel Vancomycin HCl (Vancomycin Trough Level) 1 each 1X ONCE MC Last administered on 04/29/20at 11:30; Start 04/29/20 at 11:30; Stop 6/8/20 at 11:31; Status DC Enoxaparin Sodium (Lovenox 40mg Syringe) 40 mg Q12HR SQ Last administered on 04/28/20at 08:34; Start 04/27/20 at 21:00; Stop 04/28/20 at 09:39; Status DC Vancomycin HCl 2 gm/Sodium Chloride 500 ml @ 250 mls/hr Q24H IV Last administered on 04/28/20at 11:58; Start 04/28/20 at 12:00; Stop 04/29/20 at 12:05; Status DC Pantoprazole Sodium (PROTONIX VIAL for IV PUSH) 40 mg DAILY IVP Last administered on 04/29/20at 08:10; Start 04/28/20 at 09:00; Stop 04/29/20 at 16:26; Status DC Acetaminophen (Tylenol Supp) 650 mg PRN Q6HRS PRN [place] MILD PAIN / TEMP > 100.3'F Last administered on 04/28/20at 00:36; Start 04/27/20 at 16:45; Stop 04/29/20 at 1 6:26; Status DC Diltiazem HCl (Cardizem) 60 mg Q6H PO Last administered on 04/29/20at 11:42; Start 04/28/20 at 11:00; Stop 04/29/20 at 16:26; Status DC Metoprolol Tartrate (Lopressor) 25 mg BID PO Last administered on 04/29/20at 08:10; Start 04/28/20 at 11:00; Stop 04/29/20 at 16:26; Status DC Insulin Human Lispro (HumaLOG) 0-7 UNITS Q6HRS SQ Last administered on 04/29/20at 13:04; Start 04/28/20 at 12:00; Stop 04/29/20 at 16:26; Status DC Dextrose (Dextrose 50%-Water Syringe) 12.5 gm PRN Q15MIN PRN IV SEE COMMENTS; Start 04/28/20 at 10:45; Stop 04/29/20 at 16:26; Status DC Apixaban (Eliquis) 5 mg BID PO Last administered on 04/29/20at 08:10; Start 04/28/20 at 11:00; Stop 04/29/20 at 16:26; Status DC Furosemide (Lasix) 40 mg 1X ONCE IVP Last administered on 04/28/20at 17:37; Start 04/28/20 at 17:30; Stop 04/28/20 at 17:35; Status DC Lorazepam (Ativan Inj) 2 mg STK-MED ONCE .ROUTE ; Start 04/28/20 at 17:45; Stop 04/28/20 at 17:45; Status DC Lorazepam (Ativan Inj) 2 mg 1X ONCE IVP Last administered on 04/28/20at 17:56; Start 04/28/20 at 18:00; Stop 04/28/20 at 18:01; Status DC Levetiracetam 500 mg/Dextrose 105 ml @ 420 mls/hr Q12HR IV Last administered on 04/29/20at 08:11; Start 04/28/20 at 21:00; Stop 04/29/20 at 16:26; Status DC Morphine Sulfate (Morphine Sulfate) 3 mg PRN Q4HRS PRN IV PAIN/AIR HUNGER Last administered on 04/29/20at 02:53; Start 04/28/20 at 22:00 Sodium Chloride 1,000 ml @ 125 mls/hr 1X ONCE IV Last administered on 04/29/20at 09:37; Start 04/29/20 at 09:30; Stop 04/29/20 at 17:29; Status DC Vancomycin HCl 1.5 gm/Sodium Chloride 500 ml @ 250 mls/hr Q24H IV Last administered on 04/29/20at 15:52; Start 04/29/20 at 15:00; Stop 04/29/20 at 16:26; Status DC Vancomycin HCl (Vancomycin Trough Level) 1 each 1X ONCE MC ; Start 05/01/20 at 14:30; Stop 05/01/20 at 14:31; Status Cancel Morphine Sulfate (Morphine Sulfate) 5 mg PRN Q30MIN PRN IV PAIN; Start 04/29/20 at 16:30 Lorazepam (Ativan Inj) 1 mg PRN Q1HR PRN IVP ANXIETY / AGITATION Last administered on 04/29/20at 22:06; Start 04/29/20 at 16:30 Sterile Water (WATER for RESP) 1,000 ml CONT PRN INH VIA VAPOTHERM DEVICE; Start 04/30/20 at 04:30 Active Scripts Active Culturelle (Lactobacillus Rhamnosus Gg) 1 Each Cap.sprink 1 Cap PO BID 30 Days Polyethylene Glycol 3350 17 Gm Powd.pack 17 Gm PO DAILY 30 Days Dok (Docusate Sodium) 100 Mg Capsule 100 Mg PO PRN BID PRN 14 Days Torsemide 20 Mg Tablet 20 Mg PO BID92 30 Days Tylenol (Acetaminophen) 325 Mg Tablet 650 Mg PO PRN Q4HRS PRN 30 Days Aspirin 81 Mg Tab.chew 81 Mg PO DAILYWBKFT 30 Days Eliquis (Apixaban) 2.5 Mg Tablet 2.5 Mg PO BID 30 Days Proair Hfa (Albuterol Sulfate) 8.5 Gm Hfa.aer.ad 2.5 Mg NEB PRN Q4HRS PRN 30 D ays Potassium Chloride (Potassium Chloride) 10 Meq Tab.sr.24h 10 Meq PO DAILY 30 Days Senna-Time S Tablet (Sennosides/Docusate Sodium) 1 Each Tablet 1 Tab PO PRN BID PRN 30 Days Flomax (Tamsulosin Hcl) 0.4 Mg Cap.er.24h 0.4 Mg PO DAILY 30 Days Cardizem Cd (Diltiazem Hcl) 300 Mg Cap.er.24h 300 Mg PO DAILY 30 Days Reported Toprol Xl (Metoprolol Succinate) 50 Mg Tab.er.24h 50 Mg PO DAILY Glipizide 10 Mg Tablet 10 Mg PO DAILY Omeprazole 40 Mg Capsule.dr 40 Mg PO DAILY Atorvastatin Calcium 40 Mg Tablet 40 Mg PO DAILY Vitals/I & O Vital Sign - Last 24 Hours 04/29/20 04/29/20 04/29/20 04/29/20 10:00 11:00 11:42 11:46 Temp 99.9 99.9 Pulse 123 137 134 Resp 22 27 B/P (MAP) 117/81 (93) 131/78 (95) 131/78 Pulse Ox 97 97 98 O2 Delivery BiPAP/CPAP BiPAP/CPAP BiPAP/CPAP 04/29/20 04/29/20 04/29/20 04/29/20 12:00 12:00 13:00 14:00 Temp 99.6 99.6 Pulse 131 121 123 Resp 24 24 21 B/P (MAP) 102/81 (88) 152/75 (100) 152/75 (100) Pulse Ox 100 92 94 O2 Delivery Bi-pap BiPAP/CPAP BiPAP/CPAP BiPAP/CPAP 604/29/20 04/29/20 04/29/20 15:00 16:00 16:00 16:00 Temp 100.0 100.0 Pulse 130 121 Resp 25 27 B/P (MAP) 148/82 (104) 108/65 (79) Pulse Ox 85 84 O2 Delivery BiPAP/CPAP Vapotherm Nasal Cannula O2 Flow Rate 40.0 40.0 40.0 04/29/20 04/29/20 04/29/20 04/29/20 17:00 18:00 19:00 19:45 Pulse 122 118 111 Resp 27 27 25 B/P (MAP) 107/63 (78) 108/71 (83) 104/58 (73) Pulse Ox 92 93 88 O2 Delivery Vapotherm Vapotherm Vapotherm O2 Flow Rate 40.0 40.0 40.0 40.0 04/29/20 04/29/20 04/29/20 04/29/20 19:45 19:56 20:00 21:00 Temp 98.1 98.1 Pulse 117 121 Resp 28 26 B/P (MAP) 118/74 (89) 123/73 (90) Pulse Ox 90 91 92 O2 Delivery Nasal Cannula Vepotherm Vapotherm Vapotherm O2 Flow Rate 40.0 40.0 40.0 40.0 04/29/20 04/29/20 04/29/20 04/30/20 21:44 22:00 23:00 00:00 Pulse 124 130 Resp 26 30 B/P (MAP) 118/76 (90) 116/61 (79) Pulse Ox 92 76 66 O2 Delivery Vepotherm Vapotherm Vapotherm Nasal Cannula O2 Flow Rate 40.0 40.0 40.0 40.0 04/30/20 04/30/20 04/30/20 04/30/20 00:00 00:05 01:00 01:31 Temp 98.3 98.3 Pulse 125 134 Resp 28 32 B/P (MAP) 93/64 (74) 86/62 (70) Pulse Ox 75 76 75 O2 Delivery Vapotherm Vapotherm Vepotherm O2 Flow Rate 40.0 40.0 40.0 40.0 04/30/20 04/30/20 04/30/20 04/30/20 02:00 03:00 03:30 03:30 Pulse 130 128 Resp 32 32 B/P (MAP) 99/63 (75) 111/57 (75) Pulse Ox 82 80 O2 Delivery Vapotherm Vapotherm Nasal Cannula O2 Flow Rate 40.0 40.0 40.0 40.0 04/30/20 04/30/20 04/30/20 04/30/20 04:00 04:24 05:00 06:00 Temp 98.3 98.3 Pulse 133 140 130 Resp 30 32 36 B/P (MAP) 120/66 (84) 111/67 (82) 95/71 (79) Pulse Ox 85 82 79 80 O2 Delivery Vapotherm Vepotherm Vapotherm Vapotherm O2 Flow Rate 40.0 40.0 40.0 40.0 04/30/20 04/30/20 04/30/20 04/30/20 07:00 07:39 07:39 08:56 Temp 98.7 98.7 Pulse 149 Resp 29 B/P (MAP) 111/71 (84) Pulse Ox 76 77 O2 Delivery Vapotherm Nasal Cannula Vepotherm O2 Flow Rate 40.0 40.0 40.0 40.0 Intake and Output 04/29/20 04/29/20 04/30/20 15:00 23:00 07:00 Intake Total 105 ml 733 ml Output Total 118 ml 220 ml 95 ml Balance -13 ml 513 ml -95 ml Justicifation of Admission Dx: Justifications for Admission: Justification of Admission Dx: Yes Respiratory Failure: Severe Resp Distress GUMARO MONET MD Apr 30, 2020 09:20
[2020-04-30] MEDS: MORPHINE SULFATE 10 MG/ML VIAL. IV PRN ×2 (10:25→11:59)
--- NOTE | 2020-04-30 10:31 | NUR ---
At 1030 pt was moved to comfort measures. PRN Ativan and Morphine administered. Family at bedside. Family requests to leave monitor on. 4LNC on for comfort.
--- NOTE | 2020-04-30 11:15 | PDOC ---
PULMONARY PROGRESS NOTES Subjective Pt. remains non responsive, family at bedside on comfort care Vitals Vital Signs Date Time Temp Pulse Resp B/P (MAP) Pulse Ox O2 Delivery O2 Flow Rate FiO2 04/30/20 10:25 80 Nasal Cannula 4.0 04/30/20 07:00 98.7 149 29 111/71 (84) 98.7 Lungs: Other (few rhonchi) Cardiovascular: S1, S2 Abdomen: Soft Extremities: Other (1+edema) Labs Laboratory Tests Test 04/28/20 12:06 04/28/20 17:43 04/28/20 23:36 04/29/20 03:20 Glucose (Fingerstick) 185 mg/dL (70-99) 164 mg/dL (70-99) 195 mg/dL (70-99) White Blood Count 20.5 x10^3/uL (4.0-11.0) Red Blood Count 3.77 x10^6/uL (4.30-5.70) Hemoglobin 11.3 g/dL (13.0-17.5) Hematocrit 34.3 % (39.0-53.0) Mean Corpuscular Volume 91 fL (79-100) Mean Corpuscular Hemoglobin 30 pg (25-35) Mean Corpuscular Hemoglobin Concent 33 g/dL (31-37) Red Cell Distribution Width 15.9 % (11.5-14.5) Platelet Count 226 x10^3/uL (140-400) Neutrophils (%) (Auto) 86 % (31-73) Lymphocytes (%) (Auto) 7 % (24-48) Monocytes (%) (Auto) 7 % (0-9) Eosinophils (%) (Auto) 0 % (0-3) Basophils (%) (Auto) 0 % (0-3) Neutrophils # (Auto) 17.5 x10^3/uL (1.8-7.7) Lymphocytes # (Auto) 1.4 x10^3/uL (1.0-4.8) Monocytes # (Auto) 1.5 x10^3/uL (0.0-1.1) Eosinophils # (Auto) 0.0 x10^3/uL (0.0-0.7) Basophils # (Auto) 0.0 x10^3/uL (0.0-0.2) Sodium Level 141 mmol/L (136-145) Potassium Level 3.7 mmol/L (3.5-5.1) Chloride Level 98 mmol/L (98-107) Carbon Dioxide Level 24 mmol/L (21-32) Anion Gap 19 (6-14) Blood Urea Nitrogen 37 mg/dL (8-26) Creatinine 2.7 mg/dL (0.7-1.3) Estimated GFR (Cockcroft-Gault) 23.2 BUN/Creatinine Ratio 14 (6-20) Glucose Level 228 mg/dL (70-99) Calcium Level 8.7 mg/dL (8.5-10.1) Total Bilirubin 1.0 mg/dL (0.2-1.0) Aspartate Amino Transf (AST/SGOT) 14 U/L (15-37) Alanine Aminotransferase (ALT/SGPT) 21 U/L (16-63) Alkaline Phosphatase 56 U/L (46-116) Total Protein 6.3 g/dL (6.4-8.2) Albumin 3.0 g/dL (3.4-5.0) Albumin/Globulin Ratio 0.9 (1.0-1.7) Test 04/29/20 05:37 04/29/20 08:10 04/29/20 11:15 04/29/20 13:02 Glucose (Fingerstick) 248 mg/dL (70-99) 248 mg/dL (70-99) O2 Saturation 95 % (92-99) Arterial Blood pH 7.45 (7.35-7.45) Arterial Blood pCO2 at Patient Temp 35 mmHg (35-46) Arterial Blood pO2 at Patient Temp 79 mmHg (65-108) Arterial Blood HCO3 23 mmol/L (21-28) Arterial Blood Base Excess 0 mmol/L (-3-3) FiO2 100% bipap Vancomycin Level Trough 22.0 mcg/mL (10.0-20.0) Vancomycin Last Dose Date 04/28/20 Vancomycin Last Dose Time 1200 Laboratory Tests Test 04/29/20 11:15 04/29/20 13:02 Vancomycin Level Trough 22.0 mcg/mL (10.0-20.0) Vancomycin Last Dose Date 04/28/20 Vancomycin Last Dose Time 1200 Glucose (Fingerstick) 248 mg/dL (70-99) Medications Active Scripts Medications Dose Route/Sig Max Daily Dose Days Date Category Culturelle (Lactobacillus Rhamnosus Gg) 1 Each Cap.sprink 1 Cap PO BID 30 01/17/20 Rx Polyethylene Glycol 3350 17 Gm Powd.pack 17 Gm PO DAILY 30 01/17/20 Rx Dok (Docusate Sodium) 100 Mg Capsule 100 Mg PO PRN BID PRN 14 01/17/20 Rx Torsemide 20 Mg Tablet 20 Mg PO BID92 30 01/17/20 Rx Tylenol (Acetaminophen) 325 Mg Tablet 650 Mg PO PRN Q4HRS PRN 30 01/17/20 Rx Aspirin 81 Mg Tab.chew 81 Mg PO DAILYWBKFT 30 01/17/20 Rx Eliquis (Apixaban) 2.5 Mg Tablet 2.5 Mg PO BID 30 01/17/20 Rx Proair Hfa (Albuterol Sulfate) 8.5 Gm Hfa.aer.ad 2.5 Mg NEB PRN Q4HRS PRN 30 01/17/20 Rx Potassium Chloride (Potassium Chloride) 10 Meq Tab.sr.24h 10 Meq PO DAILY 30 12/10/19 Rx Senna-Time S Tablet (Sennosides/Docusate Sodium) 1 Each Tablet 1 Tab PO PRN BID PRN 30 09/08/18 Rx Flomax (Tamsulosin Hcl) 0.4 Mg Cap.er.24h 0.4 Mg PO DAILY 30 09/08/18 Rx Cardizem Cd (Diltiazem Hcl) 300 Mg Cap.er.24h 300 Mg PO DAILY 30 09/08/18 Rx Toprol Xl (Metoprolol Succinate) 50 Mg Tab.er.24h 50 Mg PO DAILY 06/19/14 Reported Glipizide 10 Mg Tablet 10 Mg PO DAILY 06/19/14 Reported Omeprazole 40 Mg Capsule.dr 40 Mg PO DAILY 06/19/14 Reported Atorvastatin Calcium 40 Mg Tablet 40 Mg PO DAILY 06/19/14 Reported Comments CXR 04/27/2020 IMPRESSION: Diffuse interstitial opacities may be interstitial edema or pneumonia. CT head 04/27/2020 IMPRESSION: 1. No evidence for acute intracranial process. 2. White matter changes, likely chronic small vessel disease. 3. Generalized cerebral atrophy. Impression . IMPRESSION: 1. Acute hypoxic respiratory failure secondary to likely another ischemic stroke. The patient has prior history of cerebrovascular accident. 2. Encephalopathy, likely related to cerebrovascular accident and sepsis. 3. Highly suspected aspiration pneumonia. The patient has a fever of 101 and had emesis x 2 and infiltrates seen on the chest x-ray. 4. The patient has prior history of lung surgery for removal of metal soda cap from his right upper lobe. 5. Leukocytosis secondary to aspiration pneumonia. 6. Low-suspicion for COVID-19. Test neg 7. Acute kidney injury versus chronic kidney disease. 8. seizures Plan . RECOMMENDATIONS: family at bed side comfort care will sign off KAYE BLEDSOE MD Apr 30, 2020 11:15
--- NOTE | 2020-04-30 13:18 | NUR ---
SS following up with discharge planning. Pt's family not wanting to sing consents for GIP with [facility]. Pt's family requesting GIP with [facility], ; fax [phone]. [facility] reported that they do not have a contract with [place] and would reach out to there business office to discuss. SS will continue to follow.
[2020-04-30] MEDS: MORPHINE SULFATE 30 ML IV PRN ×2 (15:33→18:23)
--- NOTE | 2020-04-30 19:51 | NUR ---
Spoke to Milly (step daughter) and gave an update on pt's condition of BPS in 60s syt, spo2s in the 70s, and respirations 10 RPM. Step daughter was concern for pt to return back to [facility] which he has been with the last few months. She was also concerned that he is comfortable during palliative care. She is ok with calling her anytime of the night if any signifcant events are to occur. continue with plan of care
--- NOTE | 2020-04-30 20:17 | NUR ---
Pt HR is significantly lowered to the 30-40s which significantly less than 140-170s/with unreadable BPS, and sats in the 65s. Milly was contacted that pt is declining and will pass here soon and is advised to alert family to come in. Milly is agreeable and will inform others. She was also informed that there can be two visitors. After the call with family, pt lost pulse and @ 2017. 2 RNs listened without heart sounds and agrees that pt is . in the Unit is aware.
--- NOTE | 2020-04-30 22:48 | NUR ---
Patient has a single shirt in possession bag. this will placed with when going to in [facility]
--- NOTE | 2020-05-01 00:53 | NUR ---
Pt had a black watch and dentures that were found in room which are in his bag of possesions at the [facility]. Contacted [facility] to notify them of time pt was transported to the [facility] @[id number]
--- NOTE | 2020-05-01 07:15 | PDOC3 ---
Discharge Summary Visit Information Date of Admission: Apr 27, 2020 Date of Discharge: Apr 30, 2020 Admitting Diagnosis: Acute encephalopathy Final Diagnosis Problems Medical Problems: (1) Altered mental status Status: Acute (2) CVA (cerebral vascular accident) Status: Acute Brief Hospital Course Allergies Allergies Coded Allergies Type Severity Reaction Last Updated Verified Penicillins Allergy Intermediate hives 04/27/20 Yes Vital Signs Vital Signs Date Time Temp Pulse Resp B/P (MAP) Pulse Ox O2 Delivery O2 Flow Rate FiO2 04/30/20 20:17 0 0 Nasal Cannula 4.0 04/30/20 20:15 57 04/30/20 19:00 96.4 96.4 Lab Results Laboratory Tests Test 04/29/20 08:10 04/29/20 11:15 04/29/20 13:02 O2 Saturation 95 % (92-99) Arterial Blood pH 7.45 (7.35-7.45) Arterial Blood pCO2 at Patient Temp 35 mmHg (35-46) Arterial Blood pO2 at Patient Temp 79 mmHg (65-108) Arterial Blood HCO3 23 mmol/L (21-28) Arterial Blood Base Excess 0 mmol/L (-3-3) FiO2 100% bipap Vancomycin Level Trough 22.0 mcg/mL (10.0-20.0) Vancomycin Last Dose Date 04/28/20 Vancomycin Last Dose Time 1200 Glucose (Fingerstick) 248 mg/dL (70-99) Brief Hospital Course Mr Van is a 74yo M w/ PMHx chronic atrial fibrillation, history of CVA, type 2 diabetes, GERD, dyslipidemia, hypertension, peripheral vascular disease admitted for unresponsiveness and emesis, concern for initial CVA. He did not meet the criteria for TPA. Noted with fever of 101 and dyspneic and hypoxic. He was transferred to ICU after noted on med/tele more hypoxic and vomiting. ABG pH of 7.32, pCO2 of 39, a pO2 of 61 on nonrebreather mask. CXR with interstitial infiltrates, more on the right upper lobe suggesting aspiration. Head CT negative. Consulted Pulmonology and Neurology. Despite lack of sedation patient did not awaken and was unable to maintain O2 saturations > 88% despite BIPAP and vapotherm. , daughters, and grand- daughter were clear about his DNR/DNI status. 04/29: CR up to 2.7 from 1.8. UOP dropped. He did receive x1 IV lasix 40mg on 04/28 and his home dosing of torsemide. Not meaningfully interacting. some lue movement. Afebrile. BIPAP 16/09 100% FiO2 currently. Seizures noted and confirmed on EEG 04/30: Vomiting on BIPAP UOP minimal. No meaningful responses.On vapotherm currently with O2 saturations 96%. Seizures discussed with family by neurology. Grand-daughter and bedside today have requested that he be placed on comfort care at 0900 when his daughter, Milly arrives. At 2016 on 04/30 he became bradycardic and notably ceased respiratory functions. Problem list: Acute Encephalopathy - likely metabolic 2/2 cerebrovascular accident and toxic 2/2 sepsis. Acute hypoxic respiratory failure - likely 2/2 CVA and pneumonia Abnormal CXR - likely aspiration pneumonia Sepsis - febrile, tachy H/o lung surgery for removal of metal soda cap from his right upper lobe. Low-suspicion for COVID-19. He has been at home for the last 2 months except that he went a few days ago for his cutting of nail. Acute kidney injury versus chronic kidney disease - vasomotor nephropathy Chronic A. 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 Lymphedema Seizures - confirmed on EEG 04/29/2020 Greater than 30 minutes spent in care on day of expiration Discharge Information Condition at Discharge: / Disposition/Orders: Scheduled Apixaban (Eliquis) 2.5 Mg Tablet, 2.5 MG PO BID for heart for 30 Days, #60 Prescribed by: ROXANNA YING MD on 01/17/201522 Last Action: Continued on 04/27/20816 by JD GRANADOS MD Aspirin (Aspirin) 81 Mg Tab.chew, 81 MG PO DAILYWBKFT for heart health for 30 Days, #30 Prescribed by: ROXANNA YING MD on 01/17/201522 Last Action: Continued on 04/27/20816 by JD GRANADOS MD Atorvastatin Calcium (Atorvastatin Calcium) 40 Mg Tablet, 40 MG PO DAILY for FOR CHOLESTEROL, #30 Ref 0 (Reported) Entered as Reported by: YUNI STEINBERG on 06/19/14 1433 Last Action: Continued on 04/27/20816 by JD GRANADOS MD Diltiazem Hcl (Cardizem Cd) 300 Mg Cap.er.24h, 300 MG PO DAILY for FOR HYPERTENSION for 30 Days, #30 Ref 2 Prescribed by: BRIAN JARAMILLO MD on 09/08/181124 Last Action: Continued on 04/27/20816 by JD GRANADOS MD Glipizide (Glipizide) 10 Mg Tablet, 10 MG PO DAILY, (Reported) Entered as Reported by: YUNI STEINBERG on 06/19/14 1440 Lactobacillus Rhamnosus Gg (Culturelle) 1 Each Cap.sprink, 1 CAP PO BID for supplement for 30 Days, #60 Prescribed by: ROXANNA YING MD on 01/17/20 1523 Last Action: Continued on 04/27/20816 by JD GRANADOS MD Metoprolol Succinate (Toprol Xl) 50 Mg Tab.er.24h, 50 MG PO DAILY for FOR HYPERTENSION, #30 Ref 0 (Reported) Entered as Reported by: YUNI STEINBERG on 06/19/14 1440 Last Action: Converted on 04/27/20816 by JD GRANADOS MD Omeprazole (Omeprazole) 40 Mg Capsule.dr, 40 MG PO DAILY, (Reported) Entered as Reported by: YUNI SETINBERG on 06/19/14 1436 Last Action: Converted on 04/27/20816 by JD GRANADOS MD Polyethylene Glycol 3350 (Polyethylene Glycol 3350) 17 Gm Powd.pack, 17 GM PO DAILY for prevent constipation for 30 Days, #30 Prescribed by: ROXANNA YING MD on 01/17/20 1523 Last Action: Continued on 04/27/20816 by JD GRANADOS MD Potassium Chloride (Potassium Chloride ) 10 Meq Tab.sr.24h, 10 MEQ PO DAILY for SUPPLEMENT for 30 Days, #30 Prescribed by: KRISTEN MARQUIS on 12/10/19 1043 Last Action: Continued on 04/27/20816 by JD GRANADOS MD Tamsulosin Hcl (Flomax) 0.4 Mg Cap.er.24h, 0.4 MG PO DAILY for 30 Days, #30 Ref 2 Prescribed by: BRIAN JARAMILLO MD on 09/08/181124 Last Action: Continued on 04/27/20816 by JD GRANADOS MD Torsemide (Torsemide) 20 Mg Tablet, 20 MG PO BID92 for heart/ fluid for 30 Days, #60 Prescribed by: ROXANNA YING MD on 01/17/201522 Last Action: Continued on 04/27/20816 by JD GRANADOS MD Scheduled PRN Acetaminophen (Tylenol) 325 Mg Tablet, 650 MG PO PRN Q4HRS PRN for TEMP OVER 100.4F OR MILD PAIN for 30 Days, #90 Prescribed by: ROXANNA YING MD on 01/17/201522 Last Action: Continued on 04/27/20816 by JD GRANADOS MD Albuterol Sulfate (Proair Hfa) 8.5 Gm Hfa.aer.ad, 2.5 MG NEB PRN Q4HRS PRN for SHORTNESS OF BREATH for 30 Days, #120 Prescribed by: ROXANNA YING MD on 01/17/201522 Last Action: Continued on 04/27/20816 by JD GRANADOS MD Docusate Sodium (Dok) 100 Mg Capsule, 100 MG PO PRN BID PRN for HARD STOOLS for 14 Days, #30 Prescribed by: ROXANNA YING MD on 01/17/201522 Last Action: Continued on 04/27/20816 by JD GRANADOS MD Sennosides/Docusate Sodium (Senna-Time S Tablet) 1 Each Tablet, 1 TAB PO PRN BID PRN for CONSTIPATION 1ST CHOICE for 30 Days, #60 Ref 2 Prescribed by: BRIAN JARAMILLO MD on 09/08/18 112 Last Action: Continued on 04/27/20816 by JD GRANADOS MD Justicifation of Admission Dx: Justifications for Admission: Justification of Admission Dx: Yes Respiratory Failure: Severe Resp Distress BRIAN JARAMILLO MD May 01, 2020 07:15
== END 2020-05-01 03:34 | disposition expired | DRG 871 ==
LOC: ER 03:06 → 6 SOUTH 04:47 → 1 WEST ICU 11:45
PROVIDERS: ADMIT Internal Medicine; ATTEND Internal Medicine
PROC: 5A09357 Assistance with Respiratory Ventilation, Less than 24 Consecutive Hours, Continuous Positive Airway Pressure (ICD-10-PCS; principal; 2020-04-28)
DX: A41.9 Sepsis, unspecified organism (principal); J69.0 Pneumonitis due to inhalation of food and vomit; G92 Toxic encephalopathy; J96.01 Acute respiratory failure with hypoxia; E43 Unspecified severe protein-calorie malnutrition; I50.33 Acute on chronic diastolic (congestive) heart failure; I63.9 Cerebral infarction, unspecified; N17.0 Acute kidney failure with tubular necrosis; I13.0 Hypertensive heart and chronic kidney disease with heart failure and stage 1 through stage 4 chronic kidney disease, or unspecified chronic kidney disease; I48.20 Chronic atrial fibrillation, unspecified; N17.9 Acute kidney failure, unspecified; Z68.41 Body mass index [BMI] 40.0-44.9, adult; D63.8 Anemia in other chronic diseases classified elsewhere; E11.22 Type 2 diabetes mellitus with diabetic chronic kidney disease; E11.51 Type 2 diabetes mellitus with diabetic peripheral angiopathy without gangrene; E11.65 Type 2 diabetes mellitus with hyperglycemia; E66.01 Morbid (severe) obesity due to excess calories; E78.00 Pure hypercholesterolemia, unspecified; E78.5 Hyperlipidemia, unspecified; I25.10 Atherosclerotic heart disease of native coronary artery without angina pectoris; I27.20 Pulmonary hypertension, unspecified; I89.0 Lymphedema, not elsewhere classified; K21.9 Gastro-esophageal reflux disease without esophagitis; N18.3 Chronic kidney disease, stage 3 (moderate); R56.9 Unspecified convulsions; Z51.5 Encounter for palliative care; Z66 Do not resuscitate; Z79.01 Long term (current) use of anticoagulants; Z79.82 Long term (current) use of aspirin; Z79.84 Long term (current) use of oral hypoglycemic drugs; Z82.49 Family history of ischemic heart disease and other diseases of the circulatory system; Z86.73 Personal history of transient ischemic attack (TIA), and cerebral infarction without residual deficits; Z87.11 Personal history of peptic ulcer disease; G62.9 Polyneuropathy, unspecified; G89.29 Other chronic pain; M19.90 Unspecified osteoarthritis, unspecified site; Z20.828 Contact with and (suspected) exposure to other viral communicable diseases; Z68.34 Body mass index [BMI] 34.0-34.9, adult
CPT/HCPCS: 36415; 36600; 70450; 71045; 74018; 76770; 80053; 80202; 81001; 82565; 82805; 82962; 83605; 84484; 85007; 85025; 85610; 87040; 87086; 93005; 93880; 94640; 94660; 94760; 95816; 99291; C9113; J0692; J1650; J1815; J1940; J1953; J2060; J2270; J2405; J3370; J3490; J7030; J7040; J7060; G0378; J7613; U0003-CS